=== PATIENT | female | born 1955 | race Caucasian/White ===

== ENCOUNTER 2017-03-18 21:51 | Emergency (ER) | payer BC, OTHER ==
[2017-03-19 00:32] VITALS: BP 140/70
[2017-03-19] MEDS ORDERED: Azithromycin TAB* 250 MG PO ONE (01:41)
--- NOTE | 2017-03-19 01:44 | ED ---
Riki Covarrubias Alok, scribed for Nakul Smith MD on 03/19/17 at 0043 . Respiratory - HPI Summary HPI Summary: 61F presents with a productive-cough with green sputum for the last 3-4 days. Pt also notes fatigue as well as a rash on the left ankle with erythema and purulent drainage. Pt has been using her inhaler and drinking fluids which have been improving her condition. PMHx includes asthma and DM. PCP Dr. Kenney. - History of Current Complaint Chief Complaint: EDUpperRespComplaint Stated Complaint: UPPER RESPIRATORY COMPLAINT/LEFT ANKLE INJURY Time Seen by Provider: 03/19/17 00:34 Hx Obtained From: Patient Onset/Duration: Lasting Days, Still Present Timing: Constant Initial Severity: Moderate Current Severity: Moderate Pain Intensity: 0 Character: Cough (Productive) Sputum Color: Green Aggravating Factor(s): Nothing - Allergy/Home Medications Allergies/Adverse Reactions: Allergies Allergy/AdvReac Type Severity Reaction Status Date / Time Prochlorperazine Allergy Anaphylatic Verified 05/19/14 00:31 [From Compazine] Shock PMH/Surg Hx/FS Hx/Imm Hx Endocrine/Hematology History: Reports: Hx Diabetes, Hx Thyroid Disease Denies: Hx Anticoagulant Therapy Cardiovascular History: Reports: Hx Hypertension Denies: Hx Congestive Heart Failure Respiratory History: Denies: Hx Asthma History: Denies: Hx Renal Disease - Surgical History Surgery Procedure, Year, and Place: THYROIDECTOMY/MOR/KNEE SURGERY /1 C- SECTION/ Infectious Disease History: Denies: Traveled Outside the [place] in Last 30 Days - Family History Known Family History: Positive: Cardiac Disease, Hypertension, Diabetes - Social History Occupation: Retired Lives: With Family Alcohol Use: None Hx Substance Use: No Substance Use Type: Reports: None Hx Tobacco Use: No Smoking Status (MU): Never Smoked Tobacco Review of Systems Negative: Fever Positive: Cough Positive: Rash All Other Systems Reviewed And Are Negative: Yes Physical Exam Triage Information Reviewed: Yes Vital Signs On Initial Exam: Initial Vitals Temp Pulse Resp BP Pulse Ox 99.0 F 75 18 138/75 95 03/18/17 22:05 03/18/17 22:05 03/18/17 22:05 03/18/17 22:05 03/18/17 22:05 Vital Signs Reviewed: Yes Appearance: Positive: Well-Appearing, No Pain Distress Skin: Positive: Warm Head/Face: Positive: Normal Head/Face Inspection Eyes: Positive: TYE ENT: Positive: Hearing grossly normal Neck: Positive: Supple Respiratory/Lung Sounds: Positive: Clear to Auscultation, Breath Sounds Present Cardiovascular: Positive: RRR Abdomen Description: Positive: Nontender, Soft Bowel Sounds: Positive: Present Musculoskeletal: Positive: Strength/ROM Intact - no lesions seen Neurological: Positive: Alert, Oriented to Person Place, Time Psychiatric: Positive: Normal Diagnostics - Vital Signs Vital Signs Temp Pulse Resp BP Pulse Ox 03/19/17 00:00 98.7 F 77 14 140/70 99 03/18/17 22:05 99.0 F 75 18 138/75 95 - Laboratory Lab Statement: Any lab studies that have been ordered have been reviewed, and results considered in the medical decision making process. - Radiology CXR Xray Interpretation: No Acute Changes Radiology Interpretation Completed By: ED Physician - Dr. Smith Re-Evaluation - Re-Evaluation First Eval Re-Evaluation Time: 01:44 Change: Improved Comment: Discussed pt XRAY and lab results. Disposition - Diagnoses Provider Diagnoses: Bronchitis Discharge - Discharge Plan Condition: Improved Disposition: HOME Prescriptions: RX: Azithromycin TAB* [Zithromax TAB (Z-YELENA) 250 mg #6 tabs] 250 mg PO DAILY #4 tab Patient Education Materials: Acute Bronchitis (ED) Referrals: Igor Kenney MD [Primary Care Provider] - The documentation as recorded by the Riki mueller Alok accurately reflects the service I personally performed and the decisions made by me, Nakul Smith MD.
--- NOTE | 2017-03-19 07:55 | RAD ---
Indication: Cough. 2 views of the chest including dual energy PA views demonstrate no mediastinal shift. Heart is of normal size and configuration. Lung paz appear clear. IMPRESSION: No active cardiopulmonary disease is noted.
== END 2017-03-19 01:52 | disposition home or self-care (01) ==
LOC: ED 21:51
DX: J40 Bronchitis, not specified as acute or chronic (principal); R05 Cough; R21 Rash and other nonspecific skin eruption
CPT/HCPCS: 71020; 99282; A9270-GY

== ENCOUNTER 2017-12-28 17:22 | Emergency (ER) | payer BC, OTHER ==
--- NOTE | 2017-12-28 18:44 | RAD ---
INDICATION: Left elbow pain after a fall the previous day COMPARISON: None. TECHNIQUE: 5 views left elbow. REPORT: There is a left elbow joint effusion with approximately 5 mm of elevation of the posterior fat pad. There is linear density along the medial aspect of the medial upper condyle possibly representing an avulsion fracture. There is a questionably a nondisplaced impacted fracture of the left radial head with a faintly visible horizontal line seen on the AP view of the elbow. IMPRESSION: 1. There is a posterior left elbow effusion and questionable nondisplaced fracture involving the left radial head. 2. Bony density immediately lateral and adjacent to the medial upper condyle is probably chronic in nature but could represent an avulsion injury if this correlates to the focality of the patient's pain.
--- NOTE | 2017-12-28 20:32 | ED ---
Ibrahima Covarrubias Natalie, scribed for Jan Arroyo MD on 12/28/17 at 2013 . Upper Extremity Pain - HPI Summary HPI Summary: The pt is a 62 y/o F presenting to the ED c/o pain in left elbow radiating to wrist and hand s/p falling on it yesterday. The pain is rated 5/10 in severity. She is currently being seen by Dr. Sinha for a possible rotator cuff injury, for which she has been prescribed Hydrocodone. She took Hydrocodone 3x since yesterday to treat the pain [employer] to little relief. The pain is aggravated by rotating her arm. The pain is alleviated by holding her arm to her chest. Pt additionally c/o small laceration to forehead. Pt denies LOC. - History of Current Complaint Chief Complaint: EDExtremityUpper Stated Complaint: FALL Time Seen by Provider: 12/28/17 19:53 Hx Obtained From: Patient Mechanism Of Injury: Fall From A Standing Position Onset/Duration: Started Hours Ago - yesterday, Traumatic Severity Initially: Moderate Severity Currently: Moderate Pain Location: Elbow Aggravating Factor(s): Twisting Alleviating Factor(s): Other - holding arm to chest Associated Signs & Symptoms: Positive: Other - small laceration to head, no LOC - Allergies/Home Medications Allergies/Adverse Reactions: Allergies Allergy/AdvReac Type Severity Reaction Status Date / Time prochlorperazine Allergy Anaphylatic Verified 12/28/17 17:44 [From Compazine] Shock PMH/Surg Hx/FS Hx/Imm Hx Endocrine/Hematology History: Reports: Hx Diabetes, Hx Thyroid Disease Denies: Hx Anticoagulant Therapy Cardiovascular History: Reports: Hx Hypertension Denies: Hx Congestive Heart Failure, Hx Pacemaker/ICD Respiratory History: Denies: Hx Asthma History: Reports: Hx Renal Disease - STAGE III Sensory History: Denies: Hx Hearing Aid Psychiatric History: Denies: Hx Panic Disorder - Surgical History Surgery Procedure, Year, and Place: THYROIDECTOMY. CHOLECYSTECTOMY. CARO KNEE SURGERY- REPAIR. . T & A. Lt BREAST - BIOPSY - BENIGN Infectious Disease History: No Infectious Disease History: Denies: Traveled Outside the [place] in Last 30 Days - Family History Known Family History: Positive: Cardiac Disease, Hypertension, Diabetes - Social History Alcohol Use: None Hx Substance Use: No Substance Use Type: Reports: None Hx Tobacco Use: No Smoking Status (MU): Never Smoked Tobacco Review of Systems Positive: Other - left elbow pain Positive: Other - small laceration to forehead Neurological: Negative - LOC All Other Systems Reviewed And Are Negative: Yes Physical Exam - Summary Physical Exam Summary: Appearance: The patient is well-nourished in no acute distress and in no acute pain. Skin: The skin is warm and dry and skin color reflects adequate perfusion. There is a 1.5 superficial lacteration on the front round of the patient's head. HEENT: The head is normocephalic and atraumatic. The pupils are equal and reactive. The conjunctivae are clear and without drainage. Nares are patent and without drainage. Mouth reveals moist mucous membranes and the throat is without erythema and exudate. The external ears are intact. The ear canals are patent and without drainage. The tympanic membranes are intact. Neck: the neck is supple with full range of motion and non-tender. There are no carotid bruits. There is no neck vein distension. Respiratory: Chest is non-tender. Lungs are clear to auscultation and breath sounds are symmetrical and equal. Cardiovascular: Heart is regular rate and rhythm. There is no murmur or rub auscultated. There is no peripheral edema and pulses are symmetrical and equal. Abdomen: The abdomen is soft and non-tender. There are normal bowel sounds heard in all four quadrants and there is no organomegaly palpated. Musculoskeletal: There is no back tenderness noted. Extremities are non-tender with full range of motion, except there is tenderness to range of motion in left elbow with distal neurovascular in tact. There is good capillary refill. There is no peripheral edema or calf tenderness elicited. Neurological: Patient is alert and oriented to person, place and time. The patient has symmetrical motor strength in all four extremities. Cranial nerves are grossly intact. Deep tendon reflexes are symmetrical and equal in all four extremities. Psychiatric: The patient has an appropriate affect and does not exhibit any anxiety or depression. Triage Information Reviewed: Yes Vital Signs On Initial Exam: Initial Vitals Temp Pulse Resp BP Pulse Ox 98.4 F 65 16 144/70 97 12/28/17 17:37 12/28/17 17:37 12/28/17 17:37 12/28/17 17:37 12/28/17 17:37 Vital Signs Reviewed: Yes Diagnostics - Vital Signs Vital Signs Temp Pulse Resp BP Pulse Ox 12/28/17 17:37 98.4 F 65 16 144/70 97 - Laboratory Lab Statement: Any lab studies that have been ordered have been reviewed, and results considered in the medical decision making process. - Radiology Elbow XR Xray Interpretation: Positive (See Comments) - 1. There is a posterior left elbow effusion and questionable nondisplaced fracture involving the left radial head. 2. Bony density immediately lateral and adjacent to the medial upper condyle is probably chronic in nature but could represent an avulsion injury if this correlates to the focality of the patient's pain. ED physician has reviewed this report. Radiology Interpretation Completed By: Radiologist Course/Dx - Course Course Of Treatment: Ms. Guallpa fell yesterday and hurt her left elbow. She has a probable rotator cuff on the left being W/U'd by Dr. Sinha and it was very hard to get up out of bed etc. She was found to have a radial head fracture with a joint effusion and placed in a sling to F/U first of the week with Dr. Sinha. - Diagnoses Provider Diagnoses: Radial head fracture Discharge - Sign-Out/Discharge Documenting (check all that apply): Discharge/Admit/Transfer - Discharge Plan Condition: Stable Disposition: HOME Prescriptions: oxyCODONE/Acetamin 5/325 MG* [Percocet 5/325 TAB*] 1 tab PO Q6H PRN #20 tab MDD 4 PRN Reason: Pain Patient Education Materials: Elbow Fracture (ED) Referrals: Igor Kenney MD [Primary Care Provider] - Etienne Sinha MD [Medical Doctor] - 3 Days Additional Instructions: Take Percocet as prescribed. Follow up with Dr. Sinha next week. Return to the emergency department for any new or worsening symptoms. - Billing Disposition and Condition Condition: STABLE Disposition: HOME The documentation as recorded by the Ibrahima mueller Natalie accurately reflects the service I personally performed and the decisions made by , Jan Arroyo MD.
[2017-12-28 20:53] VITALS: BP 144/78
== END 2017-12-28 20:40 | disposition home or self-care (01) ==
LOC: ED 17:22
DX: S52.122A Displaced fracture of head of left radius, initial encounter for closed fracture (principal); M25.522 Pain in left elbow; S01.81XA Laceration without foreign body of other part of head, initial encounter; W19.XXXA Unspecified fall, initial encounter; Y92.9 Unspecified place or not applicable
CPT/HCPCS: 99282

== ENCOUNTER 2018-02-04 18:14 | Emergency (ER) | payer BC, OTHER ==
[2018-02-04] MEDS ORDERED: Tetan/Diph/Pertus SYR(Tdap)* 0.5 ML SYR(BOOSTRIX) use SYR IM ONE (18:45)
--- NOTE | 2018-02-04 19:23 | RAD ---
INDICATION: LEFT elbow pain post fall. Ipsilateral elbow fracture one month ago. COMPARISON: January 17, 2018 TECHNIQUE: AP, lateral, and oblique views LEFT elbow. REPORT: Displaced anterior fat pad consistent with joint effusion similar to the prior exam. Mildly impacted fracture of the radial head involving approximate 30% of the articular surface demonstrates increased impaction compared with the prior exam suspicious for an acute component. Negative for additional fracture. Medial and lateral epicondyles bone spurs. Unremarkable soft tissue contours. IMPRESSION: Probable acute fracture at the site of previous radial head fracture as described.
--- OUTSIDE RECORDS SUMMARY | 2018-02-04 19:25 | XMS REPORT ---
:1955 External Reference #:[id number] [facility] [place] Address [address] [address] Phone [phone] Care Team Providers Name Role Phone Igor Kenney MD Primary Care Physician Unavailable Payers Type Date Identification Numbers Payment Provider Subscriber Commercial Effective: Policy Number: EVELYN Davin Guallpa 2014 [id number] PayID: [id number] [address] [address] BHAVIK Venegas [address] Commercial Policy Number: [id number] [facility] PayID: [id number] [address] [place] [address] Medigap Part B Expires: 2017 Policy Number: Paola Crete Nakul Guallpa [id number] [facility] PayID: [id number] [address] [place] [address] Medigap Part B Effective: 2010 Policy Number: EVELYN Leos ARAM Guallpa [id number] Expires: 2012 PayID: [id number] [address] [address] BHAVIK Venegas [address] Problems Date Description Provider Status Onset: 01/03/2018 Closed fracture of head of radius Alfonso Lopez MD Active Onset: 10/10/2017 Brachial neuritis Etienne Sinha M.D. Active Onset: 08/01/2017 Disorder of shoulder Etienne Sinha M.D. Active Onset: 06/20/2017 Sprain of shoulder and upper arm Etienne Sinha M.D. Active Onset: 06/20/2017 Localized, primary osteoarthritis Etienne Sinha M.D. Active Onset: 04/25/2017 Localized, secondary osteoarthritis Etienne Sinha M.D. Active Social History Type Date Description Comments Smoking Patient has never smoked Allergies, Adverse Reactions, Alerts Date Description Reaction Status Severity Comments 04/25/2017 Composine active Medications Medication Date Status Form Strength Qnty SIG Indications Ordering Provider Percocet 01/03 Active Tablets 5-325mg 30tab one S52.125A s tablet F every 4-6 Jessica, hours as MD needed for pain Voltaren 08/01 Active Gel 1% 500un Apply 3 M17.12 its Grams To Ernestine, Affected M.D. Area(S) Two To Three Times A Day as Needed [employer] 06/20 Active Tablets 5-325mg 45tab one tab s by mouth Ernestine, every 6 M.D. hours as needed pain Aspirin Adult Low 04/25 Active Tablets 81mg 90tab take one DR lagunas tablet by harley Sinha M.DDahiana daily. Farxiga Active Tablets 10mg 1 by Unknown /0000 mouth every day Fluoxetine HCL Active Capsules 20mg 1 by Unknown (PMDD) /0000 mouth every day Meloxicam Active Tablets 15mg 1 by Unknown /0000 mouth every day Lisinopril Active Tablets 20mg 1 by Unknown /0000 mouth every day Hydrochlorothiazide Active Tablets 25mg 1 by Unknown /0000 mouth every day Levothyroxine Sodium Active Tablets 175mcg 1 by Unknown /0000 mouth every day Trulicity Active Solution 1.5mg/0.5 [place], /0000 Pen-Injec ML neyda Costa MD Atorvastatin Calcium Active Tablets 40mg 1 tab by Avel /0000 mouth , Lexie, daily [employer]ORDIN[employer] Gabapentin Active Capsules 300mg 1 capsule Unknown /0000 by mouth twice daily Endocet 07/26 Hx Tablets 5-325mg 40tab 1 po q 4 s hr prWil Zaragoza M.D. 04/24 Tramadol HCL 06/28 Hx Tablets 50mg 60tab 1 po q 4 s hr prWil Zaragoza M.D. 04/24 [employer] 06/09 Hx Tablets 5-325mg 40tab 1-2 po s q4-6h prn Wil Sinha M.D. 04/24 Ultram 01/05 Hx Tablets 50mg 60tab 1-2 po s qid prWil ZaragozaDDahiana 04/24 Vicodin 12/01 Hx Tablets 5-500mg 45tab 1-2 tabs s by mouth Wil Sinha every 4 M.D. 04/24 hours needed Medications Administered in Office Medication Date Status Form Strength Qnty SIG Indications Ordering Provider Depomedrol Administered Injection Etienne 40MG 017 Mary Sinha Vital Signs Date Vital Result Comment 01/17/2018 Height 61 inches 5'1" Weight 195.00 lb Heart Rate 78 /min Respiratory Rate 17 /min Pain Level 5 BMI (Body Mass Index) 36.8 kg/m2 01/03/2018 Height 61 inches 5'1" Weight 190.00 lb Heart Rate 81 /min BP Systolic Sitting 145 mmHg BP Diastolic Sitting 78 mmHg Respiratory Rate 16 /min Body Temperature 98.3 F Pain Level 2 BMI (Body Mass Index) 35.9 kg/m2 10/10/2017 Height 61 inches 5'1" Weight 190.00 lb Heart Rate 80 /min BP Systolic Sitting 138 mmHg LA lg cuff BP Diastolic Sitting 78 mmHg LA lg cuff Pain Level 2 BMI (Body Mass Index) 35.9 kg/m2 08/29/2017 Height 61 inches 5'1" Weight 190.00 lb per pt Heart Rate 76 /min reg BP Systolic Sitting 130 mmHg Lue, lg cuff BP Diastolic Sitting 84 mmHg Lue, lg cuff Respiratory Rate 16 /min Pain Level 1 right shoulder BMI (Body Mass Index) 35.9 kg/m2 08/01/2017 Height 61 inches 5'1" Weight 190.00 lb BP Systolic 120 mmHg BP Diastolic 82 mmHg Respiratory Rate 20 /min Pain Level 8 BMI (Body Mass Index) 35.9 kg/m2 06/20/2017 Height 61 inches 5'1" Weight 190.00 lb Heart Rate 70 /min BP Systolic 122 mmHg BP Diastolic 65 mmHg Body Temperature 97.9 F Pain Level 3 BMI (Body Mass Index) 35.9 kg/m2 04/25/2017 Height 61 inches 5'1" Weight 194.00 lb Heart Rate 68 /min BP Systolic 134 mmHg BP Diastolic 82 mmHg Respiratory Rate 18 /min Body Temperature 99.0 F Pain Level 0 BMI (Body Mass Index) 36.7 kg/m2 Results Description No Information Procedures Date CPT Code Description Status 01/03/2018 13021 Closed Treatment Radial Head Or Neck FX W/O Completed Manipulation 08/01/201746505 Inject/Drain Joint/Bursa Major Completed 07/26/2011 18705 Xray Knee 3 Views Completed 07/26/2011 09638 Xray Knee 3 Views Completed 07/26/2011 75666 Rad Exam; Knee, Ap&L Completed 07/26/2011 79586 Rad Exam; Knee, Ap&L Completed 06/15/2011 71527 Rad Exam; Knee, Ap&L Completed 06/05/201112476 Removal Implant Deep Wire,Screw Nail, Or Plate Completed 06/05/201105670 Removal Implant Deep Wire,Screw Nail, Or Plate Completed 05/16/2011 10628 Rad Exam; Knee, Ap&L Completed 12/14/2010 17421 Rad Exam; Knee, Ap&L Completed 12/02/2010 41377 Open TX Of Patellar FX W/Internal Fixation And/Or Completed Partial Patelle 12/02/2010 19140 Open TX Of Patellar FX W/Internal Fixation And/Or Completed Partial Patelle 12/01/2010 55613 Rad Exam; Knee, Ap&L Completed 11/23/2010 40901 Rad Exam; Knee, Ap&L Completed 11/17/2010 23042 FX Patella Care Completed Encounters Type Date Location Provider CPT E/M Dx Office Visit 10/10/2017 [facility] Etienne Sinha 14954 S46.011D 2:30p Of Brant Hernandez M17.12 M54.12 R20.2 Office Visit 08/29/2017 1:00p [facility] Etienne Sinha 42410 S46.011D Of Brant Hernandez M17.12 Office Visit 08/01/2017 3:45p [facility] Etienne Sinha 86670 M75.41 Brant Hernandez M17.12 Office Visit 06/20/2017 4:00p [facility] Etienne Sinha 44282 M17.12 Brant Hernandez S46.011A Office Visit 04/25/2017 2:30p [facility] Etienne Sinha, 81673 M17.32 Brant Hernandez Office Visit 08/09/2011 1:15p [facility] Et[facility] Sinha, 43971 844.8 C.MKirsty Hernandez Office Visit 07/26/2011 2:45p [facility] Marge Riggins, 17586 844.9 C.Loli RPA-C 844.8 717.9 Office Visit 05/16/2011 4:45p [facility] Etienne Sinha, 12715 996.78 C.Loli Hernandez Office Visit 12/01/2010 4:00p [facility] Sinha, 61578 822.0 Brant Hernandez Plan of Care Future Appointment(s):02/18/2018 3:15 pm - Alfonso Lopez MD at [facility]02/06/2018 11:00 am - Etienne Sinha M.D. at [facility]01/17/2018 - Alfonso Lopez, MDS52.125A Nondisp fx of head of left radius, init for clos fxNew Therapy:Physical TherapyFollow up:Follow up: 1 month
--- NOTE | 2018-02-04 19:26 | ED ---
Upper Extremity Pain - HPI Summary HPI Summary: 62-year-old female presents with left elbow injury today. She states that she has a history of unbalance and that she tripped on something and landed on her left elbow. She also admits to back pain is in the same location as her previous back pain. She states that she might of pulled something when she fell. She denies any head injury or loss conscious. No other injury. Has full range of motion back and elbow. Had previous fracture to the left elbow month ago that is still heal. her tetanus is not up-to-date. There is no active bleeding. She is diabetic. - History of Current Complaint Chief Complaint: EDLacSutureRecheck Stated Complaint: LT ELBOW INJURY Time Seen by Provider: 02/04/18 18:22 - Allergies/Home Medications Allergies/Adverse Reactions: Allergies Allergy/AdvReac Type Severity Reaction Status Date / Time prochlorperazine Allergy Anaphylatic Verified 02/04/18 18:20 [From Compazine] Shock PMH/Surg Hx/FS Hx/Imm Hx Endocrine/Hematology History: Reports: Hx Diabetes, Hx Thyroid Disease Denies: Hx Anticoagulant Therapy Cardiovascular History: Reports: Hx Hypertension Denies: Hx Congestive Heart Failure, Hx Pacemaker/ICD Respiratory History: Denies: Hx Asthma History: Reports: Hx Renal Disease - STAGE III Sensory History: Denies: Hx Hearing Aid Psychiatric History: Denies: Hx Panic Disorder - Surgical History Surgery Procedure, Year, and Place: THYROIDECTOMY. CHOLECYSTECTOMY. CARO KNEE SURGERY- REPAIR. . T & A. Lt BREAST - BIOPSY - BENIGN Infectious Disease History: No Infectious Disease History: Denies: Traveled Outside the [place] in Last 30 Days - Family History Known Family History: Positive: Cardiac Disease, Hypertension, Diabetes - Social History Alcohol Use: None Hx Substance Use: No Substance Use Type: Reports: None Hx Tobacco Use: No Smoking Status (MU): Never Smoked Tobacco Review of Systems Negative: Fever Negative: Chest Pain Negative: Shortness Of Breath Positive: Myalgia - back pain, left elbow pain Positive: Other - left elbow lac All Other Systems Reviewed And Are Negative: Yes Physical Exam Triage Information Reviewed: Yes Vital Signs On Initial Exam: Initial Vitals Temp Pulse Resp BP Pulse Ox 98.1 F 74 16 130/75 97 02/04/18 18:17 02/04/18 18:17 02/04/18 18:17 02/04/18 18:17 02/04/18 18:17 Vital Signs Reviewed: Yes Appearance: Positive: Well-Appearing Skin: Positive: Warm, Dry, Other - 5cm superficial to 1/2cm wide at end of left elbow Head/Face: Positive: Normal Head/Face Inspection Eyes: Positive: Normal, Conjunctiva Clear Respiratory/Lung Sounds: Positive: Clear to Auscultation, Breath Sounds Present Cardiovascular: Positive: Normal, RRR Musculoskeletal: Positive: Strength/ROM Intact - left elbow, back, Other - tenderness left elbow, good pulse, sensation grossly intact Neurological: Positive: Normal Psychiatric: Positive: Normal Procedures - Laceration/Wound Repair 1 Location: Other - left elbow Description: Linear Anesthesia: Local, 1.0%, Epi Length, Depth and Shape: 5cm by 1/2cm Irrigated w/ Saline (ccs): 100 Closure: Skin Adhesive, Single Layer Suture Type: Prolene Number of Sutures: 3 Diagnostics - Vital Signs Vital Signs Temp Pulse Resp BP Pulse Ox 02/04/18 18:17 98.1 F 74 16 130/75 97 - Laboratory Lab Statement: Any lab studies that have been ordered have been reviewed, and results considered in the medical decision making process. - Radiology elbow Xray Interpretation: Positive (See Comments) - IMPRESSION: Probable acute fracture at the site of previous radial head fracture as described. Radiology Interpretation Completed By: Radiologist Course/Dx - Course Course Of Treatment: 62-year-old female presents with left elbow injury today. She states that she has a history of unbalance and that she tripped on something and landed on her left elbow. She also admits to back pain is in the same location as her previous back pain. She states that she might of pulled something when she fell. She denies any head injury or loss conscious. No other injury. Has full range of motion back and elbow. Had previous fracture to the left elbow month ago that is still heal. her tetanus is not up-to-date. There is no active bleeding. She is diabetic. On exam has laceration left elbow. neurovascular intact. Full range of motion left elbow. Tenderness lower back. Laceration gets wider as it goes down. Place glue one end and 3 stitches on the other. X-ray shows possible acute fx so will have follow up with ortho. has apt with tisha this week. Told to keep the area clean. Patient understands agrees with plan. - Diagnoses Differential Diagnosis/HQI/PQRI: Positive: Fracture (Closed), Strain, Sprain Provider Diagnoses: Laceration of left elbow, Left radial head fracture, Back pain Discharge - Sign-Out/Discharge Documenting (check all that apply): Discharge/Admit/Transfer - Discharge Plan Condition: Good Disposition: HOME Prescriptions: oxyCODONE/Acetamin 5/325 MG* [Percocet 5/325 TAB*] 1 tab PO Q6H PRN #16 tab MDD 4 PRN Reason: Pain Patient Education Materials: Care For Your Stitches (ED), Elbow Fracture (ED) Referrals: Igor Kenney MD [Primary Care Provider] - Bessie Akbar MD [Medical Doctor] - Additional Instructions: Take Tylenol or ibuprofen for pain, use narcotic for break through pain every 6 hours keep in sling ice Keep area clean and dry for 24 hours Return to ED or primary in 10-14 days to have sutures removed Return to ED if develop signs of infection such as fever, spreading redness, or pus - Billing Disposition and Condition Condition: GOOD Disposition: Home
[2018-02-04] MEDS ORDERED: Ketorolac INJ* 30 MG/ML 1 ML VIAL IM ONE (19:28)
[2018-02-04 19:52] VITALS: BP 146/82
== END 2018-02-04 19:52 | disposition home or self-care (01) ==
LOC: ED 18:14
DX: S51.012A Laceration without foreign body of left elbow, initial encounter (principal); W01.0XXA Fall on same level from slipping, tripping and stumbling without subsequent striking against object, initial encounter; Y93.9 Activity, unspecified; Y92.9 Unspecified place or not applicable; Z23 Encounter for immunization; M54.9 Dorsalgia, unspecified; E07.9 Disorder of thyroid, unspecified; E11.22 Type 2 diabetes mellitus with diabetic chronic kidney disease; I12.9 Hypertensive chronic kidney disease with stage 1 through stage 4 chronic kidney disease, or unspecified chronic kidney disease; N18.3 Chronic kidney disease, stage 3 (moderate); Z88.8 Allergy status to other drugs, medicaments and biological substances; Z82.49 Family history of ischemic heart disease and other diseases of the circulatory system; Z83.3 Family history of diabetes mellitus
CPT/HCPCS: 12002; 90471; 90715; 96372; 99283; J1885

== ENCOUNTER 2018-02-16 12:48 | Emergency (ER) | payer BC, OTHER ==
--- OUTSIDE RECORDS SUMMARY | 2018-02-16 12:53 | XMS REPORT ---
:1955 External Reference #:[id number] Author Organization [employer] Address [address] [place] [address] [place] [address] Phone [phone] Care Team Providers Name Role Phone Igor Kenney MD Primary Care Physician Unavailable Payers Type Date Identification Numbers Payment Provider Subscriber Commercial Effective: Policy Number: EVELYN Davin Guallpa 2014 [id number] PayID: [id number] [address] [address] BHAVIK Venegas [address] Commercial Policy Number: [id number] [facility] PayID: [id number] [address] [place] [address] Medigap Part B Expires: 2017 Policy Number: Paola [place] Nakul Guallpa [id number] [facility] PayID: [id number] [address] [place] [address] Medigap Part B Effective: 2010 Policy Number: BS [place] ARAM Guallpa [id number] Expires: 2012 PayID: [id number] [address] [address] BHAVIK Venegas [address] Problems Date Description Provider Status Onset: 01/03/2018 Closed fracture of head of radius Alfonso Lopez MD Active Onset: 10/10/2017 Brachial neuritis Etienne Sinha M.D. Active Onset: 08/01/2017 Disorder of shoulder Etienne Sniha M.D. Active Onset: 06/20/2017 Sprain of shoulder [...] Form Strength Qnty SIG Indications Ordering Provider Cyclobenzaprine HCL 02/06 Active Tablets 10mg 60tab take 1 S52.122D s tablet up Ernestine, to three M.D. times a day as needed Percocet 01/03 Active Tablets 5-325mg 30tab one S52.125A s tablet F every 4-6 Jessica, hours as MD needed for pain Voltaren 08/01 Active Gel 1% 500un Apply 3 M17.12 its Grams To Ernestine, Affected M.D. Area(S) Two To Three Times A Day as Needed Oakwood 06/20 Active Tablets 5-325mg 45tab one tab s by mouth Ernestine, every 6 M.D. hours as needed pain Aspirin Adult Low 04/25 Active Tablets 81mg 90tab take one s tablet by Ernestine, mouth M.D. daily. Farxiga Active Tablets 10mg 1 by [...] mouth every day Trulicity Active Solution 1.5mg/0.5 [place], /0000 Pen-Injec ML neyda Costa MD Atorvastatin Calcium Active Tablets 40mg 1 tab by Avel /0000 mouth , Lexie, daily [employer] Gabapentin Active Capsules 300mg 1 capsule Unknown /0000 by mouth twice daily Endocet 07/26 Hx Tablets 5-325mg 40tab 1 po q 4 s hr prn Wil Sinha M.D. 04/24 Tramadol HCL 06/28 Hx Tablets 50mg 60tab 1 po q 4 s hr prn Wil Sinha M.D. 04/24 Oakwood 06/09 Hx Tablets 5-325mg 40tab 1-2 po s q4-6h prn Wil Sinha M.D. 04/24 Ultram 01/05 Hx Tablets 50mg 60tab 1-2 po s qid prWil Zaragoza M.D. 04/24 Vicodin 12/01 Hx Tablets 5-500mg 45tab 1-2 tabs s by mouth Wil Sinha every 4 M.DDahiana 04/24 hours needed Medications Administered in Office Medication Date Status Form Strength Qnty SIG Indications Ordering Provider Depomedrol Administered Injection Etienne 40MG 017 Mary Sinha Vital Signs Date Vital Result Comment 02/06/2018 Height 61 inches 5'1" Weight 210.00 lb Heart Rate 76 /min BP Systolic 124 mmHg BP Diastolic 72 mmHg Respiratory Rate 14 /min Body Temperature 97.8 F Pain Level 7 BMI (Body Mass Index) 39.7 kg/m2 01/17/2018 Height 61 inches 5'1" Weight 195.00 [...] Information Procedures Date CPT Code Description Status 08/01/201731898 Inject/Drain Joint/Bursa Major W/O US Completed 07/26/2011 74641 Xray Knee 3 Views Completed 07/26/2011 47497 Xray Knee 3 Views Completed 07/26/2011 17440 Rad Exam; Knee, Ap&L Completed 07/26/2011 16188 Rad Exam; Knee, Ap&L Completed 06/15/2011 09081 Rad Exam; Knee, Ap&L Completed 06/05/201113323 Removal Implant Deep Wire,Screw Nail, Or Plate Completed 06/05/201188592 Removal Implant Deep Wire,Screw Nail, Or Plate Completed 05/16/2011 15432 Rad Exam; Knee, Ap&L Completed 12/14/2010 41362 Rad Exam; Knee, Ap&L Completed 12/02/2010 42166 Open TX Of Patellar FX W/Internal Fixation And/Or Completed Partial Patelle 12/02/2010 32154 Open TX Of Patellar FX W/Internal Fixation And/Or Completed Partial Patelle 12/01/2010 77750 Rad Exam; Knee, Ap&L Completed 11/23/2010 25216 Rad Exam; Knee, Ap&L Completed 11/17/2010 02312 FX Patella Care Completed Encounters Type Date Location Provider CPT E/M Dx Office Visit 01/17/2018 [facility] Alfonso Lopez 84180 S52.125A 11:15a Of Brant SERNA S52.122D Office Visit 01/03/2018 10:45a [facility] Alfonso Ellis 30676 S52.125A Of rBant Lopez MD S52.122A Office Visit 10/10/2017 2:30p [facility] Etienne Sinha 23283 S46.011D Of C.Loli Hernandez M17.12 M54.12 R20.2 Office Visit 08/29/2017 1:00p [facility] Mary Cesar S46.011D Of C.M.Pawan Hernandez M17.12 Office Visit 08/01/2017 3:45p [facility] Of Etienne Sinha 29179 M75.41 C.M.Pawan Hernandez M17.12 Office Visit 06/20/2017 4:00p [facility] Etienne Sinha 11730 M17.12 C.Loli Hernandez S46.011A Office Visit 04/25/2017 2:30p [facility] Etienne Sinha 06162 M17.32 C.M.Pawan MYamile Office Visit 08/09/2011 1:15p [facility] Of Etienne Sinha 87382 844.8 C.M.A. M.D. Office Visit 07/26/2011 2:45p [facility] Of Marge Riggins 44962 844.9 C.M.A. RPA-C 844.8 717.9 Office Visit 05/16/2011 4:45p [facility] Of Etienne Sinha 14269 996.78 C.M.A. MDahianaD. Office Visit 12/01/2010 4:00p [facility] Etienne Sinha 18517 822.0 C.M.A. M.D. Plan of Care 02/06/2018 - Etienne Sinha M.D.S52.122D Disp fx of head of left rad, subs for clos fx w ulisesn healNew Medication:Cyclobenzaprine HCL 10 mgFollow up:Call if PT needed for the back Call if shoulder re-eval needed
[2018-02-16 12:57] VITALS: BP 137/74
--- NOTE | 2018-02-16 13:20 | UC ---
Debbie Covarrubias Julia, scribed for Aakash [place] MD on 02/16/18 at 1312 . HPI Wound/Suture Re-check - HPI Summary HPI Summary: This patient is a 62 year old F presenting to [facility] for removal of stitches that were placed at [facility] 11 days ago after she tripped and lacerated her left upper arm on a tray. Patient states that three stitches were placed, however, she states that now only one is visible. Denies pain. Denies allergies. - History Of Current Complaint Chief Complaint: UCSkin Stated Complaint: SUTURE REMOVAL Hx Obtained From: Patient Onset/Duration: Lasting Days Severity: Mild Pain Intensity: 0 Pain Scale Used: 0-10 Numeric - Allergies/Home Medications Allergies/Adverse Reactions: Allergies Allergy/AdvReac Type Severity Reaction Status Date / Time prochlorperazine Allergy Anaphylatic Verified 02/16/18 12:57 [From Compazine] Shock Home Medications: Home Medications Dulaglutide [Trulicity] 0.75 mg SQ 02/16/18 [History] Insulin Glargine,Hum.rec.anlog [Lantus Solostar 5x3 ML PENS] 0 units SUBCUT DAILY 02/16/18 [History Confirmed 02/16/18] Insulin Lispro [Humalog Kwikpen] 100 unit SC 02/16/18 [History] PMH/Surg Hx/FS Hx/Imm Hx Endocrine History: Thyroid Disease Psychological History: Other Other Psychological History: negative Other History Of: Negative For: Anticoagulant Therapy - Surgical History Surgical History: Yes Surgery Procedure, Year, and Place: THYROIDECTOMY. CHOLECYSTECTOMY. CARO KNEE SURGERY- REPAIR. . T & A. Lt BREAST - BIOPSY - BENIGN - Family History Known Family History: Positive: Cardiac Disease, Hypertension, Diabetes - Social History Alcohol Use: Occasionally Substance Use Type: None Smoking Status (MU): Never Smoked Tobacco Review of Systems Constitutional: Negative Skin: Other - healed laceration to left upper arm, with stitches Eyes: Negative Respiratory: Negative Cardiovascular: Negative Gastrointestinal: Negative Genitourinary: Negative Motor: Other - foot drop Neurovascular: Negative Musculoskeletal: Negative Neurological: Other - balance difficulty Psychological: Negative Is Patient Immunocompromised?: No All Other Systems Reviewed And Are Negative: Yes Physical Exam - Summary Physical Exam Summary: Appearance: Well-Appearing, No Pain Distress, Well-Nourished Eyes: conjunctiva clear, no discharge ENT: Hearing grossly normal, no muffled/hoarse voice. Neck: Normal, Supple Respiratory/Lung Sounds: Lungs clear, Normal breath sounds, No respiratory distress, No accessory muscle use Cardiovascular: RRR, No murmur Abdomen: Nontender, Soft, no guarding, not distended Bowel Sounds: Present Musculoskeletal: Normal Neurological: Alert, muscle tone normal Psychiatric:Normal, age appropriate behavior Skin: Normal, Warm, Dry, Normal color, Laceration well healed on left arm with mild erythema at site of suture, no sign of infection, no drainage Triage Information Reviewed: Yes Vital Signs: Initial Vital Signs Temp 98.7 F 02/16/18 12:53 Pulse 92 02/16/18 12:53 Resp 18 02/16/18 12:53 BP 137/74 02/16/18 12:53 Pulse Ox 98 02/16/18 12:53 Vital Signs Reviewed: Yes Course/Dx - Course Course Of Treatment: During the visit today, I removed 1 suture from her left posterior arm , though she had 3 sutures put in 11 days ago. I can see th emarks of other sutures. She has mild erythema , so plan to monitor it and use topical antibiotic if needed. I will prescribe the medication to the pharmacy . Patient expressed understanding . - Differential Dx - Laceration/Wound Provider Diagnoses: Laceration. suture removal Discharge - Sign-Out/Discharge Documenting (check all that apply): Discharge/Admit/Transfer - Discharge Plan Condition: Stable Disposition: HOME Prescriptions: Mupirocin 2% CREAM* [Bactroban 2% CREAM*] 1 applic TOPICAL BID 5 Days #1 tube Patient Education Materials: Stitches Removal (ED) Referrals: Igor Kenney MD [Primary Care Provider] - 1 Week Additional Instructions: Start topical application of the antibiotic if redness in left arm increases. . It has been prescribed to the pharmacy . Follow up with your primary care doctor in 1 week . Return to Urgent care / ER if symptoms get worse. - Billing Disposition and Condition Condition: STABLE Disposition: Home The documentation as recorded by the Debbie mueller Julia accurately reflects the service I personally performed and the decisions made by me, Aakash [place] MD.
== END 2018-02-16 13:20 | disposition home or self-care (01) ==
LOC: UCEAST 12:48
DX: Z48.02 Encounter for removal of sutures (principal)

== ENCOUNTER 2019-04-26 21:14 | Emergency (ER) | payer BC, OTHER ==
[2019-04-26 21:22] VITALS: BP 177/55
--- NOTE | 2019-04-26 21:41 | ED ---
Upper Extremity Pain - HPI Summary HPI Summary: This patient is a 63 year old F presenting to [facility] accompanied by with a chief complaint of pain in right pinky finger since 04/23/19. She reports she slid out of bed, and used her hand to break the fall. On 04/23/19, the finger was not discolored, and on 04/25/19 it became colored. Per triage, the patient rates the pain 2/10 in severity. - History of Current Complaint Chief Complaint: EDExtremityUpper Stated Complaint: BROKEN RIGHT PINKY FINGER PER PT Time Seen by Provider: 04/26/19 21:36 Hx Obtained From: Patient Mechanism Of Injury: Fall From Height Of: Onset/Duration: Started Days Ago Timing: Constant Severity Initially: Mild Severity Currently: Mild Pain Location: Finger Aggravating Factor(s): Nothing Alleviating Factor(s): Nothing Associated Signs & Symptoms: Positive: Bruising - Allergies/Home Medications Allergies/Adverse Reactions: Allergies Allergy/AdvReac Type Severity Reaction Status Date / Time prochlorperazine Allergy Anaphylatic Verified 02/16/18 12:57 [From Compazine] Shock PMH/Surg Hx/FS Hx/Imm Hx Endocrine/Hematology History: Reports: Hx Diabetes - type 2, Hx Thyroid Disease Denies: Hx Anticoagulant Therapy Cardiovascular History: Reports: Hx Hypertension Denies: Hx Congestive Heart Failure, Hx Pacemaker/ICD Respiratory History: Denies: Hx Asthma History: Reports: Hx Renal Disease - STAGE III Sensory History: Denies: Hx Hearing Aid Psychiatric History: Denies: Hx Panic Disorder - Surgical History Surgery Procedure, Year, and Place: THYROIDECTOMY. CHOLECYSTECTOMY. CARO KNEE SURGERY- REPAIR. . T & A. Lt BREAST - BIOPSY - BENIGN Infectious Disease History: No Infectious Disease History: Denies: Traveled Outside the [place] in Last 30 Days - Family History Known Family History: Positive: Cardiac Disease, Hypertension, Diabetes - Social History Lives: With Family Alcohol Use: Occasionally Hx Substance Use: No Substance Use Type: Reports: None Hx Tobacco Use: No Smoking Status (MU): Never Smoked Tobacco Review of Systems Negative: Fever Positive: Other - pain in right pinky finger All Other Systems Reviewed And Are Negative: Yes Physical Exam - Summary Physical Exam Summary: Physical exam findings limited to right hand. Bruising of the distal phalanx, extension of ecchymosis in to proximal finger, no malat finger deformity, good ROM, no sign of tendon disruption. Triage Information Reviewed: Yes Vital Signs On Initial Exam: Initial Vitals Temp Pulse Resp BP Pulse Ox 98.2 F 83 16 177/55 98 04/26/19 21:15 04/26/19 21:15 04/26/19 21:15 04/26/19 21:15 04/26/19 21:15 Vital Signs Reviewed: Yes Diagnostics - Vital Signs Vital Signs Temp Pulse Resp BP Pulse Ox 04/26/19 21:15 98.2 F 83 16 177/55 98 - Laboratory Lab Statement: Any lab studies that have been ordered have been reviewed, and results considered in the medical decision making process. - Radiology Finger X-Ray Radiology Interpretation Completed By: ED Physician Summary of Radiographic Findings: Finger X-Ray reveals, per ED physician, negative for fracture. Pending official radiology report. Course/Dx - Course Course Of Treatment: This patient is a 63 year old F presenting to [facility] accompanied by with a chief complaint of pain in right pinky finger since 04/23/19. She reports she slid out of bed, and used her hand to break the fall. On 04/23/19, the finger was not discolored, and on 04/25/19 it became colored. Per triage, the patient rates the pain 2/10 in severity. Physical exam findings limited to right hand. Bruising of the distal phalanx, extension of ecchymosis in to proximal finger, no malat finger deformity, good ROM, no sign of tendon disruption. Finger X-Ray reveals, per ED physician, negative for fracture. Pending official radiology report. Patient will be discharged. The patient is agreeable with this plan. - Diagnoses Provider Diagnoses: Finger contusion Discharge ED - Sign-Out/Discharge Documenting (check all that apply): Patient Departure - Discharge Patient Received Moderate/Deep Sedation with Procedure: No - Discharge Plan Condition: Good Disposition: HOME Patient Education Materials: Contusion in Adults (ED) Referrals: Igor Kenney MD [Primary Care Provider] - If Needed - Billing Disposition and Condition Condition: GOOD Disposition: Home - Attestation Statements Document Initiated by Scribe: Yes Documenting Scribe: Reshma Burnham Provider For Whom Scribe is Documenting (Include Credential): Jan Chinchilla MD Scribe Attestation: I, Reshma Burnham, scribed for Jan Chinchilla MD on 04/27/19 at 0513. Scribe Documentation Reviewed: Yes Provider Attestation: The documentation as recorded by the yeisonibReshma reno accurately reflects the service I personally performed and the decisions made by me, Jan Chinchilla MD Status of Scribe Document: Viewed
== END 2019-04-26 21:46 | disposition home or self-care (01) ==
LOC: ED 21:14
DX: S60.051A Contusion of right little finger without damage to nail, initial encounter (principal); W06.XXXA Fall from bed, initial encounter; Y92.003 Bedroom of unspecified non-institutional (private) residence as the place of occurrence of the external cause; E11.9 Type 2 diabetes mellitus without complications; E07.9 Disorder of thyroid, unspecified; I10 Essential (primary) hypertension; Z79.4 Long term (current) use of insulin; Z79.899 Other long term (current) drug therapy; Z88.8 Allergy status to other drugs, medicaments and biological substances
CPT/HCPCS: 73140; 99282

== ENCOUNTER 2019-05-15 14:08 | Inpatient (IN) | payer BC, OTHER ==
[2019-05-15 15:11] LABS: ABS Eosinophils 0.1 10^3/ul (0-0.6); ABS Lymphocytes 0.6 10^3/ul (1.0-4.8); ABS Monocytes 0.9 10^3/ul (0-0.8); ABS Neutrophils 9.8 10^3/ul (1.5-7.7); Eosinophil % 0.5 %; Hematocrit 36 % (35-47); Hemoglobin 12.3 g/dL (12.0-16.0); Lymphocyte % 5.5 %; Mean Corpuscular HGB Conc 35 g/dL (31-36); Mean Corpuscular Hemoglobin 30 pg (27-31); Mean Corpuscular Volume 88 fL (80-97); Mean Platelet Volume 7.9 fL (7.4-10.4); Platelet Count 259 10^3/uL (150-450); Red Blood Count 4.04 10^6 /uL (3.70-4.87); Red Cell Distribution Width 14 % (10-15); White Blood Count 11.5 10^3/uL (3.5-10.8)
[2019-05-15 15:27] LABS: Albumin 4.2 g/dL (3.2-5.2); Albumin/Globulin Ratio 1.3 (1-3); BUN/Creatinine Ratio 22.5 (8-20); C Reactive Protein 219.91 mg/L (<8.01); Calcium 9.3 mg/dL (8.6-10.3); EGFR African American 46.9 (>60); EGFR Non-African American 38.7 (>60); Globulin 3.3 g/dL (2-4); Potassium 4.4 mmol/L (3.5-5.0); Total Bilirubin 1.2 mg/dL (0.2-1.0); Total Protein 7.5 g/dL (6.4-8.9)
[2019-05-15 16:27] LABS: Urine Appearance Turbid; Urine Bacteria 3+ (Absent); Urine Bilirubin Negative (Negative); Urine Blood 2+ (Negative); Urine Color Yellow; Urine Glucose 3+(>=500 mg/dL) (Negative); Urine Ketones Negative (Negative); Urine Nitrite Negative (Negative); Urine Protein 1+(30 mg/dL) (Negative); Urine Red Blood Cell 1+(3-5/hpf) (Absent); Urine Specific Gravity 1.018 (1.010-1.030); Urine Urobilinogen Negative (Negative); Urine White Blood Cell 3+(>20/hpf) (Absent)
[2019-05-15] MEDS ORDERED: cefTRIAXone(*) 1 GM in NS 0.9% 50 ML* 50 ML IVPB ONE (16:57)
[2019-05-15] MEDS ORDERED: NS 0.9% IV ONE (16:57)
[2019-05-15] MEDS ORDERED: NS 0.9% 50 ML* 50 ML ONE (17:23)
--- NOTE | 2019-05-15 17:42 | ED ---
Abdominal Pain/Female - HPI Summary HPI Summary: This patient is a 63 year old F presenting to [facility] accompanied by with a chief complaint of LLQ abdominal pain since 05/12/19. Patient states that she took her tempture and reports that it was 100.6 F. The patient rates the pain 0/ 10 in severity. Symptoms aggravated by nothing. Symptoms alleviated by nothing. Patient reports abdominal pain, back pain, dysuria, frequency. Allergies Allergy/AdvReac Type Severity Reaction Status Date / Time prochlorperazine Allergy Anaphylatic Verified 05/15/19 16:02 [From Compazine] Shock Home Medications Medication Instructions Recorded Confirmed Type Cyclobenzaprine TAB* [Flexeril 10 10 mg PO TID PRN 05/15/19 05/15/19 History MG TAB*] Dulaglutide (NF) [Trulicity (NF)] 1.5 mg SUBCUT WEEKLY 05/15/19 05/15/19 History Gabapentin CAP(*) [Neurontin 300 300 mg PO TID 05/15/19 05/15/19 History CAP(*)] Insulin Detemir (NF) [Levemir (NF)] 70 unit SUBCUT BID 05/15/19 05/15/19 History Insulin LISPRO* [HumaLOG*] 2 - 10 units SUBCUT TID WITH MEALS 05/15/19 05/15/19 History Levothyroxine TAB* [Synthroid TAB*] 175 mcg PO DAILY 05/15/19 05/15/19 History Lisinopril TAB* [Prinivil TAB*] 10 mg PO DAILY 05/15/19 05/15/19 History Lisinopril/HCTZ (NF) 1 tab PO DAILY 05/15/19 05/15/19 History [Zestoretic (NF)] Meloxicam(NF) [Mobic(NF)] 15 mg PO DAILY 05/15/19 05/15/19 History Oxybutynin TAB* [Ditropan TAB*] 2.5 mg PO TID 05/15/19 05/15/19 History metFORMIN* [Glucophage 500 MG TAB 500 mg PO DAILY 05/15/19 05/15/19 History *] - History of Current Complaint Chief Complaint: EDUrogenitalProblems Stated Complaint: FEVER/POSS UTI PER PT Time Seen by Provider: 05/15/19 16:55 Hx Obtained From: Patient ?: No Onset/Duration: Lasting Days - 05/12/19 Timing: Constant Severity Currently: None Pain Intensity: 0 Pain Scale Used: 0-10 Numeric Location: Discrete At: LLQ Radiates: Yes Radiates to: Back Character: Sharp Aggravating Factor(s): Nothing Alleviating Factor(s): Nothing Associated Signs and Symptoms: Positive: Fever - 100.6, Back Pain Allergies/Adverse Reactions: Allergies Allergy/AdvReac Type Severity Reaction Status Date / Time prochlorperazine Allergy Anaphylatic Verified 05/15/19 16:02 [From Compazine] Shock Home Medications: Home Medications Cyclobenzaprine TAB* [Flexeril 10 MG TAB*] 10 mg PO TID PRN 05/15/19 [History Confirmed 05/15/19] Dulaglutide (NF) [Trulicity (NF)] 1.5 mg SUBCUT WEEKLY 05/15/19 [History Confirmed 05/15/19] Gabapentin CAP(*) [Neurontin 300 CAP(*)] 300 mg PO TID 05/15/19 [History Confirmed 05/15/19] Insulin Detemir (NF) [Levemir (NF)] 70 unit SUBCUT BID 05/15/19 [History Confirmed 05/15/19] Insulin LISPRO* [HumaLOG*] 2 - 10 units SUBCUT TID WITH MEALS 05/15/19 [History Confirmed 05/15/19] Levothyroxine TAB* [Synthroid TAB*] 175 mcg PO DAILY 05/15/19 [History Confirmed 05/15/19] Lisinopril TAB* [Prinivil TAB*] 10 mg PO DAILY 05/15/19 [History Confirmed 05/15] Lisinopril/HCTZ 20/25(NF) [Zestoretic 20/25(NF)] 1 tab PO DAILY 05/15/19 [ History Confirmed 05/15/19] Meloxicam(NF) [Mobic(NF)] 15 mg PO DAILY 05/15/19 [History Confirmed 05/15/19] Oxybutynin TAB* [Ditropan TAB*] 2.5 mg PO TID 05/15/19 [History Confirmed ] metFORMIN* [Glucophage 500 MG TAB *] 500 mg PO DAILY 05/15/19 [History Confirmed 05/15/19] PMH/Surg Hx/FS Hx/Imm Hx Endocrine/Hematology History: Reports: Hx Diabetes - type 2, Hx Thyroid Disease Denies: Hx Anticoagulant Therapy Cardiovascular History: Reports: Hx Hypertension Denies: Hx Congestive Heart Failure, Hx Pacemaker/ICD Respiratory History: Denies: Hx Asthma History: Reports: Hx Renal Disease - STAGE III Sensory History: Denies: Hx Hearing Aid Psychiatric History: Denies: Hx Panic Disorder - Surgical History Surgical History: Yes Surgery Procedure, Year, and Place: THYROIDECTOMY. CHOLECYSTECTOMY. CARO KNEE SURGERY- REPAIR. . T & A. Lt BREAST - BIOPSY - BENIGN Infectious Disease History: No Infectious Disease History: Denies: Traveled Outside the [place] in Last 30 Days - Family History Known Family History: Positive: Cardiac Disease, Hypertension, Diabetes - Social History Alcohol Use: Occasionally Hx Substance Use: No Substance Use Type: Reports: None Hx Tobacco Use: No Smoking Status (MU): Never Smoked Tobacco Review of Systems Positive: Fever - 100.6 Positive: Abdominal Pain Positive: Other - back pain All Other Systems Reviewed And Are Negative: Yes Physical Exam - Summary Physical Exam Summary: Constitutional: Well-developed, Well-nourished, Alert. (-) Distressed Skin: Warm, Dry HENT: Normocephalic; Atraumatic Eyes: Conjunctiva normal Neck: Musculoskeletal ROM normal neck. (-) JVD, (-) Stridor, (-) Tracheal deviation Cardio: Rhythm regular, rate normal, Heart sounds normal; Intact distal pulses; The pedal pulses are 2+ and symmetric. Radial pulses are 2+ and symmetric. (-) Murmur Pulmonary/Chest wall: Effort normal. (-) Respiratory distress, (-) Wheezes, (-) Rales Abd: Soft, localized left sided tenderness, (-) Distension, (-) Guarding, (-) Rebound Musculoskeletal: (-) Edema Lymph: (-) Cervical adenopathy Neuro: Alert, Oriented x3 Psych: Mood and affect Normal Triage Information Reviewed: Yes Vital Signs On Initial Exam: Initial Vitals Temp Pulse Resp BP Pulse Ox 99.7 F 102 20 146/72 96 05/15/19 14:12 05/15/19 14:12 05/15/19 14:12 05/15/19 14:12 05/15/19 14:12 Vital Signs Reviewed: Yes Diagnostics - Vital Signs Vital Signs Temp Pulse Resp BP Pulse Ox 05/15/19 17:07 154/104 05/15/19 16:36 139/60 05/15/19 16:06 146/74 05/15/19 14:12 99.7 F 102 20 146/72 96 - Laboratory Lab Results: Lab Results 05/15/19 05/15/19 05/15/19 Range/Units 14:59 14:59 14:59 WBC 11.5 H (3.5-10.8) 10^3/uL RBC 4.04 (3.70-4.87) 10^6 /uL Hgb 12.3 (12.0-16.0) g/dL Hct 36 (35-47) % MCV 88 (80-97) fL MCH 30 (27-31) pg MCHC 35 (31-36) g/dL RDW 14 (10-15) % Plt Count 259 (150-450) 10^3/uL MPV 7.9 (7.4-10.4) fL Neut % (Auto) 85.6 % Lymph % (Auto) 5.5 % [place] % (Auto) 8.1 % Eos % (Auto) 0.5 % Baso % (Auto) 0.3 % Absolute Neuts (auto) 9.8 H (1.5-7.7) 10^3/ul Absolute Lymphs (auto) 0.6 L (1.0-4.8) 10^3/ul Absolute Monos (auto) 0.9 H (0-0.8) 10^3/ul Absolute Eos (auto) 0.1 (0-0.6) 10^3/ul Absolute Basos (auto) 0.0 (0-0.2) 10^3/ul Absolute Nucleated RBC 0.0 10^3/ul Nucleated RBC % 0.0 Sodium 129 L (135-145) mmol/L Potassium 4.4 (3.5-5.0) mmol/L Chloride 97 L (101-111) mmol/L Carbon Dioxide 24 (22-32) mmol/L Anion Gap 8 (2-11) mmol/L BUN 31 H (6-24) mg/dL Creatinine 1.38 H (0.51-0.95) mg/dL Est GFR ( Amer) 46.9 (>60) Est GFR (Non-Af Amer) 38.7 (>60) BUN/Creatinine Ratio 22.5 H (8-20) Glucose 496 H (70-100) mg/dL Lactic Acid 1.3 (0.5-2.0) mmol/L Calcium 9.3 (8.6-10.3) mg/dL Total Bilirubin 1.20 H (0.2-1.0) mg/dL AST 17 (13-39) U/L ALT 30 (7-52) U/L Alkaline Phosphatase 80 (34-104) U/L C-Reactive Protein 219.91 H (<8.01) mg/L Total Protein 7.5 (6.4-8.9) g/dL Albumin 4.2 (3.2-5.2) g/dL Globulin 3.3 (2-4) g/dL Albumin/Globulin Ratio 1.3 (1-3) Urine Color Urine Appearance Urine pH (5-9) Ur Specific [place] (1.010-1.030) Urine Protein (Negative) Urine Ketones (Negative) Urine Blood (Negative) Urine Nitrate (Negative) Urine Bilirubin (Negative) Urine Urobilinogen (Negative) Ur Leukocyte Esterase (Negative) Urine WBC (Auto) (Absent) Urine RBC (Auto) (Absent) Urine Bacteria (Absent) Urine Glucose (Negative) 05/15/19 Range/Units 16:02 WBC (3.5-10.8) 10^3/uL RBC (3.70-4.87) 10^6 /uL Hgb (12.0-16.0) g/dL Hct (35-47) % MCV (80-97) fL MCH (27-31) pg MCHC (31-36) g/dL RDW (10-15) % Plt Count (150-450) 10^3/uL MPV (7.4-10.4) fL Neut % (Auto) % Lymph % (Auto) % [place] % (Auto) % Eos % (Auto) % Baso % (Auto) % Absolute Neuts (auto) (1.5-7.7) 10^3/ul Absolute Lymphs (auto) (1.0-4.8) 10^3/ul Absolute Monos (auto) (0-0.8) 10^3/ul Absolute Eos (auto) (0-0.6) 10^3/ul Absolute Basos (auto) (0-0.2) 10^3/ul Absolute Nucleated RBC 10^3/ul Nucleated RBC % Sodium (135-145) mmol/L Potassium (3.5-5.0) mmol/L Chloride (101-111) mmol/L Carbon Dioxide (22-32) mmol/L Anion Gap (2-11) mmol/L BUN (6-24) mg/dL Creatinine (0.51-0.95) mg/dL Est GFR ( Amer) (>60) Est GFR (Non-Af Amer) (>60) BUN/Creatinine Ratio (8-20) Glucose (70-100) mg/dL Lactic Acid (0.5-2.0) mmol/L Calcium (8.6-10.3) mg/dL Total Bilirubin (0.2-1.0) mg/dL AST (13-39) U/L ALT (7-52) U/L Alkaline Phosphatase (34-104) U/L C-Reactive Protein (<8.01) mg/L Total Protein (6.4-8.9) g/dL Albumin (3.2-5.2) g/dL Globulin (2-4) g/dL Albumin/Globulin Ratio (1-3) Urine Color Yellow Urine Appearance Turbid Urine pH 5.0 (5-9) Ur Specific [place] 1.018 (1.010-1.030) Urine Protein 1+(30 mg/dl) A (Negative) Urine Ketones Negative (Negative) Urine Blood 2+ A (Negative) Urine Nitrate Negative (Negative) Urine Bilirubin Negative (Negative) Urine Urobilinogen Negative (Negative) Ur Leukocyte Esterase 3+ A (Negative) Urine WBC (Auto) 3+(>20/hpf) A (Absent) Urine RBC (Auto) 1+(3-5/hpf) A (Absent) Urine Bacteria 3+ A (Absent) Urine Glucose 3+(>=500 mg/dl) A (Negative) Result Diagrams: 05/15/19 14:59 05/15/19 14:59 Lab Statement: Any lab studies that have been ordered have been reviewed, and results considered in the medical decision making process. - CT Abdomen/Pelvis CT CT Interpretation Completed By: Radiologist Summary of CT Findings: Abdomen/Pelvis US reveals, per radiologist, IMPRESSION: 1. Stable colonic diverticulosis without evidence for acute diverticulitis. 2. There is moderate bilateral hydronephrosis and hydroureter but no visible obstructing calculus. ED Physician has reviewed this report. Abdominal Pain Fem Course/Dx - Course Course Of Treatment: This patient is a 63 year old F presenting to [facility] accompanied by with a chief complaint of LLQ abdominal pain since . Abdomen/Pelvis US reveals, per radiologist, IMPRESSION: 1. Stable colonic diverticulosis without evidence for acute diverticulitis. 2. There is moderate bilateral hydronephrosis and hydroureter but no visible obstructing calculus. ED Physician has reviewed this report. Test results with no significant abnormalities except for WBC 11.5, Absolute Neuts9.8, Absolute Lymphs 0.6, Absolute Monos 0.9, Soduim 129, Chloride 97, BUN 31, Creatinine 1.38, BUN/ Creatinine 22.5, Glucose 496, POC Glucose 1st 371 2nd 241, Total Bilirubin 1.20 , C-reactive Protein 219.91, Urine Protein 1+ (30 mg/dl) A, Urine Blood 2+ A, Ur Leukocyte Esterase 3+ A, Urine WBC 3+ (>20/hpf) A, Urine RBC 1+ (3-5/hpf) A, Urine Bacteria 3+ A, Urine Glucose 3+(>= mg/dl) A. In the ED course the patient was given Rocephin gm. Patient will be admitted to the hospital. The patient is agreeable with this plan. - Diagnoses Provider Diagnoses: UTI (urinary tract infection), Sepsis Is Visit Related: No - Provider Notifications Discussed Care Of Patient With: Rosario Crowley - Hospitalist Time Discussed With Above Provider: 17:30 Instructed by Provider To: Admit As Inpatient - Dr. Crowleyaccepts patient for admission. - Critical Care Time Critical Care Time: 30-74 min Discharge ED - Sign-Out/Discharge Documenting (check all that apply): Patient Departure - admit Patient Received Moderate/Deep Sedation with Procedure: No - Discharge Plan Condition: Stable Disposition: ADMITTED TO [facility] - Attestation Statements Document Initiated by Scribe: Yes Documenting Scribe: Marge Al Provider For Whom Scribe is Documenting (Include Credential): Dr. Jaquan Fitzgerald MD Scribe Attestation: I, Marge Al , scribed for Dr. Jaquan Fitzgerald MD on 05/15/19 at 2208. Status of Scribe Document: Ready
[2019-05-15] MEDS ORDERED: Ondansetron INJ* 2 MG/ML VIAL IV PRN (18:00)
[2019-05-15] MEDS ORDERED: Dextrose 50% VIAL 50 ml IV PUSH PRN (18:10)
--- NOTE | 2019-05-15 20:07 | HP ---
AMENDED REPORT NEEDS DESIGNATED COSIGNER ADMISSION HISTORY AND PHYSICAL: DATE OF ADMISSION: 05/15/19 PRIMARY CARE PHYSICIAN: Dr. Kenney. PROVIDER: Celso Aquino NP. ATTENDING PHYSICIAN: Dr. Crowley.* (DICTATED BY CELSO AQUINO NP) CHIEF COMPLAINT: Left lower back pain. HISTORY OF PRESENT ILLNESS: This is a 63-year-old female with a past medical history significant for diabetes, hypertension, and MS., presented to the emergency room today reporting lower back pain particularly on the left side, stated that in late February to early March, she received a cortisone shot in her back for lumbar stenosis and then 3 weeks later her back pain returned. Then starting 3 days ago, the patient felt increase in pain to the left flank with a hard time talking and breathing due to pain, difficulty walking, unable to go up and down stairs without assistance, and decreased appetite. Three days ago, temperature was 99.9. Last night, it increased to 102 degrees Fahrenheit. She stated she fell twice yesterday with no injury because she was weak and unable to hold her own weight, though denied any syncope or blacking out. Hospitalists were consulted to evaluate the patient for admission. In the ED, the patient received normal saline bolus and ceftriaxone. Awaiting CT scan results. PAST MEDICAL HISTORY: 1. Hypothyroid. 2. Hypertension. 3. Diabetes. 4. Vertigo. 5. MS. 6. Overactive bladder. 7. Lumbar stenosis. 8. Asthma. PAST SURGICAL HISTORY: Includes: 1. Tonsillectomy at age 6. 2. Cholecystectomy. 3. Thyroidectomy. 4. Left meniscus repair. 5. Left breast biopsy. HOME MEDICATIONS: 1. Cyclobenzaprine 10 mg p.o. t.i.d. p.r.n. 2. Meloxicam 15 mg p.o. daily. 3. Lisinopril/hydrochlorothiazide 20/25 mg 1 tablet p.o. daily. 4. Metformin 500 mg p.o. daily. 5. Lispro insulin 2 to 10 units subcu t.i.d. with meals. 6. Insulin detemir 70 units subcu b.i.d. 7. Dulaglutide or Trulicity 1.5 mg subcu weekly. 8. Levothyroxine 175 mcg p.o. daily. 9. Lisinopril 10 mg p.o. daily. 10. Gabapentin 300 mg p.o. t.i.d. 11. Oxybutynin 2.5 mg p.o. t.i.d. ALLERGIES: PROCHLORPERAZINE. FAMILY HISTORY: Significant for diabetes, heart disease, stroke, and breast cancer. SOCIAL HISTORY: Denies smoking. Drinks about 1 glass of alcohol a month. Denies any recreational drug or substance use. 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 Is . Has 1 child. REVIEW OF SYSTEMS: An 11-point review of systems was performed. Significant for trouble swallowing x1 month due to dry month. Left footdrop. Burning and voiding with urination. Incontinent when sitting up or standing, which is new within the past 3 days and has baseline numbness and tingling to bilateral hands. PHYSICAL EXAMINATION CONSTITUTIONAL: She is an alert, well-groomed, obese female, sitting up in bed , no acute distress noted. VITAL SIGNS: Blood pressure 146/72, heart rate 102, temp 99.7 Fahrenheit, resp 20, 96% oxygen on room air. HEENT: Eyes: Conjunctivae pink, moist. Pupils round, reactive. Extraocular muscles intact. ENT: Oropharynx clear. Mucous membranes moist. LYMPHATICS: No cervical lymphadenopathy noted. RESPIRATORY: Lung sounds clear throughout bilaterally on room air. No accessory muscle use noted. CARDIAC: S1, S2. Heart rate regular. No murmurs, gallops, or rubs appreciated. ABDOMEN: Soft. Tender diffusely throughout, but particularly to suprapubic area. Positive bowel sounds x4. Nondistended. MUSCULOSKELETAL: No clubbing or cyanosis. Left footdrop, wearing AFO brace. NEURO: Again, decreased sensation to bilateral hands. No focal deficits noted. PSYCHIATRIC: Alert and oriented x4. No anxiety or depression noted. SKIN: No rashes or open areas appreciated. DIAGNOSTIC STUDIES AND LAB DATA: Sodium 129, chloride 97, BUN 31, creatinine 1.38, BUN creatinine ratio 22.5, glucose 496. Lactic acid 1.3. Total bilirubin 1.2. C- reactive protein 219.91. White blood cell count 11.5, absolute neutrophils 9.8, absolute lymphocytes 0.6, absolute monocytes 0.9. Still awaiting CT scan results. ASSESSMENT AND PLAN: Again, my impression is that this is a 63-year-old female with past medical history significant for diabetes, hypertension, and multiple sclerosis, who presented to the ER today with left pyelonephritis with trying to rule out obstruction. 1. Left pyelonephritis. Continue normal saline at 100 mL an hour. Ceftriaxone. Consult Urology. Pending CT results. 2. Hypertension. Hold lisinopril and hydrochlorothiazide. 3. Hypothyroid. Continue levothyroxine. 4. Diabetes. Continue Levemir. Blood glucose monitoring a.c., h.s. with sliding scale lispro coverage. 5. Overactive bladder. Continue oxybutynin. 6. Multiple sclerosis. Continue gabapentin and p.r.n. Flexeril. Hold meloxicam. 7. Code status is full. 8. DVT prophylaxis: Lovenox and SCDs. 9. Disposition: Admit to [facility]. 10. Condition: Guarded. TIME SPENT: On the patient total about 50 minutes with 20 of it spent face-to- face. The case is reviewed by my attending and they agree with the plan of care. CELSO AQUINO, ARMIDA [id number]/CPS #: [id number] EZE
[2019-05-15] MEDS: oxyCODONE/Acetamin 5/325 MG* TAB PO PRN (20:36)
[2019-05-15] MEDS: Oxybutynin TAB* 5 MG PO SCH (20:37)
[2019-05-15] MEDS: Docusate CAP* 100 MG PO SCH (20:38)
[2019-05-15] MEDS: Gabapentin CAP(*) 300 MG PO SCH (20:38)
[2019-05-15] MEDS: Enoxaparin(*) 30 MG/0.3 ML SYR SUBCUT SCH (20:39)
[2019-05-15] MEDS: Acetaminophen TAB* 325 MG PO PRN (20:39)
[2019-05-15] MEDS: Cyclobenzaprine TAB* 10 MG PO PRN (20:40)
[2019-05-15] MEDS: NS 0.9% 1000 ML** 1,000 ML IV SCH (20:48)
[2019-05-15] MEDS: Insulin LISPRO* 1 UNITS UNIT SUBCUT SCH (21:56)
[2019-05-15] MEDS: Insulin GLARGINE(*) 1 UNITS UNIT SUBCUT SCH (21:57)
[2019-05-15] MEDS: Morphine INJ* 2 MG/ML 1 ML SYRINGE (TWO MG - NEW SYRINGE VERSION) IV PRN (22:18)
[2019-05-16] MEDS: Morphine INJ* 2 MG/ML 1 ML SYRINGE (TWO MG - NEW SYRINGE VERSION) IV PRN (05:39)
[2019-05-16] MEDS: Levothyroxine TAB* 175 MCG TAB PO SCH (05:39)
[2019-05-16] MEDS: Acetaminophen TAB* 325 MG PO PRN (05:39)
[2019-05-16 06:43] LABS: ABS Eosinophils 0.1 10^3/ul (0-0.6); ABS Lymphocytes 0.7 10^3/ul (1.0-4.8); ABS Monocytes 0.8 10^3/ul (0-0.8); ABS Neutrophils 6.7 10^3/ul (1.5-7.7); Hematocrit 33 % (35-47); Hemoglobin 11.2 g/dL (12.0-16.0); Lymphocyte % 8.3 %; Mean Corpuscular HGB Conc 34 g/dL (31-36); Mean Corpuscular Hemoglobin 31 pg (27-31); Mean Corpuscular Volume 91 fL (80-97); Mean Platelet Volume 7.8 fL (7.4-10.4); Nucleated Red Blood Cells % 0.1; Platelet Count 186 10^3/uL (150-450); Red Blood Count 3.68 10^6 /uL (3.70-4.87); Red Cell Distribution Width 14 % (10-15); White Blood Count 8.3 10^3/uL (3.5-10.8)
[2019-05-16 06:46] LABS: BUN/Creatinine Ratio 19.4 (8-20); Calcium 8.5 mg/dL (8.6-10.3); EGFR African American 48.5 (>60); EGFR Non-African American 40.1 (>60); Potassium 4.2 mmol/L (3.5-5.0)
[2019-05-16] MEDS ORDERED: Influenza VAC *QUAD* 2019-20* 0.5 ML SYRINGE IM ONE (09:00)
[2019-05-16] MEDS ORDERED: Pneumococcal *Vac Polyvalent 0.5 ML VIAL IM ONE (09:00)
[2019-05-16] MEDS: Insulin LISPRO* 1 UNITS UNIT SUBCUT SCH ×4 (09:22→21:01)
[2019-05-16] MEDS: Insulin GLARGINE(*) 1 UNITS UNIT SUBCUT SCH ×2 (09:22→21:02)
[2019-05-16] MEDS: Oxybutynin TAB* 5 MG PO SCH ×3 (09:25→21:38)
[2019-05-16] MEDS: Gabapentin CAP(*) 300 MG PO SCH ×3 (09:27→21:35)
[2019-05-16] MEDS: Docusate CAP* 100 MG PO SCH ×2 (09:28→21:35)
--- NOTE | 2019-05-16 11:11 | PN ---
Subjective Date of Service: 05/16/19 Interval History: Patient seen and examined at bedside. Reports feeling slightly better, still feels weak. Endorses urinary incontinence, usually takes oxybutynin, which is held due to acute UTI/pyelo. She would like to restart. Left flank and back pain still present, tolerating PO. Denies CP, SOB, n/v. Family History: Unchanged from Admission Social History: Unchanged from Admission Past Medical History: Unchanged from Admission Objective Active Medications: Acetaminophen (Tylenol Tab*) 650 mg PO Q4H PRN PRN Reason: PAIN - MILD Last Admin: 05/16/19 05:39 Dose: 650 mg Cyclobenzaprine HCl (Flexeril Tab*) 10 mg PO TID PRN PRN Reason: PAIN - MODERATE Last Admin: 05/15/19 20:40 Dose: 10 mg Dextrose (Dextrose 50% Vial 50 Ml*) 25 ml IV PUSH .FOR FS < 60 - SS PRN PRN Reason: FS < 60 Docusate Sodium (Colace Cap*) 100 mg PO BID [facility] Last Admin: 05/16/19 09:28 Dose: 100 mg Enoxaparin Sodium (Lovenox(*)) 30 mg SUBCUT Q24H [facility] Last Admin: 05/15/19 20:39 Dose: 30 mg Gabapentin (Neurontin Cap(*)) 300 mg PO TID [facility] Last Admin: 05/16/19 09:27 Dose: 300 mg Sodium Chloride (Ns 0.9% 1000 Ml) 1,000 mls @ 100 mls/hr IV PER RATE [facility] Last Admin: 05/15/19 20:48 Dose: 100 mls/hr Ceftriaxone Sodium 1 gm/ (Sodium Chloride) 50 mls @ 100 mls/hr IVPB Q24H [facility] Insulin Glargine (Lantus(*)) 56 units SUBCUT BID [facility] Last Admin: 05/16/19 09:22 Dose: 56 units Insulin Human Lispro (Humalog*) 0 units SUBCUT ACHS [facility]; Protocol Last Admin: 05/16/19 09:22 Dose: 6 units Levothyroxine Sodium (Synthroid Tab*) 175 mcg PO 0600 [facility] Last Admin: 05/16/19 05:39 Dose: 175 mcg Morphine Sulfate (Morphine Inj (Syringe))*) 2 mg IV Q4H PRN PRN Reason: PAIN - SEVERE Last Admin: 05/16/19 05:39 Dose: 2 mg Ondansetron HCl (Zofran Inj*) 4 mg IV Q4H PRN PRN Reason: NAUSEA/VOMITING Oxybutynin Chloride (Ditropan Tab*) 2.5 mg PO TID [facility] Last Admin: 05/16/19 09:25 Dose: 2.5 mg Oxycodone/Acetaminophen (Percocet 5/325 Tab*) 1 tab PO Q4H PRN PRN Reason: PAIN - MODERATE Last Admin: 05/15/19 20:36 Dose: 1 tab Vital Signs - 8 hr 05/16/19 05/16/19 05/16/19 05:39 08:00 08:36 Temperature 99.2 F Pulse Rate 97 Respiratory 16 16 16 Rate Blood Pressure 101/50 (mmHg) O2 Sat by Pulse 96 Oximetry 05/16/19 09:27 Temperature Pulse Rate Respiratory 16 Rate Blood Pressure (mmHg) O2 Sat by Pulse Oximetry Oxygen Devices in Use Now: None Appearance: Middle aged female, lying in bed, pleasant, interactive, NAD Eyes: No Scleral Icterus, PERRLA Ears/Nose/Mouth/Throat: Clear Oropharnyx, Mucous Membranes Moist Neck: NL Appearance and Movements; NL JVP, Trachea Midline Respiratory: Symmetrical Chest Expansion and Respiratory Effort, Clear to Auscultation Cardiovascular: NL Sounds; No Murmurs; No JVD, RRR Abdominal: - - BS +, +CVAT on left, +suprapubic tenderness Extremities: No Edema Skin: No Rash or Ulcers Neurological: Alert and Oriented x 3 Lines/Tubes/Other Access: Clean, Dry and Intact Peripheral IV Nutrition: Taking PO's Result Diagrams: 05/16/19 06:23 05/16/19 06:23 Additional Lab and Data: Lab Results 05/15/19 05/15/19 05/15/19 Range/Units 14:59 14:59 14:59 WBC 11.5 H (3.5-10.8) 10^3/uL RBC 4.04 (3.70-4.87) 10^6 /uL Hgb 12.3 (12.0-16.0) g/dL Hct 36 (35-47) % MCV 88 (80-97) fL MCH 30 (27-31) pg MCHC 35 (31-36) g/dL RDW 14 (10-15) % Plt Count 259 (150-450) 10^3/uL MPV 7.9 (7.4-10.4) fL Neut % (Auto) 85.6 % Lymph % (Auto) 5.5 % [place] % (Auto) 8.1 % Eos % (Auto) 0.5 % Baso % (Auto) 0.3 % Absolute Neuts (auto) 9.8 H (1.5-7.7) 10^3/ul Absolute Lymphs (auto) 0.6 L (1.0-4.8) 10^3/ul Absolute Monos (auto) 0.9 H (0-0.8) 10^3/ul Absolute Eos (auto) 0.1 (0-0.6) 10^3/ul Absolute Basos (auto) 0.0 (0-0.2) 10^3/ul Absolute Nucleated RBC 0.0 10^3/ul Nucleated RBC % 0.0 Sodium 129 L (135-145) mmol/L Potassium 4.4 (3.5-5.0) mmol/L Chloride 97 L (101-111) mmol/L Carbon Dioxide 24 (22-32) mmol/L Anion Gap 8 (2-11) mmol/L BUN 31 H (6-24) mg/dL Creatinine 1.38 H (0.51-0.95) mg/dL Est GFR ( Amer) 46.9 (>60) Est GFR (Non-Af Amer) 38.7 (>60) BUN/Creatinine Ratio 22.5 H (8-20) Glucose 496 H (70-100) mg/dL Lactic Acid 1.3 (0.5-2.0) mmol/L Calcium 9.3 (8.6-10.3) mg/dL Total Bilirubin 1.20 H (0.2-1.0) mg/dL AST 17 (13-39) U/L ALT 30 (7-52) U/L Alkaline Phosphatase 80 (34-104) U/L C-Reactive Protein 219.91 H (<8.01) mg/L Total Protein 7.5 (6.4-8.9) g/dL Albumin 4.2 (3.2-5.2) g/dL Globulin 3.3 (2-4) g/dL Albumin/Globulin Ratio 1.3 (1-3) Urine Color Urine Appearance Urine pH (5-9) Ur Specific [place] (1.010-1.030) Urine Protein (Negative) Urine Ketones (Negative) Urine Blood (Negative) Urine Nitrate (Negative) Urine Bilirubin (Negative) Urine Urobilinogen (Negative) Ur Leukocyte Esterase (Negative) Urine WBC (Auto) (Absent) Urine RBC (Auto) (Absent) Urine Bacteria (Absent) Urine Glucose (Negative) 05/15/19 Range/Units 16:02 WBC (3.5-10.8) 10^3/uL RBC (3.70-4.87) 10^6 /uL Hgb (12.0-16.0) g/dL Hct (35-47) % MCV (80-97) fL MCH (27-31) pg MCHC (31-36) g/dL RDW (10-15) % Plt Count (150-450) 10^3/uL MPV (7.4-10.4) fL Neut % (Auto) % Lymph % (Auto) % [place] % (Auto) % Eos % (Auto) % Baso % (Auto) % Absolute Neuts (auto) (1.5-7.7) 10^3/ul Absolute Lymphs (auto) (1.0-4.8) 10^3/ul Absolute Monos (auto) (0-0.8) 10^3/ul Absolute Eos (auto) (0-0.6) 10^3/ul Absolute Basos (auto) (0-0.2) 10^3/ul Absolute Nucleated RBC 10^3/ul Nucleated RBC % Sodium (135-145) mmol/L Potassium (3.5-5.0) mmol/L Chloride (101-111) mmol/L Carbon Dioxide (22-32) mmol/L Anion Gap (2-11) mmol/L BUN (6-24) mg/dL Creatinine (0.51-0.95) mg/dL Est GFR ( Amer) (>60) Est GFR (Non-Af Amer) (>60) BUN/Creatinine Ratio (8-20) Glucose (70-100) mg/dL Lactic Acid (0.5-2.0) mmol/L Calcium (8.6-10.3) mg/dL Total Bilirubin (0.2-1.0) mg/dL AST (13-39) U/L ALT (7-52) U/L Alkaline Phosphatase (34-104) U/L C-Reactive Protein (<8.01) mg/L Total Protein (6.4-8.9) g/dL Albumin (3.2-5.2) g/dL Globulin (2-4) g/dL Albumin/Globulin Ratio (1-3) Urine Color Yellow Urine Appearance Turbid Urine pH 5.0 (5-9) Ur Specific [place] 1.018 (1.010-1.030) Urine Protein 1+(30 mg/dl) A (Negative) Urine Ketones Negative (Negative) Urine Blood 2+ A (Negative) Urine Nitrate Negative (Negative) Urine Bilirubin Negative (Negative) Urine Urobilinogen Negative (Negative) Ur Leukocyte Esterase 3+ A (Negative) Urine WBC (Auto) 3+(>20/hpf) A (Absent) Urine RBC (Auto) 1+(3-5/hpf) A (Absent) Urine Bacteria 3+ A (Absent) Urine Glucose 3+(>=500 mg/dl) A (Negative) Assess/Plan/Problems-Billing Assessment: Ms. Guallpa is a 63 yo female with a PMH significant for multiple sclerosis, DM2 , HTN who presented to the ED on 05/15 with concern for left lower back pain, found to be 2/2 pyelonephritis. - Patient Problems (1) Pyelonephritis Code(s): N12 - TUBULO-INTERSTITIAL NEPHRITIS, NOT SPCF ACUTE OR CHRONIC Comment: - Preliminary urine culture growing Klebsiella - Continue ceftriaxone - Reports improved pain in suprapubic and left flank regions, 100.5 temp last evening - Continue IVF, abx - Note moderate hydronephrosis and hydroureter on CT scan; pt clinically improving and follows with urology as outpatient. Suspect urinary retention in the presence of UTI and MS. Should continue outpatient urology follow up. (2) Hypertension Code(s): I10 - ESSENTIAL (PRIMARY) HYPERTENSION Comment: Normotensive Home lisinopril and HCTZ held; resume when medically appropriate. (3) Hypothyroidism Code(s): E03.9 - HYPOTHYROIDISM, UNSPECIFIED Comment: - Continue levothyroxine (4) Type 2 diabetes mellitus Comment: - Elevated FSBG but control improving - Continue Lantus and Lispro SSI - Hold home metformin and Trulicity; resume upon discharge (5) Overactive bladder Code(s): N32.81 - OVERACTIVE BLADDER Comment: - Continue oxybutynin - Check PVR to monitor for significant retention (6) Multiple sclerosis Code(s): G35 - MULTIPLE SCLEROSIS Comment: - Continue pain management modalities (gabapentin, cyclobenzaprine) - Outpatient follow up (7) DVT prophylaxis Code(s): Z29.9 - ENCOUNTER FOR PROPHYLACTIC MEASURES, UNSPECIFIED Comment: - SQ Lovenox (8) Full code status Code(s): Z78.9 - OTHER SPECIFIED HEALTH STATUS Status and Disposition: OBV admit. Attending: Kendrick Morrison
[2019-05-16] MEDS: NS 0.9% 1000 ML** 1,000 ML IV SCH (11:18)
[2019-05-16] MEDS: Cyclobenzaprine TAB* 10 MG PO PRN (13:56)
[2019-05-16] MEDS: oxyCODONE/Acetamin 5/325 MG* TAB PO PRN (13:56)
[2019-05-16] MEDS: Enoxaparin(*) 30 MG/0.3 ML SYR SUBCUT SCH (18:11)
[2019-05-16] MEDS: cefTRIAXone(*) 1 GM in NS 0.9% 50 ML* 50 ML IVPB SCH (18:53)
[2019-05-16] MEDS: Senna TAB 8.6 mg* TAB PO SCH (21:33)
[2019-05-17] MEDS: NS 0.9% 1000 ML** 1,000 ML IV SCH (03:09)
[2019-05-17] MEDS: Cyclobenzaprine TAB* 10 MG PO PRN ×3 (03:13→21:22)
[2019-05-17] MEDS: Levothyroxine TAB* 175 MCG TAB PO SCH (05:00)
[2019-05-17] MEDS: Morphine INJ* 2 MG/ML 1 ML SYRINGE (TWO MG - NEW SYRINGE VERSION) IV PRN (05:00)
[2019-05-17 06:33] LABS: BUN/Creatinine Ratio 21.1 (8-20); C Reactive Protein 167.41 mg/L (<8.01); Calcium 8.3 mg/dL (8.6-10.3); EGFR African American 58.4 (>60); EGFR Non-African American 48.3 (>60); Potassium 3.9 mmol/L (3.5-5.0)
[2019-05-17] MEDS: Insulin LISPRO* 1 UNITS UNIT SUBCUT SCH ×4 (08:21→21:26)
[2019-05-17] MEDS: Docusate CAP* 100 MG PO SCH ×2 (09:03→21:22)
[2019-05-17] MEDS: Oxybutynin TAB* 5 MG PO SCH ×3 (09:03→21:22)
[2019-05-17] MEDS: Gabapentin CAP(*) 300 MG PO SCH ×3 (09:03→21:21)
[2019-05-17] MEDS: Insulin GLARGINE(*) 1 UNITS UNIT SUBCUT SCH ×2 (09:17→21:25)
[2019-05-17] MEDS: oxyCODONE/Acetamin 5/325 MG* TAB PO PRN (09:36)
[2019-05-17] MEDS ORDERED: Bisacodyl SUPP* 10 MG SUPP PR ONE (11:48)
[2019-05-17] MEDS: Magnesium Hydroxide LIQ* 30 ML UDC PO PRN (12:24)
[2019-05-17] MEDS: Polyethylene Glycol 3350* 17 GM PACKET PO PRN (12:30)
[2019-05-17] MEDS: cefTRIAXone(*) 1 GM in NS 0.9% 50 ML* 50 ML IVPB SCH (17:14)
--- NOTE | 2019-05-17 17:23 | PN ---
Subjective Date of Service: 05/17/19 Interval History: Patient tells me her urine is cloudy, denies hematuria. Denies fever/chills, flank pain, abd pain, chest pain, difficulty breathing. Tells me she lives on the 3rd floor of an apartment without an elevator. In light of poor performance with physical therapy, is agreeable to [facility]. Family History: Unchanged from Admission Social History: Unchanged from Admission Past Medical History: Unchanged from Admission Objective Active Medications: Acetaminophen (Tylenol Tab*) 650 mg PO Q4H PRN PRN Reason: PAIN - MILD Last Admin: 05/16/19 05:39 Dose: 650 mg Cyclobenzaprine HCl (Flexeril Tab*) 10 mg PO TID PRN PRN Reason: PAIN - MODERATE Last Admin: 05/17/19 09:36 Dose: 10 mg Dextrose (Dextrose 50% Vial 50 Ml*) 25 ml IV PUSH .FOR FS < 60 - SS PRN PRN Reason: FS < 60 Docusate Sodium (Colace Cap*) 100 mg PO BID [facility] Last Admin: 05/17/19 09:03 Dose: 100 mg Enoxaparin Sodium (Lovenox(*)) 30 mg SUBCUT Q24H [facility] Last Admin: 05/16/19 18:11 Dose: 30 mg Gabapentin (Neurontin Cap(*)) 300 mg PO TID [facility] Last Admin: 05/17/19 13:47 Dose: 300 mg Ceftriaxone Sodium 1 gm/ (Sodium Chloride) 50 mls @ 100 mls/hr IVPB Q24H [facility] Last Admin: 05/17/19 17:14 Dose: 100 mls/hr Insulin Glargine (Lantus(*)) 56 units SUBCUT BID [facility] Last Admin: 05/17/19 09:17 Dose: 56 units Insulin Human Lispro (Humalog*) 0 units SUBCUT ACHS [facility]; Protocol Last Admin: 05/17/19 17:17 Dose: Not Given Levothyroxine Sodium (Synthroid Tab*) 175 mcg PO 0600 [facility] Last Admin: 05/17/19 05:00 Dose: 175 mcg Magnesium Hydroxide (Milk Of Magnesia Liq*) 30 ml PO Q4H PRN PRN Reason: CONSTIPATION Last Admin: 05/17/19 12:24 Dose: 30 ml Morphine Sulfate (Morphine Inj (Syringe))*) 2 mg IV Q4H PRN PRN Reason: PAIN - SEVERE Last Admin: 05/17/19 05:00 Dose: 2 mg Ondansetron HCl (Zofran Inj*) 4 mg IV Q4H PRN PRN Reason: NAUSEA/VOMITING Oxybutynin Chloride (Ditropan Tab*) 2.5 mg PO TID [facility] Last Admin: 05/17/19 13:47 Dose: 2.5 mg Oxycodone/Acetaminophen (Percocet 5/325 Tab*) 1 tab PO Q4H PRN PRN Reason: PAIN - MODERATE Last Admin: 05/17/19 09:36 Dose: 1 tab Polyethylene Glycol/Electrolytes (Miralax*) 17 gm PO DAILY PRN PRN Reason: CONSTIPATION Last Admin: 05/17/19 12:30 Dose: 17 gm Senna (Senokot 8.6 Mg Tab*) 2 tab PO BEDTIME [facility] Last Admin: 05/16/19 21:33 Dose: 2 tab Vital Signs - 8 hr 05/17/19 05/17/19 05/17/19 09:36 11:00 11:30 Temperature Pulse Rate Respiratory 16 16 16 Rate Blood Pressure (mmHg) O2 Sat by Pulse Oximetry 05/17/19 05/17/19 05/17/19 11:55 12:12 13:47 Temperature 98.1 F Pulse Rate 82 Respiratory 16 16 16 Rate Blood Pressure 106/55 (mmHg) O2 Sat by Pulse 98 Oximetry Oxygen Devices in Use Now: None Appearance: Obese, white female, sitting in chair, appearing in NAD Eyes: No Scleral Icterus, PERRLA Ears/Nose/Mouth/Throat: Mucous Membranes Moist Neck: - - neck supple Respiratory: Symmetrical Chest Expansion and Respiratory Effort, Clear to Auscultation Cardiovascular: NL Sounds; No Murmurs; No JVD, RRR Abdominal: - - abd soft, nontender, nondistended; no suprapubic tenderness; neg CVA tenderness Extremities: No Edema, No Clubbing, Cyanosis Skin: No Rash or Ulcers Neurological: Alert and Oriented x 3, - - no focal deficits Result Diagrams: 05/16/19 06:23 05/17/19 05:54 Additional Lab and Data: Lab Results 05/15/19 05/15/19 05/15/19 Range/Units 14:59 14:59 14:59 WBC 11.5 H (3.5-10.8) 10^3/uL RBC 4.04 (3.70-4.87) 10^6 /uL Hgb 12.3 (12.0-16.0) g/dL Hct 36 (35-47) % MCV 88 (80-97) fL MCH 30 (27-31) pg MCHC 35 (31-36) g/dL RDW 14 (10-15) % Plt Count 259 (150-450) 10^3/uL MPV 7.9 (7.4-10.4) fL Neut % (Auto) 85.6 % Lymph % (Auto) 5.5 % [place] % (Auto) 8.1 % Eos % (Auto) 0.5 % Baso % (Auto) 0.3 % Absolute Neuts (auto) 9.8 H (1.5-7.7) 10^3/ul Absolute Lymphs (auto) 0.6 L (1.0-4.8) 10^3/ul Absolute Monos (auto) 0.9 H (0-0.8) 10^3/ul Absolute Eos (auto) 0.1 (0-0.6) 10^3/ul Absolute Basos (auto) 0.0 (0-0.2) 10^3/ul Absolute Nucleated RBC 0.0 10^3/ul Nucleated RBC % 0.0 Sodium 129 L (135-145) mmol/L Potassium 4.4 (3.5-5.0) mmol/L Chloride 97 L (101-111) mmol/L Carbon Dioxide 24 (22-32) mmol/L Anion Gap 8 (2-11) mmol/L BUN 31 H (6-24) mg/dL Creatinine 1.38 H (0.51-0.95) mg/dL Est GFR ( Amer) 46.9 (>60) Est GFR (Non-Af Amer) 38.7 (>60) BUN/Creatinine Ratio 22.5 H (8-20) Glucose 496 H (70-100) mg/dL Lactic Acid 1.3 (0.5-2.0) mmol/L Calcium 9.3 (8.6-10.3) mg/dL Total Bilirubin 1.20 H (0.2-1.0) mg/dL AST 17 (13-39) U/L ALT 30 (7-52) U/L Alkaline Phosphatase 80 (34-104) U/L C-Reactive Protein 219.91 H (<8.01) mg/L Total Protein 7.5 (6.4-8.9) g/dL Albumin 4.2 (3.2-5.2) g/dL Globulin 3.3 (2-4) g/dL Albumin/Globulin Ratio 1.3 (1-3) Urine Color Urine Appearance Urine pH (5-9) Ur Specific [place] (1.010-1.030) Urine Protein (Negative) Urine Ketones (Negative) Urine Blood (Negative) Urine Nitrate (Negative) Urine Bilirubin (Negative) Urine Urobilinogen (Negative) Ur Leukocyte Esterase (Negative) Urine WBC (Auto) (Absent) Urine RBC (Auto) (Absent) Urine Bacteria (Absent) Urine Glucose (Negative) 05/15/19 Range/Units 16:02 WBC (3.5-10.8) 10^3/uL RBC (3.70-4.87) 10^6 /uL Hgb (12.0-16.0) g/dL Hct (35-47) % MCV (80-97) fL MCH (27-31) pg MCHC (31-36) g/dL RDW (10-15) % Plt Count (150-450) 10^3/uL MPV (7.4-10.4) fL Neut % (Auto) % Lymph % (Auto) % [place] % (Auto) % Eos % (Auto) % Baso % (Auto) % Absolute Neuts (auto) (1.5-7.7) 10^3/ul Absolute Lymphs (auto) (1.0-4.8) 10^3/ul Absolute Monos (auto) (0-0.8) 10^3/ul Absolute Eos (auto) (0-0.6) 10^3/ul Absolute Basos (auto) (0-0.2) 10^3/ul Absolute Nucleated RBC 10^3/ul Nucleated RBC % Sodium (135-145) mmol/L Potassium (3.5-5.0) mmol/L Chloride (101-111) mmol/L Carbon Dioxide (22-32) mmol/L Anion Gap (2-11) mmol/L BUN (6-24) mg/dL Creatinine (0.51-0.95) mg/dL Est GFR ( Amer) (>60) Est GFR (Non-Af Amer) (>60) BUN/Creatinine Ratio (8-20) Glucose (70-100) mg/dL Lactic Acid (0.5-2.0) mmol/L Calcium (8.6-10.3) mg/dL Total Bilirubin (0.2-1.0) mg/dL AST (13-39) U/L ALT (7-52) U/L Alkaline Phosphatase (34-104) U/L C-Reactive Protein (<8.01) mg/L Total Protein (6.4-8.9) g/dL Albumin (3.2-5.2) g/dL Globulin (2-4) g/dL Albumin/Globulin Ratio (1-3) Urine Color Yellow Urine Appearance Turbid Urine pH 5.0 (5-9) Ur Specific [place] 1.018 (1.010-1.030) Urine Protein 1+(30 mg/dl) A (Negative) Urine Ketones Negative (Negative) Urine Blood 2+ A (Negative) Urine Nitrate Negative (Negative) Urine Bilirubin Negative (Negative) Urine Urobilinogen Negative (Negative) Ur Leukocyte Esterase 3+ A (Negative) Urine WBC (Auto) 3+(>20/hpf) A (Absent) Urine RBC (Auto) 1+(3-5/hpf) A (Absent) Urine Bacteria 3+ A (Absent) Urine Glucose 3+(>=500 mg/dl) A (Negative) Microbiology and Other Data: Microbiology 05/15/19 14:59 Aerobic Blood Culture - Preliminary Blood Venous No Growth Day 2 Anaerobic Blood Culture - Preliminary No Growth Day 2 05/15/19 14:59 Aerobic Blood Culture - Preliminary Blood Venous No Growth Day 2 Anaerobic Blood Culture - Preliminary No Growth Day 2 05/15/19 16:02 Urine Culture - Final Urine Klebsiella Pneumoniae Assess/Plan/Problems-Billing Assessment: Ms. Guallpa is a 63 yo female with a PMH significant for multiple sclerosis, DM2 , HTN who presented to the ED on 05/15 with concern for left lower back pain, found to be 2/2 pyelonephritis. - Patient Problems (1) Pyelonephritis Current Visit: Yes Status: Acute Code(s): N12 - TUBULO-INTERSTITIAL NEPHRITIS, NOT SPCF ACUTE OR CHRONIC SNOMED Code(s): 32757191 Comment: - Urine culture positive for Klebsiella - Continue ceftriaxone - Patient has been afebrile >24 hours and without leukocytosis - Flank pain resolved (2) Hydronephrosis Current Visit: Yes Status: Acute Code(s): N13.30 - UNSPECIFIED HYDRONEPHROSIS SNOMED Code(s): 83595065 Comment: - Moderate bilateral hydronephrosis and hydroureter on CT scan - Pt clinically improving and follows with urology as outpatient. Suspect urinary retention in the presence of UTI and MS. Should continue outpatient urology follow up (3) CHARLES (acute kidney injury) Current Visit: Yes Status: Acute Code(s): N17.9 - ACUTE KIDNEY FAILURE, UNSPECIFIED SNOMED Code(s): 74608627 Comment: - Possibly a mixture of prerenal in setting of UTI as well as obstructive given chronic retention - Improved with IVF, now discontinuing fluids - Continuing to hold home HCTZ and lisinopril (4) Type 2 diabetes mellitus Current Visit: Yes Status: Acute Comment: - Elevated FSBG but control improving - Continue Lantus and Lispro SSI - Hold home metformin and Trulicity; resume upon discharge (5) Hypertension Current Visit: Yes Status: Chronic Code(s): I10 - ESSENTIAL (PRIMARY) HYPERTENSION SNOMED Code(s): 15014134 Comment: -Normotensive -Home lisinopril and HCTZ held in setting of CHARLES; resume when medically appropriate. (6) Multiple sclerosis Current Visit: Yes Status: Chronic Code(s): G35 - MULTIPLE SCLEROSIS SNOMED Code(s): 87324991 Comment: - Continue pain management modalities (gabapentin, cyclobenzaprine) - Outpatient follow up (7) DVT prophylaxis Current Visit: Yes Status: Acute Code(s): Z29.9 - ENCOUNTER FOR PROPHYLACTIC MEASURES, UNSPECIFIED SNOMED Code(s): 223854315 Comment: - SQ Lovenox (8) Full code status Current Visit: Yes Status: Acute Code(s): Z78.9 - OTHER SPECIFIED HEALTH STATUS SNOMED Code(s): 436628120 Status and Disposition: Pending MIKE placement
[2019-05-17] MEDS: Enoxaparin(*) 30 MG/0.3 ML SYR SUBCUT SCH (19:13)
[2019-05-17] MEDS: Acetaminophen TAB* 325 MG PO PRN (19:13)
[2019-05-17] MEDS: Senna TAB 8.6 mg* TAB PO SCH (21:22)
--- NOTE | 2019-05-17 22:40 | PN ---
Progress Note - Progress Note Date of Service: 05/17/19 Note: Pt's bladder scan revealed over 900 ml in bladder. Espinoza ordered
[2019-05-18 01:06] LABS: Urine Appearance Turbid; Urine Bacteria 1+ (Absent); Urine Bilirubin Negative (Negative); Urine Blood 1+ (Negative); Urine Color Yellow; Urine Glucose Negative (Negative); Urine Ketones Negative (Negative); Urine Nitrite Negative (Negative); Urine Protein Negative (Negative); Urine Red Blood Cell 3+(>10/hpf) (Absent); Urine Specific Gravity 1.002 (1.010-1.030); Urine Squamous Epithelial Cell Present (Absent); Urine Urobilinogen Negative (Negative); Urine White Blood Cell 3+(>20/hpf) (Absent)
[2019-05-18] MEDS: Levothyroxine TAB* 175 MCG TAB PO SCH (05:32)
[2019-05-18] MEDS: Gabapentin CAP(*) 300 MG PO SCH ×3 (07:57→21:04)
[2019-05-18] MEDS: Acetaminophen TAB* 325 MG PO PRN ×3 (07:57→21:45)
[2019-05-18] MEDS: Docusate CAP* 100 MG PO SCH ×2 (07:57→21:04)
[2019-05-18] MEDS: Oxybutynin TAB* 5 MG PO SCH ×3 (07:58→21:06)
[2019-05-18] MEDS: Magnesium Hydroxide LIQ* 30 ML UDC PO PRN (07:59)
[2019-05-18] MEDS: Insulin LISPRO* 1 UNITS UNIT SUBCUT SCH ×4 (07:59→21:45)
[2019-05-18] MEDS: Insulin GLARGINE(*) 1 UNITS UNIT SUBCUT SCH ×2 (07:59→21:05)
[2019-05-18] MEDS: Polyethylene Glycol 3350* 17 GM PACKET PO PRN (08:01)
[2019-05-18 09:55] LABS: BUN/Creatinine Ratio 20.2 (8-20); Calcium 9.3 mg/dL (8.6-10.3); EGFR Non-African American 53.7 (>60); Potassium 4.3 mmol/L (3.5-5.0)
--- NOTE | 2019-05-18 11:44 | PN ---
Subjective Date of Service: 05/18/19 Interval History: Patient is feeling better today. The pain in her back is subsiding. Patient still feels very weak. Patient is constipated, but is worried about over- treatment of her constipation. 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 Patient denies F/C, N/V, abdominal pain, diarrhea, CP, SOB, or other pain. Family History: Unchanged from Admission Social History: Unchanged from Admission Past Medical History: Unchanged from Admission Objective Active Medications: Acetaminophen (Tylenol Tab*) 650 mg PO Q4H PRN PRN Reason: PAIN - MILD Last Admin: 05/18/19 07:57 Dose: 650 mg Cyclobenzaprine HCl (Flexeril Tab*) 10 mg PO TID PRN PRN Reason: PAIN - MODERATE Last Admin: 05/17/19 21:22 Dose: 10 mg Dextrose (Dextrose 50% Vial 50 Ml*) 25 ml IV PUSH .FOR FS < 60 - SS PRN PRN Reason: FS < 60 Docusate Sodium (Colace Cap*) 100 mg PO BID [facility] Last Admin: 05/18/19 07:57 Dose: 100 mg Enoxaparin Sodium (Lovenox(*)) 30 mg SUBCUT Q24H [facility] Last Admin: 05/17/19 19:13 Dose: 30 mg Gabapentin (Neurontin Cap(*)) 300 mg PO TID [facility] Last Admin: 05/18/19 07:57 Dose: 300 mg Ceftriaxone Sodium 1 gm/ (Sodium Chloride) 50 mls @ 100 mls/hr IVPB Q24H [facility] Last Admin: 05/17/19 17:14 Dose: 100 mls/hr Insulin Glargine (Lantus(*)) 56 units SUBCUT BID [facility] Last Admin: 05/18/19 07:59 Dose: 56 units Insulin Human Lispro (Humalog*) 0 units SUBCUT ACHS [facility]; Protocol Last Admin: 05/18/19 07:59 Dose: 3 units Levothyroxine Sodium (Synthroid Tab*) 175 mcg PO 0600 [facility] Last Admin: 05/18/19 05:32 Dose: 175 mcg Magnesium Hydroxide (Milk Of Magnesia Liq*) 30 ml PO Q4H PRN PRN Reason: CONSTIPATION Last Admin: 05/18/19 07:59 Dose: 30 ml Morphine Sulfate (Morphine Inj (Syringe))*) 2 mg IV Q4H PRN PRN Reason: PAIN - SEVERE Last Admin: 05/17/19 05:00 Dose: 2 mg Ondansetron HCl (Zofran Inj*) 4 mg IV Q4H PRN PRN Reason: NAUSEA/VOMITING Oxybutynin Chloride (Ditropan Tab*) 2.5 mg PO TID [facility] Last Admin: 05/18/19 07:58 Dose: 2.5 mg Oxycodone/Acetaminophen (Percocet 5/325 Tab*) 1 tab PO Q4H PRN PRN Reason: PAIN - MODERATE Last Admin: 05/17/19 09:36 Dose: 1 tab Polyethylene Glycol/Electrolytes (Miralax*) 17 gm PO DAILY PRN PRN Reason: CONSTIPATION Last Admin: 05/18/19 08:01 Dose: 17 gm Senna (Senokot 8.6 Mg Tab*) 2 tab PO BEDTIME [facility] Last Admin: 05/17/19 21:22 Dose: 2 tab Vital Signs - 8 hr 05/18/19 05/18/19 05/18/19 07:57 08:00 08:15 Temperature 97.3 F Pulse Rate 70 Respiratory 18 16 16 Rate Blood Pressure 135/59 (mmHg) O2 Sat by Pulse 100 Oximetry Oxygen Devices in Use Now: None Appearance: Patient is a 63yo female who appears stated age and is sitting in the bed in [facility]. Eyes: No Scleral Icterus, PERRLA Ears/Nose/Mouth/Throat: NL Teeth, Lips, Gums, Clear Oropharnyx, Mucous Membranes Moist Neck: NL Appearance and Movements; NL JVP, Trachea Midline Respiratory: Symmetrical Chest Expansion and Respiratory Effort, Clear to Auscultation Cardiovascular: NL Sounds; No Murmurs; No JVD, RRR, No Edema Abdominal: NL Sounds; No Tenderness; No Distention, No Hepatosplenomegaly Lymphatic: No Cervical Adenopathy Extremities: No Edema, No Clubbing, Cyanosis Skin: No Rash or Ulcers, No Nodules or Sclerosis Neurological: Alert and Oriented x 3, - - CN II-XII intact. Result Diagrams: 05/16/19 06:23 05/18/19 09:30 Additional Lab and Data: Lab Results 05/15/19 05/15/19 05/15/19 Range/Units 14:59 14:59 14:59 WBC 11.5 H (3.5-10.8) 10^3/uL RBC 4.04 (3.70-4.87) 10^6 /uL Hgb 12.3 (12.0-16.0) g/dL Hct 36 (35-47) % MCV 88 (80-97) fL MCH 30 (27-31) pg MCHC 35 (31-36) g/dL RDW 14 (10-15) % Plt Count 259 (150-450) 10^3/uL MPV 7.9 (7.4-10.4) fL Neut % (Auto) 85.6 % Lymph % (Auto) 5.5 % [place] % (Auto) 8.1 % Eos % (Auto) 0.5 % Baso % (Auto) 0.3 % Absolute Neuts (auto) 9.8 H (1.5-7.7) 10^3/ul Absolute Lymphs (auto) 0.6 L (1.0-4.8) 10^3/ul Absolute Monos (auto) 0.9 H (0-0.8) 10^3/ul Absolute Eos (auto) 0.1 (0-0.6) 10^3/ul Absolute Basos (auto) 0.0 (0-0.2) 10^3/ul Absolute Nucleated RBC 0.0 10^3/ul Nucleated RBC % 0.0 Sodium 129 L (135-145) mmol/L Potassium 4.4 (3.5-5.0) mmol/L Chloride 97 L (101-111) mmol/L Carbon Dioxide 24 (22-32) mmol/L Anion Gap 8 (2-11) mmol/L BUN 31 H (6-24) mg/dL Creatinine 1.38 H (0.51-0.95) mg/dL Est GFR ( Amer) 46.9 (>60) Est GFR (Non-Af Amer) 38.7 (>60) BUN/Creatinine Ratio 22.5 H (8-20) Glucose 496 H (70-100) mg/dL Lactic Acid 1.3 (0.5-2.0) mmol/L Calcium 9.3 (8.6-10.3) mg/dL Total Bilirubin 1.20 H (0.2-1.0) mg/dL AST 17 (13-39) U/L ALT 30 (7-52) U/L Alkaline Phosphatase 80 (34-104) U/L C-Reactive Protein 219.91 H (<8.01) mg/L Total Protein 7.5 (6.4-8.9) g/dL Albumin 4.2 (3.2-5.2) g/dL Globulin 3.3 (2-4) g/dL Albumin/Globulin Ratio 1.3 (1-3) Urine Color Urine Appearance Urine pH (5-9) Ur Specific [place] (1.010-1.030) Urine Protein (Negative) Urine Ketones (Negative) Urine Blood (Negative) Urine Nitrate (Negative) Urine Bilirubin (Negative) Urine Urobilinogen (Negative) Ur Leukocyte Esterase (Negative) Urine WBC (Auto) (Absent) Urine RBC (Auto) (Absent) Urine Bacteria (Absent) Urine Glucose (Negative) 05/15/19 Range/Units 16:02 WBC (3.5-10.8) 10^3/uL RBC (3.70-4.87) 10^6 /uL Hgb (12.0-16.0) g/dL Hct (35-47) % MCV (80-97) fL MCH (27-31) pg MCHC (31-36) g/dL RDW (10-15) % Plt Count (150-450) 10^3/uL MPV (7.4-10.4) fL Neut % (Auto) % Lymph % (Auto) % [place] % (Auto) % Eos % (Auto) % Baso % (Auto) % Absolute Neuts (auto) (1.5-7.7) 10^3/ul Absolute Lymphs (auto) (1.0-4.8) 10^3/ul Absolute Monos (auto) (0-0.8) 10^3/ul Absolute Eos (auto) (0-0.6) 10^3/ul Absolute Basos (auto) (0-0.2) 10^3/ul Absolute Nucleated RBC 10^3/ul Nucleated RBC % Sodium (135-145) mmol/L Potassium (3.5-5.0) mmol/L Chloride (101-111) mmol/L Carbon Dioxide (22-32) mmol/L Anion Gap (2-11) mmol/L BUN (6-24) mg/dL Creatinine (0.51-0.95) mg/dL Est GFR ( Amer) (>60) Est GFR (Non-Af Amer) (>60) BUN/Creatinine Ratio (8-20) Glucose (70-100) mg/dL Lactic Acid (0.5-2.0) mmol/L Calcium (8.6-10.3) mg/dL Total Bilirubin (0.2-1.0) mg/dL AST (13-39) U/L ALT (7-52) U/L Alkaline Phosphatase (34-104) U/L C-Reactive Protein (<8.01) mg/L Total Protein (6.4-8.9) g/dL Albumin (3.2-5.2) g/dL Globulin (2-4) g/dL Albumin/Globulin Ratio (1-3) Urine Color Yellow Urine Appearance Turbid Urine pH 5.0 (5-9) Ur Specific [place] 1.018 (1.010-1.030) Urine Protein 1+(30 mg/dl) A (Negative) Urine Ketones Negative (Negative) Urine Blood 2+ A (Negative) Urine Nitrate Negative (Negative) Urine Bilirubin Negative (Negative) Urine Urobilinogen Negative (Negative) Ur Leukocyte Esterase 3+ A (Negative) Urine WBC (Auto) 3+(>20/hpf) A (Absent) Urine RBC (Auto) 1+(3-5/hpf) A (Absent) Urine Bacteria 3+ A (Absent) Urine Glucose 3+(>=500 mg/dl) A (Negative) Microbiology and Other Data: Microbiology 05/15/19 14:59 Aerobic Blood Culture - Preliminary Blood Venous No Growth Day 2 Anaerobic Blood Culture - Preliminary No Growth Day 2 05/15/19 14:59 Aerobic Blood Culture - Preliminary Blood Venous No Growth Day 2 Anaerobic Blood Culture - Preliminary No Growth Day 2 05/15/19 16:02 Urine Culture - Final Urine Klebsiella Pneumoniae Assess/Plan/Problems-Billing Assessment: Ms. Guallpa is a 63 yo female with a PMH significant for multiple sclerosis, DM2 , HTN who presented to the ED on 05/15 with concern for left lower back pain, found to be 2/2 pyelonephritis. - Patient Problems (1) Pyelonephritis Current Visit: Yes Status: Acute Code(s): N12 - TUBULO-INTERSTITIAL NEPHRITIS, NOT SPCF ACUTE OR CHRONIC SNOMED Code(s): 52870954 Comment: - Urine culture positive for Klebsiella - Continue ceftriaxone - Patient has been afebrile >24 hours and without leukocytosis - Flank pain resolved (2) CHARLES (acute kidney injury) Current Visit: Yes Status: Acute Code(s): N17.9 - ACUTE KIDNEY FAILURE, UNSPECIFIED SNOMED Code(s): 94848129 Comment: - Possibly a mixture of prerenal in setting of UTI as well as obstructive given chronic retention - Improved with IVF - Continuing to hold home HCTZ and lisinopril until BP necessitates it. (3) Overactive bladder Current Visit: Yes Status: Chronic Code(s): N32.81 - OVERACTIVE BLADDER SNOMED Code(s): 776839261 Comment: - Continue oxybutynin - Borrero for acute urinary retention of over 1L - Leave borrero to allow bladder to decompress, follow up outpatient urologist to find balance between incontinence and retention - Patient does not feel that she has the hand dexterity for self- catheterization. (4) Constipation Current Visit: Yes Status: Acute Code(s): K59.00 - CONSTIPATION, UNSPECIFIED SNOMED Code(s): 96817498 Comment: - Chronic problem, continue stool softeners, laxative and fiber - Small BM yesterday, still symptomatic. (5) Hydronephrosis Current Visit: Yes Status: Acute Code(s): N13.30 - UNSPECIFIED HYDRONEPHROSIS SNOMED Code(s): 89095902 Comment: - Moderate bilateral hydronephrosis and hydroureter on CT scan - Pt clinically improving and follows with urology as outpatient. Suspect urinary retention in the presence of UTI and MS. Should continue outpatient urology follow up (6) Type 2 diabetes mellitus Current Visit: Yes Status: Acute Comment: - Elevated FSBG but control improving - Continue Lantus and Lispro SSI - Hold home metformin and Trulicity; resume upon discharge (7) Hypertension Current Visit: Yes Status: Chronic Code(s): I10 - ESSENTIAL (PRIMARY) HYPERTENSION SNOMED Code(s): 54618325 Comment: -Normotensive -Home lisinopril and HCTZ held in setting of CHARLES; resume when medically appropriate. (8) Hypothyroidism Current Visit: Yes Status: Chronic Code(s): E03.9 - HYPOTHYROIDISM, UNSPECIFIED SNOMED Code(s): 90885274 Comment: - Continue levothyroxine (9) Multiple sclerosis Current Visit: Yes Status: Chronic Code(s): G35 - MULTIPLE SCLEROSIS SNOMED Code(s): 63934213 Comment: - Continue pain management modalities (gabapentin, cyclobenzaprine) - Outpatient follow up - Weakness likely due to infection and not MS flare. (10) DVT prophylaxis Current Visit: Yes Status: Acute Code(s): Z29.9 - ENCOUNTER FOR PROPHYLACTIC MEASURES, UNSPECIFIED SNOMED Code(s): 621152674 Comment: - SQ Lovenox (11) Full code status Current Visit: Yes Status: Acute Code(s): Z78.9 - OTHER SPECIFIED HEALTH STATUS SNOMED Code(s): 848717417 Status and Disposition: Inpatient, Pending MIKE placement
[2019-05-18] MEDS: Enoxaparin(*) 30 MG/0.3 ML SYR SUBCUT SCH (18:01)
[2019-05-18] MEDS: cefTRIAXone(*) 1 GM in NS 0.9% 50 ML* 50 ML IVPB SCH (18:01)
[2019-05-18] MEDS: Cyclobenzaprine TAB* 10 MG PO PRN (21:05)
[2019-05-18] MEDS: Senna TAB 8.6 mg* TAB PO SCH (21:06)
[2019-05-19 05:52] LABS: Hematocrit 31 % (35-47); Hemoglobin 10.7 g/dL (12.0-16.0); Mean Corpuscular HGB Conc 35 g/dL (31-36); Mean Corpuscular Hemoglobin 31 pg (27-31); Mean Corpuscular Volume 87 fL (80-97); Mean Platelet Volume 7.2 fL (7.4-10.4); Platelet Count 280 10^3/uL (150-450); Red Blood Count 3.51 10^6 /uL (3.70-4.87); Red Cell Distribution Width 13 % (10-15); White Blood Count 6.3 10^3/uL (3.5-10.8)
[2019-05-19 06:08] LABS: Blood Urea Nitrogen 21 mg/dL (6-24); CO2 Carbon Dioxide 24 mmol/L (22-32); Calcium 9.3 mg/dL (8.6-10.3); Chloride 105 mmol/L (101-111); EGFR African American 64.3 (>60); EGFR Non-African American 53.1 (>60); Glucose 156 mg/dL (70-100); Magnesium 1.5 mg/dL (1.9-2.7); Sodium 137 mmol/L (135-145)
[2019-05-19] MEDS: Levothyroxine TAB* 175 MCG TAB PO SCH (06:21)
[2019-05-19 06:36] LABS: Anion Gap 8 mmol/L (2-11)
[2019-05-19] MEDS ORDERED: Magnesium Sulfate IV* 3 GM in NS 0.9% 100 ML* 100 ML IVPB ONE (07:02)
[2019-05-19] MEDS: Insulin LISPRO* 1 UNITS UNIT SUBCUT SCH ×4 (07:57→22:53)
[2019-05-19 08:11] LABS: ABS Eosinophils 0.3 10^3/ul (0-0.6); ABS Monocytes 0.5 10^3/ul (0-0.8); ABS Neutrophils 4.5 10^3/ul (1.5-7.7); Eosinophil % 5.4 %; Lymphocyte % 15.2 %
[2019-05-19] MEDS: Polyethylene Glycol 3350* 17 GM PACKET PO PRN (08:58)
[2019-05-19] MEDS: Magnesium Hydroxide LIQ* 30 ML UDC PO PRN (08:58)
[2019-05-19] MEDS: Gabapentin CAP(*) 300 MG PO SCH ×3 (08:59→22:37)
[2019-05-19] MEDS: Oxybutynin TAB* 5 MG PO SCH ×3 (08:59→22:37)
[2019-05-19] MEDS: Docusate CAP* 100 MG PO SCH ×2 (08:59→22:36)
[2019-05-19] MEDS: Insulin GLARGINE(*) 1 UNITS UNIT SUBCUT SCH ×2 (09:01→23:07)
--- NOTE | 2019-05-19 14:38 | PN ---
Subjective Date of Service: 05/19/19 Interval History: Patient is feeling better today, but still feels significantly weak. Patient denies CP, SOB, F/C, N/V, abdominal pain, flank pain, dizziness, or other pain. Family History: Unchanged from Admission Social History: Unchanged from Admission Past Medical History: Unchanged from Admission Objective Active Medications: Acetaminophen (Tylenol Tab*) 650 mg PO Q4H PRN PRN Reason: PAIN - MILD Last Admin: 05/18/19 21:45 Dose: 650 mg Cyclobenzaprine HCl (Flexeril Tab*) 10 mg PO TID PRN PRN Reason: PAIN - MODERATE Last Admin: 05/18/19 21:05 Dose: 10 mg Dextrose (Dextrose 50% Vial 50 Ml*) 25 ml IV PUSH .FOR FS < 60 - SS PRN PRN Reason: FS < 60 Docusate Sodium (Colace Cap*) 100 mg PO BID [facility] Last Admin: 05/19/19 08:59 Dose: 100 mg Enoxaparin Sodium (Lovenox(*)) 30 mg SUBCUT Q24H [facility] Last Admin: 05/18/19 18:01 Dose: 30 mg Gabapentin (Neurontin Cap(*)) 300 mg PO TID [facility] Last Admin: 05/19/19 13:08 Dose: 300 mg Ceftriaxone Sodium 1 gm/ (Sodium Chloride) 50 mls @ 100 mls/hr IVPB Q24H [facility] Last Admin: 05/18/19 18:01 Dose: 100 mls/hr Insulin Glargine (Lantus(*)) 56 units SUBCUT BID [facility] Last Admin: 05/19/19 09:01 Dose: 56 units Insulin Human Lispro (Humalog*) 0 units SUBCUT ACHS [facility]; Protocol Last Admin: 05/19/19 13:08 Dose: 3 units Levothyroxine Sodium (Synthroid Tab*) 175 mcg PO 0600 [facility] Last Admin: 05/19/19 06:21 Dose: 175 mcg Magnesium Hydroxide (Milk Of Magnesia Liq*) 30 ml PO Q4H PRN PRN Reason: CONSTIPATION Last Admin: 05/19/19 08:58 Dose: 30 ml Morphine Sulfate (Morphine Inj (Syringe))*) 2 mg IV Q4H PRN PRN Reason: PAIN - SEVERE Last Admin: 05/17/19 05:00 Dose: 2 mg Ondansetron HCl (Zofran Inj*) 4 mg IV Q4H PRN PRN Reason: NAUSEA/VOMITING Oxybutynin Chloride (Ditropan Tab*) 2.5 mg PO TID [facility] Last Admin: 05/19/19 13:07 Dose: 2.5 mg Oxycodone/Acetaminophen (Percocet 5/325 Tab*) 1 tab PO Q4H PRN PRN Reason: PAIN - MODERATE Last Admin: 05/17/19 09:36 Dose: 1 tab Polyethylene Glycol/Electrolytes (Miralax*) 17 gm PO DAILY PRN PRN Reason: CONSTIPATION Last Admin: 05/19/19 08:58 Dose: 17 gm Senna (Senokot 8.6 Mg Tab*) 2 tab PO BEDTIME [facility] Last Admin: 05/18/19 21:06 Dose: 2 tab Vital Signs - 8 hr 05/19/19 05/19/19 05/19/19 07:45 08:59 09:00 Temperature 97.4 F Pulse Rate 68 Respiratory 17 16 18 Rate Blood Pressure 140/65 (mmHg) O2 Sat by Pulse 99 Oximetry 05/19/19 05/19/19 05/19/19 11:10 11:27 13:08 Temperature 97.1 F Pulse Rate 86 Respiratory 19 16 16 Rate Blood Pressure 150/93 (mmHg) O2 Sat by Pulse 100 Oximetry Oxygen Devices in Use Now: None Appearance: Patient is a 63yo female who appears stated age and is sitting in the bed in [facility]. Eyes: No Scleral Icterus, PERRLA Ears/Nose/Mouth/Throat: NL Teeth, Lips, Gums, Clear Oropharnyx, Mucous Membranes Moist Neck: NL Appearance and Movements; NL JVP, Trachea Midline Respiratory: Symmetrical Chest Expansion and Respiratory Effort, Clear to Auscultation Cardiovascular: NL Sounds; No Murmurs; No JVD, RRR, No Edema Abdominal: NL Sounds; No Tenderness; No Distention, No Hepatosplenomegaly Lymphatic: No Cervical Adenopathy Extremities: No Edema, No Clubbing, Cyanosis Skin: No Rash or Ulcers, No Nodules or Sclerosis Neurological: Alert and Oriented x 3, - - CN II-XII intact. Result Diagrams: 05/19/19 05:41 05/19/19 10:24 Additional Lab and Data: Lab Results 05/15/19 05/15/19 05/15/19 Range/Units 14:59 14:59 14:59 WBC 11.5 H (3.5-10.8) 10^3/uL RBC 4.04 (3.70-4.87) 10^6 /uL Hgb 12.3 (12.0-16.0) g/dL Hct 36 (35-47) % MCV 88 (80-97) fL MCH 30 (27-31) pg MCHC 35 (31-36) g/dL RDW 14 (10-15) % Plt Count 259 (150-450) 10^3/uL MPV 7.9 (7.4-10.4) fL Neut % (Auto) 85.6 % Lymph % (Auto) 5.5 % [place] % (Auto) 8.1 % Eos % (Auto) 0.5 % Baso % (Auto) 0.3 % Absolute Neuts (auto) 9.8 H (1.5-7.7) 10^3/ul Absolute Lymphs (auto) 0.6 L (1.0-4.8) 10^3/ul Absolute Monos (auto) 0.9 H (0-0.8) 10^3/ul Absolute Eos (auto) 0.1 (0-0.6) 10^3/ul Absolute Basos (auto) 0.0 (0-0.2) 10^3/ul Absolute Nucleated RBC 0.0 10^3/ul Nucleated RBC % 0.0 Sodium 129 L (135-145) mmol/L Potassium 4.4 (3.5-5.0) mmol/L Chloride 97 L (101-111) mmol/L Carbon Dioxide 24 (22-32) mmol/L Anion Gap 8 (2-11) mmol/L BUN 31 H (6-24) mg/dL Creatinine 1.38 H (0.51-0.95) mg/dL Est GFR ( Amer) 46.9 (>60) Est GFR (Non-Af Amer) 38.7 (>60) BUN/Creatinine Ratio 22.5 H (8-20) Glucose 496 H (70-100) mg/dL Lactic Acid 1.3 (0.5-2.0) mmol/L Calcium 9.3 (8.6-10.3) mg/dL Total Bilirubin 1.20 H (0.2-1.0) mg/dL AST 17 (13-39) U/L ALT 30 (7-52) U/L Alkaline Phosphatase 80 (34-104) U/L C-Reactive Protein 219.91 H (<8.01) mg/L Total Protein 7.5 (6.4-8.9) g/dL Albumin 4.2 (3.2-5.2) g/dL Globulin 3.3 (2-4) g/dL Albumin/Globulin Ratio 1.3 (1-3) Urine Color Urine Appearance Urine pH (5-9) Ur Specific [place] (1.010-1.030) Urine Protein (Negative) Urine Ketones (Negative) Urine Blood (Negative) Urine Nitrate (Negative) Urine Bilirubin (Negative) Urine Urobilinogen (Negative) Ur Leukocyte Esterase (Negative) Urine WBC (Auto) (Absent) Urine RBC (Auto) (Absent) Urine Bacteria (Absent) Urine Glucose (Negative) 05/15/19 Range/Units 16:02 WBC (3.5-10.8) 10^3/uL RBC (3.70-4.87) 10^6 /uL Hgb (12.0-16.0) g/dL Hct (35-47) % MCV (80-97) fL MCH (27-31) pg MCHC (31-36) g/dL RDW (10-15) % Plt Count (150-450) 10^3/uL MPV (7.4-10.4) fL Neut % (Auto) % Lymph % (Auto) % [place] % (Auto) % Eos % (Auto) % Baso % (Auto) % Absolute Neuts (auto) (1.5-7.7) 10^3/ul Absolute Lymphs (auto) (1.0-4.8) 10^3/ul Absolute Monos (auto) (0-0.8) 10^3/ul Absolute Eos (auto) (0-0.6) 10^3/ul Absolute Basos (auto) (0-0.2) 10^3/ul Absolute Nucleated RBC 10^3/ul Nucleated RBC % Sodium (135-145) mmol/L Potassium (3.5-5.0) mmol/L Chloride (101-111) mmol/L Carbon Dioxide (22-32) mmol/L Anion Gap (2-11) mmol/L BUN (6-24) mg/dL Creatinine (0.51-0.95) mg/dL Est GFR ( Amer) (>60) Est GFR (Non-Af Amer) (>60) BUN/Creatinine Ratio (8-20) Glucose (70-100) mg/dL Lactic Acid (0.5-2.0) mmol/L Calcium (8.6-10.3) mg/dL Total Bilirubin (0.2-1.0) mg/dL AST (13-39) U/L ALT (7-52) U/L Alkaline Phosphatase (34-104) U/L C-Reactive Protein (<8.01) mg/L Total Protein (6.4-8.9) g/dL Albumin (3.2-5.2) g/dL Globulin (2-4) g/dL Albumin/Globulin Ratio (1-3) Urine Color Yellow Urine Appearance Turbid Urine pH 5.0 (5-9) Ur Specific [place] 1.018 (1.010-1.030) Urine Protein 1+(30 mg/dl) A (Negative) Urine Ketones Negative (Negative) Urine Blood 2+ A (Negative) Urine Nitrate Negative (Negative) Urine Bilirubin Negative (Negative) Urine Urobilinogen Negative (Negative) Ur Leukocyte Esterase 3+ A (Negative) Urine WBC (Auto) 3+(>20/hpf) A (Absent) Urine RBC (Auto) 1+(3-5/hpf) A (Absent) Urine Bacteria 3+ A (Absent) Urine Glucose 3+(>=500 mg/dl) A (Negative) Microbiology and Other Data: Microbiology 05/15/19 14:59 Aerobic Blood Culture - Preliminary Blood Venous No Growth Day 2 Anaerobic Blood Culture - Preliminary No Growth Day 2 05/15/19 14:59 Aerobic Blood Culture - Preliminary Blood Venous No Growth Day 2 Anaerobic Blood Culture - Preliminary No Growth Day 2 05/15/19 16:02 Urine Culture - Final Urine Klebsiella Pneumoniae Assess/Plan/Problems-Billing Assessment: Ms. Guallpa is a 63 yo female with a PMH significant for multiple sclerosis, DM2 , HTN who presented to the ED on 05/15 with concern for left lower back pain, found to be 2/2 pyelonephritis. - Patient Problems (1) Pyelonephritis Current Visit: Yes Status: Acute Code(s): N12 - TUBULO-INTERSTITIAL NEPHRITIS, NOT SPCF ACUTE OR CHRONIC SNOMED Code(s): 21297757 Comment: - Urine culture positive for Klebsiella - Continue ceftriaxone - Patient has been afebrile >24 hours and without leukocytosis - Flank pain resolved - BC NTD (2) CHARLES (acute kidney injury) Current Visit: Yes Status: Acute Code(s): N17.9 - ACUTE KIDNEY FAILURE, UNSPECIFIED SNOMED Code(s): 78748820 Comment: - Possibly a mixture of prerenal in setting of UTI as well as obstructive given chronic retention - Improved with IVF - Resume Lisinopril today due to HTN (3) Overactive bladder Current Visit: Yes Status: Chronic Code(s): N32.81 - OVERACTIVE BLADDER SNOMED Code(s): 450896262 Comment: - Continue oxybutynin - Borrero for acute urinary retention of over 1L - Leave borrero to allow bladder to decompress, follow up outpatient urologist to find balance between incontinence and retention - Patient does not feel that she has the hand dexterity for self- catheterization. (4) Constipation Current Visit: Yes Status: Acute Code(s): K59.00 - CONSTIPATION, UNSPECIFIED SNOMED Code(s): 09811030 Comment: - Chronic problem, continue stool softeners, laxative and fiber - Small BM, still symptomatic. (5) Hydronephrosis Current Visit: Yes Status: Acute Code(s): N13.30 - UNSPECIFIED HYDRONEPHROSIS SNOMED Code(s): 94732022 Comment: - Moderate bilateral hydronephrosis and hydroureter on CT scan - Pt clinically improving and follows with urology as outpatient. Suspect urinary retention in the presence of UTI and MS. Should continue outpatient urology follow up (6) Type 2 diabetes mellitus Current Visit: Yes Status: Acute Comment: - Elevated FSBG but control improving - Continue Lantus and Lispro SSI - Hold home metformin and Trulicity; resume upon discharge (7) Hypertension Current Visit: Yes Status: Chronic Code(s): I10 - ESSENTIAL (PRIMARY) HYPERTENSION SNOMED Code(s): 80701138 Comment: - Normotensive - Resume Home lisinopril - Continue to Hold HCTZ (8) Hypothyroidism Current Visit: Yes Status: Chronic Code(s): E03.9 - HYPOTHYROIDISM, UNSPECIFIED SNOMED Code(s): 32947184 Comment: - Continue levothyroxine (9) Multiple sclerosis Current Visit: Yes Status: Chronic Code(s): G35 - MULTIPLE SCLEROSIS SNOMED Code(s): 55117253 Comment: - Continue pain management modalities (gabapentin, cyclobenzaprine) - Outpatient follow up - Weakness likely due to infection and not MS flare. (10) DVT prophylaxis Current Visit: Yes Status: Acute Code(s): Z29.9 - ENCOUNTER FOR PROPHYLACTIC MEASURES, UNSPECIFIED SNOMED Code(s): 813200969 Comment: - SQ Lovenox (11) Full code status Current Visit: Yes Status: Acute Code(s): Z78.9 - OTHER SPECIFIED HEALTH STATUS SNOMED Code(s): 390528703 Status and Disposition: Inpatient, Pending MIKE placement, hopeful D/C tomorrow.
[2019-05-19] MEDS ORDERED: Enoxaparin(*) 40 MG/0.4 ML SYR SUBCUT SCH ×2 (14:53→18:00)
[2019-05-19] MEDS ORDERED: Sodium Phosphate ADULT ENEMA* 118 ml bottle PR ONE (16:12)
[2019-05-19] MEDS ORDERED: Bisacodyl SUPP* 10 MG SUPP PR PRN (16:59)
[2019-05-19] MEDS: cefTRIAXone(*) 1 GM in NS 0.9% 50 ML* 50 ML IVPB SCH (17:35)
[2019-05-19] MEDS: Acetaminophen TAB* 325 MG PO PRN (17:35)
[2019-05-19] MEDS: Senna TAB 8.6 mg* TAB PO SCH (22:36)
--- NOTE | 2019-05-19 22:54 | DS ---
CC: Dr. Igor Kenney * DISCHARGE SUMMARY: DATE OF ADMISSION: 05/15/19 DATE OF ANTICIPATED DISCHARGE: 05/19/19 PRIMARY CARE PROVIDER: Dr. Igor Kenney. MY ATTENDING WHILE IN THE HOSPITAL: Dr. Reshma Carreon.* (DICTATED BY SARTHAK SANDOVAL) PRIMARY DISCHARGE DIAGNOSES: 1. Left-sided pyelonephritis, improved. 2. Multiple sclerosis. 3. Recrudescence of neurologic deficits after urinary tract infection. SECONDARY DISCHARGE DIAGNOSES: 1. Hypertension. 2. Diabetes mellitus, type 2. 3. Overactive bladder. 4. Hypothyroidism. STUDIES DONE WHILE IN THE HOSPITAL: Abdomen and pelvis CT from 05/15/19 read as stable chronic diverticulosis without evidence of acute diverticulitis and some moderate bilateral hydronephrosis and hydroureter, but no visible obstructing calculus. Bladder is unremarkable and visualized, the amount in the bladder is not estimated. MEDICATIONS: 1. Metformin 500 mg p.o. daily. 2. Insulin lispro 2 to 10 units sliding scale subcutaneous t.i.d. with meals. 3. Insulin detemir 70 units p.o. b.i.d. 4. Trulicity 1.5 mg p.o. weekly. 5. Synthroid 175 mcg p.o. daily. 6. Lisinopril 10 mg p.o. daily. 7. Gabapentin 300 mg p.o. t.i.d. 8. Oxybutynin 2.5 mg p.o. t.i.d. 9. Mobic 15 mg p.o. daily. 10. Zestoretic 25 mg 1 tablet p.o. daily. 11. Cyclobenzaprine 10 mg p.o. t.i.d. as needed. 12. Tylenol 650 mg p.o. q.4 hours as needed. 13. Dulcolax suppository 10 mg p.r. at bedtime as needed. 14. Cefuroxime 500 mg p.o. b.i.d. 15. Docusate 100 mg p.o. b.i.d. 16. MiraLAX 17 g p.o. daily. New medications at discharge: 1. Tylenol. 2. Dulcolax. 3. Ceftin. 4. Docusate. 5. MiraLAX. Medications discontinued at discharge: None. HOSPITAL COURSE: This is a brief summary of the patient's presentation. For more details, please see the history and physical from Marii Elena NP, on . In brief, the patient is a 63-year-old female with past medical history significant for the above, who presented to the emergency department after 3 days of worsening left flank pain, pleuritic in nature, and weakness and difficulty walking as well as decreased appetite. The patient had high fevers and began to fall frequently. The patient in the emergency department was found to have urine, 3+ leukocyte esterase, 2+ bacteria. The patient was admitted to the hospital and started on ceftriaxone. The patient improved throughout the hospitalization. The patient was continued on oxybutynin initially due to severe issues with severe urinary incontinence that was only helped by oxybutynin, but that she has had known elevated postvoid residuals through her urologist who she had been having trouble seeing recently and had not any recent medication changes. The patient on 05/17/19 was found to be retaining over what may have been 1300 mL in her bladder and a Espinoza catheter was inserted. The patient continued improving. The patient did feel her strength got better throughout her hospitalization with treatment; however, she continued to be decompensated given that she has to get up 2 flights of stairs to get into her house. The patient was found to have rehab needs by Physical Therapy and elected to go to subacute rehab, which one is pending at this time. The patient is stable and amenable for discharge on 05/19/19 and aware of her subacute rehab need. DISCHARGE PLAN BY PROBLEM: 1. Left-sided pyelonephritis, improved. The patient will be continued on antibiotics for additional 10 days for a total of 14 days. The patient was found to be retaining urine. This is likely a combination of her MS, her oxybutynin, and her urinary tract infection. The patient has requested to change her urologist's care and she will follow up with a local urologist if available within 2 weeks to have the ongoing need for her Espinoza to be evaluated. The patient should likely be discharged with the Espinoza given her bladder which was markedly distended and time to decompress. The patient will be continued on oxybutynin to avoid bladder spasms. This is very likely should be discontinued if a voiding trail is attempted. Additional medication management for the patient's retention and incontinence per outpatient urologist. 2. Acute kidney injury. The patient's creatinine has returned to her baseline. Her acute kidney injury is likely a combination of her obstruction and dehydration related to weakness and urinary tract infection. Resume the patient's lisinopril and hydrochlorothiazide. 3. MS. The patient is not on any disease-modifying medications at this time. The patient should follow up with her outpatient neurologist given the relapsing - remitting nature of the patient's disease. The patient would possibly benefit from treatment at this time though she is scheduled to start Copaxone; however, any immunosuppression at this time would likely not be recommended given her frequent urinary tract infections. 4. Diabetes mellitus, type 2. Continue the patient's long-acting and short- acting insulin as well as her GLP-1 inhibitor and her metformin. 5. Weakness. The patient's weakness is not likely representing new MS lesions. This is likely a recrudescence of her previous neurological deficits related to her urinary tract infection. PT/OT and subacute rehab to optimize her for returning to home. DISPOSITION: Subacute rehab. CONDITION: Stable. TIME SPENT: Approximately 60 minutes was spent on the discharge of this patient , 30 of which was spent [id number] with the patient obtaining history and physical and discussing treatment plan. SARTHAK SANDOVAL [id number]/[id number] #: [id number] MTDD
[2019-05-20] MEDS: Levothyroxine TAB* 175 MCG TAB PO SCH (06:37)
[2019-05-20 06:47] LABS: Hematocrit 32 % (35-47); Hemoglobin 11.4 g/dL (12.0-16.0); Mean Corpuscular HGB Conc 36 g/dL (31-36); Mean Corpuscular Hemoglobin 31 pg (27-31); Mean Corpuscular Volume 87 fL (80-97); Mean Platelet Volume 7.2 fL (7.4-10.4); Platelet Count 320 10^3/uL (150-450); Red Blood Count 3.67 10^6 /uL (3.70-4.87); Red Cell Distribution Width 13 % (10-15); White Blood Count 7.7 10^3/uL (3.5-10.8)
[2019-05-20 06:58] LABS: Calcium 9.4 mg/dL (8.6-10.3); EGFR Non-African American 56.2 (>60); Magnesium 1.9 mg/dL (1.9-2.7); Potassium 4.1 mmol/L (3.5-5.0)
[2019-05-20 07:30] LABS: ABS Basophils 0.1 10^3/ul (0-0.2); ABS Eosinophils 0.5 10^3/ul (0-0.6); ABS Lymphocytes 1.3 10^3/ul (1.0-4.8); ABS Monocytes 0.5 10^3/ul (0-0.8); ABS Neutrophils 5.3 10^3/ul (1.5-7.7); Lymphocyte % 17.4 %; Nucleated Red Blood Cells % 0.1
[2019-05-20] MEDS: Insulin LISPRO* 1 UNITS UNIT SUBCUT SCH ×2 (07:52→11:59)
[2019-05-20] MEDS: Gabapentin CAP(*) 300 MG PO SCH (08:09)
[2019-05-20] MEDS: Polyethylene Glycol 3350* 17 GM PACKET PO PRN (08:09)
[2019-05-20] MEDS: Magnesium Hydroxide LIQ* 30 ML UDC PO PRN (08:09)
[2019-05-20] MEDS: Oxybutynin TAB* 5 MG PO SCH (08:09)
[2019-05-20] MEDS: Docusate CAP* 100 MG PO SCH (08:09)
[2019-05-20] MEDS: Insulin GLARGINE(*) 1 UNITS UNIT SUBCUT SCH (10:57)
[2019-05-20 11:37] VITALS: BP 126/53
[2019-05-20] MEDS: Acetaminophen TAB* 325 MG PO PRN (11:59)
[2019-05-20] MEDS ORDERED: Insulin GLARGINE(*) 1 UNITS UNIT SUBCUT SCH (12:00)
--- NOTE | 2019-05-21 01:56 | DS ---
CC: Igor Kenney MD * DISCHARGE SUMMARY: ADDENDUM: DATE OF ADMISSION: 05/15/19 UPDATED DATE OF DISCHARGE: 05/20/19 PRIMARY CARE PHYSICIAN: Igor Kenney MD MEDICATIONS: Updated discharge medication list: 1. Insulin detemir 45 units twice a day. 2. Insulin lispro dosed by sliding scale. 3. Metformin 500 mg daily. 4. Cefuroxime 500 mg twice a day for 10 more days. 5. Dulaglutide 1.5 mg subcutaneous weekly. 6. Gabapentin 300 mg 3 times a day. 7. Cyclobenzaprine 10 mg 3 times a day. 8. Levothyroxine 175 mcg daily. 9. Lisinopril/hydrochlorothiazide 20/25 one tablet daily. 10. Oxybutynin 2.5 mg 3 times a day. 11. Polyethylene glycol 17 g as needed for constipation. 12. Meloxicam 15 mg daily as needed for pain. 13. Bisacodyl suppository 10 mg LA as needed daily. [id number]/[facility] #: [id number] MTDD
== END 2019-05-20 12:08 | DRG 463 ==
LOC: ED 14:08 → MED 18:00 → OBSVTOIN 05-16 11:00
PROVIDERS: ADMIT Internal Medicine; ATTEND Internal Medicine
DX: N10 Acute pyelonephritis (principal); N13.4 Hydroureter; B96.1 Klebsiella pneumoniae [K. pneumoniae] as the cause of diseases classified elsewhere; N17.9 Acute kidney failure, unspecified; G35 Multiple sclerosis; N13.30 Unspecified hydronephrosis; I10 Essential (primary) hypertension; E66.9 Obesity, unspecified; E03.9 Hypothyroidism, unspecified; E11.9 Type 2 diabetes mellitus without complications; J45.909 Unspecified asthma, uncomplicated; N32.81 Overactive bladder; K57.90 Diverticulosis of intestine, part unspecified, without perforation or abscess without bleeding; M48.061 Spinal stenosis, lumbar region without neurogenic claudication; Z79.84 Long term (current) use of oral hypoglycemic drugs; Z79.4 Long term (current) use of insulin; Z79.51 Long term (current) use of inhaled steroids; Z79.899 Other long term (current) drug therapy; Z88.8 Allergy status to other drugs, medicaments and biological substances; Z83.3 Family history of diabetes mellitus; Z82.49 Family history of ischemic heart disease and other diseases of the circulatory system; Z82.3 Family history of stroke; Z80.3 Family history of malignant neoplasm of breast; Z68.38 Body mass index [BMI] 38.0-38.9, adult; K59.09 Other constipation
CPT/HCPCS: 36415; 74176; 80048; 80053; 81003; 81015; 83605; 83735; 85025; 86140; 87040; 87077; 87086; 87186; 90686; 90732; 96365; 96372; 99284; A9270-GY; G0378; G8978-GP-CK; G8979-GP-CI; J0696; J1650; J2270; J3475

== ENCOUNTER 2019-05-20 10:44 | Inpatient (IN) | payer BC, OTHER ==
[2019-05-20] MEDS ORDERED: Magnesium Hydroxide LIQ* 30 ML UDC PO PRN (13:47)
[2019-05-20] MEDS ORDERED: Senna TAB 8.6 mg* TAB PO PRN (13:47)
[2019-05-20] MEDS ORDERED: Oxybutynin TAB* 5 MG PO ONE (14:11)
[2019-05-20] MEDS: Insulin LISPRO* 1 UNITS UNIT SUBCUT SCH ×2 (16:53→21:53)
[2019-05-20] MEDS: Enoxaparin(*) 40 MG/0.4 ML SYR SUBCUT SCH (18:52)
[2019-05-20] MEDS: Docusate CAP* 100 MG PO SCH (21:04)
[2019-05-20] MEDS: Gabapentin CAP(*) 300 MG PO SCH (21:04)
[2019-05-20] MEDS: Acetaminophen TAB* 325 MG PO PRN (21:05)
[2019-05-20] MEDS: Oxybutynin TAB* 5 MG PO SCH (21:06)
[2019-05-20] MEDS: Insulin GLARGINE(*) 1 UNITS UNIT SUBCUT SCH (21:52)
[2019-05-20] MEDS: Cyclobenzaprine TAB* 10 MG PO PRN (21:53)
--- NOTE | 2019-05-20 22:43 | HP ---
ADMISSION HISTORY AND PHYSICAL: DATE OF ADMISSION: 05/20/19 REASON FOR ADMISSION: Multiple sclerosis exacerbation. HISTORY OF PRESENT ILLNESS: Melina Guallpa is a 63-year-old female. She has a medical history significant for multiple sclerosis. She has a drop foot on her left leg. She sees a neurologist in [place], Dr. Dang. She said she has been trying to get on Copaxone, but there are some things she needs to do which have not been done yet in order to do that. She has a history of difficulty emptying her bladder as well as a result of the MS in addition to the left leg foot drop. She has had difficulty with low back pain, particularly on the left side. She said she had a back injection done over the summer when the back pain began, but then somewhere around the 05/11/19, she had a sharp increase in the back pain particularly on the left side. She was having a hard time breathing because of the pain. She had a temperature of 102 degrees Fahrenheit and came to the ER on 05/15/19. She had labs done in the ER. She had an elevated white blood cell count and an elevated C-reactive protein. The patient was felt to have pyelonephritis. She was started on ceftriaxone and given normal saline. She was given ceftriaxone and was found to have moderate hydronephrosis on CAT scan. It was felt that she had chronic urinary retention and a catheter was put in. She did have a bladder scan of 900 cc prior to the catheter going in. The patient after being treated with IV antibiotics, the pain in her back seemed to be subsiding. At the time of admission, she was noted to have a creatinine of 1.38. Her hydrochlorothiazide and lisinopril were held. The patient felt significantly weak from her illness. She was felt to have physical therapy and occupational therapy needs. It was felt that she might have had an exacerbation of her multiple sclerosis , although she did not have a new MRI. She will continue on cefuroxime for a total of 10 days. The patient was felt to have physical therapy and occupational therapy needs. As mentioned, she is now being admitted for inpatient rehab so that she might return to independent living. PAST MEDICAL HISTORY: Significant for the aforementioned multiple sclerosis. The patient said she has had symptoms of MS for many years, although only was recently diagnosed definitively. As mentioned, she sees Dr. Dang in [place]. She has a history of diabetes, hypertension, back pain. CURRENT MEDICATIONS: Include: 1. Flexeril. 2. Lovenox. 3. Gabapentin. 4. Lantus. 5. Insulin. 6. Synthroid. 7. Ditropan. 8. Percocet. ALLERGIES: The patient is allergic to PROCHLORPERAZINE. SOCIAL HISTORY: She is a nonsmoker, nondrinker. She lives with her in an apartment. It is a third alex apartment with no elevator. They hope to move after her retires. Her works full-time. REVIEW OF SYSTEMS: The patient reports no current shortness of breath or chest pain. PHYSICAL EXAMINATION VITAL SIGNS: The patient's temperature is 98.0, blood pressure is 148/76, pulse 73, respirations 22. HEENT: Her extraocular movements are intact. Tongue is midline. NECK: Supple. LUNGS: Sound clear to auscultation bilaterally. HEART: Heart sounds are regular, S1 and S2 are audible. ABDOMEN: Soft and nontender. EXTREMITIES: She has increased tone in both lower extremities. Slight edema in both lower extremities. Peripheral pulses are intact. NEUROLOGIC: She might have had decreased sensation in her feet bilaterally. Muscle strength: In her left lower extremity, she had very limited dorsiflexion or plantar flexion. Quadriceps was about 3/5. Right lower extremity was at least 4/5 in quadriceps and dorsiflexion and plantar flexion. FUNCTIONAL EXAM: She transfers with moderate amount of assistance. ASSESSMENT: 1. Multiple sclerosis. 2. Left footdrop. 3. Recent pyelonephritis. PLAN: Our plan is to integrate her into a comprehensive and therapeutic rehab program. We will have the following goals: 1. Physical Therapy will work with the patient. They are going to work on functional transfer training, ambulation training with a walker. 2. Occupational Therapy will see the patient, work on her activities of daily living including toileting and toilet transfers. 3. Lovenox for DVT prophylaxis. 4. For her diabetes, we are going to continue the Lantus. We will do sliding scale insulin. We are going to hold her metformin for now. 5. For the urinary tract infection, we are going to continue cefuroxime 500 mg twice a day. 6. Continue Synthroid for hypothyroidism. 7. We are going to continue the indwelling Espinoza for now. We may try teaching her to self-catheterize. 8. Flexeril for spasm. 9. Jingle Writer will be closely involved to make sure that any services and equipment that the patient requires are in place to prior to discharge. 10. Family training as appropriate. 11. Home with appropriate services. ESTIMATED LENGTH OF STAY: 10 days. [id number]/CPS #: [id number] EZE
[2019-05-21 04:37] LABS: Hematocrit 31 % (35-47); Hemoglobin 10.7 g/dL (12.0-16.0); Mean Corpuscular HGB Conc 35 g/dL (31-36); Mean Corpuscular Hemoglobin 30 pg (27-31); Mean Corpuscular Volume 88 fL (80-97); Mean Platelet Volume 6.9 fL (7.4-10.4); Platelet Count 358 10^3/uL (150-450); Red Blood Count 3.56 10^6 /uL (3.70-4.87); Red Cell Distribution Width 13 % (10-15); White Blood Count 9.7 10^3/uL (3.5-10.8)
[2019-05-21 04:58] LABS: ABS Basophils 0.1 10^3/ul (0-0.2); ABS Eosinophils 0.7 10^3/ul (0-0.6); ABS Lymphocytes 1.7 10^3/ul (1.0-4.8); ABS Monocytes 0.6 10^3/ul (0-0.8); ABS Neutrophils 6.7 10^3/ul (1.5-7.7); ABS Nucleated RBC 0.1 10^3/ul; Eosinophil % 6.8 %; Lymphocyte % 17.4 %; Nucleated Red Blood Cells % 0.6
[2019-05-21 05:12] LABS: Albumin 3.5 g/dL (3.2-5.2); Albumin/Globulin Ratio 1.3 (1-3); BUN/Creatinine Ratio 22.4 (8-20); EGFR African American 69.6 (>60); EGFR Non-African American 57.5 (>60); Globulin 2.8 g/dL (2-4); Potassium 4.1 mmol/L (3.5-5.0); Total Bilirubin 0.3 mg/dL (0.2-1.0); Total Protein 6.3 g/dL (6.4-8.9)
[2019-05-21] MEDS: Levothyroxine TAB* 175 MCG TAB PO SCH (06:02)
[2019-05-21] MEDS: Docusate CAP* 100 MG PO SCH ×2 (08:37→21:36)
[2019-05-21] MEDS: Gabapentin CAP(*) 300 MG PO SCH ×3 (08:38→21:35)
[2019-05-21] MEDS: Oxybutynin TAB* 5 MG PO SCH ×3 (08:39→21:36)
[2019-05-21] MEDS: Polyethylene Glycol 3350* 17 GM PACKET PO SCH (08:40)
[2019-05-21] MEDS: Acetaminophen TAB* 325 MG PO PRN ×2 (08:40→21:35)
[2019-05-21] MEDS ORDERED: Insulin GLARGINE(*) 1 UNITS UNIT SUBCUT ONE (09:56)
[2019-05-21] MEDS: Insulin LISPRO* 1 UNITS UNIT SUBCUT SCH ×4 (11:36→21:29)
[2019-05-21] MEDS: Insulin GLARGINE(*) 1 UNITS UNIT SUBCUT SCH ×2 (11:43→21:30)
[2019-05-21] MEDS: Enoxaparin(*) 40 MG/0.4 ML SYR SUBCUT SCH (17:13)
--- NOTE | 2019-05-21 20:24 | PN ---
Progress Note Date of Service: 05/21/19 Note: DEVIN FELIPE was visited. Therapy notes read and reviewed. Her BS was a little low this am and I cut back her Lantus. Otherwise she is doing ok, got up with therapy. Current Medications: Active Medications Generic Name Dose Route Start Last Admin Trade Name Freq PRN Reason Stop Dose Admin Acetaminophen 650 mg 05/20/19 13:47 05/21/19 08:40 Tylenol Tab* PO 650 mg Q6H PRN Administration MILD PAIN or TEMP > 100.4 Cefuroxime Axetil 500 mg 05/21/19 09:00 05/21/19 08:37 Ceftin Tab(*) PO 500 mg BID JANNIE Administration Cyclobenzaprine HCl 10 mg 05/20/19 20:51 05/20/19 21:53 Flexeril Tab* PO 10 mg TID PRN Administration SPASMS Docusate Sodium 100 mg 05/20/19 21:00 05/21/19 08:37 Colace Cap* PO 100 mg BID JANNIE Administration Enoxaparin Sodium 40 mg 05/20/19 18:00 05/21/19 17:13 Lovenox(*) SUBCUT 40 mg Q24H JANNIE Administration Gabapentin 300 mg 05/20/19 21:00 05/21/19 14:23 Neurontin Cap(*) PO 300 mg TID JANNIE Administration Insulin Glargine 35 units 05/21/19 21:00 Lantus(*) SUBCUT Q12H JANNIE Insulin Human Lispro 0 units 05/20/19 16:30 05/21/19 17:09 Humalog* SUBCUT 3 units ACHS JANNIE Administration Protocol Levothyroxine Sodium 175 mcg 05/21/19 06:00 05/21/19 06:02 Synthroid Tab* PO 175 mcg 0600 JANNIE Administration Magnesium Hydroxide 30 ml 05/20/19 13:47 05/20/19 17:37 Milk Of Magnesia Liq* PO 30 ml Q6H PRN Administration CONSTIPATION Oxybutynin Chloride 2.5 mg 05/20/19 21:00 05/21/19 14:23 Ditropan Tab* PO 2.5 mg TID JANNIE Administration Oxycodone/Acetaminophen 1 tab 05/20/19 14:14 Percocet 5/325 Tab* PO Q4H PRN PAIN - SEVERE Polyethylene Glycol/Electrolytes 17 gm 05/21/19 09:00 05/21/19 08:40 Miralax* PO 17 gm DAILY JANNIE Administration Senna 2 tab 05/20/19 13:47 Senokot 8.6 Mg Tab* PO BEDTIME PRN CONSTIPATION Vital Signs: Vital Signs Temp Pulse Resp BP Pulse Ox 98.2 F 77 20 145/63 100 05/21/19 18:01 05/21/19 18:01 05/21/19 18:53 05/21/19 18:01 05/21/19 18:53 Lab Results: Laboratory Results - last 24 hr 05/20/19 05/20/19 05/21/19 16:48 21:03 04:18 WBC 9.7 RBC 3.56 L Hgb 10.7 L Hct 31 L MCV 88 MCH 30 MCHC 35 RDW 13 Plt Count 358 MPV 6.9 L Neut % (Auto) 68.5 Lymph % (Auto) 17.4 [place] % (Auto) 6.4 Eos % (Auto) 6.8 Baso % (Auto) 0.9 Absolute Neuts (auto) 6.7 Absolute Lymphs (auto) 1.7 Absolute Monos (auto) 0.6 Absolute Eos (auto) 0.7 H Absolute Basos (auto) 0.1 Absolute Nucleated RBC 0.1 Nucleated RBC % 0.6 Sodium Potassium Chloride Carbon Dioxide Anion Gap BUN Creatinine Est GFR ( Amer) Est GFR (Non-Af Amer) BUN/Creatinine Ratio Glucose POC Glucose (mg/dL) 73 149 H Calcium Total Bilirubin AST ALT Alkaline Phosphatase Total Protein Albumin Globulin Albumin/Globulin Ratio 05/21/19 05/21/19 05/21/19 04:18 08:10 12:01 WBC RBC Hgb Hct MCV MCH MCHC RDW Plt Count MPV Neut % (Auto) Lymph % (Auto) [place] % (Auto) Eos % (Auto) Baso % (Auto) Absolute Neuts (auto) Absolute Lymphs (auto) Absolute Monos (auto) Absolute Eos (auto) Absolute Basos (auto) Absolute Nucleated RBC Nucleated RBC % Sodium 138 Potassium 4.1 Chloride 104 Carbon Dioxide 28 Anion Gap 6 BUN 22 Creatinine 0.98 H Est GFR ( Amer) 69.6 Est GFR (Non-Af Amer) 57.5 BUN/Creatinine Ratio 22.4 H Glucose 65 L POC Glucose (mg/dL) 62 L 129 H Calcium 9.0 Total Bilirubin 0.30 AST 37 ALT 46 Alkaline Phosphatase 102 Total Protein 6.3 L Albumin 3.5 Globulin 2.8 Albumin/Globulin Ratio 1.3 05/21/19 16:42 WBC RBC Hgb Hct MCV MCH MCHC RDW Plt Count MPV Neut % (Auto) Lymph % (Auto) [place] % (Auto) Eos % (Auto) Baso % (Auto) Absolute Neuts (auto) Absolute Lymphs (auto) Absolute Monos (auto) Absolute Eos (auto) Absolute Basos (auto) Absolute Nucleated RBC Nucleated RBC % Sodium Potassium Chloride Carbon Dioxide Anion Gap BUN Creatinine Est GFR ( Amer) Est GFR (Non-Af Amer) BUN/Creatinine Ratio Glucose POC Glucose (mg/dL) 154 H Calcium Total Bilirubin AST ALT Alkaline Phosphatase Total Protein Albumin Globulin Albumin/Globulin Ratio Exam: GENERAL: No distress LUNGS: Clear HEART: Reg rhythm ABDOMEN: Soft, +BS EXTREMITIES: Decreased tone left ankle NEUROLOGIC: A&O. Lower extremities: right 2/5, proximal, 4/5 distal, left hip flx 2/5, quads 4/5, left DF 1/5, PF 2/5 Assessment/Plan: 1. Multiple Sclerosis: PT/OT. Her doctor is trying to start her on Copaxone 2. Pyelonephritis: Ceftin 500 BID, day 2 3. DM: Lantus/SSI. Lantus cut back 4. Hypothyroidism: Synthroid 5. DVT Prophylaxis: Lovenox 6. Advance Directives: Full code 7. ARF: Cr down to 0.98. May resume Glucophage 05/21/19 20:23 05/21/19 20:26
[2019-05-21] MEDS: Cyclobenzaprine TAB* 10 MG PO PRN (21:34)
[2019-05-22] MEDS: Acetaminophen TAB* 325 MG PO PRN (06:34)
[2019-05-22] MEDS: Levothyroxine TAB* 175 MCG TAB PO SCH (06:35)
[2019-05-22] MEDS: Insulin LISPRO* 1 UNITS UNIT SUBCUT SCH ×4 (08:29→20:12)
[2019-05-22] MEDS: Gabapentin CAP(*) 300 MG PO SCH ×3 (10:20→20:11)
[2019-05-22] MEDS: Docusate CAP* 100 MG PO SCH ×2 (10:20→20:10)
[2019-05-22] MEDS: Polyethylene Glycol 3350* 17 GM PACKET PO SCH (10:20)
[2019-05-22] MEDS: Oxybutynin TAB* 5 MG PO SCH ×3 (10:21→20:11)
[2019-05-22] MEDS: Insulin GLARGINE(*) 1 UNITS UNIT SUBCUT SCH ×2 (10:21→20:13)
[2019-05-22] MEDS ORDERED: Sodium Phosphate ADULT ENEMA* 118 ml bottle PR PRN (10:41)
--- NOTE | 2019-05-22 16:51 | PN ---
Progress Note Date of Service: 05/22/19 Note: DEVIN FELIPE was visited. Therapy notes read and reviewed. Observed her ambulating. She did better than expected with walking today. Has foot drop and some difficulty with catheter bag. Current Medications: Active Medications Generic Name Dose Route Start Last Admin Trade Name Freq PRN Reason Stop Dose Admin Acetaminophen 650 mg 05/20/19 13:47 05/22/19 06:34 Tylenol Tab* PO 650 mg Q6H PRN Administration MILD PAIN or TEMP > 100.4 Cefuroxime Axetil 500 mg 05/21/19 09:00 05/22/19 10:25 Ceftin Tab(*) PO 500 mg BID JANNIE Administration Cyclobenzaprine HCl 10 mg 05/20/19 20:51 05/21/19 21:34 Flexeril Tab* PO 10 mg TID PRN Administration SPASMS Docusate Sodium 100 mg 05/20/19 21:00 05/22/19 10:20 Colace Cap* PO 100 mg BID JANNIE Administration Enoxaparin Sodium 40 mg 05/20/19 18:00 05/21/19 17:13 Lovenox(*) SUBCUT 40 mg Q24H JANNIE Administration Gabapentin 300 mg 05/20/19 21:00 05/22/19 13:58 Neurontin Cap(*) PO 300 mg TID JANNIE Administration Insulin Glargine 35 units 05/21/19 21:00 05/22/19 10:21 Lantus(*) SUBCUT 35 units Q12H JANNIE Administration Insulin Human Lispro 0 units 05/20/19 16:30 05/22/19 11:36 Humalog* SUBCUT Not Given ACHS [facility] Protocol Levothyroxine Sodium 175 mcg 05/21/19 06:00 05/22/19 06:35 Synthroid Tab* PO 175 mcg 0600 JANNIE Administration Magnesium Hydroxide 30 ml 05/20/19 13:47 05/20/19 17:37 Milk Of Magnesia Liq* PO 30 ml Q6H PRN Administration CONSTIPATION Oxybutynin Chloride 2.5 mg 05/20/19 21:00 05/22/19 13:59 Ditropan Tab* PO 2.5 mg TID JANNIE Administration Oxycodone/Acetaminophen 1 tab 05/20/19 14:14 Percocet 5/325 Tab* PO Q4H PRN PAIN - SEVERE Polyethylene Glycol/Electrolytes 17 gm 05/21/19 09:00 05/22/19 10:20 Miralax* PO 17 gm DAILY JANNIE Administration Senna 2 tab 05/20/19 13:47 Senokot 8.6 Mg Tab* PO BEDTIME PRN CONSTIPATION Sodium Biphosphate/Sodium Phosphate 1 bottle 05/22/19 10:41 05/22/19 10:47 Fleet Enema* AR 1 bottle DAILY PRN Administration CONSTIPATION Vital Signs: Vital Signs Temp Pulse Resp BP Pulse Ox 98.7 F 84 18 134/65 100 05/22/19 16:12 05/22/19 16:12 05/22/19 16:12 05/22/19 16:12 05/22/19 16:12 Lab Results: Laboratory Results - last 24 hr 05/21/19 05/21/19 05/22/19 16:42 20:26 06:57 POC Glucose (mg/dL) 154 H 251 H 108 H 05/22/19 11:29 POC Glucose (mg/dL) 127 H Exam: GENERAL: No distress LUNGS: Clear HEART: Reg rhythm ABDOMEN: Soft, +BS EXTREMITIES: Decreased tone left ankle NEUROLOGIC: A&O. Lower extremities: right 3/5, proximal, 4/5 distal, left hip flx 3/5, quads 4/5, left DF 1/5, PF 2/5 Assessment/Plan: 1. Multiple Sclerosis: PT/OT. Her doctor is trying to start her on Copaxone 2. Pyelonephritis: Ceftin 500 BID, day 310 3. DM: Lantus/SSI. Lantus cut back 4. Hypothyroidism: Synthroid 5. DVT Prophylaxis: Lovenox 6. Advance Directives: Full code 7. ARF: Cr down to 0.98. May resume Glucophage 05/22/19 16:51
[2019-05-22] MEDS: Enoxaparin(*) 40 MG/0.4 ML SYR SUBCUT SCH (17:24)
[2019-05-23] MEDS: Levothyroxine TAB* 175 MCG TAB PO SCH (05:18)
[2019-05-23] MEDS: Insulin LISPRO* 1 UNITS UNIT SUBCUT SCH ×4 (08:39→21:03)
[2019-05-23] MEDS: Oxybutynin TAB* 5 MG PO SCH ×3 (10:51→21:01)
[2019-05-23] MEDS: Gabapentin CAP(*) 300 MG PO SCH ×3 (10:51→21:02)
[2019-05-23] MEDS: Docusate CAP* 100 MG PO SCH ×2 (10:53→21:00)
[2019-05-23] MEDS: metFORMIN* 500 MG TAB PO SCH (10:53)
[2019-05-23] MEDS: Polyethylene Glycol 3350* 17 GM PACKET PO SCH (10:53)
[2019-05-23] MEDS: Acetaminophen TAB* 325 MG PO PRN ×2 (10:53→21:08)
[2019-05-23] MEDS: Insulin GLARGINE(*) 1 UNITS UNIT SUBCUT SCH ×2 (10:56→21:04)
--- NOTE | 2019-05-23 12:54 | PMRUTEAM ---
PMRU: Team Meeting Current Status: Physical Therapy: Current Status Current Rolling Status Supervision/Touching Current Supine <-> Sit Status Partial/Moderate Current Sit <-> Stand Status Supervision/Touching Current Bed <-> Chair Status Supervision/Touching Transfer/Bed Mobility Rolling Walker Recommended Devices Current Picking Up Object Partial/Moderate Status Current Car Transfer Status Not attempted due to Current Ambulation Assistance Supervision/Touching Status Ambulation Assistive Device Rolling Walker Ambulation Conditions Two or More Turns Current Ambulation Distance 150' Current Stair Climbing Status Supervision/Touching Stair Climbing Assistive Left Railing,Right Railing Devices Number of Stairs Climbed 5 Current Curb Assistance Status Not attempted Curb Assistive Devices Rolling Walker Objective Comments step-to pattern ascend/descending stairs with close supervision, no loss of balance when descending stairs today. Occupational Therapy: Current Status Current Upper Body Dressing Partial/Moderate Status Current Lower Body Dressing Substantial/Maximal Status Current Footwear Status Partial/Moderate Current Bathing Status Partial/Moderate Current Grooming Status Setup or Clean-up Assist Current Toileting Status Partial/Moderate Current Toilet Transfer Status Partial/Moderate Current Eating Status Independent Nursing: Current Status Skin Deviations [none] Other Skin Deviation Description [ - none] Rec Therapy: Current Status Summary of Assessment and Pt. was open to conversation and very talkative Clinical Impression throughout. Pt. identified with numerous interests and active involvement in them prior to admission. Pt. was interested in continued leisure visits and pet therapy while on the unit. Treatment Goals Pt. will engage in leisure activities while on the unit. Treatment Plan Provide recreation therapy services and encourage involvement. Goals: Physical Therapy: Goals Goals to Be Accomplished in ( 7-10 Days) Goal: Rolling Assistance Independent Goal Supine <-> Sit Status Independent Goal Sit <-> Stand Status Independent Goal Bed <-> Chair Status Independent Transfer/Bed Mobility Rolling Walker Recommended Devices Goal: Picking Up Object Independent Goal: Car Transfer Status Setup or Clean-up Assist Goal: Ambulation Assistance Independent Ambulation Assistive Devices Rolling Walker Ambulation Distance (ft) 150 Goal: Stairs Assistance Supervision/Touching Stairs Recommended Devices Two Rails Number of Stairs 5 Goal: Curb Assistance Supervision/Touching Goal: Home Exercise Program Independent Assistance Occupational Therapy: Goals Goals to be Completed in (Days 7-10 days ) Goal Upper Body Dressing Independent Routine Goal Lower Body Dressing Independent Routine Lower Body Dressing Assistive bisque grader, sock aid, dressing stick, LH shoe horn Devices Goal Footwear Status Setup or Clean-up Assist Goal Bathing Routine (OT) Independent Bathing Assistive Devices shower chair, LH sponge, GB Goal Grooming Routine Independent Goal Toilet Hygiene and Independent Clothing Management Routine Goal Toilet Transfer Routine Independent Goal Functional Transfers for Independent ADL Goal Feeding Routine Independent Goal Light Housekeeping Tasks Independent Care Plan: Care Plan ADL's - Improve/Maintain Start: 05/21/19 12:34 Freq: DAILY@0700,1900 Status: Active Target: 05/22/19 Protocol: Activity Type Activity Date Activity User E-Sign Co-Sign Detail Recorded Client Recorded Date Recorded By Document 05/21/19 12:34 [id number] 05/21/19 12:34 [id number] 05/21/19 12:34 PMRU Outcome: ADL's/ADL Transfers Orders/Interventions Occupational Therapy Evaluation & Treatment Device Yes Address Deficits Secondary To: medically complex, [place] Patient to receive OT 5x/wk for 60-120 Therex min/day UE/LE ADL's with Assist Yes: Js ADL Transfers with Assist Yes: independnet Toileting: Transfers,Clothing Management Yes: ,Hygeine w/Assist independent Light Kitchen/Laundry w/Assist Yes Other Outcome/Goals Pt tolerates therapy well this date. Will attempt to use AE later this date and next date for LB dressing. Progression Toward Outcome/Goals Progressing DVT Prophylaxis- Improve/Maintain Start: 05/20/19 17:52 Freq: DAILY@07,1900 Status: Complete Target: 05/26/19 Protocol: Activity Type Activity Date Activity User E-Sign Co-Sign Detail Recorded Client Recorded Date Recorded By Document 05/22/19 02:51 [id number] 05/22/19 02:53 [id number] 05/22/19 02:51 PMRU Outcome: DVT Prophylaxis Current DVT Outcome/Goals Remains Free of DVT Complies with DVT Prophylaxis /Treatment Demonstrates Knowledge of DVT Prevention/ Treatment TEDS Stockings on Every AM, Off at HS Progression Toward Outcome/Goals Progressing Discharge Planning - Improve/Maintain Start: 05/20/19 17:52 Freq: DAILY@0700,1900 Status: Active Target: 05/30/19 Protocol: Activity Type Activity Date Activity User E-Sign Co-Sign Detail Recorded Client Recorded Date Recorded By Document 05/23/19 11:31 [id number] 05/23/19 11:34 [id number] 05/23/19 11:31 PMRU Outcome: Discharge Planning Update Patient Family No Current Discharge Planning Outcome/Goals Demonstrates Understanding of Discharge Plan Homecare Referral - See Comment Progression Toward Outcome/Goals Progressing Education-Improve/Maintain Start: 05/20/19 17:52 Freq: DAILY@0700,1900 Status: Active Target: 05/30/19 Protocol: Activity Type Activity Date Activity User E-Sign Co-Sign Detail Recorded Client Recorded Date Recorded By Document 05/23/19 11:31 [id number] 05/23/19 11:34 [id number] 05/23/19 11:31 PMRU Outcome: Education Current Education Outcome/Goals Demonstrate/ Verbalize Understanding of Written Discharge Instructions Demonstrates Skills Encourage Questions Progression Toward Outcome/Goals Progressing /GI-Improve/Maintain Start: 05/20/19 17:52 Freq: DAILY@0700,1900 Status: Active Target: 05/30/19 Protocol: Activity Type Activity Date Activity User E-Sign Co-Sign Detail Recorded Client Recorded Date Recorded By Document 05/23/19 11:31 [id number] 05/23/19 11:34 [id number] 05/23/19 11:31 PMRU Outcome: Genitourinary/ Gastrointestinal Current Gastrointestinal Outcome/Goals Maintain/ Achieve Bowel Regularity in Accordance with Pt's Baseline Remain Free of Emesis Prevent Constipation Bowel Regularity at Home Laxatives as Ordered Progression Toward Outcome/Goals Progressing Current Genitourinary Outcome/Goals Maintain/ Achieve Adequate Urinary Output Remain Free of Hospital- Acquired UTI Progression Toward Outcome/Goals Goals Adjusted Outcome/Goals Met Comment borrero in place Medication Administration Start: 05/20/19 17:52 Freq: DAILY@0700,1900 Status: Active Target: 05/30/19 Protocol: Activity Type Activity Date Activity User E-Sign Co-Sign Detail Recorded Client Recorded Date Recorded By Document 05/23/19 11:31 [id number] 05/23/19 11:34 [id number] 05/23/19 11:31 PMRU Outcome: Medication Administration Assess Patient Knowledge/Teach Med No Education for all Meds Current Appliance Technician Outcome/Goals Patient Independent with Medication Administration at Home Progression Towards Outcome/Goals Progressing Is Patient Going Home on Lovenox? No Metabolic Status- Improve/Maintain Start: 05/20/19 17:52 Freq: DAILY@699,1899 Status: Active Target: 05/30/19 Protocol: Activity Type Activity Date Activity User E-Sign Co-Sign Detail Recorded Client Recorded Date Recorded By Document 05/23/19 11:31 [id number] 05/23/19 11:34 [id number] 05/23/19 11:31 PMRU Outcome: Metabolic Status Have Fingersticks Been Ordered Yes Fingerstick Order Frequency AC & HS Current Metabolic Status Outcome/Goals Maintain/ Improve Metabolic Status Demonstrate Knowledge of Prevention/ Treatment of Metabolic Imbalances Progression Toward Outcome/Goals Progressing Mobility- Improve/Maintain Start: 05/20/19 16:38 Freq: DAILY@ Status: Active Target: 05/28/19 Protocol: Activity Type Activity Date Activity User E-Sign Co-Sign Detail Recorded Client Recorded Date Recorded By Document 05/20/19 16:38 [id number] 05/20/19 16:39 [id number] 05/20/19 16:38 PMRU Outcome: Mobility Activity OOB with Assistance Yes WBAT Yes Device Yes Assistance Yes Patient to be seen 5x/wk for 60-120 min/ Therex day for: Mobility Training Gait Training Balance Current Mobility Outcome/Goals Improve Mobility Status Progression Toward Outcome/Goals Goal Initiation Bed Mobility Yes: I Transfers Yes: I with RW Gait x ft Yes: 150 I with RW Up/Down Stairs Yes: 12 with 1 rail, supervision With [facility] Yes: I Neurological- Improve/Maintain Start: 05/20/19 17:52 Freq: DAILY@ Status: Active Target: 05/30/19 Protocol: Activity Type Activity Date Activity User E-Sign Co-Sign Detail Recorded Client Recorded Date Recorded By Document 05/23/19 11:31 [id number] 05/23/19 11:34 [id number] 05/23/19 11:31 PMRU Outcome: Neurological Weakness/Aphasia Weakness Current Neurological Outcome/Goals Maintain/ Achieve Baseline Neurological Status Prevent Avoidable Neurological Decline Progression Toward Outcome/Goals Progressing Pain/Comfort- Improve/Maintain Start: 05/20/19 17:52 Freq: DAILY@ Status: Active Target: 05/30/19 Protocol: Activity Type Activity Date Activity User E-Sign Co-Sign Detail Recorded Client Recorded Date Recorded By Document 05/23/19 11:31 [id number] [email or web address] 05/23/19 11:34 [id number] 05/23/19 11:31 PMRU Outcome: Pain/Comfort Current Pain/Comfort Outcome/Goals Demonstrates Knowledge and Use of Available Comfort Measures Achieves Acceptable Comfort/Pain Level as Determined by Patient/Condit Maintain Comfort Level Allowing Patient to Fully Participate in Rehab Progression Toward Outcome/Goals Progressing Rec Therapy- Improve/Maintain Start: 05/20/19 16:46 Freq: DAILY@0700,1900 Status: Active Target: 05/27/19 Protocol: Activity Type Activity Date Activity User E-Sign Co-Sign Detail Recorded Client Recorded Date Recorded By Document 05/21/19 16:26 [id number] 05/21/19 16:27 [id number] 05/21/19 16:26 PMRU Outcome: Recreation Therapy Current Rec Ther Outcome/Goals Complete Rec Therapy Assessment Meet with Patient Regularly for Support Encourage Leisure Involvement Progression Toward Outcome/Goals Progressing Lack of Progression Comment pt. has been social and interactive during leisure visits, has leisure material in her room and is interested in continued RT services. Outcome/Goals Met Complete Rec Therapy Assessment Safety- Improve/Maintain Start: 05/20/19 12:43 Freq: DAILY@0700,1900 Status: Active Target: 05/30/19 Protocol: Activity Type Activity Date Activity User E-Sign Co-Sign Detail Recorded Client Recorded Date Recorded By Document 05/23/19 11:31 [id number] 05/23/19 11:34 [id number] 05/23/19 11:31 PMRU Outcome: Safety Current Safety Outcome/Goals Remain Free of Injury or Harm Cooperates with Safety Measures for Least Restrictive Environment Prevent Falls/ Injury Progression Toward Outcome/Goals Progressing - Interdisciplinary Staff Present Commodity Loan Clerk/Social Work Staff Present: Kenisha Montenegro EMAIL OPERATIONS MANAGER Nursing Staff Present: Wendi Odell Rn OT Staff Present: Antonietta Artis PT Staff Present: Porsche Malone Medicine Note: Length of Stay: 6 days Anticipated Discharge Destination: Home Tentative Discharge Date: 05/29/19 Discharged to: home
[2019-05-23] MEDS: Enoxaparin(*) 40 MG/0.4 ML SYR SUBCUT SCH (17:27)
--- NOTE | 2019-05-23 19:51 | PN ---
Progress Note Date of Service: 05/23/19 Note: DEVIN FELIPE was visited. Therapy notes read and reviewed. She was discussed in interdisciplinary plan of care rounds. She is doing fairly well and moving better. Still needs to work on stairs. Current Medications: Active Medications Generic Name Dose Route Start Last Admin Trade Name Freq PRN Reason Stop Dose Admin Acetaminophen 650 mg 05/20/19 13:47 05/23/19 10:53 Tylenol Tab* PO 650 mg Q6H PRN Administration MILD PAIN or TEMP > 100.4 Cefuroxime Axetil 500 mg 05/21/19 09:00 05/23/19 10:51 Ceftin Tab(*) PO 500 mg BID JANNIE Administration Cyclobenzaprine HCl 10 mg 05/20/19 20:51 05/21/19 21:34 Flexeril Tab* PO 10 mg TID PRN Administration SPASMS Docusate Sodium 100 mg 05/20/19 21:00 05/23/19 10:53 Colace Cap* PO 100 mg BID JANNIE Administration Enoxaparin Sodium 40 mg 05/20/19 18:00 05/23/19 17:27 Lovenox(*) SUBCUT 40 mg Q24H JANNIE Administration Gabapentin 300 mg 05/20/19 21:00 05/23/19 13:54 Neurontin Cap(*) PO 300 mg TID JANNIE Administration Insulin Glargine 35 units 05/21/19 21:00 05/23/19 10:56 Lantus(*) SUBCUT 35 units Q12H JANNIE Administration Insulin Human Lispro 0 units 05/20/19 16:30 05/23/19 17:29 Humalog* SUBCUT 3 units ACHS JANNIE Administration Protocol Levothyroxine Sodium 175 mcg 05/21/19 06:00 05/23/19 05:18 Synthroid Tab* PO 175 mcg 0600 JANNIE Administration Magnesium Hydroxide 30 ml 05/20/19 13:47 05/20/19 17:37 Milk Of Magnesia Liq* PO 30 ml Q6H PRN Administration CONSTIPATION Metformin HCl 500 mg 05/23/19 09:00 05/23/19 10:53 Glucophage* PO 500 mg DAILY JANNIE Administration Oxybutynin Chloride 2.5 mg 05/20/19 21:00 05/23/19 13:54 Ditropan Tab* PO 2.5 mg TID JANNIE Administration Oxycodone/Acetaminophen 1 tab 05/20/19 14:14 Percocet 5/325 Tab* PO Q4H PRN PAIN - SEVERE Polyethylene Glycol/Electrolytes 17 gm 05/21/19 09:00 05/23/19 10:53 Miralax* PO 17 gm DAILY JANNIE Administration Senna 2 tab 05/20/19 13:47 Senokot 8.6 Mg Tab* PO BEDTIME PRN CONSTIPATION Sodium Biphosphate/Sodium Phosphate 1 bottle 05/22/19 10:41 05/22/19 10:47 Fleet Enema* [place] 1 bottle DAILY PRN Administration CONSTIPATION Vital Signs: Vital Signs Temp Pulse Resp BP Pulse Ox 97.4 F 78 16 125/63 99 05/23/19 15:45 05/23/19 15:45 05/23/19 15:54 05/23/19 15:45 05/23/19 15:45 Exam: GENERAL: No distress LUNGS: Clear HEART: Reg rhythm ABDOMEN: Soft, +BS EXTREMITIES: Decreased tone left ankle NEUROLOGIC: A&O. Lower extremities: right 3/5, proximal, 4/5 distal, left hip flx 3/5, quads 4/5, left DF 1/5, PF 2/5 Assessment/Plan: 1. Multiple Sclerosis: PT/OT. Her doctor is trying to start her on Copaxone 2. Pyelonephritis: Ceftin 500 BID, day 11/27 3. DM: Lantus/SSI. Lantus cut back 4. Hypothyroidism: Synthroid 5. DVT Prophylaxis: Lovenox 6. Advance Directives: Full code 7. ARF: Cr down to 0.98. Resumed Glucophage 05/23/19 19:51
[2019-05-23] MEDS: Cyclobenzaprine TAB* 10 MG PO PRN (21:08)
[2019-05-24] MEDS: Levothyroxine TAB* 175 MCG TAB PO SCH (05:39)
[2019-05-24] MEDS: Acetaminophen TAB* 325 MG PO PRN ×2 (05:40→12:23)
[2019-05-24] MEDS: Cyclobenzaprine TAB* 10 MG PO PRN (05:40)
[2019-05-24] MEDS: Insulin LISPRO* 1 UNITS UNIT SUBCUT SCH ×4 (08:15→21:53)
[2019-05-24] MEDS: Docusate CAP* 100 MG PO SCH ×2 (08:25→21:42)
[2019-05-24] MEDS: Polyethylene Glycol 3350* 17 GM PACKET PO SCH (08:25)
[2019-05-24] MEDS: metFORMIN* 500 MG TAB PO SCH (08:25)
[2019-05-24] MEDS: Gabapentin CAP(*) 300 MG PO SCH ×3 (08:26→21:40)
[2019-05-24] MEDS: Oxybutynin TAB* 5 MG PO SCH ×3 (08:26→21:43)
[2019-05-24] MEDS: Insulin GLARGINE(*) 1 UNITS UNIT SUBCUT SCH ×2 (09:12→21:52)
--- NOTE | 2019-05-24 10:21 | PN ---
Progress Note Date of Service: 05/24/19 Note: DEVIN FELIPE was visited. Therapy notes read and reviewed. She feels her left hip is weak, doing bed exercises. Otherwise ok Current Medications: Active Medications Generic Name Dose Route Start Last Admin Trade Name Freq PRN Reason Stop Dose Admin Acetaminophen 650 mg 05/20/19 13:47 05/24/19 05:40 Tylenol Tab* PO 650 mg Q6H PRN Administration MILD PAIN or TEMP > 100.4 Cefuroxime Axetil 500 mg 05/21/19 09:00 05/24/19 08:25 Ceftin Tab(*) PO 500 mg BID JANNIE Administration Cyclobenzaprine HCl 10 mg 05/20/19 20:51 05/24/19 05:40 Flexeril Tab* PO 10 mg TID PRN Administration SPASMS Docusate Sodium 100 mg 05/20/19 21:00 05/24/19 08:25 Colace Cap* PO 100 mg BID JANNIE Administration Enoxaparin Sodium 40 mg 05/20/19 18:00 05/23/19 17:27 Lovenox(*) SUBCUT 40 mg Q24H JANNIE Administration Gabapentin 300 mg 05/20/19 21:00 05/24/19 08:26 Neurontin Cap(*) PO 300 mg TID JANNIE Administration Insulin Glargine 35 units 05/21/19 21:00 05/24/19 09:12 Lantus(*) SUBCUT 35 units Q12H JANNIE Administration Insulin Human Lispro 0 units 05/20/19 16:30 05/24/19 08:15 Humalog* SUBCUT Not Given ACHS [facility] Protocol Levothyroxine Sodium 175 mcg 05/21/19 06:00 05/24/19 05:39 Synthroid Tab* PO 175 mcg 0600 JANNIE Administration Magnesium Hydroxide 30 ml 05/20/19 13:47 05/20/19 17:37 Milk Of Magnesia Liq* PO 30 ml Q6H PRN Administration CONSTIPATION Metformin HCl 500 mg 05/23/19 09:00 05/24/19 08:25 Glucophage* PO 500 mg DAILY JANNIE Administration Oxybutynin Chloride 2.5 mg 05/20/19 21:00 05/24/19 08:26 Ditropan Tab* PO 2.5 mg TID JANNIE Administration Oxycodone/Acetaminophen 1 tab 05/20/19 14:14 Percocet 5/325 Tab* PO Q4H PRN PAIN - SEVERE Polyethylene Glycol/Electrolytes 17 gm 05/21/19 09:00 05/24/19 08:25 Miralax* PO 17 gm DAILY JANNIE Administration Senna 2 tab 05/20/19 13:47 Senokot 8.6 Mg Tab* PO BEDTIME PRN CONSTIPATION Sodium Biphosphate/Sodium Phosphate 1 bottle 05/22/19 10:41 05/22/19 10:47 Fleet Enema* [place] 1 bottle DAILY PRN Administration CONSTIPATION Vital Signs: Vital Signs Temp Pulse Resp BP Pulse Ox 97.6 F 63 16 126/62 96 05/24/19 05:29 05/24/19 05:29 05/24/19 08:26 05/24/19 05:29 05/24/19 05:29 Lab Results: Laboratory Results - last 24 hr 05/23/19 05/23/19 05/23/19 08:06 12:14 17:11 POC Glucose (mg/dL) 72 152 H 173 H 05/23/19 20:17 POC Glucose (mg/dL) 301 H Exam: GENERAL: No distress LUNGS: Clear HEART: Reg rhythm ABDOMEN: Soft, +BS EXTREMITIES: Decreased tone left ankle NEUROLOGIC: A&O. Lower extremities: right 3/5, proximal, 4/5 distal, left hip flx 3/5, quads 4/5, left DF 1/5, PF 2/5 : Borrero Assessment/Plan: 1. Multiple Sclerosis: PT/OT. Her doctor is trying to start her on Copaxone 2. Pyelonephritis: Ceftin 500 BID, day 12/27 3. DM: Lantus/SSI. Lantus cut back 4. Hypothyroidism: Synthroid 5. DVT Prophylaxis: Lovenox 6. Advance Directives: Full code 7. ARF: Cr down to 0.98. Resumed Glucophage 8. Neurogenic Bladder: Borrero. Will d/c borrero Sunday and try ICP 05/24/19 10:21 05/24/19 10:21
[2019-05-24] MEDS: Enoxaparin(*) 40 MG/0.4 ML SYR SUBCUT SCH (17:46)
[2019-05-25] MEDS: Acetaminophen TAB* 325 MG PO PRN ×3 (05:15→20:34)
[2019-05-25] MEDS: Cyclobenzaprine TAB* 10 MG PO PRN ×2 (05:15→20:34)
[2019-05-25] MEDS: Levothyroxine TAB* 175 MCG TAB PO SCH (05:16)
[2019-05-25] MEDS: Insulin LISPRO* 1 UNITS UNIT SUBCUT SCH ×4 (08:16→20:28)
[2019-05-25] MEDS: Gabapentin CAP(*) 300 MG PO SCH ×3 (08:26→20:27)
[2019-05-25] MEDS: Docusate CAP* 100 MG PO SCH ×2 (08:26→20:26)
[2019-05-25] MEDS: Insulin GLARGINE(*) 1 UNITS UNIT SUBCUT SCH ×2 (08:28→20:28)
[2019-05-25] MEDS: metFORMIN* 500 MG TAB PO SCH (08:28)
[2019-05-25] MEDS: Polyethylene Glycol 3350* 17 GM PACKET PO SCH (08:29)
[2019-05-25] MEDS: Oxybutynin TAB* 5 MG PO SCH ×3 (08:29→20:29)
--- NOTE | 2019-05-25 13:09 | PN ---
Progress Note Date of Service: 05/25/19 Note: DEVIN FELIPE was visited. Nursing notes read and reviewed. She is doing well otherwise. Will remove borrero in am and teach her to self catheterize Current Medications: Active Medications Generic Name Dose Route Start Last Admin Trade Name Freq PRN Reason Stop Dose Admin Acetaminophen 650 mg 05/20/19 13:47 05/25/19 12:46 Tylenol Tab* PO 650 mg Q6H PRN Administration MILD PAIN or TEMP > 100.4 Cefuroxime Axetil 500 mg 05/21/19 09:00 05/25/19 08:26 Ceftin Tab(*) PO 500 mg BID JANNIE Administration Cyclobenzaprine HCl 10 mg 05/20/19 20:51 05/25/19 05:15 Flexeril Tab* PO 10 mg TID PRN Administration SPASMS Docusate Sodium 100 mg 05/20/19 21:00 05/25/19 08:26 Colace Cap* PO 100 mg BID JANNIE Administration Enoxaparin Sodium 40 mg 05/20/19 18:00 05/24/19 17:46 Lovenox(*) SUBCUT 40 mg Q24H JANNIE Administration Gabapentin 300 mg 05/20/19 21:00 05/25/19 08:26 Neurontin Cap(*) PO 300 mg TID JANNIE Administration Insulin Glargine 35 units 05/21/19 21:00 05/25/19 08:28 Lantus(*) SUBCUT 35 units Q12H JANNIE Administration Insulin Human Lispro 0 units 05/20/19 16:30 05/25/19 12:41 Humalog* SUBCUT 3 units ACHS JANNIE Administration Protocol Levothyroxine Sodium 175 mcg 05/21/19 06:00 05/25/19 05:16 Synthroid Tab* PO 175 mcg 0600 JANNIE Administration Magnesium Hydroxide 30 ml 05/20/19 13:47 05/20/19 17:37 Milk Of Magnesia Liq* PO 30 ml Q6H PRN Administration CONSTIPATION Metformin HCl 500 mg 05/23/19 09:00 05/25/19 08:28 Glucophage* PO 500 mg DAILY JANNIE Administration Oxybutynin Chloride 2.5 mg 05/20/19 21:00 05/25/19 08:29 Ditropan Tab* PO 2.5 mg TID JANNIE Administration Oxycodone/Acetaminophen 1 tab 05/20/19 14:14 Percocet 5/325 Tab* PO Q4H PRN PAIN - SEVERE Polyethylene Glycol/Electrolytes 17 gm 05/21/19 09:00 05/25/19 08:29 Miralax* PO 17 gm DAILY JANNIE Administration Senna 2 tab 05/20/19 13:47 Senokot 8.6 Mg Tab* PO BEDTIME PRN CONSTIPATION Sodium Biphosphate/Sodium Phosphate 1 bottle 05/22/19 10:41 05/22/19 10:47 Fleet Enema* [place] 1 bottle DAILY PRN Administration CONSTIPATION Vital Signs: Vital Signs Temp Pulse Resp BP Pulse Ox 97.8 F 66 12 129/61 97 05/25/19 05:04 05/25/19 05:04 05/25/19 12:40 05/25/19 05:04 05/25/19 08:00 Lab Results: Laboratory Results - last 24 hr 05/24/19 05/24/19 05/24/19 07:49 12:05 17:06 POC Glucose (mg/dL) 94 175 H 150 H 05/24/19 20:42 POC Glucose (mg/dL) 168 H Exam: GENERAL: No distress LUNGS: Clear HEART: Reg rhythm ABDOMEN: Soft, +BS EXTREMITIES: Decreased tone left ankle NEUROLOGIC: A&O. Lower extremities: right 3/5, proximal, 4/5 distal, left hip flx 3/5, quads 4/5, left DF 1/5, PF 2/5 : Borrero Assessment/Plan: 1. Multiple Sclerosis: PT/OT. Her doctor is trying to start her on Copaxone 2. Pyelonephritis: Ceftin 500 BID, day 01/27 3. DM: Lantus/SSI. Lantus cut back 4. Hypothyroidism: Synthroid 5. DVT Prophylaxis: Lovenox 6. Advance Directives: Full code 7. ARF: Cr down to 0.98. Resumed Glucophage 8. Neurogenic Bladder: Borrero. Will d/c borrero Sunday and try ICP 05/25/19 13:09
[2019-05-25] MEDS: Enoxaparin(*) 40 MG/0.4 ML SYR SUBCUT SCH (16:58)
[2019-05-26] MEDS: Acetaminophen TAB* 325 MG PO PRN ×3 (05:24→21:10)
[2019-05-26] MEDS: Cyclobenzaprine TAB* 10 MG PO PRN ×2 (05:24→21:08)
[2019-05-26] MEDS: Levothyroxine TAB* 175 MCG TAB PO SCH (05:29)
[2019-05-26] MEDS: oxyCODONE/Acetamin 5/325 MG* TAB PO PRN (08:08)
[2019-05-26] MEDS: metFORMIN* 500 MG TAB PO SCH (08:08)
[2019-05-26] MEDS: Oxybutynin TAB* 5 MG PO SCH ×3 (08:08→21:09)
[2019-05-26] MEDS: Gabapentin CAP(*) 300 MG PO SCH ×3 (08:08→21:10)
[2019-05-26] MEDS: Docusate CAP* 100 MG PO SCH ×2 (08:08→21:10)
[2019-05-26] MEDS: Polyethylene Glycol 3350* 17 GM PACKET PO SCH (08:09)
[2019-05-26] MEDS: Insulin GLARGINE(*) 1 UNITS UNIT SUBCUT SCH ×2 (10:18→21:11)
[2019-05-26] MEDS: Insulin LISPRO* 1 UNITS UNIT SUBCUT SCH ×4 (10:22→21:11)
--- NOTE | 2019-05-26 16:06 | PN ---
Progress Note Date of Service: 05/26/19 Note: DEVIN FELIPE was visited. Therapy notes read and reviewed. Her borrero is out. She had a large PVR and was straight cathed earlier for 500 ml. Current Medications: Active Medications Generic Name Dose Route Start Last Admin Trade Name Freq PRN Reason Stop Dose Admin Acetaminophen 650 mg 05/20/19 13:47 05/26/19 15:33 Tylenol Tab* PO 650 mg Q6H PRN Administration MILD PAIN or TEMP > 100.4 Cefuroxime Axetil 500 mg 05/21/19 09:00 05/26/19 10:19 Ceftin Tab(*) PO 500 mg BID JANNIE Administration Cyclobenzaprine HCl 10 mg 05/20/19 20:51 05/26/19 05:24 Flexeril Tab* PO 10 mg TID PRN Administration SPASMS Docusate Sodium 100 mg 05/20/19 21:00 05/26/19 08:08 Colace Cap* PO 100 mg BID JANNIE Administration Enoxaparin Sodium 40 mg 05/20/19 18:00 05/25/19 16:58 Lovenox(*) SUBCUT 40 mg Q24H JANNIE Administration Gabapentin 300 mg 05/20/19 21:00 05/26/19 15:29 Neurontin Cap(*) PO 300 mg TID JANNIE Administration Insulin Glargine 35 units 05/21/19 21:00 05/26/19 10:18 Lantus(*) SUBCUT 35 units Q12H JANNIE Administration Insulin Human Lispro 0 units 05/20/19 16:30 05/26/19 12:23 Humalog* SUBCUT 2 units ACHS JANNIE Administration Protocol Levothyroxine Sodium 175 mcg 05/21/19 06:00 05/26/19 05:29 Synthroid Tab* PO 175 mcg 0600 JANNIE Administration Magnesium Hydroxide 30 ml 05/20/19 13:47 05/20/19 17:37 Milk Of Magnesia Liq* PO 30 ml Q6H PRN Administration CONSTIPATION Metformin HCl 500 mg 05/23/19 09:00 05/26/19 08:08 Glucophage* PO 500 mg DAILY JANNIE Administration Oxybutynin Chloride 2.5 mg 05/20/19 21:00 05/26/19 15:29 Ditropan Tab* PO 2.5 mg TID JANNIE Administration Oxycodone/Acetaminophen 1 tab 05/20/19 14:14 05/26/19 08:08 Percocet 5/325 Tab* PO 1 tab Q4H PRN Administration PAIN - SEVERE Polyethylene Glycol/Electrolytes 17 gm 05/21/19 09:00 05/26/19 08:09 Miralax* PO 17 gm DAILY JANNIE Administration Senna 2 tab 05/20/19 13:47 Senokot 8.6 Mg Tab* PO BEDTIME PRN CONSTIPATION Sodium Biphosphate/Sodium Phosphate 1 bottle 05/22/19 10:41 05/22/19 10:47 Fleet Enema* [place] 1 bottle DAILY PRN Administration CONSTIPATION Vital Signs: Vital Signs Temp Pulse Resp BP Pulse Ox 97.4 F 62 14 138/66 99 05/26/19 05:24 05/26/19 05:24 05/26/19 15:31 05/26/19 05:24 05/26/19 05:24 Exam: GENERAL: No distress LUNGS: Clear HEART: Reg rhythm ABDOMEN: Soft, +BS EXTREMITIES: Decreased tone left ankle NEUROLOGIC: A&O. Lower extremities: right 3/5, proximal, 4/5 distal, left hip flx 3/5, quads 4/5, left DF 1/5, PF 2/5 Assessment/Plan: 1. Multiple Sclerosis: PT/OT. Her doctor is trying to start her on Copaxone 2. Pyelonephritis: Ceftin 500 BID, day 02/26 3. DM: Lantus/SSI. Lantus cut back 4. Hypothyroidism: Synthroid 5. DVT Prophylaxis: Lovenox 6. Advance Directives: Full code 7. ARF: Cr down to 0.98. Resumed Glucophage 8. Neurogenic Bladder: Borrero out and doing ICP 05/26/19 16:06 05/26/19 16:07
[2019-05-26] MEDS: Enoxaparin(*) 40 MG/0.4 ML SYR SUBCUT SCH (17:28)
[2019-05-27] MEDS: oxyCODONE/Acetamin 5/325 MG* TAB PO PRN (00:02)
[2019-05-27] MEDS: Levothyroxine TAB* 175 MCG TAB PO SCH (05:22)
[2019-05-27] MEDS: Insulin LISPRO* 1 UNITS UNIT SUBCUT SCH ×4 (07:52→20:52)
[2019-05-27] MEDS: Acetaminophen TAB* 325 MG PO PRN ×3 (09:17→23:34)
[2019-05-27] MEDS: Gabapentin CAP(*) 300 MG PO SCH ×3 (09:21→20:24)
[2019-05-27] MEDS: Docusate CAP* 100 MG PO SCH ×2 (09:21→20:24)
[2019-05-27] MEDS: metFORMIN* 500 MG TAB PO SCH (09:22)
[2019-05-27] MEDS: Polyethylene Glycol 3350* 17 GM PACKET PO SCH (09:23)
[2019-05-27] MEDS: Oxybutynin TAB* 5 MG PO SCH ×3 (09:23→20:24)
[2019-05-27] MEDS: Insulin GLARGINE(*) 1 UNITS UNIT SUBCUT SCH ×2 (09:44→20:51)
--- NOTE | 2019-05-27 12:48 | PMRUTEAM ---
PMRU: Team Meeting Current Status: Physical Therapy: Current Status Current Rolling Status Supervision/Touching Current Supine <-> Sit Status Supervision/Touching Current Sit <-> Stand Status Supervision/Touching Current Bed <-> Chair Status Supervision/Touching Transfer/Bed Mobility Rolling Walker Recommended Devices Current Picking Up Object Partial/Moderate Status Current Car Transfer Status Not attempted due to Current Ambulation Assistance Supervision/Touching Status Ambulation Assistive Device Rolling Walker Ambulation Conditions Two or More Turns Current Ambulation Distance 150 Manual Wheelchair Control/ Bilateral LE's Technique Current Wheelchair Propulsion Setup or Clean-up Assist Ability Status Wheelchair Distance (ft) 75 Current Stair Climbing Status Partial/Moderate Stair Climbing Assistive Straight Cane,Left Railing Devices Number of Stairs Climbed flight Current Curb Assistance Status Not attempted Curb Assistive Devices Rolling Walker Objective Comments step-to pattern ascend/descening flight of stairs with min A with gait belt, pt using 1 rail and cane in other hand. Pt requiring standing rest breaks during stair negotiation due to LE fatigue. Occupational Therapy: Current Status Current Upper Body Dressing Partial/Moderate Status Current Lower Body Dressing Substantial/Maximal Status Current Footwear Status Partial/Moderate Current Bathing Status Partial/Moderate Current Grooming Status Partial/Moderate Current Toileting Status Partial/Moderate Current Toilet Transfer Status Supervision/Touching Current Eating Status Independent Nursing: Current Status Skin Deviations [none] Other Skin Deviation Description [ none none] Rec Therapy: Current Status Summary of Assessment and Recreation Therapy Assessment completed and pt. is Clinical Impression aware of services. Pt. has been very social and interactive during leisure visits. Pt. has been engaged in leisure while in her room and with her visitors. Pt. has also been active pet therapy. Treatment Goals Pt. will engage in leisure activities while on the unit. Treatment Plan Provide recreation therapy services and encourage involvement. Nutrition: Current Status Monitoring Pt w/good appetite and intake adequate/meeting needs. Hx DM. No new ed needs. Has had some issue with hypoglycemia this admission which she relates to working harder due to PT. HS snacks initiated, and pt eats additional daytime snack after PT when needed, and this has resolved. Last BM 05/25; with restricted mobility due to MS and opiates, at risk for constipation. Goals: Physical Therapy: Goals Goals to Be Accomplished in ( 7-10 Days) Goal: Rolling Assistance Independent Goal Supine <-> Sit Status Independent Goal Sit <-> Stand Status Independent Goal Bed <-> Chair Status Independent Transfer/Bed Mobility Rolling Walker Recommended Devices Goal: Picking Up Object Independent Goal: Car Transfer Status Setup or Clean-up Assist Goal: Ambulation Assistance Independent Ambulation Assistive Devices Rolling Walker Ambulation Distance (ft) 150 Wheelchair Distance (ft) 75 Goal: Stairs Assistance Supervision/Touching Stairs Recommended Devices Straight Cane,One Rail Number of Stairs flight Goal: Curb Assistance Supervision/Touching Goal: Home Exercise Program Independent Assistance Occupational Therapy: Goals Goals to be Completed in (Days 7-10 days ) Goal Upper Body Dressing Independent Routine Goal Lower Body Dressing Independent Routine Lower Body Dressing Assistive retail cashier, sock aid, dressing stick, LH shoe horn Devices Goal Footwear Status Setup or Clean-up Assist Goal Bathing Routine (OT) Independent Bathing Assistive Devices shower chair, LH sponge, GB Goal Grooming Routine Independent Goal Toilet Hygiene and Independent Clothing Management Routine Goal Toilet Transfer Routine Independent Goal Functional Transfers for Independent ADL Goal Feeding Routine Independent Goal Light Housekeeping Tasks Independent Nutrition: Goals Intervention Goals 1. Achieves/maintains regular bowel pattern w/o constipation or diarrhea. 2. Maintains adequate glycemic control per inpatient parameters w/o hypoglycemia. 3. Adequate oral intake to support maintenance of lean body mass w/o contributing to undesirable weight gain. Care Plan: Care Plan ADL's - Improve/Maintain Start: 05/21/19 12:34 Freq: DAILY@0700,1900 Status: Active Target: 05/22/19 Protocol: Activity Type Activity Date Activity User E-Sign Co-Sign Detail Recorded Client Recorded Date Recorded By Document 05/26/19 15:40 [id number] 05/26/19 15:40 [id number] 05/26/19 15:40 PMRU Outcome: ADL's/ADL Transfers Orders/Interventions Occupational Therapy Evaluation & Treatment Device Yes Address Deficits Secondary To: medically complex, MS Patient to receive OT 5x/wk for 60-120 Therex min/day UE/LE ADL's with Assist Yes: Js ADL Transfers with Assist Yes: independnet Toileting: Transfers,Clothing Management Yes: ,Hygeine w/Assist independent Light Kitchen/Laundry w/Assist Yes Other Outcome/Goals Pt participated well in treatment session, tolerated UE therex with 2# dumbells without complaints, no LOB in standing , education provided on when to take seated rest breaks during standing tasks. Progression Toward Outcome/Goals Progressing DVT Prophylaxis- Improve/Maintain Start: 05/20/19 17:52 Freq: DAILY@0700,1900 Status: Complete Target: 05/26/19 Protocol: Activity Type Activity Date Activity User E-Sign Co-Sign Detail Recorded Client Recorded Date Recorded By Document 05/22/19 02:51 [id number] 05/22/19 02:53 [id number] 05/22/19 02:51 PMRU Outcome: DVT Prophylaxis Current DVT Outcome/Goals Remains Free of DVT Complies with DVT Prophylaxis /Treatment Demonstrates Knowledge of DVT Prevention/ Treatment TEDS Stockings on Every AM, Off at HS Progression Toward Outcome/Goals Progressing Discharge Planning - Improve/Maintain Start: 05/20/19 17:52 Freq: [id number] Status: Active Target: 05/30/19 Protocol: Activity Type Activity Date Activity User E-Sign Co-Sign Detail Recorded Client Recorded Date Recorded By Document 05/27/19 07:00 [id number] 05/27/19 07:55 [id number] 05/27/19 07:00 PMRU Outcome: Discharge Planning Update Patient Family No Current Discharge Planning Outcome/Goals Demonstrates Understanding of Discharge Plan Homecare Referral - See Comment Progression Toward Outcome/Goals Progressing Education-Improve/Maintain Start: 05/20/19 17:52 Freq: DAILY@[id number] Status: Active Target: 05/30/19 Protocol: Activity Type Activity Date Activity User E-Sign Co-Sign Detail Recorded Client Recorded Date Recorded By Document 05/27/19 07:00 [id number] 05/27/19 07:55 [id number] 05/27/19 07:00 PMRU Outcome: Education Current Education Outcome/Goals Demonstrate/ Verbalize Understanding of Written Discharge Instructions Demonstrates Skills Encourage Questions Progression Toward Outcome/Goals Progressing /GI-Improve/Maintain Start: 05/20/19 17:52 Freq: DAILY@[id number] Status: Active Target: 05/30/19 Protocol: Activity Type Activity Date Activity User E-Sign Co-Sign Detail Recorded Client Recorded Date Recorded By Document 05/27/19 07:00 [id number] 05/27/19 07:55 [id number] 05/27/19 07:00 PMRU Outcome: Genitourinary/ Gastrointestinal Current Gastrointestinal Outcome/Goals Maintain/ Achieve Bowel Regularity in Accordance with Pt's Baseline Remain Free of Emesis Prevent Constipation Bowel Regularity at Home Laxatives as Ordered Progression Toward Outcome/Goals Progressing Current Genitourinary Outcome/Goals Maintain/ Achieve Adequate Urinary Output Remain Free of Hospital- Acquired UTI Progression Toward Outcome/Goals Progressing Medication Administration Start: 05/20/19 17:52 Freq: DAILY@[id number] Status: Active Target: 05/30/19 Protocol: Activity Type Activity Date Activity User E-Sign Co-Sign Detail Recorded Client Recorded Date Recorded By Document 05/27/19 07:00 [id number] 05/27/19 07:55 [id number] 05/27/19 07:00 PMRU Outcome: Medication Administration Assess Patient Knowledge/Teach Med No Education for all Meds Current Watch Train Assembler Outcome/Goals Patient Independent with Medication Administration at Home Demonstrates Understanding Progression Towards Outcome/Goals Progressing Is Patient Going Home on Lovenox? No Metabolic Status- Improve/Maintain Start: 05/20/19 17:52 Freq: DAILY@[id number] Status: Active Target: 05/30/19 Protocol: Activity Type Activity Date Activity User E-Sign Co-Sign Detail Recorded Client Recorded Date Recorded By Document 05/27/19 07:00 [id number] [email or web address] 05/27/19 07:55 [id number] 05/27/19 07:00 PMRU Outcome: Metabolic Status Have Fingersticks Been Ordered Yes Fingerstick Order Frequency AC & HS Current Metabolic Status Outcome/Goals Maintain/ Improve Metabolic Status Demonstrate Knowledge of Prevention/ Treatment of Metabolic Imbalances Progression Toward Outcome/Goals Progressing Mobility- Improve/Maintain Start: 05/20/19 16:38 Freq: DAILY@[id number] Status: Active Target: 05/28/19 Protocol: Activity Type Activity Date Activity User E-Sign Co-Sign Detail Recorded Client Recorded Date Recorded By Document 05/26/19 16:15 [id number] 05/26/19 16:15 [id number] 05/26/19 16:15 PMRU Outcome: Mobility Activity OOB with Assistance Yes WBAT Yes Device Yes Assistance Yes Patient to be seen 5x/wk for 60-120 min/ Therex day for: Mobility Training Gait Training Balance Current Mobility Outcome/Goals Improve Mobility Status Progression Toward Outcome/Goals Progressing Outcome/Goals Met Improve Mobility Status Free from Complications of Immobility Bed Mobility Yes: I Transfers Yes: I with RW Gait x ft Yes: 150 I with RW Up/Down Stairs Yes: 12 with 1 rail, supervision With HEP Yes: I Neurological- Improve/Maintain Start: 05/20/19 17:52 Freq: DAILY@[id number] Status: Active Target: 05/30/19 Protocol: Activity Type Activity Date Activity User E-Sign Co-Sign Detail Recorded Client Recorded Date Recorded By Document 05/27/19 07:00 [id number] 05/27/19 07:55 [id number] 05/27/19 07:00 PMRU Outcome: Neurological Weakness/Aphasia Weakness Current Neurological Outcome/Goals Maintain/ Achieve Baseline Neurological Status Prevent Avoidable Neurological Decline Progression Toward Outcome/Goals Progressing Pain/Comfort- Improve/Maintain Start: 05/20/19 17:52 Freq: DAILY@[id number] Status: Active Target: 05/30/19 Protocol: Activity Type Activity Date Activity User E-Sign Co-Sign Detail Recorded Client Recorded Date Recorded By Document 05/27/19 07:00 [id number] 05/27/19 07:55 [id number] 05/27/19 07:00 PMRU Outcome: Pain/Comfort Current Pain/Comfort Outcome/Goals Demonstrates Knowledge and Use of Available Comfort Measures Achieves Acceptable Comfort/Pain Level as Determined by Patient/Condit Maintain Comfort Level Allowing Patient to Fully Participate in Rehab Progression Toward Outcome/Goals Progressing Outcome/Goals Met Comment pain medication given Rec Therapy- Improve/Maintain Start: 05/20/19 16:46 Freq: DAILY@699,[id number] Status: Active Target: 05/29/19 Protocol: Activity Type Activity Date Activity User E-Sign Co-Sign Detail Recorded Client Recorded Date Recorded By Document 05/21/19 16:26 [id number] 05/21/19 16:27 [id number] 05/21/19 16:26 PMRU Outcome: Recreation Therapy Current Rec Ther Outcome/Goals Complete Rec Therapy Assessment Meet with Patient Regularly for Support Encourage Leisure Involvement Progression Toward Outcome/Goals Progressing Lack of Progression Comment pt. has been social and interactive during leisure visits, has leisure material in her room and is interested in continued RT services. Outcome/Goals Met Complete Rec Therapy Assessment Safety- Improve/Maintain Start: 05/20/19 12:43 Freq: DAILY@0700,1900 Status: Active Target: 05/30/19 Protocol: Activity Type Activity Date Activity User E-Sign Co-Sign Detail Recorded Client Recorded Date Recorded By Document 05/27/19 07:00 [id number] 05/27/19 07:55 [id number] 05/27/19 07:00 PMRU Outcome: Safety Current Safety Outcome/Goals Remain Free of Injury or Harm Cooperates with Safety Measures for Least Restrictive Environment Prevent Falls/ Injury Progression Toward Outcome/Goals Progressing Outcome/Goals Met Comment BA armed - Interdisciplinary Staff Present Java Manager/Social Work Staff Present: Kenisha Montenegro LMSW Nursing Staff Present: Shobha Salas OT Staff Present: Antonietta Artis PT Staff Present: Porsche Malone Rec Therapy Staff Present: Ivon Wilcox Medicine Note: Length of Stay: 2 days Anticipated Discharge Destination: Tentative Discharge Date: 05/29/19 Discharged to: Home
[2019-05-27] MEDS: Enoxaparin(*) 40 MG/0.4 ML SYR SUBCUT SCH (17:27)
--- NOTE | 2019-05-27 18:15 | PN ---
Progress Note Date of Service: 05/27/19 Note: DEVIN FELIPE was visited. Therapy notes read and reviewed. She was discussed in interdisciplinary team rounds. Having a hard time with straight caths. Current Medications: Active Medications Generic Name Dose Route Start Last Admin Trade Name Freq PRN Reason Stop Dose Admin Acetaminophen 650 mg 05/20/19 13:47 05/27/19 16:35 Tylenol Tab* PO 650 mg Q6H PRN Administration MILD PAIN or TEMP > 100.4 Cefuroxime Axetil 500 mg 05/21/19 09:00 05/27/19 09:20 Ceftin Tab(*) PO 500 mg BID JANNIE Administration Cyclobenzaprine HCl 10 mg 05/20/19 20:51 05/26/19 21:08 Flexeril Tab* PO 10 mg TID PRN Administration SPASMS Docusate Sodium 100 mg 05/20/19 21:00 05/27/19 09:21 Colace Cap* PO 100 mg BID JANNIE Administration Enoxaparin Sodium 40 mg 05/20/19 18:00 05/27/19 17:27 Lovenox(*) SUBCUT 40 mg Q24H JANNIE Administration Gabapentin 300 mg 05/20/19 21:00 05/27/19 15:02 Neurontin Cap(*) PO 300 mg TID JANNIE Administration Insulin Glargine 30 units 05/27/19 21:00 Lantus(*) SUBCUT Q12H JANNIE Insulin Human Lispro 0 units 05/20/19 16:30 05/27/19 17:27 Humalog* SUBCUT 6 units ACHS JANNIE Administration Protocol Levothyroxine Sodium 175 mcg 05/21/19 06:00 05/27/19 05:22 Synthroid Tab* PO 175 mcg 0600 JANNIE Administration Magnesium Hydroxide 30 ml 05/20/19 13:47 05/20/19 17:37 Milk Of Magnesia Liq* PO 30 ml Q6H PRN Administration CONSTIPATION Metformin HCl 500 mg 05/23/19 09:00 05/27/19 09:22 Glucophage* PO 500 mg DAILY JANNIE Administration Oxybutynin Chloride 2.5 mg 05/20/19 21:00 05/27/19 15:06 Ditropan Tab* PO 2.5 mg TID JANNIE Administration Oxycodone/Acetaminophen 1 tab 05/20/19 14:14 05/27/19 00:02 Percocet 5/325 Tab* PO 1 tab Q4H PRN Administration PAIN - SEVERE Polyethylene Glycol/Electrolytes 17 gm 05/21/19 09:00 05/27/19 09:23 Miralax* PO 17 gm DAILY JANNIE Administration Senna 2 tab 05/20/19 13:47 Senokot 8.6 Mg Tab* PO BEDTIME PRN CONSTIPATION Sodium Biphosphate/Sodium Phosphate 1 bottle 05/22/19 10:41 05/22/19 10:47 Fleet Enema* [place] 1 bottle DAILY PRN Administration CONSTIPATION Vital Signs: Vital Signs Temp Pulse Resp BP Pulse Ox 98.2 F 93 20 143/70 97 05/27/19 17:00 05/27/19 17:00 05/27/19 17:00 05/27/19 17:00 05/27/19 17:00 Lab Results: Laboratory Results - last 24 hr 05/25/19 05/25/19 05/25/19 07:59 11:36 16:28 POC Glucose (mg/dL) 118 H 165 H 179 H 05/25/19 05/26/19 05/26/19 20:17 07:17 12:14 POC Glucose (mg/dL) 262 H 94 138 H 05/26/19 05/26/19 05/27/19 16:54 20:18 07:38 POC Glucose (mg/dL) 252 H 224 H 67 L 05/27/19 05/27/19 05/27/19 10:56 12:11 16:37 POC Glucose (mg/dL) 54 L 101 H 234 H Exam: GENERAL: No distress LUNGS: Clear HEART: Reg rhythm ABDOMEN: Soft, +BS EXTREMITIES: Decreased tone left ankle NEUROLOGIC: A&O. Lower extremities: right 3/5, proximal, 4/5 distal, left hip flx 3/5, quads 4/5, left DF 1/5, PF 2/5 Assessment/Plan: 1. Multiple Sclerosis: PT/OT. Her doctor is trying to start her on Copaxone 2. Pyelonephritis: Ceftin 500 BID, day 02/26 3. DM: Lantus/SSI. Lantus cut back again 4. Hypothyroidism: Synthroid 5. DVT Prophylaxis: Lovenox 6. Advance Directives: Full code 7. ARF: Cr down to 0.98. Resumed Glucophage 8. Neurogenic Bladder: Espinoza out and doing ICP. Self caths are difficult 05/27/19 18:16
[2019-05-28] MEDS: Acetaminophen TAB* 325 MG PO PRN ×3 (05:17→22:37)
[2019-05-28] MEDS: Levothyroxine TAB* 175 MCG TAB PO SCH (05:35)
[2019-05-28 05:57] LABS: Hematocrit 30 % (35-47); Hemoglobin 10.6 g/dL (12.0-16.0); Mean Corpuscular HGB Conc 35 g/dL (31-36); Mean Corpuscular Hemoglobin 31 pg (27-31); Mean Corpuscular Volume 88 fL (80-97); Mean Platelet Volume 6.9 fL (7.4-10.4); Platelet Count 322 10^3/uL (150-450); Red Blood Count 3.46 10^6 /uL (3.70-4.87); Red Cell Distribution Width 14 % (10-15); White Blood Count 6.3 10^3/uL (3.5-10.8)
[2019-05-28 06:13] LABS: Albumin 3.7 g/dL (3.2-5.2); Albumin/Globulin Ratio 1.4 (1-3); BUN/Creatinine Ratio 23.7 (8-20); EGFR African American 70.4 (>60); EGFR Non-African American 58.2 (>60); Globulin 2.6 g/dL (2-4); Potassium 4.4 mmol/L (3.5-5.0); Total Bilirubin 0.3 mg/dL (0.2-1.0); Total Protein 6.3 g/dL (6.4-8.9)
[2019-05-28 06:20] LABS: ABS Basophils 0.1 10^3/ul (0-0.2); ABS Eosinophils 0.4 10^3/ul (0-0.6); ABS Lymphocytes 1.4 10^3/ul (1.0-4.8); ABS Monocytes 0.5 10^3/ul (0-0.8); Eosinophil % 6.4 %; Lymphocyte % 21.3 %; Nucleated Red Blood Cells % 0.1
[2019-05-28] MEDS: Polyethylene Glycol 3350* 17 GM PACKET PO SCH (08:38)
[2019-05-28] MEDS: Oxybutynin TAB* 5 MG PO SCH ×3 (08:39→21:08)
[2019-05-28] MEDS: Insulin LISPRO* 1 UNITS UNIT SUBCUT SCH ×4 (08:40→21:10)
[2019-05-28] MEDS: metFORMIN* 500 MG TAB PO SCH (08:40)
[2019-05-28] MEDS: Docusate CAP* 100 MG PO SCH ×2 (08:40→21:08)
[2019-05-28] MEDS: Insulin GLARGINE(*) 1 UNITS UNIT SUBCUT SCH ×2 (08:41→21:10)
[2019-05-28] MEDS: Gabapentin CAP(*) 300 MG PO SCH ×3 (08:43→21:08)
--- NOTE | 2019-05-28 17:40 | PN ---
Progress Note Date of Service: 05/28/19 Note: DEVIN FELIPE was visited. Therapy notes read and reviewed. For probable discharge in am. She seems to be doing ok but hasn't mastered self catheterization Current Medications: Active Medications Generic Name Dose Route Start Last Admin Trade Name Freq PRN Reason Stop Dose Admin Acetaminophen 650 mg 05/20/19 13:47 05/28/19 12:46 Tylenol Tab* PO 650 mg Q6H PRN Administration MILD PAIN or TEMP > 100.4 Cefuroxime Axetil 500 mg 05/21/19 09:00 05/28/19 08:42 Ceftin Tab(*) PO 500 mg BID JANNIE Administration Cyclobenzaprine HCl 10 mg 05/20/19 20:51 05/26/19 21:08 Flexeril Tab* PO 10 mg TID PRN Administration SPASMS Docusate Sodium 100 mg 05/20/19 21:00 05/28/19 08:40 Colace Cap* PO 100 mg BID JANNIE Administration Enoxaparin Sodium 40 mg 05/20/19 18:00 05/27/19 17:27 Lovenox(*) SUBCUT 40 mg Q24H JANNIE Administration Gabapentin 300 mg 05/20/19 21:00 05/28/19 15:48 Neurontin Cap(*) PO 300 mg TID JANNIE Administration Insulin Glargine 30 units 05/27/19 21:00 05/28/19 08:41 Lantus(*) SUBCUT 30 units Q12H JANNIE Administration Insulin Human Lispro 0 units 05/20/19 16:30 05/28/19 17:01 Humalog* SUBCUT 3 units ACHS JANNIE Administration Protocol Levothyroxine Sodium 175 mcg 05/21/19 06:00 05/28/19 05:35 Synthroid Tab* PO 175 mcg 0600 JANNIE Administration Magnesium Hydroxide 30 ml 05/20/19 13:47 05/20/19 17:37 Milk Of Magnesia Liq* PO 30 ml Q6H PRN Administration CONSTIPATION Metformin HCl 500 mg 05/23/19 09:00 05/28/19 08:40 Glucophage* PO 500 mg DAILY JANNIE Administration Oxybutynin Chloride 2.5 mg 05/20/19 21:00 05/28/19 15:48 Ditropan Tab* PO 2.5 mg TID JANNIE Administration Oxycodone/Acetaminophen 1 tab 05/20/19 14:14 05/27/19 00:02 Percocet 5/325 Tab* PO 1 tab Q4H PRN Administration PAIN - SEVERE Polyethylene Glycol/Electrolytes 17 gm 05/21/19 09:00 05/28/19 08:38 Miralax* PO 17 gm DAILY JANNIE Administration Senna 2 tab 05/20/19 13:47 Senokot 8.6 Mg Tab* PO BEDTIME PRN CONSTIPATION Sodium Biphosphate/Sodium Phosphate 1 bottle 05/22/19 10:41 05/22/19 10:47 Fleet Enema* [place] 1 bottle DAILY PRN Administration CONSTIPATION Vital Signs: Vital Signs Temp Pulse Resp BP Pulse Ox 98.0 F 81 20 130/91 100 05/28/19 16:16 05/28/19 16:16 05/28/19 16:16 05/28/19 16:16 05/28/19 16:16 Lab Results: Laboratory Results - last 24 hr 05/27/19 05/28/19 05/28/19 20:27 05:39 05:45 WBC 6.3 RBC 3.46 L Hgb 10.6 L Hct 30 L MCV 88 MCH 31 MCHC 35 RDW 14 Plt Count 322 MPV 6.9 L Neut % (Auto) 63.5 Lymph % (Auto) 21.3 [place] % (Auto) 7.5 Eos % (Auto) 6.4 Baso % (Auto) 1.3 Absolute Neuts (auto) 4.0 Absolute Lymphs (auto) 1.4 Absolute Monos (auto) 0.5 Absolute Eos (auto) 0.4 Absolute Basos (auto) 0.1 Absolute Nucleated RBC 0.0 Immature Gran % 1.0 Neutrophils % 61.0 Lymphocytes % 23.0 Monocytes % 8.0 Eosinophils % 6.0 Basophils % 1.0 Metamyelocytes % 1.0 Nucleated RBC % 0.1 Normal RBC Morphology Normal Sodium 134 L Potassium 4.4 Chloride 104 Carbon Dioxide 24 Anion Gap 6 BUN 23 Creatinine 0.97 H Est GFR ( Amer) 70.4 Est GFR (Non-Af Amer) 58.2 BUN/Creatinine Ratio 23.7 H Glucose 181 H POC Glucose (mg/dL) 331 H Calcium 9.0 Total Bilirubin 0.30 AST 15 ALT 26 Alkaline Phosphatase 79 Total Protein 6.3 L Albumin 3.7 Globulin 2.6 Albumin/Globulin Ratio 1.4 05/28/19 11:51 WBC RBC Hgb Hct MCV MCH MCHC RDW Plt Count MPV Neut % (Auto) Lymph % (Auto) [place] % (Auto) Eos % (Auto) Baso % (Auto) Absolute Neuts (auto) Absolute Lymphs (auto) Absolute Monos (auto) Absolute Eos (auto) Absolute Basos (auto) Absolute Nucleated RBC Immature Gran % Neutrophils % Lymphocytes % Monocytes % Eosinophils % Basophils % Metamyelocytes % Nucleated RBC % Normal RBC Morphology Sodium Potassium Chloride Carbon Dioxide Anion Gap BUN Creatinine Est GFR ( Amer) Est GFR (Non-Af Amer) BUN/Creatinine Ratio Glucose POC Glucose (mg/dL) 167 H Calcium Total Bilirubin AST ALT Alkaline Phosphatase Total Protein Albumin Globulin Albumin/Globulin Ratio Exam: GENERAL: No distress LUNGS: Clear HEART: Reg rhythm ABDOMEN: Soft, +BS EXTREMITIES: Decreased tone left ankle NEUROLOGIC: A&O. Lower extremities: right 3/5, proximal, 4/5 distal, left hip flx 3/5, quads 4/5, left DF 1/5, PF 2/5 Assessment/Plan: 1. Multiple Sclerosis: PT/OT. Her doctor is trying to start her on Copaxone 2. Pyelonephritis: Ceftin 500 BID, day 8 3. DM: Lantus/SSI/Glucophage. Lantus cut back again 4. Hypothyroidism: Synthroid 5. DVT Prophylaxis: Lovenox 6. Advance Directives: Full code 7. ARF: Cr down to 0.98. Resumed Glucophage 8. Neurogenic Bladder: Espinoza out and doing ICP. Self caths are difficult 05/28/19 17:41
[2019-05-28] MEDS: Enoxaparin(*) 40 MG/0.4 ML SYR SUBCUT SCH (17:58)
[2019-05-28] MEDS: Cyclobenzaprine TAB* 10 MG PO PRN (22:37)
[2019-05-29] MEDS: Levothyroxine TAB* 175 MCG TAB PO SCH (04:24)
[2019-05-29] MEDS: Acetaminophen TAB* 325 MG PO PRN ×2 (04:24→11:12)
[2019-05-29 05:06] VITALS: BP 120/56
[2019-05-29] MEDS: Polyethylene Glycol 3350* 17 GM PACKET PO SCH (08:20)
[2019-05-29] MEDS: Oxybutynin TAB* 5 MG PO SCH ×2 (08:20→12:24)
[2019-05-29] MEDS: Docusate CAP* 100 MG PO SCH (08:22)
[2019-05-29] MEDS: metFORMIN* 500 MG TAB PO SCH (08:22)
[2019-05-29] MEDS: Gabapentin CAP(*) 300 MG PO SCH ×2 (08:23→12:26)
[2019-05-29] MEDS: Insulin GLARGINE(*) 1 UNITS UNIT SUBCUT SCH (08:32)
[2019-05-29] MEDS: Insulin LISPRO* 1 UNITS UNIT SUBCUT SCH ×2 (08:33→12:25)
--- NOTE | 2019-05-30 02:03 | DS ---
CC: Dr. Igor Kenney, at [facility] * DISCHARGE SUMMARY: DATE OF ADMISSION: 05/20/19 DATE OF DISCHARGE: 05/29/19 DISCHARGE DIAGNOSES: 1. Multiple sclerosis. 2. Pyelonephritis. 3. Neurogenic bladder. 4. Left leg footdrop secondary to multiple sclerosis. 5. Diabetes mellitus. 6. Hypertension. HISTORY OF PRESENT ILLNESS AND HOSPITAL COURSE: For complete history of the events leading up to her rehab stay, please see the history and physical dictated by me on 05/20/19. While on the rehab unit, the patient continued oral antibiotics to complete her course for treatment for pyelonephritis. She was on Ceftin 500 mg twice a day. The patient's regular insulin was not available in the hospital and she was converted to Lantus; however, her Lantus dose had to be cut back as her infection was treated and she became more mobile. The patient's bladder was managed initially with Espinoza catheter. However, the Espinoza catheter was removed and attempts were made to teach the patient's straight catheterization. She was unable to master straight catheterization and the patient was discharged home again with Espinoza. The patient did have evidence of hydronephrosis on her CAT scan and it was recommended that her bladder stay decompressed. The patient otherwise was fairly stable from a medical point of view. Her creatinine came down from 1.38 at the time of her acute admission down to 0.97 at the time of discharge. This allowed us to restart her Glucophage. The patient otherwise was medically stable. She was seen by Physical Therapy and Occupational Therapy and made good gains with both disciplines. With physical therapy at the time of admission, the patient required max assist for transfers from sit to stand. She was able to ambulate with a rolling walker and moderate amount of assistance about 75 feet. She was not able to do stairs. With occupational therapy at the time of admission, the patient required max assist for lower body dressing, setup for upper body dressing, mod assist for toileting, and mod assist for toilet transfers. At the time of discharge, she was independent in transfers, ambulating 150 feet independently. She required min assist for going up and down the stairs. She was independent with upper body dressing, min assist for lower body dressing, toileting with independent, and toilet transfers were independent. The patient and her spouse were taught how to empty a Espinoza catheter prior to discharge. DISPOSITION: Home. CONDITION AT DISCHARGE: Stable. FOLLOWUP: The patient is going to see her urologist on the day of discharge, Dr. Nuñez, at [facility]. She will also follow up with her primary care doctor, Dr. Russ Kenney. DISCHARGE DIET: Consisting carbohydrate. DISCHARGE MEDICATIONS: 1. Ceftin 500 mg twice daily for 3 doses. 2. Gabapentin 300 mg orally 3 times a day. 3. Synthroid 175 mcg daily. 4. Metformin 500 mg daily. 5. Ditropan 2.5 mg orally 3 times a day. 6. Percocet 5/325 one tablet every 4 hours as needed. 7. Trulicity 1.5 mg subcutaneously weekly. 8. Detemir insulin 45 units subcutaneously twice daily. TIME SPENT: Time for this discharge was approximately 50 minutes, greater than half of that was spent with the patient and her explaining post- rehabilitation medications, therapies, and services. SERVICES AFTER DISCHARGE: Through the visiting nurse service, she will have home nursing and home health aide. [id number]/[facility] #: [id number]
== END 2019-05-29 14:30 | disposition home health service (06) | DRG 43 ==
LOC: PMRU 12:17
PROVIDERS: ADMIT Physical Medicine & Rehabilitation; ATTEND Physical Medicine & Rehabilitation
PROC: F07Z5ZZ Bed Mobility Treatment (ICD-10-PCS; principal; 2019-05-20)
PROC: F07Z9ZZ Gait Training/Functional Ambulation Treatment (ICD-10-PCS; 2019-05-20)
PROC: F07Z8ZZ Transfer Training Treatment (ICD-10-PCS; 2019-05-20)
PROC: F07Z4ZZ Wheelchair Mobility Treatment (ICD-10-PCS; 2019-05-20)
PROC: F08Z0ZZ Bathing/Showering Techniques Treatment (ICD-10-PCS; 2019-05-20)
PROC: F08Z1ZZ Dressing Techniques Treatment (ICD-10-PCS; 2019-05-20)
PROC: F08Z3ZZ Feeding/Eating Treatment (ICD-10-PCS; 2019-05-20)
PROC: F08Z4ZZ Home Management Treatment (ICD-10-PCS; 2019-05-20)
DX: G35 Multiple sclerosis (principal); N12 Tubulo-interstitial nephritis, not specified as acute or chronic; N17.9 Acute kidney failure, unspecified; N13.30 Unspecified hydronephrosis; N31.9 Neuromuscular dysfunction of bladder, unspecified; M21.372 Foot drop, left foot; E11.9 Type 2 diabetes mellitus without complications; I10 Essential (primary) hypertension; E03.9 Hypothyroidism, unspecified; R33.8 Other retention of urine; M54.5 Low back pain; Z79.4 Long term (current) use of insulin; Z79.899 Other long term (current) drug therapy; Z91.09 Other allergy status, other than to drugs and biological substances
CPT/HCPCS: 36415; 80053; 85025; A9270-GY; J1650

== ENCOUNTER 2019-06-17 18:24 | Observation (INO) | payer BC, OTHER ==
--- OUTSIDE RECORDS SUMMARY | 2019-06-17 18:42 | XMS REPORT | Summary of Care ---
:1955 Author Organization [facility] Address [address] [address] Care Team Providers Name Role Phone Igor Kenney Primary Care Provider Reason for Visit Reason Comments Urinary Incontinence f/u pt has a cath Encounter Details Date Type Department Care Team Description 05/29/2019 Office Visit [facility] Joaquin, Neurogenic bladder [address] [facility] MD Papito (Primary Dx) [place] [address] [address] [phone] [place] [address] [phone] Allergies Active Allergy Reactions Severity Noted Date Comments Compazine Swelling 08/07/2007 documented as of this encounter (statuses as of 05/30/2019) Medications Medication Sig Dispensed Refills Start End Date Status Date Aspirin (SB LOW Take by mouth. 0 Active DOSE ASA EC) 81 MG Oral Tab EC fluticasone-salmete Take 1 INHL by 1 Inhaler 3 Active rol diskus (ADVAIR inhalation TWICE 4 DISKUS) 100-50 DAILY. MCG/DOSE Inhalation AEROSOL POWDER, BREATH ACTIVATEDIndication s: Asthma flare Blood Glucose 1 Each by Does not 200 Strip 5 Active Monitoring Suppl apply route FOUR 4 (BLOOD GLUCOSE TEST TIMES DAILY. STRIPS Freestyle Lite STRP)Indications: 250.00 Insulin Diabetes (HCC) Dependent Uses 4 times daily Desloratadine 5 MG Take 1 Tab by 90 Tab 3 Active Oral Tab mouth DAILY. 6 fluticasone Mobile 2 Sprays in 16 g 5 Active (FLONASE) 50 nose DAILY. 6 MCG/ACT Nasal SuspensionIndicatio ns: Seasonal allergic rhinitis, unspecified allergic rhinitis trigger Insulin Pen Needle 1 Each by Does not 100 Each 5 Active (PEN NEEDLES 3/16") apply route 7 31G X 5 MM Does not DIRECTED. apply Misc Lancets Does not 1 Each by Does not 200 Each 5 Active apply Misc apply route FOUR 7 TIMES DAILY. Freestyle Lite 250.00 Insulin Dependent uses 4 times daily ondansetron (ZOFRAN Take 1 Tab by 30 Tab 1 Active ODT) 4 MG Oral mouth EVERY FOUR 7 TABLET HOURS NEEDED DISPERSIBLEIndicati (Nausea). ons: Type 2 diabetes mellitus without complication (HCC) albuterol HFA Take 2 Puffs by 1 Inhaler 3 Active (VENTOLIN) 108 (90 inhalation EVERY 7 Base) MCG/ACT FOUR HOURS Inhalation Aero NEEDED (wheezing). SolnIndications: Type 2 diabetes mellitus without complication (HCC) Diclofenac Sodium [address] 1 g onto 100 g 0 Active % Transdermal skin THREE TIMES 7 GelIndications: DAILY NEEDED Facial contusion, (pain). initial encounter, Hematoma of right thigh, initial encounter meloxicam 15 MG TAKE ONE TABLET BY 90 Tab 5 Active Oral Tab MOUTH EVERY DAY 7 LISINOPRIL-HCTZ TAKE ONE TABLET BY 90 Tab 3 Active 20-25 MG Oral Tab MOUTH EVERY DAY 7 atorvastatin Take 1 Tab by 90 Tab 3 Active (LIPITOR) 40 MG mouth DAILY. 8 Oral Tab hydrOXYzine HCL Take 1 Tab by 60 Tab 0 Active (ATARAX) 10 MG Oral mouth THREE TIMES 8 Tab DAILY NEEDED for Itching or anxiety. Insulin Pen Needle 1 Each by Does not 200 Each 11 Active 32G X 4 MM Does not apply route FOUR 8 apply Misc TIMES DAILY. Glucose Blood In 1 Strip by In 150 Strip 5 Active Vitro Strip Vitro route FOUR 8 TIMES DAILY. levothyroxine TAKE ONE TABLET BY 90 Tab 3 Active (SYNTHROID) 175 MCG MOUTH DAILY BEFORE 8 Oral BREAKFAST TabIndications: Type 2 diabetes mellitus without complication, with long-term current use of insulin (HCC) cyclobenzaprine TAKE ONE TABLET BY 30 Tab 5 Active (FLEXERIL) 10 MG MOUTH AT BEDTIME 8 Oral Tab metFORMIN TAKE ONE TABLET BY 90 Tab 1 Active (GLUCOPHAGE XR) 500 MOUTH EVERY DAY 8 MG Oral TABLET SR 24 HRIndications: Type 2 diabetes mellitus without complication, with long-term current use of insulin ([facility]) Insulin Lispro Inject 15 Units 15 mL 3 Active (HUMALOG KWIKPEN) beneath the skin 8 100 UNIT/ML THREE TIMES DAILY Subcutaneous WITH MEALS. Solution Pen-injector meclizine Take 1 Tab by 90 Tab 5 Active (ANTIVERT) 25 MG mouth THREE TIMES 8 Oral DAILY NEEDED TabIndications: for Benign paroxysmal dizziness/vertigo. positional vertigo, unspecified laterality HUMALOG KWIKPEN 100 INJECT 2-10 UNITS 15 mL 3 Active UNIT/ML SUBCUTANEOUSLY 3 9 Subcutaneous TIMES DAILY Solution Pen-injector TRULICITY 1.5 INJECT 0.5 ML 3 mL 5 Active MG/0.5ML SUBCUTANEOUSLY 9 Subcutaneous ONCE WEEKLY Solution Pen-injectorIndicat ions: Controlled type 2 diabetes mellitus without complication, without long-term current use of insulin ([facility]) Insulin Detemir INJECT 80 UNITS 15 mL 0 Active (LEVEMIR FLEXTOUCH) SUBCUTANEOUSLY 9 100 UNIT/ML TWICE DAILY Subcutaneous Solution Pen-injectorIndicat ions: Uncontrolled type 2 diabetes mellitus with insulin therapy ([facility]), Controlled type 2 diabetes mellitus without complication, without long-term current use of insulin ([facility]) Insulin Detemir Inject 80 Units 60 mL 5 Active (LEVEMIR FLEXTOUCH) beneath the skin 9 100 UNIT/ML TWICE DAILY. Subcutaneous Solution Pen-injectorIndicat ions: Uncontrolled type 2 diabetes mellitus with insulin therapy ([facility]), Controlled type 2 diabetes mellitus without complication, without long-term current use of insulin ([facility]) oxybutynin TAKE 1/2 TABLET BY 90 Tab 3 Active (DITROPAN) 5 MG MOUTH THREE TIMES 9 Oral Tab A DAY gabapentin TAKE ONE CAPSULE 90 Cap 3 Active (NEURONTIN) 300 MG BY MOUTH THREE 9 Oral Cap TIMES A DAY ciprofloxacin Take 1 Tab by 1 Tab 0 05/29/20 Discontinued (CIPRO) 500 MG Oral mouth DIRECTED. 9 19 Tab documented as of this encounter (statuses as of 05/30/2019) Active Problems Problem Noted Date Uncontrolled type 2 diabetes mellitus with insulin therapy 09/24/2018 Multiple sclerosis 07/31/2018 Overview: Neurologist Dr Dang Mixed stress and urge urinary incontinence 07/31/2018 Radicular low back pain 02/28/2018 Neuropathic pain 12/20/2017 Recurrent falls 07/06/2017 Essential hypertension 05/22/2017 BMI 38.0-38.9,adult 11/28/2011 Type 2 diabetes mellitus without complication 06/10/2007 Other specified hypothyroidism 06/10/2007 Mixed hyperlipidemia 06/10/2007 Unspecified asthma(493.90) 06/10/2007 Dysthymic disorder 06/10/2007 Osteoarthrosis, unspecified whether generalized or localized, unspecified site documented as of this encounter (statuses as of 05/30/2019) Resolved Problems Problem Noted Date Resolved Date Dysesthesia 05/01/2011 06/26/2012 Patellar fracture 12/19/2010 07/31/2018 Overview: S/p surgery [facility] 11/2010 Unspecified essential hypertension 06/10/2007 05/22/2017 documented as of this encounter (statuses as of 05/30/2019) Immunizations Name Administration Dates Next Due DTAP Vaccine 05/01/2012 Influenza (IM) Preservative Free 07/31/2018, 05/20/2017, 05/24/2016, 07/07/2015, 06/06/2013, 05/16/2012 Influenza (IM) W/Pres 06/03/2014 Influenza Vaccine Whole 05/23/2007, 08/09/2006 PNEUMOCOCCAL POLYSACCHARIDE VACCINE 05/23/2007 documented as of this encounter Social History Tobacco Use Types Packs/Day Years Used Date Never Smoker Smokeless Tobacco: Never Used Alcohol Use Drinks/Week oz/Week Comments No 0 Standard drinks or equivalent 0.0 Sex Assigned at Date Recorded Not on file Job Start Date Occupation Industry Not on file Not on file Not on file Travel History Travel Start Travel End No recent travel history available. documented as of this encounter Last Filed Vital Signs Not on filedocumented in this encounter Progress Notes Papito Nuñez MD - 05/29/2019 3:30 PM EDT PATIENT: Melina Guallpa : 1955 DATE OF SERVICE: 05/29/2019 REFERRING PRACTITIONER: Curt PRIMARY CARE PROVIDER: Igor Kenney CHIEF COMPLAINT: Chief Complaint Patient presents with Urinary Incontinence f/u pt has a cath Subjective HISTORY OF PRESENT ILLNESS: Melina Guallpa is a 63-y.o. female who presents for followup History of Multiple sclerosis and OAB Has Multiple sclerosis diagnosed over 15 years ago Normal flexible cystoscopy Sep 2018 Commenced on Ditropan 2.5 mg TID at last visit - it is helping her bladder symptoms, but more recently not emptying bladder Was doing CISC BID but not enough and Was admitted at [facility] and had a Espinoza inserted. She was suggested to do CISC QID US RETROPERITONEAL COMPLETE Date of service: 09/24/2018 Sonographic appearance of kidneys within normal limits. Urinary bladder with considerable postvoid residual volume of 198 cc. Current Outpatient Medications Medication Sig albuterol HFA (VENTOLIN) 108 (90 Base) MCG/ACT Inhalation Aero Soln Take 2 Puffs by inhalation EVERY FOUR HOURS NEEDED (wheezing). Aspirin (SB LOW DOSE ASA EC) 81 MG Oral Tab EC Take by mouth. atorvastatin (LIPITOR) 40 MG Oral Tab Take 1 Tab by mouth DAILY. Blood Glucose Monitoring Suppl (BLOOD GLUCOSE TEST STRIPS STRP) 1 Each by Does not apply route FOUR TIMES DAILY. Freestyle Lite 250.00 Insulin Dependent Uses 4 times daily cyclobenzaprine (FLEXERIL) 10 MG Oral Tab TAKE ONE TABLET BY MOUTH AT BEDTIME Desloratadine 5 MG Oral Tab Take 1 Tab by mouth DAILY. Diclofenac Sodium 1 % Transdermal Gel Place 1 g onto skin THREE TIMES DAILY NEEDED (pain). fluticasone (FLONASE) 50 MCG/ACT Nasal Suspension Mobile 2 Sprays in nose DAILY. fluticasone-salmeterol diskus (ADVAIR DISKUS) 100-50 MCG/DOSE Inhalation AEROSOL POWDER, BREATH ACTIVATED Take 1 INHL by inhalation TWICE DAILY. gabapentin (NEURONTIN) 300 MG Oral Cap TAKE ONE CAPSULE BY MOUTH THREE TIMES A DAY Glucose Blood In Vitro Strip 1 Strip by In Vitro route FOUR TIMES DAILY. HUMALOG KWIKPEN 100 UNIT/ML Subcutaneous Solution Pen-injector INJECT 2- 10 UNITS SUBCUTANEOUSLY 3 TIMES DAILY hydrOXYzine HCL (ATARAX) 10 MG Oral Tab Take 1 Tab by mouth THREE TIMES DAILY NEEDED for Itching or anxiety. Insulin Detemir (LEVEMIR FLEXTOUCH) 100 UNIT/ML Subcutaneous Solution Pen -injector INJECT 80 UNITS SUBCUTANEOUSLY TWICE DAILY Insulin Detemir (LEVEMIR FLEXTOUCH) 100 UNIT/ML Subcutaneous Solution Pen -injector Inject 80 Units beneath the skin TWICE DAILY. Insulin Lispro (HUMALOG KWIKPEN) 100 UNIT/ML Subcutaneous Solution Pen- injector Inject 15 Units beneath the skin THREE TIMES DAILY WITH MEALS. Insulin Pen Needle (PEN NEEDLES 3/16") 31G X 5 MM Does not apply Misc 1 Each by Does not apply route DIRECTED. Insulin Pen Needle 32G X 4 MM Does not apply Misc 1 Each by Does not apply route FOUR TIMES DAILY. Lancets Does not apply Misc 1 Each by Does not apply route FOUR TIMES DAILY. Freestyle Lite 250.00 Insulin Dependent uses 4 times daily levothyroxine (SYNTHROID) 175 MCG Oral Tab TAKE ONE TABLET BY MOUTH DAILY BEFORE BREAKFAST LISINOPRIL-HCTZ 20-25 MG Oral Tab TAKE ONE TABLET BY MOUTH EVERY DAY meclizine (ANTIVERT) 25 MG Oral Tab Take 1 Tab by mouth THREE TIMES DAILY NEEDED for dizziness/vertigo. meloxicam 15 MG Oral Tab TAKE ONE TABLET BY MOUTH EVERY DAY metFORMIN (GLUCOPHAGE XR) 500 MG Oral TABLET SR 24 HR TAKE ONE TABLET BY MOUTH EVERY DAY ondansetron (ZOFRAN ODT) 4 MG Oral TABLET DISPERSIBLE Take 1 Tab by mouth EVERY FOUR HOURS NEEDED (Nausea). oxybutynin (DITROPAN) 5 MG Oral Tab TAKE 1/2 TABLET BY MOUTH THREE TIMES A DAY TRULICITY 1.5 MG/0.5ML Subcutaneous Solution Pen-injector INJECT 0.5 ML SUBCUTANEOUSLY ONCE WEEKLY No current facility-administered medications for this visit. Allergies Allergen Reactions Compazine Swelling REVIEW OF SYSTEMS: All remaining review of systems was negative except for as noted in the history of present illness/subjective. Objective PHYSICAL EXAMINATION: VITALS: There were no vitals taken for this visit. There is no height or weight on file to calculate BMI. GENERAL: healthy, well nourished, in no distress. LUNGS: good air entry bilaterally, no crackles or wheezes. HEART: regular rhythm, no murmurs, no gallops, no rubs. ABDOMEN: no palpable masses, organomegaly or hernias, no peritoneal, flank or bladder tenderness. GENITOURINARY: Espinoza drains clear urine. LABORATORY DATA: Urine today in the office is na DIAGNOSTIC DATA: Diagnostic tests reviewed today: labs Plan IMPRESSION/PLAN: CISC four times a day and also as needed Flexible cystoscpy + USS annually Author: Papito Nuñez MD 05/29/2019 15:56 documented in this encounter Plan of Treatment Date Type Specialty Care Team Description 06/03/2019 Office Visit Internal Medicine Igor Kenney MD [address] [place] [address] 10/27/2019 Ancillary Procedure Radiology 10/27/2019 Ancillary Procedure Radiology 01/28/2020 Office Visit Urology Papito Nuñez MD [address] [place] [address] Health Maintenance Due Date Last Done Comments Diabetic Eye Exam 1955 ZOSTER IMMUNIZATION SERIES 2006 (1 of 2) PAP SMEAR 11/04/2013 11/04/2010, 09/19/2007 DEPRESSION SCREENING 07/06/2018 07/06/2017 FOOT EXAM 03/14/2019 03/14/2018, 03/14/2018, 03/14/2018, Additional history exists HEMOGLOBIN A1C 04/10/2019 01/08/2019, 07/31/2018, 12/20/2017, Additional history exists INFLUENZA VACCINE (#1) 2019 07/31/2018, 05/20/2017, 05/24/2016, Additional history exists MAMMOGRAM (SCREENING) 10/22/2019 10/21/2018, 10/08/2017, 09/13/2017, Additional history exists LIPID DISORDER SCREENING 01/09/2020 01/08/2019, 07/31/2018, 08/21/2017, Additional history exists COLONOSCOPY SCREENING 10/11/2021 10/11/2016 PNEUMOCOCCAL 0-64 YRS Completed 05/23/2007 HPV IMMUNIZATION SERIES Aged Out No longer eligible based on patient's age to complete this topic MENINGOCOCCAL VACCINE IMM Aged Out No longer eligible based on patient's age to complete this topic documented as of this encounter Goals Goal Patient Goal Associated Recent Patient-Stated? Author Type Problems Progress Blood Pressure Blood Pressure 151/82 No Anne Marie, < 140/90 (02/05/2019 Igor Dean, 2:04 PM EDT) Note: This is an individualized treatment (blood pressure) goal for Melina Guallpa : Displayed above (on the left) is your goal for blood pressure control. Your most recent blood pressure is also shown above, on the right. You should try to achieve blood pressures that are lower than your goal listed above (on the left). Depression screen (PHQ-9) total score < 5 Depression Igor Colon MD Note: This is an individualized treatment (depression) goal for Melina Guallpa: Displayed above is your goal for a depression screening (PHQ-9) score that would indicate good control of your depression. Glycohemoglobin A1c < 7.0 Diabetes 7.0 (01/08/2019 4:29 PM Igor Colon, EDT) Note: This is an individualized treatment (diabetes control, HgbA1C) goal for Melina Guallpa: Displayed above is your progress towards your HgbA1C goal. Your goal is shown above (on the left); your most recent HgbA1C is shown on the right. Note that lower numbers are better. Weight loss vs. 18 mo Lifestyle 11 (02/05/2019 2:04 PM Igor Colon MD max (lbs) >= 10 EDT) Note: This is an individualized lifestyle goal for Melina Guallpa: Your body mass index (BMI) is more than 30. You should lose weight. A reasonable starting goal is to lose 10 pounds. Displayed above is how many pounds you have lost thus far towards your 10 pound weight loss goal. Keep a regular sleep schedule Lifestyle Igor Colon MD Note: This is an individualized lifestyle goal for Melina Guallpa: Please maintain a regular sleep schedule. This may help with some symptoms of depression. Keep immunizations current Lifestyle Igor Colon MD Note: This is an individualized lifestyle goal for Melina Guallpa: Please be sure to keep up-to-date on recommended immunizations. For example, this would include a yearly influenza vaccine. Immunization status can be seen by looking at the Health Maintenance sections of your [facility], Plan of Care, and any After Visit Summaries. Take all prescribed medications as Self-management Igor Colon MD directed Note: This is an individualized self-management goal for Melina Guallpa: Please take all prescribed medications as directed. 1. Do not skip doses. If you cannot afford your medications, talk with your doctor. 2. Use a pill reminder system such as a pill box if needed. Your pharmacist can help you with this. 3. Contact your Pharmacy 5 days before your medication runs out. If you cannot take your medications for any reasons, talk with your doctor. 4. Please bring all of your medication bottles and inhalers (or a list of all your medications/inhalers) with you to every visit. Potential barriers to meeting all of your care plan goals will continue to be addressed on an ongoing basis. documented as of this encounter Results Not on filedocumented in this encounter Visit Diagnoses Diagnosis Neurogenic bladder - Primary Neurogenic bladder, NOS documented in this encounter Insurance Payer Benefit Plan / Subscriber ID Effective Dates Phone Address Type Group [employer]BS EX[employer] xxxxxxxxxxxx Effective for all [employer] dates STANDARD xxxxxxxxx Effective for all dates Guarantor Name Account Type Relation to Date of Phone Billing Address Patient Melina Guallpa Personal/Famil 1955 [address] ([address] [place], [place] ([place]) [id number] documented as of this encounter
--- OUTSIDE RECORDS SUMMARY | 2019-06-17 18:42 | XMS REPORT | Continuity of Care Document ---
:1955 External Reference #:[id number] Author Name Bessie Akbar M.D. (transmitted by agent of provider Krista Lubin) Address [address] [facility] [place] [address] Care Team Providers Name Role Phone Igor Kenney MD - Internal Care Team Information Emt B Medicine Problems Active Problems Provider Date Closed fracture of head of radius Alfonso Lopez MD Onset: 01/03/2018 Brachial neuritis Etienne Sinha M.D. Onset: 10/10/2017 Disorder of shoulder Etienne Sinha M.D. Onset: 08/01/2017 Sprain of shoulder and upper arm Etienne Sinha M.D. Onset: 06/20/2017 Localized, primary osteoarthritis Etienne Sinha M.D. Onset: 06/20/2017 Localized, secondary osteoarthritis Etienne Sinha M.D. Onset: 04/25/2017 Social History Type Date Description Comments Sex Unknown Tobacco Use Start: Unknown Patient has never smoked Smoking Status Reviewed: 06/13/19 Patient has never smoked Allergies, Adverse Reactions, Alerts Active Allergies Reaction Severity Comments Date Beny 04/25/2017 Medications Active Medications SIG Qnty Indications Ordering Date Provider Cyclobenzaprine HCL Take One 60tabs S52.122D Etienne 02/06/2018 10mg Tablets Tablet By Mary Sinha Mouth Up To Three Times A Day as Needed Percocet one tablet 30tabs S52.125A Alfonso Ellis 01/03/2018 5-325mg Tablets every 4-6 MD Jessica hours as needed for pain Voltaren Apply 3 Grams 500units M17.12 Etienne 08/01/2017 1% Gel To Affected Ernestine, M.D. Area(S) Two To Three Times A Day as Needed [place] one tab by 45tabs Etienne 06/20/2017 5-325mg Tablets mouth every 6 Mary Sinha hours as needed pain Aspirin Adult Low Strength take one 90tabs Etienne 04/25/2017 81mg tablet by Mary Sinha Tablets DR mouth daily. Farxiga 1 by mouth Unknown 10mg Tablets every day Fluoxetine HCL (PMDD) 1 by mouth Unknown 20mg every day Capsules Meloxicam 1 by mouth Unknown 15mg Tablets every day Lisinopril 1 by mouth Unknown 20mg Tablets every day Hydrochlorothiazide 1 by mouth Unknown 25mg Tablets every day Levothyroxine Sodium 1 by mouth Unknown 175mcg every day Tablets Trulicity [place], 1.5mg/0.5ML Solution MD Igor Pen-Inject Atorvastatin Calcium 1 tab by mouth Avel, 40mg Tablets daily ARMIDA Owen Gabapentin 1 capsule by Unknown 300mg Capsules mouth twice daily Hydroxyzine HCL [place], 10mg Tablets MD Igor Meclizine HCL Avel, 25mg Tablets ARMIDA Owen Medications Administered in Office Medication SIG Qnty Indications Ordering Provider Date Depomedrol 40MG Etienne Sinha M.D. 08/01/2017 Injection Immunizations Description No Information Available Vital Signs Date Vital Result Comment 06/13/2019 3:32pm Height 61 inches 5'1" Weight 215.00 lb Heart Rate 84 /min BP Systolic 110 mmHg BP Diastolic 78 mmHg Body Temperature 97.2 F BMI (Body Mass Index) 40.6 kg/m2 03/27/2018 2:01pm Height 61 inches 5'1" Weight 210.00 lb Heart Rate 76 /min BP Systolic Sitting 120 mmHg BP Diastolic Sitting 84 mmHg Respiratory Rate 16 /min Pain Level 1 BMI (Body Mass Index) 39.7 kg/m2 Results Description No Information Available Procedures Description No Information Available Medical Devices Description No Information Available Encounters Type Date Location Provider Dx Diagnosis Office Visit 05/19/2019 [facility] Stefano Muir, N12 Tubulo- interstiti 11:01a [facility] [place] nephritis, not spcf as acute or chronic N17.9 Acute kidney failure, unspecified N32.81 Overactive bladder K59.00 Constipation, unspecified N13.30 Unspecified hydronephrosis E11.9 Type 2 diabetes mellitus without complications I10 Essential (primary) hypertension E03.9 Hypothyroidism, unspecified G35 Multiple sclerosis Office Visit 05/18/2019 [facility] Stefano N12 Tubulo-interstitial 11:00a Assoc,roma Muir PA nephritis, not spcf as Hospitalists acute or chronic N17.9 Acute kidney failure, unspecified N32.81 Overactive bladder K59.00 Constipation, unspecified N13.30 Unspecified hydronephrosis E11.9 Type 2 diabetes mellitus without complications I10 Essential (primary) hypertension E03.9 Hypothyroidism, unspecified G35 Multiple sclerosis Office Visit 05/17/2019 [facility] Shannan N12 Tubulo-interstitial 11:00a Assoc,roma Marshall PA-C nephritis, not spcf as Hospitalists acute or chronic N13.30 Unspecified hydronephrosis N17.9 Acute kidney failure, unspecified E11.9 Type 2 diabetes mellitus without complications I10 Essential (primary) hypertension G35 Multiple sclerosis Office 05/16/2019 [facility] Keena N12 Tubulo-interstitial Visit 11:00a Assocroma, ARMIDA nephritis, not spcf as Hospitalists acute or chronic I10 Essential (primary) hypertension E03.9 Hypothyroidism, unspecified E11.9 Type 2 diabetes mellitus without complications N32.81 Overactive bladder G35 Multiple sclerosis Office 05/15/2019 [facility] Marii N12 Tubulo-interstitial Visit 10:59a Assoc,roma Cesar NP nephritis, not spcf as Hospitalists acute or chronic I10 Essential (primary) hypertension E03.9 Hypothyroidism, unspecified E11.9 Type 2 diabetes mellitus without complications N32.81 Overactive bladder G35 Multiple sclerosis Assessments Date Code Description Provider 06/13/2019 M25.562 Pain in left knee Bessie Akbar M.D. 06/13/2019 M25.462 Effusion, left knee Bessie Akbar M.D. 06/13/2019 M17.12 Unilateral primary osteoarthritis, left knee Bessie Akbar M.D. 05/19/2019 N12 Tubulo-interstitial nephritis, not specified Stefano Muir PA as acute or chronic 05/19/2019 N17.9 Acute kidney failure, unspecified Stefano Muir, PA 05/19/2019 N32.81 Overactive bladder Stefano Muir, PA 05/19/2019 K59.00 Constipation, unspecified Stefano Wangber, PA 05/19/2019 N13.30 Unspecified hydronephrosis Stefano Muir, PA 05/19/2019 E11.9 Type 2 diabetes mellitus without Stefano Muir, PA complications 05/19/2019 I10 Essential (primary) hypertension Stefano Muir, PA 05/19/2019 E03.9 Hypothyroidism, unspecified Stefano Isadora, PA 05/19/2019 G35 Multiple sclerosis Stefano Muir, PA 05/18/2019 N12 Tubulo-interstitial nephritis, not specified Stefano Muir PA as acute or chronic 05/18/2019 N17.9 Acute kidney failure, unspecified Stefano Muir, PA 05/18/2019 N32.81 Overactive bladder Stefano Muir, PA 05/18/2019 K59.00 Constipation, unspecified Stefano Muir, PA 05/18/2019 N13.30 Unspecified hydronephrosis Stefano Muir, PA 05/18/2019 E11.9 Type 2 diabetes mellitus without Stefano Muir, PA complications 05/18/2019 I10 Essential (primary) hypertension Stefano Muir, PA 05/18/2019 E03.9 Hypothyroidism, unspecified Stefano Muir, PA 05/18/2019 G35 Multiple sclerosis Stefano Muir, PA 05/17/2019 N12 Tubulo-interstitial nephritis, not specified Shannan Marshall PA-C as acute or chronic 05/17/2019 N13.30 Unspecified hydronephrosis SARTHAK Pina-C 05/17/2019 N17.9 Acute kidney failure, unspecified SARTHAK Pina-C 05/17/2019 E11.9 Type 2 diabetes mellitus without Shannanlydia Marshall PA-C complications 05/17/2019 I10 Essential (primary) hypertension SARTHAK Pina-C 05/17/2019 G35 Multiple sclerosis SARTHAK Pina-C 05/16/2019 N12 Tubulo-interstitial nephritis, not specified Keena Touchton , HOUSING CASE MANAGER as acute or chronic 05/16/2019 I10 Essential (primary) hypertension Keena Maynorlemuel, HOUSING CASE MANAGER 05/16/2019 E03.9 Hypothyroidism, unspecified Keena Maynorlemuel, HOUSING CASE MANAGER 05/16/2019 E11.9 Type 2 diabetes mellitus without Keena Maynorlemuel, HOUSING CASE MANAGER complications 05/16/2019 N32.81 Overactive bladder Keenaalejandro Mcguirelemuel, HOUSING CASE MANAGER 05/16/2019 G35 Multiple sclerosis Keenaalejandro Mcguirelemuel, HOUSING CASE MANAGER 05/15/2019 N12 Tubulo-interstitial nephritis, not specified Marii Cesar NP as acute or chronic 05/15/2019 I10 Essential (primary) hypertension Marii Cesar, ARMIDA 05/15/2019 E03.9 Hypothyroidism, unspecified Marii Cesar, ARMIDA 05/15/2019 E11.9 Type 2 diabetes mellitus without Marii Cesar NP complications 05/15/2019 N32.81 Overactive bladder Marii Cesar, ARMIDA 05/15/2019 G35 Multiple sclerosis Marii Cesar NP Plan of Treatment 06/13/2019 - Bessie Akbar M.D.M25.562 Pain in left kneeFollow up:Follow up: 7 -10 days before vynrllkJ75.462 Effusion, left kneeM17.12 Unilateral primary osteoarthritis, left knee Functional Status Description No Information Available Mental Status Description No Information Available Referrals Description No Information Available
[2019-06-17 20:09] LABS: Hematocrit 34 % (35-47); Hemoglobin 11.9 g/dL (12.0-16.0); Mean Corpuscular HGB Conc 35 g/dL (31-36); Mean Corpuscular Hemoglobin 30 pg (27-31); Mean Corpuscular Volume 87 fL (80-97); Mean Platelet Volume 7.1 fL (7.4-10.4); Platelet Count 334 10^3/uL (150-450); Red Blood Count 3.93 10^6 /uL (3.70-4.87); Red Cell Distribution Width 14 % (10-15)
--- NOTE | 2019-06-17 20:11 | ED ---
GI/ HPI - HPI Summary HPI Summary: Pt is a 64 y/o F w hx MS, recent admission for pyelonephritis, ?neurogenic bladder, presenting to the ED with a chief complaint of issues. Pt states she feels as though something is coming out of her area, but she isnt sure if its her vagina or urethra. She notes she recently had a kidney infection where she had a borrero placed, and she also notes that she had an episode of diarrhea after taking stool softeners. After this episode she noticed dark brown discharge/urine coming from her area. She saw her HOOP RIVETING MACHINE OPERATOR HELPER today who could not get a clean UA so she recommended coming here to replace her borrero and to get a clean UA. She also reports back pain and malodorous urine in the borrero. She denies fever. - History of Current Complaint Chief Complaint: EDUrogenitalProblems Time Seen by Provider: 06/17/19 19:33 Stated Complaint: CATHATER ISSUES PER PT Hx Obtained From: Patient Onset/Duration: Started Days Ago, Still Present Timing: Constant, Lasting Days Severity: Mild Current Severity: None Pain Intensity: 0 Location of Pain: None Associated Signs and Symptoms: Positive: Back Pain, Diarrhea, UTI Symptoms Aggravating Factor(s): Nothing Alleviating Factor(s): Nothing - Additional Pertinent History Primary Care Physician: [id number] - Allergy/Home Medications Allergies/Adverse Reactions: Allergies Allergy/AdvReac Type Severity Reaction Status Date / Time prochlorperazine Allergy Anaphylatic Verified 05/15/19 16:02 [From Compazine] Shock PMH/Surg Hx/FS Hx/Imm Hx Previously Healthy: Yes Endocrine/Hematology History: Reports: Hx Diabetes, Hx Thyroid Disease - thyroidectomy Denies: Hx Anticoagulant Therapy, Other Endocrine/Hematological Disorders Cardiovascular History: Reports: Hx Hypertension Denies: Hx Congestive Heart Failure, Hx Pacemaker/ICD Respiratory History: Reports: Hx Asthma - allergy related Denies: Other Respiratory Problems/Disorders GI History: Reports: Hx Gall Bladder Disease - cholecystectomy History: Reports: Hx Kidney Infection - 05/15/19 [facility], Hx Renal Disease - STAGE III Musculoskeletal History: Reports: Other Musculoskeletal History - L spine stenosis Sensory History: Reports: Hx Contacts or Glasses - reading, Hx Hearing Problem - mild Denies: Hx Deafness, Hx Hearing Aid, Other Sensory Impairments Opthamlomology History: Reports: Hx Contacts or Glasses - reading Denies: Other Sensory Impairments Neurological History: Reports: Other Neuro Impairments/Disorders - Multiple Sclerosis Psychiatric History: Reports: Hx Anxiety, Hx Depression, Hx Community Mental Health Tx Denies: Hx Attention Deficit Hyperactivity Disorder, Hx Eating Disorder, Hx Panic Disorder, Hx Post Traumatic Stress Disorder, Hx Inpatient Treatment, Hx Schizophrenia, Hx Bipolar Disorder, Hx of Violent Episodes Against Others, Hx Substance Abuse, Other Psychiatric Issues/Disorders - Cancer History Cancer Type, Location and Year: 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 CHOLECYSTECTOMY. CARO KNEE SURGERY- REPAIR. . T & A. Lt BREAST - BIOPSY - BENIGN Infectious Disease History: No Infectious Disease History: Denies: Traveled Outside the [place] in Last 30 Days - Family History Known Family History: Positive: Cardiac Disease, Hypertension, Diabetes - Social History Alcohol Use: Occasionally Hx Substance Use: No Substance Use Type: Reports: None Hx Tobacco Use: No Smoking Status (MU): Never Smoked Tobacco Review of Systems Positive: Diarrhea Positive: other - discharge/malodorous urine All Other Systems Reviewed And Are Negative: Yes Physical Exam - Summary Physical Exam Summary: Constitutional: Well-developed, Well-nourished, Alert. (-) Distressed Skin: Warm, Dry HENT: Normocephalic; Atraumatic Eyes: Conjunctiva normal Neck: Musculoskeletal ROM normal neck. (-) JVD, (-) Stridor, (-) Nuchal rigidity Cardio: Rhythm regular, rate normal, Heart sounds normal; Intact distal pulses; Radial pulses are 2+ and symmetric. (-) Murmur Pulmonary/Chest wall: Effort normal. (-) Respiratory distress, (-) Wheezes, (-) Rales Abd: Soft, (-) tenderness, (-) Distension, (-) Guarding, (-) Rebound Musculoskeletal: (-) Edema, + bilateral flank pain Lymph: (-) Cervical adenopathy Neuro: Alert, Oriented x3 Psych: Mood and affect Normal : Irritation of vaginal introitus. Borrero with yellow urine. Triage Information Reviewed: Yes Vital Signs On Initial Exam: Initial Vitals Temp Pulse Resp BP Pulse Ox 96.1 F 81 18 136/77 97 06/17/19 18:30 06/17/19 18:30 06/17/19 18:30 06/17/19 18:30 06/17/19 18:30 Vital Signs Reviewed: Yes Procedures - Sedation Patient Received Moderate/Deep Sedation with Procedure: No Diagnostics - Vital Signs Vital Signs Temp Pulse Resp BP Pulse Ox 06/17/19 18:30 96.1 F 81 18 136/77 97 - Laboratory Result Diagrams: 06/17/19 20:04 06/17/19 20:04 Lab Statement: Any lab studies that have been ordered have been reviewed, and results considered in the medical decision making process. Re-Evaluation - Re-Evaluation First Eval Re-Evaluation Time: 21:20 Comment: UA with 3+ LE. Given hx borrero, MS, will admit for IV abx. Given ceftriaxone GIGU Course/Dx - Course Course Of Treatment: 64-year-old female with history of MS, neurogenic bladder, chronic Borrero, recent pyelonephritis who presents with malodorous discharge as well as flank pain. Physical exam w bilateral flank pain, irritation of the vaginal introitus, clear urine in the Borrero. Fluids replaced, UA sent we'll hold off on antibiotics until UA back. - Diagnoses Provider Diagnoses: Complicated UTI (urinary tract infection) Discharge ED - Sign-Out/Discharge Documenting (check all that apply): Patient Departure - Discharge Plan Condition: Stable Disposition: ADMITTED TO [facility] Referrals: Igor Kenney MD [Primary Care Provider] - - Billing Disposition and Condition Condition: STABLE Disposition: Admitted to [facility] - Attestation Statements Document Initiated by Darrel: Yes Documenting Scribe: Trisha Cuellar Provider For Whom Darrel is Documenting (Include Credential): Phyllis Kendall MD. Scribe Attestation: Trisha Covarrubias, scribed for Phyllis Kendall MD. on 06/17/19 at 2133. Scribe Documentation Reviewed: Yes Provider Attestation: The documentation as recorded by the yeisonibTrisha reno accurately reflects the service I personally performed and the decisions made by me, Phyllis Kendall MD. Status of Scribe Document: Viewed Consult Consult: 2125 - I spoke with Dr. Duncan who accepts pt for admission.
[2019-06-17 20:25] LABS: Albumin 4.2 g/dL (3.2-5.2); Albumin/Globulin Ratio 1.4 (1-3); BUN/Creatinine Ratio 27.2 (8-20); Calcium 9.5 mg/dL (8.6-10.3); EGFR African American 52.4 (>60); EGFR Non-African American 43.3 (>60); Potassium 4.4 mmol/L (3.5-5.0); Total Bilirubin 0.6 mg/dL (0.2-1.0); Total Protein 7.2 g/dL (6.4-8.9)
[2019-06-17 20:35] LABS: ABS Basophils 0.1 10^3/ul (0-0.2); ABS Eosinophils 0.4 10^3/ul (0-0.6); ABS Lymphocytes 1.1 10^3/ul (1.0-4.8); ABS Monocytes 0.4 10^3/ul (0-0.8); ABS Neutrophils 4.1 10^3/ul (1.5-7.7); Lymphocyte % 18.4 %
[2019-06-17 21:20] LABS: Urine Appearance Clear; Urine Bacteria Absent (Absent); Urine Bilirubin Negative (Negative); Urine Blood 2+ (Negative); Urine Color Yellow; Urine Glucose Negative (Negative); Urine Ketones Negative (Negative); Urine Nitrite Negative (Negative); Urine Protein Negative (Negative); Urine Red Blood Cell 2+(6-10/hpf) (Absent); Urine Specific Gravity 1.012 (1.010-1.030); Urine Squamous Epithelial Cell Present (Absent); Urine Urobilinogen Negative (Negative); Urine White Blood Cell 3+(>20/hpf) (Absent)
[2019-06-17] MEDS ORDERED: cefTRIAXone(*) 1 GM in NS 0.9% 50 ML* 50 ML IVPB ONE (21:23)
[2019-06-17] MEDS ORDERED: Acetaminophen TAB* 325 MG PO ONE (22:09)
[2019-06-17] MEDS ORDERED: cefTRIAXone(*) 1 GM ADVAN/BAG ONE (22:24)
[2019-06-17] MEDS ORDERED: oxyCODONE/Acetamin 5/325 MG* TAB PO PRN (22:33)
[2019-06-17] MEDS ORDERED: Bisacodyl SUPP* 10 MG SUPP PR PRN (22:33)
[2019-06-17] MEDS ORDERED: Polyethylene Glycol 3350* 17 GM PACKET PO PRN (22:33)
[2019-06-17] MEDS ORDERED: Acetaminophen TAB* 325 MG PO PRN (22:33)
[2019-06-17] MEDS ORDERED: Cyclobenzaprine TAB* 10 MG PO PRN (22:33)
[2019-06-17] MEDS ORDERED: Dextrose 50% VIAL 50 ml IV PUSH PRN (22:34)
[2019-06-17] MEDS ORDERED: Glycerin ADULT SUPP PR PRN (22:47)
[2019-06-17] MEDS ORDERED: Glycerin ADULT SUPP PR ONE (22:47)
[2019-06-18] MEDS: NS 0.9% 1000 ML** 1,000 ML IV SCH ×2 (00:19→11:11)
--- NOTE | 2019-06-18 00:33 | HP ---
CC: Dr. Igor Kenney * ADMISSION HISTORY AND PHYSICAL: DATE OF ADMISSION: 06/17/19 PRIMARY CARE PHYSICIAN: Igor Kenney MD CHIEF COMPLAINT: Bilateral flank pain. HISTORY OF PRESENT ILLNESS: This is a 64-year-old female with past medical history of diabetes, hypertension, multiple sclerosis with neurogenic bladder, previously noted to have urinary retention and UTI, on 05/15/19 was admitted for pyelonephritis, and at which point, she was noted to have some hydronephrosis. She was discharged to a rehab, and from there, she was discharged home 3 weeks ago. She has had a Espinoza since then and has home PT and visiting nurse services. For the last few days, the patient has been noticing increasing amount of discharge around her area. She was not sure if it was vagina or urethra. She was seen by her nurse practitioner, who stated that she probably has another episode of UTI and needs Espinoza change and fresh clean- catch urine to rule out any other acute UTI. The patient otherwise offers no symptoms of fever. She does have abdominal pain, which she says is chronic due to her constipation and she takes multiple stool softeners and she has had a loose bowel movement after having multiple stool softeners, but again feels a little constipated. The patient otherwise offers no chest pain, no shortness of breath, and no fever as mentioned. No chills. No sweating. At baseline, she does ambulate with a walker and has severe pain due to her MS and muscle spasms from MS. PAST MEDICAL HISTORY: As mentioned, hypertension; diabetes; hypothyroidism; vertigo; MS; overactive bladder and neurogenic bladder with recent retention requiring a chronic Espinoza 3 weeks ago, due to change next week, but it was changed today in the ER; history of lumbar stenosis; and asthma. PAST SURGICAL HISTORY: Includes tonsillectomy at age 6, cholecystectomy, thyroidectomy, left meniscus repair, left breast biopsy. HOME MEDICATIONS: The patient is currently on: 1. Tylenol 650 mg p.o. q.4 hours p.r.n. 2. Lispro 2 to 10 units subcutaneous t.i.d. with meals. 3. Levemir 45 units subcutaneous b.i.d. 4. Neurontin 300 mg p.o. t.i.d. 5. Trulicity 1.5 mg subcutaneous weekly. 6. Colace 100 mg p.o. b.i.d. 7. Flexeril 10 mg p.o. t.i.d. p.r.n. 8. Bisacodyl 10 mg per rectum at bedtime p.r.n. 9. Metformin 500 mg oral daily. 10. MiraLAX 17 g packet p.o. daily p.r.n. 11. Oxybutynin 2.5 mg p.o. t.i.d. 12. Meloxicam 15 mg p.o. daily p.r.n. 13. Lisinopril/hydrochlorothiazide 20/25 mg 1 tablet p.o. daily. 14. Synthroid 175 mcg oral daily. 15. Percocet 5/325 mg 1 tablet p.o. q.4 hours p.r.n. pain. ALLERGIES: The patient is allergic to COMPAZINE which causes anaphylactic shock. FAMILY HISTORY: Significant for diabetes, heart disease, stroke, and breast cancer. SOCIAL HISTORY: Denies any smoking. She does drink lot of glasses of alcohol in a month and denies any other recreational substance abuse. 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 She is , has 1 child. She is otherwise full code and her , Nakul Guallpa, is her healthcare proxy, who states that it is better to reach him on his cellphone [phone] rather than the home phone [phone]. REVIEW OF SYSTEMS: A 14-point review of systems did not reveal any new information other than the ones in the HPI. PHYSICAL EXAMINATION GENERAL: In general, the patient does not appear to be in any acute respiratory distress. MENTAL STATUS: Awake, alert, and oriented to time, place, and person. VITAL SIGNS: Temperature 96.1, heart rate 81, respiration rate 18, saturating 97% on room air, BP was 136/77. HEAD AND NECK: Atraumatic, normocephalic. Bilateral pupils are reactive. Oral mucosa is moist. Neck is supple. No jugular venous distention. LUNGS: Clear to auscultation bilaterally. No wheezing, rhonchi, or rales. HEART: S1, S2. Regular rate and rhythm. ABDOMEN: Obese, soft with diffuse tenderness. There was noted to be bilateral flank tenderness. EXTREMITIES: No cyanosis, clubbing, or edema. DIAGNOSTIC STUDIES/LAB DATA: CBC was showing normal white count. Hemoglobin and hematocrit stable. Platelet count was stable. Comprehensive metabolic panel shows sodium of 128 which is lower than her baseline of 135 to 138, creatinine elevated at 1.25 compared to her baseline about 20 days ago of 0.97, random glucose was noted to be 170. Urinalysis was showing leuk esterase positivity, negative for nitrite, and then multiple squamous cells and hyaline cast were also present. IMPRESSION: This is a 64-year-old female with hypertension, hypothyroidism, diabetes, multiple sclerosis with urinary retention, on chronic Espinoza, here due to urinary tract infection, likely pyelonephritis, noted to have acute kidney injury, hyponatremia. ASSESSMENT AND PLAN: 1. Urinary tract infection, questionable pyelonephritis. We will start the patient on ceftriaxone which should cover the previously growing Klebsiella pneumoniae from her urine from 05/15/19 and follow up urine culture and titrate antibiotics accordingly. 2. Acute kidney injury, likely secondary to dehydration from her urinary traction infection. For now, we will start the patient on IV hydration. 3. Hyponatremia, again secondary to urinary tract infection, questionable decreased p.o. intake. 4. Abdominal pain, likely secondary to constipation. We will start the patient on her p.r.n. MiraLAX and we will also add glycerine suppository p.r.n. 5. History of diabetes. We will restart her home dose of Lantus and insulin sliding scale and fingersticks a.c. and h.s. 6. History of hypertension. We will restart home medications with holding parameters. 7. History of hypothyroidism. Restart Synthroid. 8. History of multiple sclerosis with chronic muscle spasm. Restart home pain medications including muscle relaxants, Flexeril and Percocet. 9. DVT prophylaxis with sequential compression device. 10. Code status is full code with her being healthcare proxy. [id number]/[facility] #: [id number] EZE
[2019-06-18 05:09] LABS: Hematocrit 31 % (35-47); Hemoglobin 10.7 g/dL (12.0-16.0); Mean Corpuscular HGB Conc 35 g/dL (31-36); Mean Corpuscular Hemoglobin 30 pg (27-31); Mean Corpuscular Volume 86 fL (80-97); Mean Platelet Volume 7.1 fL (7.4-10.4); Platelet Count 301 10^3/uL (150-450); Red Blood Count 3.55 10^6 /uL (3.70-4.87); Red Cell Distribution Width 14 % (10-15); White Blood Count 6.1 10^3/uL (3.5-10.8)
[2019-06-18 05:31] LABS: BUN/Creatinine Ratio 25.8 (8-20); Calcium 8.8 mg/dL (8.6-10.3); EGFR African American 54.9 (>60); EGFR Non-African American 45.4 (>60); Potassium 4.2 mmol/L (3.5-5.0)
[2019-06-18] MEDS ORDERED: Levothyroxine TAB* 175 MCG TAB PO SCH (06:00)
[2019-06-18 06:23] LABS: ABS Basophils 0.1 10^3/ul (0-0.2); ABS Eosinophils 0.5 10^3/ul (0-0.6); ABS Lymphocytes 1.8 10^3/ul (1.0-4.8); ABS Monocytes 0.6 10^3/ul (0-0.8); ABS Neutrophils 3.2 10^3/ul (1.5-7.7); Eosinophil % 7.4 %; Lymphocyte % 29.5 %
[2019-06-18] MEDS ORDERED: Hydrochlorothiazide TAB* 25 MG PO SCH (09:00)
[2019-06-18] MEDS ORDERED: Lisinopril TAB* 10 MG PO SCH (09:00)
[2019-06-18] MEDS ORDERED: Docusate CAP* 100 MG PO SCH (09:00)
[2019-06-18] MEDS ORDERED: Lisinopril/HCTZ 20/25(NF) TAB PO SCH (09:00)
[2019-06-18] MEDS ORDERED: Insulin GLARGINE(*) 1 UNITS UNIT SUBCUT SCH (09:00)
[2019-06-18] MEDS: Oxybutynin TAB* 5 MG PO SCH ×2 (09:54→15:00)
[2019-06-18] MEDS: Gabapentin CAP(*) 300 MG PO SCH ×2 (09:55→14:59)
[2019-06-18] MEDS: Insulin LISPRO* 1 UNITS UNIT SUBCUT SCH ×3 (11:14→17:47)
[2019-06-18] MEDS ORDERED: Nystatin CREAM* 15 GM TUBE TOPICAL SCH (11:30)
[2019-06-18 13:08] LABS: TSH (Thyroid Stimulating Horm) 0.03 mcIU/mL (0.34-5.60)
--- NOTE | 2019-06-18 16:41 | PN ---
Hospitalist Progress Note Date of Service: 06/18/19 s: Pt stated she felt that she was having another UTI. She had a episode of pyelonephritis 3 weeks ago at [facility] and was then sent to rehab [place] [facility] [place]. She has been on a borrero catheter since admission. Pt admits to hx of incontinence, neurogenic bladder, DM type II and MS; which she believes are all contributing to her urinary incontinence. She states she was started on oxybutynin with only minor relief. She denies any fever/chills, diaphoresis, CVA tenderness or dysuria. Pt admits to some brownish discharge of unknown etiology. Pt is concerned of possible yeast infection. Pt admits to being a fall risk and is dependent on a walker at all times. Pt states her DM type II is well controlled with daily BG reading from 60-150. Pt states she plans to follow up c/ her PCP, urologist, and neurologist after she is discharged. Pt states HTN is well controlled c/ current medications. O: Acetaminophen (Tylenol Tab*) 650 mg PO Q4H PRN PRN Reason: PAIN - MILD Bisacodyl (Dulcolax Supp*) [address] BEDTIME PRN PRN Reason: CONSTIPATION Cyclobenzaprine HCl (Flexeril Tab*) 10 mg PO TID PRN PRN Reason: PAIN - MODERATE Last Admin: 06/18/19 00:36 Dose: 10 mg Dextrose (Dextrose 50% Vial 50 Ml*) 25 ml IV PUSH .FOR FS < 60 - SS PRN PRN Reason: FS < 60 Docusate Sodium (Colace Cap*) 100 mg PO BID [facility] Last Admin: 06/18/19 09:53 Dose: 100 mg Gabapentin (Neurontin Cap(*)) 300 mg PO TID [facility] Last Admin: 06/18/19 14:59 Dose: 300 mg Glycerin (Glycerin Adult Supp*) [address] DAILY PRN PRN Reason: CONSTIPATION Hydrochlorothiazide (Hydrodiuril Tab*) 25 mg PO DAILY [facility] Last Admin: 06/18/19 11:14 Dose: Not Given Sodium Chloride (Ns 0.9% 1000 Ml) 1,000 mls @ 100 mls/hr IV PER RATE [facility] Last Admin: 06/18/19 11:11 Dose: 100 mls/hr Ceftriaxone Sodium 1 gm/ (Sodium Chloride) 50 mls @ 100 mls/hr IVPB Q24H [facility] Insulin Glargine (Lantus(*)) 36 units SUBCUT BID [facility] Last Admin: 06/18/19 09:52 Dose: 36 units Insulin Human Lispro (Humalog*) 0 units SUBCUT ACHS [facility]; Protocol Last Admin: 06/18/19 13:06 Dose: Not Given Levothyroxine Sodium (Synthroid Tab*) 175 mcg PO 0600 [facility] Last Admin: 06/18/19 05:51 Dose: 175 mcg Lisinopril (Prinivil Tab*) 20 mg PO DAILY [facility] Last Admin: 06/18/19 11:14 Dose: Not Given Nystatin (Nystatin Cream*) 1 applic TOPICAL BID [facility] Last Admin: 06/18/19 15:03 Dose: 1 applic Oxybutynin Chloride (Ditropan Tab*) 2.5 mg PO TID [facility] Last Admin: 06/18/19 15:00 Dose: 2.5 mg Oxycodone/Acetaminophen (Percocet 5/325 Tab*) 1 tab PO Q4H PRN PRN Reason: PAIN - SEVERE Polyethylene Glycol/Electrolytes (Miralax*) 17 gm PO DAILY PRN PRN Reason: CONSTIPATION Temp Pulse Resp BP Pulse Ox 98 F 79 18 132/64 98 06/18/19 15:15 06/18/19 15:15 06/18/19 15:15 06/18/19 15:15 06/18/19 15:15 General: Pleasant, obese women who looks her stated age in NAD. HEENT: mucous membranes dry. Conjunctival palor. No lymphadenopathy. No thyroid present. Cardio: RRR. No MRG. Pulmonary: Clear to auscultation in all lung paz. Abd: Soft,NT/ND. No rebound or guarding. Large scar on RUQ from previous cholecystectomy. Bladder ND. Pelvic: Was present during catheter change by nurses. Minor erythema present on labia majora. No signs of discharge. Extremities: +babinski on R. Pt stated this is normal for her. Intake & Output 06/18/19 06/18/19 06/18/19 06:59 14:59 22:59 Intake Total 773 360 Output Total 600 1500 Balance 173 -1140 Weight 95.164 kg Abnormal Lab Results 06/17/19 06/17/19 06/17/19 20:04 20:04 21:00 WBC 6.0 RBC 3.93 Hgb 11.9 L Hct 34 L MCV 87 MCH 30 MCHC 35 RDW 14 Plt Count 334 MPV 7.1 L Neut % (Auto) 67.4 Lymph % (Auto) 18.4 Meigs % (Auto) 6.9 Eos % (Auto) 6.0 Baso % (Auto) 1.3 Absolute Neuts (auto) 4.1 Absolute Lymphs (auto) 1.1 Absolute Monos (auto) 0.4 Absolute Eos (auto) 0.4 Absolute Basos (auto) 0.1 Absolute Nucleated RBC 0.0 Immature Gran % Neutrophils % Band Neutrophils % Lymphocytes % Monocytes % Eosinophils % Basophils % Metamyelocytes % Nucleated RBC % 0.0 Normal RBC Morphology Sodium 128 L Potassium 4.4 Chloride 95 L Carbon Dioxide 25 Anion Gap 8 BUN 34 H Creatinine 1.25 H Est GFR ( Amer) 52.4 Est GFR (Non-Af Amer) 43.3 BUN/Creatinine Ratio 27.2 H Glucose 170 H POC Glucose (mg/dL) Calcium 9.5 Total Bilirubin 0.60 AST 16 ALT 18 Alkaline Phosphatase 81 Total Protein 7.2 Albumin 4.2 Globulin 3.0 Albumin/Globulin Ratio 1.4 TSH Urine Color Yellow Urine Appearance Clear Urine pH 5.0 Ur Specific Eagle 1.012 Urine Protein Negative Urine Ketones Negative Urine Blood 2+ A Urine Nitrate Negative Urine Bilirubin Negative Urine Urobilinogen Negative Ur Leukocyte Esterase 2+ A Urine WBC (Auto) 3+(>20/hpf) A Urine RBC (Auto) 2+(6-10/hpf) A Ur Squamous Epith Cells Present A Urine Bacteria Absent Hyaline Casts Present A Urine Glucose Negative 06/18/19 06/18/19 06/18/19 00:26 04:49 04:49 WBC 6.1 RBC 3.55 L Hgb 10.7 L Hct 31 L MCV 86 MCH 30 MCHC 35 RDW 14 Plt Count 301 MPV 7.1 L Neut % (Auto) 51.9 Lymph % (Auto) 29.5 Meigs % (Auto) 10.0 Eos % (Auto) 7.4 Baso % (Auto) 1.2 Absolute Neuts (auto) 3.2 Absolute Lymphs (auto) 1.8 Absolute Monos (auto) 0.6 Absolute Eos (auto) 0.5 Absolute Basos (auto) 0.1 Absolute Nucleated RBC 0.0 Immature Gran % 3.0 Neutrophils % 57.0 Band Neutrophils % 1.0 Lymphocytes % 27.0 Monocytes % 7.0 Eosinophils % 5.0 Basophils % 1.0 Metamyelocytes % 2.0 Nucleated RBC % 0.0 Normal RBC Morphology Normal Sodium 129 L Potassium 4.2 Chloride 98 L Carbon Dioxide 24 Anion Gap 7 BUN 31 H Creatinine 1.20 H Est GFR ( Amer) 54.9 Est GFR (Non-Af Amer) 45.4 BUN/Creatinine Ratio 25.8 H Glucose 148 H POC Glucose (mg/dL) 122 H Calcium 8.8 Total Bilirubin AST ALT Alkaline Phosphatase Total Protein Albumin Globulin Albumin/Globulin Ratio TSH 0.03 L Urine Color Urine Appearance Urine pH Ur Specific Eagle Urine Protein Urine Ketones Urine Blood Urine Nitrate Urine Bilirubin Urine Urobilinogen Ur Leukocyte Esterase Urine WBC (Auto) Urine RBC (Auto) Ur Squamous Epith Cells Urine Bacteria Hyaline Casts Urine Glucose 06/18/19 06/18/19 07:16 12:29 WBC RBC Hgb Hct MCV MCH MCHC RDW Plt Count MPV Neut % (Auto) Lymph % (Auto) Meigs % (Auto) Eos % (Auto) Baso % (Auto) Absolute Neuts (auto) Absolute Lymphs (auto) Absolute Monos (auto) Absolute Eos (auto) Absolute Basos (auto) Absolute Nucleated RBC Immature Gran % Neutrophils % Band Neutrophils % Lymphocytes % Monocytes % Eosinophils % Basophils % Metamyelocytes % Nucleated RBC % Normal RBC Morphology Sodium Potassium Chloride Carbon Dioxide Anion Gap BUN Creatinine Est GFR ( Amer) Est GFR (Non-Af Amer) BUN/Creatinine Ratio Glucose POC Glucose (mg/dL) 112 H 118 H Calcium Total Bilirubin AST ALT Alkaline Phosphatase Total Protein Albumin Globulin Albumin/Globulin Ratio TSH Urine Color Urine Appearance Urine pH Ur Specific Eagle Urine Protein Urine Ketones Urine Blood Urine Nitrate Urine Bilirubin Urine Urobilinogen Ur Leukocyte Esterase Urine WBC (Auto) Urine RBC (Auto) Ur Squamous Epith Cells Urine Bacteria Hyaline Casts Urine Glucose Assesment: 64 F c/ Hx of MS, pyelonephritis c/ hydronephrosis, DM type II, HTN, and neurogenic bladder presented c/ possible UTI c/s signs of fever/chills, leukocytosis or dysuria. Pyelonephritis unlikely due to negative CT scan. Plan: #UTI -discharge on oral abx; Augmentin 500mg 6 days duration -follow up c/ PCP to monitor Cr level #Hyponatremia -pt is asx, f/u c/ PCP -possibly due to HCTZ -possibly due to hypovolemic hyponatremia 2/2 dehydration -unlikely hypertonic hyponatremia 2/2 hyperglycemia
[2019-06-18] MEDS ORDERED: cefTRIAXone(*) 1 GM in NS 0.9% 50 ML* 50 ML IVPB SCH (18:00)
--- NOTE | 2019-06-18 20:04 | DS ---
Resident Discharge Summary Discharge Summary: Date of Admission: 06/17/19 Date of Discharge: 06/18/2019 Admitting MD: Nicanor Duncan MD Attending MD: Rosanne Lynch DO Primary Care Physician: Igor Kenney MD Discharge Medications Medication Instructions Recorded Confirmed Type Cyclobenzaprine TAB* [Flexeril 10 10 mg PO TID PRN 05/15/19 06/17/19 History MG TAB*] Dulaglutide (NF) [Trulicity (NF)] 1.5 mg SUBCUT WEEKLY 05/15/19 06/17/19 History Insulin LISPRO* [HumaLOG*] 2 - 10 units SUBCUT TID WITH MEALS 05/15/19 06/17/19 History Levothyroxine TAB* [Synthroid TAB*] 175 mcg PO DAILY 05/15/19 06/17/19 History Lisinopril/HCTZ (NF) 1 tab PO DAILY 05/15/19 06/17/19 History [Zestoretic (NF)] Oxybutynin TAB* [Ditropan TAB*] 2.5 mg PO TID 05/15/19 06/17/19 History Acetaminophen TAB* [Tylenol TAB*] 650 mg PO Q4H PRN tab 05/19/19 06/17/19 Rx Bisacodyl SUPP* [Dulcolax Supp*] 10 mg LA BEDTIME PRN supp 05/19/19 06/17/19 Rx Polyethylene Glycol 3350* 17 gm PO DAILY PRN #0 packet 05/19/19 06/17/19 Rx [Miralax*] Insulin Detemir (NF) [Levemir (NF)] 45 unit SUBCUT BID #0 05/20/19 06/17/19 Rx Meloxicam(NF) [Mobic(NF)] 15 mg PO DAILY PRN #0 05/20/19 06/17/19 Rx Docusate CAP* [Colace Cap*] 100 mg PO BID cap 05/28/19 06/17/19 Rx Gabapentin CAP(*) [Neurontin 300 300 mg PO TID cap 05/28/19 06/17/19 Rx CAP(*)] metFORMIN* [Glucophage 500 MG TAB 500 mg PO DAILY tab 05/28/19 06/17/19 Rx *] oxyCODONE/Acetamin 5/325 MG* 1 tab PO Q4H PRN #10 tab MDD 2 05/28/19 06/17/19 Rx [Percocet 5/325 TAB*] Amoxicillin/Clavulanate TAB* 500 mg PO BID 6 Days tab 06/18/19 Rx [Augmentin TAB 500 mg*] Nystatin CREAM* [Nystatin Cream*] 1 applic TOPICAL DAILY #1 tube 06/18/19 Rx Medication Change this admission include: Add Augmentin 500mg oral bid for 6 days to treat UTI Add nystatin cream for interigo Disposition: Home Condition: Stable Primary Diagnosis: 1. Urine tracr infection 2. Acute kidney injury 3. Hyponatremia Secondary Diagnosis: 1. Hypertension 2. Diabetes 3. Hypothyroidism 4. Vertigo 5. Multiple Sclerosis 6. Neurogenic Bladder 7. Lumbar stenosis 8. Asthma Diagnostic Imaging: CT abdomen/pelvis 06/18/2019: no hydronephrosis or nephrolithiasis, no perinephric inflammtory changes. Pertinent Laboratory Results: Urinalysis: urine blood 2+, WBC 3+, urine leukocyte esterase 2+. Urine culture: still pending on discharge CBC: WBC 6.1, Hb 10.7, Plt 301. BMP: Na 129, K 4.2, bicarb 24, creatnine 1.20 TSH: pending on discharge Hospital Course: Melina Guallpa is a 64 years old female with Diabetes, hypertension, multiple sclerosis, recently admitted for urinary retention requiring Espinoza catheter intermediate placement. She was discharged to rehab, from there, she was discharged home 3 weeks ago. She has been taken care of her Espinoza Catheter with the help of her and also visiting nurse service. She came to hospital as she noticed increasing amount of discharge around area, she was seen by her nurse practitioner who advised her to come to hospital for Espinoza change. She had no fever, chills, sweating otherwise. She had Espinoza catheter change in ED, urinalysis showed pyuria with urine WBC 3+, urine blood 2+, leukocyte esterase 2+. She was started on IV ceftriaxone. She kept afebrile and denied urinary symptoms, her white blood count is in the normal range. CTAP was done in view of previous pyelonephritis which didn't reveal any kidney infection or nephrolithiasis. She received 2 day of IV ceftriaxone inpatient and will complete 5 days of oral Augmentin outpatient to complete 7 days of treatment. Other medical problems during her admission include a mild hyponatremia at 129 and mild creatinine elevation from 0.97 to 1.20 which may due to dehydration. TSH was ordered as part of hyponatremia workup considering her history of hypothyroidism. Results are pending on the day of discharge. On the day of discharge, she is comfortable, no complains of dysuria, fever, chills, 10 point physical examination is all negative other than bilateral inguinal intertrigo. Educated on care of Espinoza catheter including aseptic technique during connection. Follow Up Instructions: Instructed patient on follow up plans, - She will follow up with her primary care Dr. Igor Kenney within 1 week to follow up post discharge. - She will also follow up with Dr. Nuñez her urologist for Espinoza catheter. Of note, her urine cs came back positive with Enterobacter Cloacae complex and Enterobacter Gergoviae after discharge, which only partially sensitive to Augmentin but sensitive to Bactrim and Cipro. We called patient back and sent bactrim 6 days to her pharmacy on 06/19/2019. Also her TSH came back after her discharge, TSH 0.03 (low), free T4 1.72 (high), total T3 91, this needs to be followed up with her primary care and get dose adjustment during next appointment. In case of an emergency or after clinic hours, please go to your nearest Emergency Department. You may also call the [facility] wired music operator at .
[2019-06-19 08:10] VITALS: BP 134/61
[2019-06-19 15:02] LABS: Free T4 1.72 ng/dL (0.61-1.12)
--- NOTE | 2019-06-19 21:52 | DS ---
DISCHARGE SUMMARY: ADDENDUM: DATE OF ADMISSION: 06/17/19 DATE OF DISCHARGE: 06/18/19 Ms. Guallpa's urine culture returned today, the day after her discharge and showed Enterobacter cloacae and Enterobacter gergoviae. The former is resistant to Augmentin which we discharged her on, so I called Melina and asked her to discontinue the Augmentin and start Bactrim instead. I have called [facility] and discontinued the Augmentin and ordered Bactrim instead. She expresses good understanding and appreciation of my phone call. [id number]/[facility] #: [id number]
== END 2019-06-18 20:15 | disposition home or self-care (01) ==
LOC: ED 18:24 → MED 22:29 → INTOOBSV 22:29
PROVIDERS: ADMIT Internal Medicine; ATTEND Internal Medicine
DX: N39.0 Urinary tract infection, site not specified (principal); B96.89 Other specified bacterial agents as the cause of diseases classified elsewhere; Z16.39 Resistance to other specified antimicrobial drug; N17.9 Acute kidney failure, unspecified; E87.1 Hypo-osmolality and hyponatremia; I10 Essential (primary) hypertension; E11.9 Type 2 diabetes mellitus without complications; E03.9 Hypothyroidism, unspecified; G35 Multiple sclerosis; N31.9 Neuromuscular dysfunction of bladder, unspecified; J45.909 Unspecified asthma, uncomplicated; M48.061 Spinal stenosis, lumbar region without neurogenic claudication; R42 Dizziness and giddiness; Z79.899 Other long term (current) drug therapy; Z79.4 Long term (current) use of insulin; Z88.8 Allergy status to other drugs, medicaments and biological substances
CPT/HCPCS: 36415; 74176; 80048; 80053; 81003; 81015; 84439; 84443; 84479; 85025; 87077; 87086; 87186; 96365; 96366; 99284; A9270-GY; G0378; J0696

== ENCOUNTER 2019-06-26 16:25 | Emergency (ER) | payer BC, OTHER ==
--- OUTSIDE RECORDS SUMMARY | 2019-06-26 16:31 | XMS REPORT | Summary of Care ---
:1955 Author Organization [facility] Address [address] [address] Care Team Providers Name Role Phone Igor Kenney Primary Care Provider Reason for Visit Reason Comments Check Up pt presents in office for vaginal discharge as well as rubbing and irritation from cath. Pt was admitted [place] [facility] [place] ago for possible sepsis and kidney infection Encounter Details Date Type Department Care Team Description 06/17/2019 Office Visit [facility] Harriet Daly, At risk for infection Practice BREAKFAST MANAGER associated with [facility] [address] catheter (Primary Dx) [place] [address] [place] [address] [phone] Allergies Active Allergy Reactions Severity Noted Date Comments Compazine Swelling 08/07/2007 documented as of this encounter (statuses as of 06/20/2019) Medications Medication Sig Dispensed Refills Start Date End Date Status Aspirin (SB LOW DOSE Take by mouth. 0 Active ASA EC) 81 MG Oral Tab EC fluticasone-salmetero Take 1 INHL by 1 Inhaler 3 10/10/2013 Active l diskus (ADVAIR inhalation TWICE DISKUS) 100-50 DAILY. MCG/DOSE Inhalation AEROSOL POWDER, BREATH ACTIVATEDIndications: Asthma flare Blood Glucose 1 Each by Does not 200 Strip 5 06/03/2014 Active Monitoring Suppl apply route FOUR (BLOOD GLUCOSE TEST TIMES DAILY. STRIPS Freestyle Lite STRP)Indications: 250.00 Insulin Diabetes (HCC) Dependent Uses 4 times daily Desloratadine 5 MG Take 1 Tab by mouth 90 Tab 3 08/25/2015 Active Oral Tab DAILY. fluticasone (FLONASE) Acworth 2 Sprays in 16 g 5 07/18/2016 Active 50 MCG/ACT Nasal nose DAILY. SuspensionIndications : Seasonal allergic rhinitis, unspecified allergic rhinitis trigger Insulin Pen Needle 1 Each by Does not 100 Each 5 10/16/2016 Active (PEN NEEDLES 3/16") apply route 31G X 5 MM Does not DIRECTED. apply Misc Lancets Does not 1 Each by Does not 200 Each 5 10/16/2016 Active apply Misc apply route FOUR TIMES DAILY. Freestyle Lite 250.00 Insulin Dependent uses 4 times daily ondansetron (ZOFRAN Take 1 Tab by mouth 30 Tab 1 03/02/2017 Active ODT) 4 MG Oral TABLET EVERY FOUR HOURS DISPERSIBLEIndication NEEDED (Nausea). s: Type 2 diabetes mellitus without complication (HCC) albuterol HFA Take 2 Puffs by 1 Inhaler 3 03/02/2017 Active (VENTOLIN) 108 (90 inhalation EVERY Base) MCG/ACT FOUR HOURS Inhalation Aero NEEDED (wheezing). SolnIndications: Type 2 diabetes mellitus without complication (HCC) Diclofenac Sodium 1 % Place 1 g onto skin 100 g 0 06/13/2017 Active Transdermal THREE TIMES DAILY GelIndications: NEEDED (pain). Facial contusion, initial encounter, Hematoma of right thigh, initial encounter atorvastatin Take 1 Tab by mouth 90 Tab 3 08/21/2017 Active (LIPITOR) 40 MG Oral DAILY. Tab hydrOXYzine HCL Take 1 Tab by mouth 60 Tab 0 12/20/2017 Active (ATARAX) 10 MG Oral THREE TIMES DAILY Tab NEEDED for Itching or anxiety. Insulin Pen Needle 1 Each by Does not 200 Each 11 12/20/2017 Active 32G X 4 MM Does not apply route FOUR apply Misc TIMES DAILY. Glucose Blood In 1 Strip by In Vitro 150 Strip 5 03/25/2018 Active Vitro Strip route FOUR TIMES DAILY. levothyroxine TAKE ONE TABLET BY 90 Tab 3 06/18/2018 Active (SYNTHROID) 175 MCG MOUTH DAILY BEFORE Oral TabIndications: BREAKFAST Type 2 diabetes mellitus without complication, with long-term current use of insulin (HCC) cyclobenzaprine TAKE ONE TABLET BY 30 Tab 5 07/24/2018 Active (FLEXERIL) 10 MG Oral MOUTH AT BEDTIME Tab metFORMIN (GLUCOPHAGE TAKE ONE TABLET BY 90 Tab 1 07/31/2018 Active XR) 500 MG Oral MOUTH EVERY DAY TABLET SR 24 HRIndications: Type 2 diabetes mellitus without complication, with long-term current use of insulin ([facility]) Insulin Lispro Inject 15 Units 15 mL 3 07/31/2018 Active (HUMALOG KWIKPEN) 100 beneath the skin UNIT/ML Subcutaneous THREE TIMES DAILY Solution Pen-injector WITH MEALS. meclizine (ANTIVERT) Take 1 Tab by mouth 90 Tab 5 07/31/2018 Active 25 MG Oral THREE TIMES DAILY TabIndications: NEEDED for Benign paroxysmal dizziness/vertigo. positional vertigo, unspecified laterality TRULICITY 1.5 INJECT 0.5 ML 3 mL 5 10/23/2018 Active MG/0.5ML Subcutaneous SUBCUTANEOUSLY ONCE Solution WEEKLY Pen-injectorIndicatio ns: Controlled type 2 diabetes mellitus without complication, without long-term current use of insulin ([facility]) Insulin Detemir INJECT 80 UNITS 15 mL 0 01/07/2019 Active (LEVEMIR FLEXTOUCH) SUBCUTANEOUSLY TWICE 100 UNIT/ML DAILY Subcutaneous Solution Pen-injectorIndicatio ns: Uncontrolled type 2 diabetes mellitus with insulin therapy ([facility]), Controlled type 2 diabetes mellitus without complication, without long-term current use of insulin ([facility]) Insulin Detemir Inject 80 Units 60 mL 5 01/08/2019 Active (LEVEMIR FLEXTOUCH) beneath the skin 100 UNIT/ML TWICE DAILY. Subcutaneous Solution Pen-injectorIndicatio ns: Uncontrolled type 2 diabetes mellitus with insulin therapy ([facility]), Controlled type 2 diabetes mellitus without complication, without long-term current use of insulin ([facility]) oxybutynin (DITROPAN) TAKE 1/2 TABLET BY 90 Tab 3 04/22/2019 Active 5 MG Oral Tab MOUTH THREE TIMES A DAY gabapentin TAKE ONE CAPSULE BY 90 Cap 3 04/22/2019 Active (NEURONTIN) 300 MG MOUTH THREE TIMES A Oral Cap DAY LISINOPRIL-HCTZ 20-25 TAKE ONE TABLET BY 90 Tab 3 06/02/2019 Active MG Oral Tab MOUTH EVERY DAY meloxicam (MOBIC) 15 TAKE ONE TABLET BY 90 Tab 5 06/04/2019 Active MG Oral Tab MOUTH EVERY DAY HUMALOG KWIKPEN 100 INJECT 2-10 UNITS 15 mL 3 06/05/2019 Active UNIT/ML Subcutaneous UNDER THE SKIN 3 Solution Pen-injector TIMES A DAY MAXIMUM DAILY DOSE = 30 UNITS documented as of this encounter (statuses as of 06/20/2019) Active Problems Problem Noted Date Uncontrolled type [...] as of this encounter (statuses as of 06/20/2019) Resolved Problems Problem Noted Date Resolved Date Dysesthesia 05/01/2011 06/26/2012 Patellar fracture 12/19/2010 07/31/2018 Overview: S/p surgery [facility] 11/2010 Unspecified essential hypertension 06/10/2007 05/22/2017 documented as of this encounter (statuses as of 06/20/2019) Immunizations Name Administration Dates Next Due DTAP [...] of this encounter Last Filed Vital Signs Vital Sign Reading Time Taken Comments Blood Pressure 122/68 06/17/2019 4:45 PM EDT Pulse 85 06/17/2019 4:45 PM EDT Temperature 37.2 06/17/2019 5:10 PM EDT C (98.9 F) Respiratory Rate - - Oxygen Saturation 98% 06/17/2019 4:45 PM EDT Inhaled Oxygen Concentration - - Weight 95.3 kg (210 lb) 06/17/2019 4:45 PM EDT Height 154.9 cm (5' 1") 06/17/2019 4:45 PM EDT Body Mass Index 39.68 06/17/2019 4:45 PM EDT documented in this encounter Patient Instructions Patient InstructionsHarriet Daly NP - 06/17/2019 4:20 PM EDTGo To ER. documented in this encounter Progress Notes Peggy Mondragon MD - 06/17/2019 4:20 PM EDTNote reviewed and agree with plan arriet Daly NP - 06/17/2019 4:20 PM EDT PATIENT: Melina Guallpa : 1955 DATE OF SERVICE: 06/17/2019 CHIEF COMPLAINT: Chief Complaint Patient presents with Check Up pt presents in office for vaginal discharge as well as rubbing and irritation from cath. Pt was admitted to [facility] [place] ago for possible sepsis and kidney infection Subjective HISTORY OF PRESENT ILLNESS: Melina Guallpa is a 64-y.o. female. HPI Patient was admitted to the hospital 05/13 for kidney infection, 4 days of IV antibiotics. Catheter placed during the hospitalization. 4-5 months ago she saw dr. lucero and was started on oxybutinin, was told maybe would need to straight cath herself d/t her MS, but a few appointments were canceled, and she went several monthswithout cathing and was still retaining urine. 3 weeks ago after being discharged from the hospital she had an episode of bowel incontinence with diarrhea. Just one episode, currently having formed stools. No fevers or abdominal. Lower back pain which has been about 3 days. She feels something leaking, unsure if coming from around the catheter or if it's vaginal. Back pain is similar to the pain she had before going to the hospital. She called before getting hospitalized to ask for an appointment for possible urine infection but was told no appointments for one week and then was admitted to the hospital. Past Medical History: Diagnosis Date Dysthymic disorder 06/10/2007 History of breast surgery left benign biopsy at least 10-20 yrs ago Incoordination Loss of sensation Osteoarthrosis, unspecified whether generalized or localized, unspecified site 06/10/2007 Other and unspecified hyperlipidemia 06/10/2007 Other postprocedural status(V45.89) benign lt breast biopsy Postmenopausal , first 32 Type II or unspecified type diabetes mellitus without mention of complication, not stated as uncontrolled 06/10/2007 Unspecified asthma(493.90) 06/10/2007 Unspecified essential hypertension 06/10/2007 Unspecified hypothyroidism 06/10/2007 Family History Problem Relation Age of Onset Breast Cancer Paternal Aunt Current Outpatient Medications Medication Sig albuterol HFA [...] (pain). fluticasone (FLONASE) 50 MCG/ACT Nasal Suspension Acworth 2 Sprays in nose DAILY. fluticasone-salmeterol diskus (ADVAIR DISKUS) 100-50 MCG/DOSE Inhalation AEROSOL POWDER, BREATH ACTIVATED Take 1 INHL by inhalation TWICE DAILY. gabapentin (NEURONTIN) 300 MG Oral Cap TAKE ONE CAPSULE BY MOUTH THREE TIMES A DAY Glucose Blood In Vitro Strip 1 Strip by In Vitro route FOUR TIMES DAILY. HUMALOG KWIKPEN 100 UNIT/ML Subcutaneous Solution Pen-injector INJECT 2- 10 UNITS UNDER THE SKIN 3 TIMES A DAY MAXIMUM DAILY DOSE = 30 UNITS hydrOXYzine HCL (ATARAX) 10 MG Oral Tab [...] THREE TIMES DAILY NEEDED for dizziness/vertigo. meloxicam (MOBIC) 15 MG Oral Tab TAKE ONE TABLET [...] this visit. Allergies Allergen Reactions Compazine Swelling Social History Socioeconomic History Marital status: Spouse name: Not on file Number of children: Not on file Years of education: Not on file Highest education level: Not on file Occupational History Not on file Social Needs Financial resource strain: Not on file Food insecurity: Worry: Not on file Inability: Not on file Transportation needs: Medical: Not on file Non-medical: Not on file Tobacco Use Smoking status: Never Smoker Smokeless tobacco: Never Used Substance and Sexual Activity Alcohol use: No Alcohol/week: 0.0 standard drinks Drug use: Yes Types: Prescription Sexual activity: Never Lifestyle Physical activity: Days per week: Not on file Minutes per session: Not on file Stress: Not on file Relationships Social connections: Talks on phone: Not on file Gets together: Not on file Attends methodist service: Not on file Active member of club or organization: Not on file Attends meetings of clubs or organizations: Not on file Relationship status: Not on file Intimate partner violence: Fear of current or ex partner: Not on file Emotionally abused: Not on file Physically abused: Not on file Forced sexual activity: Not on file Other Topics Concern Back Care Not Asked Bike Helmet Not Asked Blood Transfusions Not Asked Caffeine Concern No Exercise No Comment: no walk or exercise in cold weather. Hobby Hazards Not Asked International Travel Not Asked Service Not Asked Occupational Exposure Not Asked Seat Belt Not Asked Self-Exams Not Asked Sleep Concern Not Asked Special Diet Yes Comment: low carbohydrate Stress Concern Not Asked Weight Concern Not Asked Social History Narrative Lives in [facility] 2 teenage boys Retired retired Over the last 2 weeks, have you been feeling down, depressed, anxious, or hopeless?: 0 Over the past 2 weeks, have you felt little interest or pleasure in doing things ?: 0 REVIEW OF SYSTEMS: Review of Systems Constitutional: Positive for malaise/fatigue (x3 days). Negative for chills and fever. Respiratory: Negative for cough and shortness of breath. Cardiovascular: Negative for chest pain and palpitations. Gastrointestinal: Positive for constipation (last BM 2 days ago). Negative for abdominal pain, diarrhea, nausea and vomiting. Genitourinary: Negative for hematuria. Urine in bag not cloudy Objective PHYSICAL EXAM: VITALS: BP 122/68 (BP Location: Right arm, Patient Position: Sitting) | Pulse 85 | Temp 98.9 F (37.2 C) | Ht 5' 1" (1.549 m) | Wt 210 lb (95.3 kg) | SpO2 98% | BMI 39.68 kg/m Body mass index is 39.68 kg/m. Physical Exam Vitals signs and nursing note reviewed. Constitutional: Appearance: Normal appearance. She is not ill-appearing. Cardiovascular: Rate and Rhythm: Normal rate and regular rhythm. Heart sounds: Normal heart sounds. No murmur. No friction rub. No gallop. Pulmonary: Effort: Pulmonary effort is normal. No respiratory distress. Breath sounds: Normal breath sounds. Abdominal: General: Abdomen is protuberant. Bowel sounds are normal. Palpations: Abdomen is soft. There is no hepatomegaly or splenomegaly. Tenderness: There is no tenderness. There is no right CVA tenderness or left CVA tenderness. Genitourinary: Exam position: Supine. Comments: Indwelling catheter present - 16fr, 10ml balloon. Redness bilat labia. Odor and yellow discharge present around catheter and labia. Urine dark, cloudy Neurological: Mental Status: She is alert. Results for orders placed or performed in visit on 06/17/19 URINE DIP MANUAL (AMB POCT) Result Value Ref Range URINE GLUCOSE (POCT) Negative Negative mg/dl URINE BILIRUBIN (POCT) Negative Negative Urine Ketones (POCT) Negative Negative URINE SPECIFIC GRAVITY (POCT) 1.010 1.005 - 1.030 URINE BLOOD (POCT) Small (A) Negative URINE PH (POCT) 7.0 5.0 - 8.0 URINE PROTEIN (POCT) 100 (A) Negative mg/dl URINE UROBILINOGEN (POCT) 1.0 0.2 - 1.0 mg/dl URINE NITRITES (POCT) Negative Negative URINE LEUKOCYTES (POCT) Large (A) Negative Cells/uL ASSESSMENT / IMPRESSION: ICD-9-CM ICD-10-CM 1. At risk for infection associated with [facility] catheter V15.89 Z91.89 URINE DIP MANUAL (AMB POCT) Plan 1. At risk for infection associated with [facility] catheter Urine dip from catheter hub with large blood and +3 leukocytes. Unable to perform catheter change here to get clean sample. Sent to [facility] for further eval. Report called to nurse Corbin. - URINE DIP MANUAL (AMB POCT) Author: Harriet Daly NP 06/17/2019 18:55 documented in this encounter Plan of Treatment Date Type Specialty Care Team Description 06/20/2019 Office Visit Internal Medicine Igor Kenney MD [address] [place] [address] [phone] 07/25/2019 Office Visit Internal Medicine Igor Kenney MD [address] [place] [address] [phone] 10/27/2019 Ancillary Procedure Radiology 10/27/2019 Ancillary Procedure Radiology 01/28/2020 Office Visit Urology Papito Lucero MD [address] [place] [address] [phone] Health Maintenance Due Date Last Done Comments Diabetic Eye Exam 1955 ZOSTER IMMUNIZATION SERIES 2006 (1 of 2) PAP SMEAR 11/04/2013 11/04/2010, 09/19/2007 FOOT EXAM 03/14/2019 03/14/2018, 03/14/2018, 03/14/2018, Additional history exists HEMOGLOBIN A1C 04/10/2019 01/08/2019, 07/31/2018, 12/20/2017, Additional history exists INFLUENZA VACCINE (#1) 2019 07/31/2018, 05/20/2017, 05/24/2016, Additional history exists MAMMOGRAM (SCREENING) 10/22/2019 10/21/2018, 10/08/2017, 09/13/2017, Additional history exists LIPID DISORDER SCREENING 01/09/2020 01/08/2019, 07/31/2018, 08/21/2017, Additional history exists DEPRESSION SCREENING 06/17/2020 06/17/2019 COLONOSCOPY SCREENING 10/11/2021 10/11/2016 PNEUMOCOCCAL 0-64 YRS Completed 05/23/2007 HPV IMMUNIZATION SERIES Aged Out No longer eligible based on patient's age to complete this topic MENINGOCOCCAL VACCINE IMM Aged Out No longer eligible based on patient's age to complete this topic documented as of this encounter Goals Goal Patient Goal Associated Recent Patient-Stated? Author Type Problems Progress Blood Pressure Blood Pressure 122/68 No Anne Marie, < 140/90 (06/17/2019 Igor Dean, 4:45 PM EDT) Note: This is an individualized treatment (blood pressure) goal for Melina Alesha Ramu : Displayed above (on the left) is [...] better. Weight loss vs. 18 mo Lifestyle 1 (06/17/2019 4:45 PM Igor Colon MD max (lbs) >= [...] This is an individualized lifestyle goal for Melian Guallpa: Please maintain a regular sleep schedule. [...] ongoing basis. documented as of this encounter Procedures Procedure Name Priority Date/Time Associated Diagnosis Comments URINE DIP MANUAL Routine 06/17/2019 5:30 PM At risk for Results for this (AMB POCT) EDT infection associated procedure are in with [facility] catheter the results section. documented in this encounter Results URINE DIP MANUAL (AMB POCT) (06/17/2019 5:30 PM EDT) URINE GLUCOSE (POCT) Negative Negative mg/dl [facility] POCT URINE BILIRUBIN Negative Negative [facility] (POCT) POCT Urine Ketones (POCT) Negative Negative [facility] POCT URINE SPECIFIC 1.010 1.005 - 1.030 [facility] GRAVITY (POCT) POCT URINE BLOOD (POCT) Small (A) Negative [facility] POCT URINE PH (POCT) 7.0 5.0 - 8.0 [facility] POCT URINE PROTEIN (POCT) 100 (A) Negative mg/dl [facility] POCT URINE UROBILINOGEN 1.0 0.2 - 1.0 mg/dl [facility] (POCT) POCT URINE NITRITES (POCT) Negative Negative [facility] POCT URINE LEUKOCYTES Large (A) Negative Cells/uL [facility] (POCT) POCT Specimen Urine - Urine specimen (specimen) Performing Organization Address City/State/Zipcode Phone Number [facility] [address] [place] [address] documented in this encounter Visit Diagnoses Diagnosis At risk for infection associated with Esp[facility] catheter - Primary documented in this encounter Insurance Payer Benefit Plan / Subscriber ID Effective Dates Phone Address Type Group [employer] xxxxxxxxxxxx Effective for all [employer] dates STANDARD xxxxxxxxx Effective for all dates Guarantor Name Account Type Relation to Date of Phone Billing Address Patient Melina Guallpa Personal/Famil 1955 [address] [place], [place] ([place]) [id number] documented as of this encounter
--- OUTSIDE RECORDS SUMMARY | 2019-06-26 16:31 | XMS REPORT | Summary of Care ---
:1955 Author Organization [facility] Address [address] [facility] [place] [address] Care Team Providers Name Role Phone Igor Kenney Primary Care Provider Reason for Visit Reason Comments Transitional Care Management 05/29/19 for PRMU and 06/18/19 for uti, pt states she is feeling weak and tired. Encounter Details Date Type Department Care Team Description 06/20/2019 Office Visit [place] [facility] Igor Kenney, Multiple sclerosis (HCC) (Primary Dx); Medicine Neurogenic bladder; [address] [facility] History of acute pyelonephritis; [place] [address] [place] [address] Left foot drop; [phone] Uncontrolled type 2 diabetes mellitus with insulin therapy ([facility]); Essential hypertension; Type 2 diabetes mellitus without complication ([facility]); Allergic rhinitis due to other allergic trigger, unspecified seasonality; Acute kidney injury ([facility]) Allergies Active Allergy Reactions Severity Noted Date Comments Compazine Swelling 08/07/2007 documented as of this encounter (statuses as of 06/20/2019) Medications Medication Sig Dispensed Refills Start End Status Date Date Aspirin (SB LOW Take by mouth. 0 Active DOSE ASA EC) 81 MG Oral Tab EC Blood Glucose 1 Each by Does not 200 Strip 5 06/03/20 Active Monitoring Suppl apply route FOUR 14 (BLOOD GLUCOSE TEST TIMES DAILY. STRIPS Freestyle Lite STRP)Indications: 250.00 Insulin Diabetes (HCC) Dependent Uses 4 times daily Desloratadine 5 MG Take 1 Tab by 90 Tab 3 08/25/19 Active Oral Tab mouth DAILY. 16 Insulin Pen Needle 1 Each by Does not 100 Each 5 10/16/19 Active (PEN NEEDLES 3/16") apply route 17 31G X 5 MM Does not DIRECTED. apply Misc Lancets Does not 1 Each by Does not 200 Each 5 10/16/19 Active apply Misc apply route FOUR 17 TIMES DAILY. Freestyle Lite 250.00 Insulin Dependent uses 4 times daily Diclofenac Sodium [address] 1 g onto 100 g 0 06/13/20 Active % Transdermal skin THREE TIMES 17 GelIndications: DAILY NEEDED Facial contusion, (pain). initial encounter, Hematoma of right thigh, initial encounter atorvastatin Take 1 Tab by 90 Tab 3 08/21/19 Active (LIPITOR) 40 MG mouth DAILY. 18 Oral Tab Insulin Pen Needle 1 Each by Does not 200 Each 11 12/21/19 Active 32G X 4 MM Does not apply route FOUR 18 apply Misc TIMES DAILY. Glucose Blood In 1 Strip by In 150 Strip 5 03/25/20 Active Vitro Strip Vitro route FOUR 18 TIMES DAILY. levothyroxine TAKE ONE TABLET BY 90 Tab 3 06/18/20 Active (SYNTHROID) 175 MCG MOUTH DAILY BEFORE 18 Oral BREAKFAST TabIndications: Type 2 diabetes mellitus without complication, with long-term current use of insulin ([facility]) cyclobenzaprine TAKE ONE TABLET BY 30 Tab 5 07/24/20 Active (FLEXERIL) 10 MG MOUTH AT BEDTIME 18 Oral Tab meclizine Take 1 Tab by 90 Tab 5 07/31/20 Active (ANTIVERT) 25 MG mouth THREE TIMES 18 Oral DAILY NEEDED TabIndications: for Benign paroxysmal dizziness/vertigo. positional vertigo, unspecified laterality TRULICITY 1.5 INJECT 0.5 ML 3 mL 5 10/24/19 Active MG/0.5ML SUBCUTANEOUSLY 19 Subcutaneous ONCE WEEKLY Solution Pen-injectorIndicat ions: Controlled type 2 diabetes mellitus without complication, without long-term current use of insulin ([facility]) Insulin Detemir INJECT 80 UNITS 15 mL 0 01/08/20 Active (LEVEMIR FLEXTOUCH) SUBCUTANEOUSLY 19 100 UNIT/ML TWICE DAILY Subcutaneous Solution Pen-injectorIndicat ions: Uncontrolled type 2 diabetes mellitus with insulin therapy ([facility]), Controlled type 2 diabetes mellitus without complication, without long-term current use of insulin ([facility]) oxybutynin TAKE 1/2 TABLET BY 90 Tab 3 04/22/20 Active (DITROPAN) 5 MG MOUTH THREE TIMES 19 Oral Tab A DAY gabapentin TAKE ONE CAPSULE 90 Cap 3 04/22/20 Active (NEURONTIN) 300 MG BY MOUTH THREE 19 Oral Cap TIMES A DAY albuterol HFA Take 2 Puffs by 1 Inhaler 3 06/20/20 Active (VENTOLIN) 108 (90 inhalation EVERY 19 Base) MCG/ACT FOUR HOURS Inhalation Aero NEEDED (wheezing). SolnIndications: Type 2 diabetes mellitus without complication (HCC) fluticasone Hollis 2 Sprays in 16 g 5 06/20/20 Active (FLONASE) 50 nose DAILY. 19 MCG/ACT Nasal SuspensionIndicatio ns: Allergic rhinitis due to other allergic trigger, unspecified seasonality Insulin Lispro, 1 Inject 13-16 Units 15 mL 3 06/20/20 Active Unit Dial, (HUMALOG beneath the skin 19 KWIKPEN) 100 THREE TIMES DAILY UNIT/ML BEFORE MEALS. Subcutaneous Solution Pen-injector fluticasone-salmete Take 1 INHL by 1 Inhaler 3 10/10/19 Discontinued rol diskus (ADVAIR inhalation TWICE 14 019 (Provider DISKUS) 100-50 DAILY. Discontinued) MCG/DOSE Inhalation AEROSOL POWDER, BREATH ACTIVATEDIndication s: Asthma flare fluticasone Hollis 2 Sprays in 16 g 5 07/18/20 Discontinued (FLONASE) 50 nose DAILY. 16 019 (Provider MCG/ACT Nasal Discontinued) SuspensionIndicatio ns: Seasonal allergic rhinitis, unspecified allergic rhinitis trigger ondansetron (ZOFRAN Take 1 Tab by 30 Tab 1 03/02/20 Discontinued ODT) 4 MG Oral mouth EVERY FOUR 17 019 (Provider TABLET HOURS NEEDED Discontinued) DISPERSIBLEIndicati (Nausea). ons: Type 2 diabetes mellitus without complication (HCC) albuterol HFA Take 2 Puffs by 1 Inhaler 3 03/02/20 Discontinued (VENTOLIN) 108 (90 inhalation EVERY 17 019 (Reorder) Base) MCG/ACT FOUR HOURS Inhalation Aero NEEDED (wheezing). SolnIndications: Type 2 diabetes mellitus without complication (HCC) hydrOXYzine HCL Take 1 Tab by 60 Tab 0 12/21/19 Discontinued (ATARAX) 10 MG Oral mouth THREE TIMES 18 019 (Provider Tab DAILY NEEDED Discontinued) for Itching or anxiety. metFORMIN TAKE ONE TABLET BY 90 Tab 1 07/31/20 Discontinued (GLUCOPHAGE XR) 500 MOUTH EVERY DAY 18 019 (Provider MG Oral TABLET SR Discontinued) 24 HRIndications: Type 2 diabetes mellitus without complication, with long-term current use of insulin ([facility]) Insulin Lispro Inject 15 Units 15 mL 3 07/31/20 Discontinued (HUMALOG KWIKPEN) beneath the skin 18 019 (Provider 100 UNIT/ML THREE TIMES DAILY Discontinued) Subcutaneous WITH MEALS. Solution Pen-injector Insulin Detemir Inject 80 Units 60 mL 5 01/09/20 Discontinued (LEVEMIR FLEXTOUCH) beneath the skin 19 019 (Duplicate 100 UNIT/ML TWICE DAILY. Order) Subcutaneous Solution Pen-injectorIndicat ions: Uncontrolled type 2 diabetes mellitus with insulin therapy ([facility]), Controlled type 2 diabetes mellitus without complication, without long-term current use of insulin ([facility]) LISINOPRIL-HCTZ TAKE ONE TABLET BY 90 Tab 3 06/02/20 Discontinued 20-25 MG Oral Tab MOUTH EVERY DAY 19 019 (Provider Discontinued) meloxicam (MOBIC) TAKE ONE TABLET BY 90 Tab 5 06/04/20 Discontinued 15 MG Oral Tab MOUTH EVERY DAY 19 019 (Provider Discontinued) HUMALOG KWIKPEN 100 INJECT 2-10 UNITS 15 mL 3 06/05/20 Discontinued UNIT/ML UNDER THE SKIN 3 19 019 (Dose Subcutaneous TIMES A DAY Adjustment) Solution MAXIMUM DAILY DOSE Pen-injector = 30 UNITS amoxicillin-clavula TWICE DAILY 0 04/30/20 Discontinued alex acid 16 019 (Provider (AUGMENTIN) 500-125 Discontinued) MG Oral Tab documented as of this encounter (statuses as of 06/20/2019) Active Problems Problem Noted Date Left foot drop 06/20/2019 Neurogenic bladder 06/20/2019 Uncontrolled type 2 diabetes mellitus with insulin therapy 09/24/2018 Multiple sclerosis 07/31/2018 Overview: Neurologist Dr Dang Radicular low back pain 02/28/2018 Neuropathic pain 12/20/2017 Recurrent falls 07/06/2017 Essential hypertension 05/22/2017 BMI 38.0-38.9,adult 11/28/2011 Type 2 diabetes mellitus without complication 06/10/2007 Other specified hypothyroidism 06/10/2007 Mixed hyperlipidemia 06/10/2007 Mild persistent asthma without complication 06/10/2007 Primary osteoarthritis of both knees 06/10/2007 documented as of this encounter (statuses as of 06/20/2019) Resolved Problems Problem Noted Date Resolved Date Mixed stress and urge urinary incontinence 07/31/2018 06/20/2019 Dysesthesia 05/01/2011 06/26/2012 Patellar fracture 12/19/2010 07/31/2018 Overview: S/p surgery [facility] 11/2010 Dysthymic disorder 06/10/2007 06/20/2019 Unspecified essential hypertension 06/10/2007 05/22/2017 documented as [...] Sign Reading Time Taken Comments Blood Pressure 130/78 06/20/2019 5:39 PM EDT Pulse 91 06/20/2019 5:39 PM EDT Temperature - - Respiratory Rate - - Oxygen Saturation 98% 06/20/2019 5:39 PM EDT Inhaled Oxygen Concentration - - Weight 95.3 kg (210 lb) 06/20/2019 5:39 PM EDT Height 154.9 cm (5' 1") 06/20/2019 5:39 PM EDT Body Mass Index 39.68 06/20/2019 5:39 PM EDT documented in this encounter Patient Instructions Patient InstructionsIgor Kenney MD - 06/20/2019 5:20 PM EDTStop meloxicam Stop metformin Stop lisinopril Diabetes mellitus and kidney blood test 1-2 weeks Please check your blood pressure at home, mall, pharmacy, or grocery store three times per week. Write these numbers down and bring them into your next doctor visit. The goal blood pressure for you is less than : 140/90 We will get you in with Dr Reilly urology documented in this encounter Progress Notes Igor Kenney MD - 06/20/2019 5:20 PM EDT TCM Statement. Review of the hospitalization: I am seeing for transition of care following hospitalization. The date of discharge was: 06/18/19 The discharge diagnosis was multiple sclerosis neurogenic bladder and pyelonephritis. CHARLES and hyponatremia She had a previous admission for the same and this was followed by [facility] PMRU stay Her urine culture grew enterobacter so her antibiotic regimen was changed from augmentin to bactrim ds and she is on day#2 of this she denies fevers or low back pain No new genito-urinary symptoms she has chronic indwelling borrero catheter She had slight rise in creatinine in hospital discharge creatinine was 1.2 and hospital MD advisedshe stop lisinopril metformin and meloxicam for now I agree with this she does not check her own blood pressure at home Her finger stick is reviewed and it runs 110-140 pre and post meal on basal insulin and premeal humalog she denies hypoglycemia Patient Active Problem List Diagnosis Type 2 diabetes mellitus without complication (HCC) Other specified hypothyroidism Mixed hyperlipidemia Mild persistent asthma without complication Primary osteoarthritis of both knees BMI 38.0-38.9,adult Essential hypertension Recurrent falls Neuropathic pain Radicular low back pain Multiple sclerosis (HCC) Uncontrolled type 2 diabetes mellitus with insulin therapy (HCC) Left foot drop Neurogenic bladder Outpatient Medications Marked as Taking for the 06/20/19 encounter (Office Visit ) with Igor Kenney MD Medication Sig Dispense Refill albuterol HFA (VENTOLIN) 108 (90 Base) MCG/ACT Inhalation Aero Soln Take 2 Puffs by inhalation EVERY FOUR HOURS NEEDED (wheezing). 1 Inhaler 3 Aspirin (SB LOW DOSE ASA EC) 81 MG Oral Tab EC Take by mouth. atorvastatin (LIPITOR) 40 MG Oral Tab Take 1 Tab by mouth DAILY. 90 Tab 3 Blood Glucose Monitoring Suppl (BLOOD GLUCOSE TEST STRIPS STRP) 1 Each by Does not apply route FOUR TIMES DAILY. Freestyle Lite 250.00 Insulin Dependent Uses 4 times daily 200 Strip 5 cyclobenzaprine (FLEXERIL) 10 MG Oral Tab TAKE ONE TABLET BY MOUTH AT BEDTIME 30 Tab 5 Desloratadine 5 MG Oral Tab Take 1 Tab by mouth DAILY. 90 Tab 3 Diclofenac Sodium 1 % Transdermal Gel Place 1 g onto skin THREE TIMES DAILY NEEDED (pain).100 g 0 fluticasone (FLONASE) 50 MCG/ACT Nasal Suspension Hollis 2 Sprays in nose DAILY. 16 g 5 gabapentin (NEURONTIN) 300 MG Oral Cap TAKE ONE CAPSULE BY MOUTH THREE TIMES A DAY 90 Cap 3 Glucose Blood In Vitro Strip 1 Strip by In Vitro route FOUR TIMES DAILY. 150 Strip 5 Insulin Detemir (LEVEMIR FLEXTOUCH) 100 UNIT/ML Subcutaneous Solution Pen -injector INJECT 80 UNITS SUBCUTANEOUSLY TWICE DAILY 15 mL 0 Insulin Lispro, 1 Unit Dial, (HUMALOG KWIKPEN) 100 UNIT/ML Subcutaneous Solution Pen-injectorInject 13-16 Units beneath the skin THREE TIMES DAILY BEFORE MEALS. 15 mL 3 Insulin Pen Needle (PEN NEEDLES 3/16") 31G X 5 MM Does not apply Misc 1 Each by Does not apply route DIRECTED. 100 Each 5 Insulin Pen Needle 32G X 4 MM Does not apply Misc 1 Each by Does not apply route FOUR TIMES DAILY. 200 Each 11 Lancets Does not apply Misc 1 Each by Does not apply route FOUR TIMES DAILY. Freestyle Lite 250.00 Insulin Dependent uses 4 times daily 200 Each 5 levothyroxine (SYNTHROID) 175 MCG Oral Tab TAKE ONE TABLET BY MOUTH DAILY BEFORE BREAKFAST 90Tab 3 meclizine (ANTIVERT) 25 MG Oral Tab Take 1 Tab by mouth THREE TIMES DAILY NEEDED for dizziness/vertigo. 90 Tab 5 oxybutynin (DITROPAN) 5 MG Oral Tab TAKE 1/2 TABLET BY MOUTH THREE TIMES A DAY 90 Tab 3 TRULICITY 1.5 MG/0.5ML Subcutaneous Solution Pen-injector INJECT 0.5 ML SUBCUTANEOUSLY ONCE WEEKLY 3 mL 5 ROS per s knee pain planned total knee replacement in 2019 Dr Akbar No gastro-intestinal cardiovascular or pulmonary symptoms Exam BP 130/78 (BP Location: Right arm, Patient Position: Sitting) Pulse 91 Ht 5' 1 " (1.549 m) Wt 210 lb (95.3 kg) SpO2 98% BMI 39.68 kg/m2 There is trace bilateral ankle edema with no tenderness to palpation, erythema, or heat to the touch. Left foot diabetic exam: Visual exam. Foot appears normal without wounds or signs of infection: yes Sensory exam. Patient can feel the monofilament on the foot: yes Pulse exam. A pulse is palpable at either the foot or ankle: yes Right foot diabetic exam: Visual exam. Foot appears normal without wounds or signs of infection: yes Sensory exam. Patient can feel the monofilament on the foot: yes Pulse exam. A pulse is palpable at either the foot or ankle: yes ICD-9-CM ICD-10-CM 1. Multiple sclerosis (HCC) supportive care at home 340 G35 2. Neurogenic bladder follow up urology continue borrero for now 596.54 N31.9 3. History of acute pyelonephritis finish bactrim oral antibiotic V13.02 Z87.440 4. Left foot drop 736.79 M21.372 5. Uncontrolled type 2 diabetes mellitus with insulin therapy ([facility]) continue humalog and basal insulin stop metformin due to CHARLES and check finger stick twice daily Check creatinine and hemoglobin A1C next week 250.02 E11.65 COMPREHENSIVE METABOLIC PANEL V58.67 Z79.4 GLYCOHEMOGLOBIN A1C LIPID PROFILE 6. Essential hypertension stay off lils for now and monitor 401.9 I10 8. Allergic rhinitis due to other allergic trigger, unspecified seasonality 477.8 J30.89 fluticasone(FLONASE) 50 MCG/ACT Nasal Suspension 9. Acute kidney injury (HCC) 584.9 N17.9 I reviewed the discharge summary, discharge instructions, and pertinent additional documentation obtained during hospitalization. I reconciled the medications. I also reviewed the Transition of Care documentation done by staff. The tests that were not available at the time of discharge were reviewed. Additional tests which are not yet available include: none Coordination of care. - Additional testing related to hospitilization was requested today: yes See orders. Blood work and urology follow up I confirmed the patient's understanding of the diagnosis and plan of care. Specific education that was provided today: Patient Instructions Stop meloxicam Stop metformin Stop lisinopril Diabetes mellitus and kidney blood test 1-2 weeks Please check your blood pressure at home, mall, pharmacy, or grocery store three times per week. Write these numbers down and bring them into your next doctor visit. The goal blood pressure for you is less than : 140/90 We will get you in with Dr Reilly urologerika The current and discharge medications were reconciled by me, today The source document was hospital discharge summary documented in this encounter Plan of Treatment Date Type Specialty Care Team Description 07/25/2019 Office Visit Internal Medicine Igor Kenney MD [address] [place] [address] 10/27/2019 Ancillary Procedure Radiology 10/27/2019 Ancillary Procedure Radiology 01/28/2020 Office Visit Urology Papito Nuñez MD [address] [place] [address] Name Type Priority Associated Diagnoses Order Schedule COMPREHENSIVE METABOLIC Lab Routine Uncontrolled type 2 10 Occurrences PANEL diabetes mellitus with starting 06/20/2019 insulin therapy (HCC) until 06/20/2020 GLYCOHEMOGLOBIN A1C Lab Routine Uncontrolled type 2 10 Occurrences diabetes mellitus with starting 06/20/2019 insulin therapy (HCC) until 06/20/2020 LIPID PROFILE Lab Routine Uncontrolled type 2 10 Occurrences diabetes mellitus with starting 06/20/2019 insulin therapy (HCC) until 06/20/2020 Health Maintenance Due Date Last Done Comments Diabetic Eye Exam 1955 ZOSTER IMMUNIZATION SERIES 2006 (1 of 2) PAP SMEAR 11/04/2013 11/04/2010, 09/19/2007 URINE MICROALBUMIN 08/21/2018 08/21/2017, 08/25/2015, 09/19/2007 FOOT EXAM 03/14/2019 03/14/2018, 03/14/2018, 03/14/2018, [...] Type Problems Progress Blood Pressure Blood Pressure 130/78 Tali Kenney, < 140/90 (06/20/2019 Igor Dean, 5:39 PM EDT) Note: This is an individualized [...] Weight loss vs. 18 mo Lifestyle 1 (06/20/2019 5:39 PM Igor Colon MD max (lbs) >= [...] filedocumented in this encounter Visit Diagnoses Diagnosis Multiple sclerosis (HCC) - Primary Multiple sclerosis Neurogenic bladder Neurogenic bladder, NOS History of acute pyelonephritis Personal history of urinary (tract) infection Left foot drop Other acquired deformity of ankle and foot Uncontrolled type 2 diabetes mellitus with insulin therapy (HCC) Type II or unspecified type diabetes mellitus without mention of complication, uncontrolled Essential hypertension Unspecified essential hypertension Type 2 diabetes mellitus without complication (HCC) Allergic rhinitis due to other allergic trigger, unspecified seasonality Acute kidney injury (HCC) Acute kidney failure, unspecified documented in this encounter Insurance Payer Benefit Plan / Subscriber ID Effective Dates Phone Address Type Group [employer] xxxxxxxxxxxx Effective for all [employer] dates STANDARD xxxxxxxxx Effective for all dates Guarantor Name Account Type Relation to Date of Phone Billing Address Patient Melina Guallpa Personal/Famil 1955 [address] ([address]) [address] [place], [place] ([place]) [id number] documented as of this encounter
--- NOTE | 2019-06-26 16:41 | UC ---
Complaint Female HPI - HPI Summary HPI Summary: 64 yo woman with multiple sclerosis, recent admission for treatment of urinary tract infection. Culture positive for Enterobacter cloacae and Enterobacter gergoviae, and treatment with bactrim began a week ago, completed yestgerday. . Hx of renal insufficiency. Presents today because the catheter is not draining well, and she has leakage around the catheter, but not in keeping with her fluid intake. Has low abdominal pressure. Blood pressure is low, but lisinopril was recently stopped due to renal insifficiency and low blood pressure. - History Of Current Complaint Stated Complaint: CATHETER PROBLEMS Time Seen by Provider: 06/26/19 16:39 Hx Obtained From: Patient ?: No Onset/Duration: Gradual Onset, Lasting Hours - since this morning. Timing: Constant Severity Initially: Mild Severity Currently: Moderate Character: Dull, Cramping Aggravating Factor(s): Movement - causes leakage around catheter. Associated Signs And Symptoms: Positive: Back Pain - Risk Factors Ectopic Risk Factor: Negative Ovarian Torsion Risk Factor: Negative - Allergies/Home Medications Allergies/Adverse Reactions: Allergies Allergy/AdvReac Type Severity Reaction Status Date / Time prochlorperazine Allergy Anaphylatic Verified 06/26/19 16:55 [From Compazine] Shock PMH/Surg Hx/FS Hx/Imm Hx Endocrine History: Diabetes Neurological History: Other - multiple sclerosis Other History Of: Negative For: Anticoagulant Therapy - Surgical History Surgical History: Yes Surgery Procedure, Year, and Place: THYROIDECTOMY. CHOLECYSTECTOMY. CARO KNEE SURGERY- REPAIR. . T & A. Lt BREAST - BIOPSY - BENIGN - Family History Known Family History: Positive: Cardiac Disease, Hypertension, Diabetes - Social History Occupation: Disabled Lives: With Family Alcohol Use: Occasionally Substance Use Type: None Smoking Status (MU): Never Smoked Tobacco - Immunization History Most Recent Influenza Vaccination: 05/16/19 Most Recent Pneumonia Vaccination: 05/16/19 Review of Systems All Other Systems Reviewed And Are Negative: Yes Constitutional: Positive: Fever - mild elevation noted today., Fatigue - chronic , Other - Has not taken blood sugars today; yesterday's readings were in range, with morning reading of 92. She cannot recall other most recent readings. Eyes: Positive: Negative ENT: Positive: Negative Respiratory: Negative: Shortness Of Breath, Cough Genitourinary: Positive: Other - decreeased urine output via catheter, with hx of neurogenic bladder. Motor: Positive: Negative Neurovascular: Positive: Negative Musculoskeletal: Positive: Arthralgia - left knee osteoarthritis and lumbar stenosis. Neurological: Positive: Weakness, Numbness Psychological: Positive: Negative Is Patient Immunocompromised?: No Physical Exam Triage Information Reviewed: Yes Appearance: Ill-Appearing - looks chronically unwell, Pain Distress - with movement only., Obese Respiratory: Positive: Lungs clear, Normal breath sounds Cardiovascular: Positive: RRR, No Murmur Abdomen Description: Positive: Soft, Other: - Dull to percussion suprapubic area midway to the umbilicus; abdominal obesity limits ability to palpate the bladder. CRISTY Mclean changed the catheter, which showed marked sediment and blockage of the catheter. Complaint Female Dx - Course Course Of Treatment: Urine catheter changed, and given appearnace of urine will start bactrim pending culture. Discussed need for urology involvement and referral given to Dr. Cox at their request. Monitor for signs of progressive infection. - Differential Dx/Diagnosis Differential Diagnosis/HQI/PQRI: Urinary Tract Infection, Other - neurogenic bladder. Provider Diagnosis: Urinary obstruction, Neurogenic bladder Discharge ED - Sign-Out/Discharge Documenting (check all that apply): Patient Departure All imaging exams completed and their final reports reviewed: No Studies - Discharge Plan Condition: Stable Disposition: HOME Prescriptions: Sulfamethox/Trimethoprim DS* [Bactrim DS 800/160 TAB*] 1 tab PO BID #14 tab Patient Education Materials: Espinoza Catheter Placement and Care (ED), Urinary Tract Infection in Older Adults (ED) Referrals: Igor Kenney MD [Primary Care Provider] - Jh Cox MD [Medical Doctor] - Additional Instructions: Please resume bactrim to treat likely persistent urinary tract infection. Urine culture has been sent. If you develop fever, chills or have symtoms suggestive of infection, please go directly to the emergency room. Please arrange a follow up urology visit for advice regarding management of your uriinary problems. - Billing Disposition and Condition Condition: STABLE Disposition: Home
[2019-06-26 16:55] VITALS: BP 92/58
[2019-06-26] MEDS ORDERED: Sulfamethox/Trimethoprim DS 800/160* TAB PO ONE (18:02)
== END 2019-06-26 18:26 | disposition home or self-care (01) ==
LOC: UCEAST 16:25
DX: N13.9 Obstructive and reflux uropathy, unspecified (principal); N31.9 Neuromuscular dysfunction of bladder, unspecified; E11.9 Type 2 diabetes mellitus without complications; R50.9 Fever, unspecified; R53.83 Other fatigue; M25.50 Pain in unspecified joint; Z88.8 Allergy status to other drugs, medicaments and biological substances
CPT/HCPCS: 87086; 99212; A9270-GY; G0463

== ENCOUNTER 2019-06-30 18:22 | Emergency (ER) | payer BC, OTHER ==
[2019-06-30 20:59] LABS: Urine Appearance Turbid; Urine Bilirubin Negative (Negative); Urine Blood Negative (Negative); Urine Color Yellow; Urine Glucose Negative (Negative); Urine Ketones Negative (Negative); Urine Nitrite Negative (Negative); Urine Protein Negative (Negative); Urine Specific Gravity 1.019 (1.010-1.030); Urine Urobilinogen Negative (Negative)
--- NOTE | 2019-06-30 22:27 | ED ---
GI/ HPI - HPI Summary HPI Summary: Patient is a 64 y/o F presenting to the ED for a urogenital complaint. Patient is present with her . Patient was previously seen at [facility] 4 days ago for a plugged borrero catheter and was unable to have the catheter irrigated at that time. Patient has had difficulty with the catheter since its placement and reports that she believes her bladder is plugged because not much urine has been excreted. Patient previously saw chunks in her urine. Patient denies fever, myalgia, or headache. Patient has an appointment with Dr. Cox in the next few days. - History of Current Complaint Chief Complaint: EDUrogenitalProblems Time Seen by Provider: 06/30/19 22:10 Stated Complaint: CATHERDER PROBLEM PER PT Hx Obtained From: Patient Hx Last Menstrual Period: post Onset/Duration: Atraumatic, Still Present Timing: Constant Severity: Moderate Current Severity: Moderate Pain Intensity: 4 Location of Pain: Diffuse Associated Signs and Symptoms: Negative: Fever Aggravating Factor(s): Nothing Alleviating Factor(s): Nothing - Additional Pertinent History Primary Care Physician: [id number] - Allergy/Home Medications Allergies/Adverse Reactions: Allergies Allergy/AdvReac Type Severity Reaction Status Date / Time prochlorperazine Allergy Anaphylatic Verified 06/30/19 18:30 [From Compazine] Shock PMH/Surg Hx/FS Hx/Imm Hx Previously Healthy: Yes Endocrine/Hematology History: Reports: Hx Diabetes, Hx Thyroid Disease - thyroidectomy Denies: Hx Anticoagulant Therapy, Other Endocrine/Hematological Disorders Cardiovascular History: Reports: Hx Hypertension Denies: Hx Congestive Heart Failure, Hx Pacemaker/ICD Respiratory History: Reports: Hx Asthma - allergy related Denies: Other Respiratory Problems/Disorders GI History: Reports: Hx Gall Bladder Disease - cholecystectomy History: Reports: Hx Kidney Infection - 05/15/19 [facility], Hx Renal Disease - STAGE III Musculoskeletal History: Reports: Other Musculoskeletal History - L spine stenosis Sensory History: Reports: Hx Contacts or Glasses - reading glasses, Hx Hearing Problem - mild Denies: Hx Legally Blind, Hx Deafness, Hx Hearing Aid, Other Sensory Impairments Opthamlomology History: Reports: Hx Contacts or Glasses - reading glasses Denies: Hx Legally Blind, Other Sensory Impairments EENT History: Denies: Hx Deafness Neurological History: Reports: Other Neuro Impairments/Disorders - Multiple Sclerosis Psychiatric History: Reports: Hx Anxiety, Hx Depression, Hx Community Mental Health Tx Denies: Hx Attention Deficit Hyperactivity Disorder, Hx Eating Disorder, Hx Panic Disorder, Hx Post Traumatic Stress Disorder, Hx Inpatient Treatment, Hx Schizophrenia, Hx Bipolar Disorder, Hx of Violent Episodes Against Others, Hx Substance Abuse, Other Psychiatric Issues/Disorders - Cancer History Cancer Type, Location and Year: 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 CHOLECYSTECTOMY. CARO KNEE SURGERY- REPAIR. . T & A. Lt BREAST - BIOPSY - BENIGN Infectious Disease History: No Infectious Disease History: Denies: Traveled Outside the [place] in Last 30 Days - Family History Known Family History: Positive: Cardiac Disease, Hypertension, Diabetes - Social History Occupation: Retired Lives: With Family Alcohol Use: Occasionally Hx Substance Use: No Substance Use Type: Reports: None Hx Tobacco Use: No Smoking Status (MU): Never Smoked Tobacco Review of Systems Negative: Fever Positive: other - Positive borrero catheter; "chunks" in urine Negative: Myalgia Negative: Headache All Other Systems Reviewed And Are Negative: Yes Physical Exam - Summary Physical Exam Summary: Appearance: Well-appearing, Well-nourished, lying in bed comfortably. Elderly obese woman in no acute distress Skin: Warm, dry, no obvious rash Eyes: sclera anicteric, no conjunctival pallor ENT: mucous membranes moist, pharynx appears normal Neck: Supple, nontender Respiratory: Clear to auscultation, no signs of respiratory distress Cardiovascular: Normal S1, S2. No murmurs. Normal distal pulses in tibial and radial bilaterally. Abdomen: Soft, nontender, normal active bowel sounds present Musculoskeletal: Normal, Strength/ROM Intact Neurological: A&Ox3, awake and alert, mentation is normal, speech is fluent and appropriate Psychiatric: affect is normal, does not appear anxious or depressed Triage Information Reviewed: Yes Vital Signs On Initial Exam: Initial Vitals Temp Pulse Resp BP Pulse Ox 99.2 F 89 16 135/78 98 06/30/19 18:28 06/30/19 18:28 06/30/19 18:28 06/30/19 18:28 06/30/19 18:28 Vital Signs Reviewed: Yes Procedures - Sedation Patient Received Moderate/Deep Sedation with Procedure: No Diagnostics - Vital Signs Vital Signs Temp Pulse Resp BP Pulse Ox 06/30/19 20:40 98.4 F 93 18 133/77 98 06/30/19 18:28 99.2 F 89 16 135/78 98 - Laboratory Lab Results: Lab Results 06/30/19 Range/Units 20:50 Urine Color Yellow Urine Appearance Turbid Urine pH 5.0 (5-9) Ur Specific [place] 1.019 (1.010-1.030) Urine Protein Negative (Negative) Urine Ketones Negative (Negative) Urine Blood Negative (Negative) Urine Nitrate Negative (Negative) Urine Bilirubin Negative (Negative) Urine Urobilinogen Negative (Negative) Ur Leukocyte Esterase Negative (Negative) Urine Glucose Negative (Negative) Lab Statement: Any lab studies that have been ordered have been reviewed, and results considered in the medical decision making process. GIGU Course/Dx - Course Course Of Treatment: Patient is a 64 y/o F presenting to the ED for a urogenital complaint. Patient is present with her . Patient was previously seen at [facility] 4 days ago for a plugged borrero catheter and was unable to have the catheter irrigated at that time. Patient has had difficulty with the catheter since its placement and reports that she believes her bladder is plugged because not much urine has been excreted. Patient previously saw chunks in her urine. Patient denies fever, myalgia, or headache. Patient has an appointment with Dr. Cox in the next few days. On exam, elderly obese woman in no acute distress. Patient will be discharged with a diagnosis of neurogenic bladder and urinary retention. Follow up with PCP in 2 days. - Diagnoses Provider Diagnoses: Neurogenic bladder, Urinary retention, Borrero catheter problem Discharge ED - Sign-Out/Discharge Documenting (check all that apply): Patient Departure - Discharge - Discharge Plan Condition: Improved Disposition: HOME Patient Education Materials: Borrero Catheter Placement and Care (ED), Chronic Urinary Retention in Women (ED) Referrals: Igor Kenney MD [Primary Care Provider] - As Soon As Possible - Billing Disposition and Condition Condition: IMPROVED Disposition: Home - Attestation Statements Document Initiated by Scribe: Yes Documenting Scribe: Liss Branham Provider For Whom Scribe is Documenting (Include Credential): Jan Chinchilla MD Scribe Attestation: Liss Covarrubias, scribed for Jan Chinchilla MD on 07/03/19 at 1940. Scribe Documentation Reviewed: Yes Provider Attestation: The documentation as recorded by the scribe, Liss Branham accurately reflects the service I personally performed and the decisions made by me, Jan Chinchilla MD Status of Scribe Document: Viewed
[2019-07-01 00:25] VITALS: BP 119/74
== END 2019-07-01 00:24 | disposition home or self-care (01) ==
LOC: ED 18:22
DX: N31.9 Neuromuscular dysfunction of bladder, unspecified (principal); R33.9 Retention of urine, unspecified; T83.9XXA Unspecified complication of genitourinary prosthetic device, implant and graft, initial encounter; I10 Essential (primary) hypertension; Z88.8 Allergy status to other drugs, medicaments and biological substances
CPT/HCPCS: 51702; 81003; 99282

== ENCOUNTER 2019-07-03 02:09 | Emergency (ER) | payer BC, OTHER ==
--- OUTSIDE RECORDS SUMMARY | 2019-07-03 02:18 | XMS REPORT ---
:1955 Author Organization [facility] Care Team Providers Name Role Phone Unavailable Unavailable Unavailable Problems Condition Condition Condition Status Onset Resolution Last Treating Comments Name Details Category Date Date Treatment Clinician Date Respiratory lung sounds Respirator Resolve 2018-082019-06-03 Gwendolyn deficit y d 0-11 09:55:00 [place] 11:00: [id number] 00 Endo/Cedric glucose Endo/Cedric Resolve 2018-082019-06-03 Gwendolyn tolerance d 0-11 09:55:00 [place] problem 11:00: [id number] 00 Nutrition nutritional Nutrition Resolve 2018-082019-06-03 Gwendolyn restriction d 0-11 09:55:00 [place] s 11:00: [id number] 00 Elimination catheter Eliminatio Active 2018-08 Gwendolyn present n 0-11 [place] 11:00: [id number] 00 Elimination constipatio Eliminatio Resolve 2018-082019-06-03 Gwendolyn n n d 0-11 09:55:00 [place] 11:00: [id number] 00 Safety fall risk Safety Resolve 2018-082019-06-03 Gwendolyn factor d 0-11 09:55:00 [place] present 11:00: [id number] Safety risk for Safety Resolve 2018-082019-06-03 Gwendolyn hospitaliza d 0-11 09:55:00 [place] tion 11:00: [id number] 00 Medication knowledge/s Meds Active 2018-08 Gwendolyn kill 0-11 [place] deficit: pt 11:00: [id number] 00 Musculoskel transfer Musculoske Resolve 2018-082019-06-03 Gwendolyn etal assistance letal d 0-11 09:55:00 [place] required 11:00: [id number] 00 Musculoskel requires Musculoske Resolve 2018-082019-06-03 Gwendolyn etal human letal d 0-11 09:55:00 [place] assist to 11:00: [id number] leave home 00 Cath/Ostomy k/s Cath\Ostom Active 2018-08 Gwendolyn /GI deficit: y\GI Care 0-11 [place] cath/ost/GI 11:00: [id number] care - pt 00 Cath/Ostomy k/s Cath\Ostom Active 2018-08 Gwendolyn /GI deficit: y\GI Care 0-11 [place] cath/ost/GI 11:00: [id number] care - cg 00 Neuro impaired Neuro/Emot Active 2018-08 Harriet euceda ion 0-15 Tristian morrison 09:55: 00 Safety fire risk Safety Resolve 2018-082019-06-03 Harriet present d 0-15 09:55:00 [place] 09:55: 00 Medication knowledge/s Meds Unknown 2018-08 Arpit kill 0-15 Jacob, deficit: pt 13:15: PT 00 [id number] Safety fall risk Safety Active 2018-08 Jennifer White factor 0-17 present 12:51: 22 Pain frequent Pain Mgmt Active 2018-08 Arpit pain 0-21 Jacob, 09:00: PT 00 [id number] Allergies, Adverse Reactions, Alerts Allergy Name Allergy Status Severity Reaction(s) Onset Inactive Treating Comments Type Date Date Clinician prochlorpera Base Active Unknown Reaction Interface zine Ingredient Unknown 05-16 Medications Ordered Filled Start Stop Current Ordering Indication Dosage Frequency Signature Comments Components Medication Medication Date Date Medication? Clinician (SIG) Name Name cefUROXime cefUROXime 2018-08- Yes [place] Unknown Unknown axetil 500 axetil 500 06-18 Igor SERNA mg tablet mg tablet oxybutynin oxybutynin 2018-08- Yes [place] Unknown Unknown chloride 5 chloride 5 006-18 Igor SERNA mg tablet mg tablet oxyCODONE-a oxyCODONE-a 2018-08- Yes [place] Unknown Unknown cetaminophe cetaminophe 06-18 Igor SERNA n 5 mg-325 n 5 mg-325 mg tablet mg tablet metFORMIN metFORMIN 2018-08- Yes [place] Unknown Unknown 500 mg 500 mg 06-18 Igor SERNA tablet tablet dulaglutide dulaglutide 2018-08- Yes [place] Unknown Unknown 1.5 mg/0.5 1.5 mg/0.5 006-18 Igor SERNA mL mL subcutaneou subcutaneou s pen s pen injector injector levothyroxi levothyroxi 2018-08- Yes [place] Unknown Unknown ne 175 mcg ne 175 mcg 006-18 Igor SERNA tablet tablet gabapentin gabapentin 2018-08- Yes [place] Unknown Unknown 300 mg 300 mg 06-18 Igor SERNA capsule capsule lisinopril lisinopril 2018-08- Yes [place] Unknown Unknown 20 20 006-18 Igor SERNA mg-hydrochl mg-hydrochl orothiazide orothiazide 25 mg 25 mg tablet tablet Levemir Levemir 2018-08- Yes [place] Unknown Unknown FlexTouch FlexTouch 006-18 Igor SERNA U-100 U-100 Insulin 100 Insulin 100 unit/mL (3 unit/mL (3 mL) mL) subcutaneou subcutaneou s pen s pen HumaLOG HumaLOG 2018-08- Yes [place] Unknown Unknown KwikPen KwikPen 006-18 Igor SERNA (U-100) (U-100) Insulin 100 Insulin 100 unit/mL unit/mL subcutaneou subcutaneou s s cyclobenzap cyclobenzap 2018-08- Yes [place] Unknown Unknown rine 10 mg rine 10 mg 06-18 Igor SERNA tablet tablet polyethylen polyethylen 2018-08- Yes [place] Unknown Unknown e glycol e glycol 06-18 Igor SERNA 3350 17 3350 17 gram/dose gram/dose oral powder oral powder Aspirin Low Aspirin Low 2018-08- Yes [place] Unknown Unknown Dose 81 mg Dose 81 mg 006-18 Igor SERNA tablet,christen tablet,christen yed release yed release meloxicam meloxicam 2018-08- Yes [place] Unknown Unknown 15 mg 15 mg 006-18 Igor SERNA tablet tablet dulaglutide dulaglutide 2018-08 Yes [place] Unknown Unknown 1.5 mg/0.5 1.5 mg/0.5 030 Igor SERNA mL mL subcutaneou subcutaneou s pen s pen injector injector levothyroxi levothyroxi 2018-08 Yes [place] Unknown Unknown ne 175 mcg ne 175 mcg 0-30 Igor SERNA tablet tablet Levemir Levemir 2018-08 Yes [place] Unknown Unknown FlexTouch FlexTouch 0-30 Igor SERNA U-100 U-100 Insulin 100 Insulin 100 unit/mL (3 unit/mL (3 mL) mL) subcutaneou subcutaneou s pen s pen Aspirin Low Aspirin Low 2018-08 Yes [place] Unknown Unknown Dose 81 mg Dose 81 mg 0-30 Igor SERNA tablet,christen tablet,christen yed release yed release oxyCODONE-a oxyCODONE-a 2018-08 Yes [place] Unknown Unknown cetaminophe cetaminophe 0-30 ,Igor n 5 mg-325 n 5 mg-325 mg tablet mg tablet oxybutynin oxybutynin 2018-08 Yes [place] Unknown Unknown chloride 5 chloride 5 0-30 MD,Igor mg tablet mg tablet Vital Signs Vital Name Observation Time Observation Value Comments SYSTOLIC mm[Hg] 2019-06-26 18:08:44 118 mm[Hg] mm[Hg] Method: Sit SYSTOLIC mm[Hg] 2019-05-30 18:08:17 138 mm[Hg] mm[Hg] Method: Stand DIASTOLIC mm[Hg] 2019-06-26 18:08:44 66 mm[Hg] mm[Hg] Method: Sit DIASTOLIC mm[Hg] 2019-05-30 18:08:17 76 mm[Hg] mm[Hg] Method: Stand PULSE 2019-06-26 18:08:44 98 /min /min RESP RATE 2019-06-26 18:08:44 16 /min /min TEMP 2019-06-26 18:08:44 97.2 [degF] Procedures This patient has no known procedures. Results This patient has no known results.
--- NOTE | 2019-07-03 03:22 | ED ---
GI/ HPI - HPI Summary HPI Summary: Patient is a 64 y/o F presenting to [facility] with complaints of constipation for the past week, abdominal pain for the past two days, and inability to pass gas for the past few hours. Nausea is endorsed as well but fever and vomiting are denied. Patient states that she has tried taking fiber, stool softener, Miralax , dulcolax, magnesium citrate, and an enema with no relief in Sx. She [place] [facility] [place] and was discharged with long-term Espinoza catheter. PMHx of diabetes, HTN, and MS is reported. On triage, pain is rated 8/10, nothing is noted to aggravate/alleviate Sx. On hot dog vendor, nothing is noted to aggravate/alleviate Sx. Home medications and allergies are reviewed. - History of Current Complaint Stated Complaint: BACK PAIN PER EMS Hx Obtained From: Patient Hx Last Menstrual Period: post Onset/Duration: Started Hours Ago - inability to pass gas, Started Days Ago - abdominal pain, Started Weeks Ago - constipation, Still Present Timing: Constant, Lasting Hours - inability to pass gas, Lasting Days - abdominal pain, Lasting Weeks - constipation Severity: Severe Current Severity: Severe Pain Intensity: 8 Associated Signs and Symptoms: Positive: Nausea, Constipation, Abdominal Pain, Other: - positive - inability to pas gas. Negative: Vomiting, Fever Aggravating Factor(s): Nothing Alleviating Factor(s): Nothing - Additional Pertinent History Primary Care Physician: [id number] - Allergy/Home Medications Allergies/Adverse Reactions: Allergies Allergy/AdvReac Type Severity Reaction Status Date / Time prochlorperazine Allergy Anaphylatic Verified 06/30/19 18:30 [From Compazine] Shock PMH/Surg Hx/FS Hx/Imm Hx Endocrine/Hematology History: Reports: Hx Diabetes, Hx Thyroid Disease - thyroidectomy Denies: Hx Anticoagulant Therapy, Other Endocrine/Hematological Disorders Cardiovascular History: Reports: Hx Hypertension Denies: Hx Congestive Heart Failure, Hx Pacemaker/ICD Respiratory History: Reports: Hx Asthma - allergy related Denies: Other Respiratory Problems/Disorders GI History: Reports: Hx Gall Bladder Disease - cholecystectomy History: Reports: [place] [facility] H[place] Renal Disease - STAGE III Musculoskeletal History: Reports: Other Musculoskeletal History - L spine stenosis Sensory History: Reports: Hx Contacts or Glasses - reading glasses, Hx Hearing Problem - mild Denies: Hx Legally Blind, Hx Deafness, Hx Hearing Aid, Other Sensory Impairments Opthamlomology History: Reports: Hx Contacts or Glasses - reading glasses Denies: Hx Legally Blind, Other Sensory Impairments Neurological History: Reports: Other Neuro Impairments/Disorders - Multiple Sclerosis Psychiatric History: Reports: Hx Anxiety, Hx Depression, Hx Community Mental Health Tx Denies: Hx Attention Deficit Hyperactivity Disorder, Hx Eating Disorder, Hx Panic Disorder, Hx Post Traumatic Stress Disorder, Hx Inpatient Treatment, Hx Schizophrenia, Hx Bipolar Disorder, Hx of Violent Episodes Against Others, Hx Substance Abuse, Other Psychiatric Issues/Disorders - Cancer History Cancer Type, Location and Year: 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 CHOLECYSTECTOMY. CARO KNEE SURGERY- REPAIR. . T & A. Lt BREAST - BIOPSY - BENIGN Infectious Disease History: No Infectious Disease History: Denies: Traveled Outside the [place] in Last 30 Days - Family History Known Family History: Positive: Cardiac Disease, Hypertension, Diabetes - Social History Alcohol Use: Occasionally Hx Substance Use: No Substance Use Type: Reports: None Hx Tobacco Use: No Smoking Status (MU): Never Smoked Tobacco Review of Systems Negative: Fever Positive: Abdominal Pain, Nausea. Negative: Vomiting Genitourinary: Other - positive - constipation, inability to pass gas All Other Systems Reviewed And Are Negative: Yes Physical Exam - Summary Physical Exam Summary: General: Well-developed, Well-nourished Female. No acute distress. HEENT: Normocephalic, Atraumatic. Eyes: Conjuctiva normal, PERRL. Ears: TMs within normal limits. Nares: (-) discharge, (-) erythema. Oropharynx: Clear, mucous membranes moist, (-) exudates. Neck: Soft, FROM, (-) lymphadenopathy, (-) thyromegaly, (-) JVD. Cardiovascular: Normal sinus rhythm, (-) murmur. Lungs: Clear to auscultation bilaterally (-) wheezes, (-) rales, (-) rhonchi. Abdomen: Soft, non-tender, non-distended, (-) organomegaly, normal bowel sounds. Back: (-) CVA tenderness Extremities: No edema. Skin: Warm, dry, (-) rash. Neuro: Alert and oriented x3, no focal deficits. Psychiatric: Mood normal, affect normal. Triage Information Reviewed: Yes Vital Signs On Initial Exam: Initial Vitals Temp Pulse Resp BP Pulse Ox 97.8 F 100 18 124/79 98 07/03/19 02:18 07/03/19 02:18 07/03/19 02:18 07/03/19 02:18 07/03/19 02:18 Vital Signs Reviewed: Yes Procedures - Sedation Patient Received Moderate/Deep Sedation with Procedure: No Diagnostics - Vital Signs Vital Signs Temp Pulse Resp BP Pulse Ox 07/03/19 02:18 97.8 F 100 18 124/79 98 - Laboratory Lab Statement: Any lab studies that have been ordered have been reviewed, and results considered in the medical decision making process. - Radiology ABDOMEN X-RAY Radiology Interpretation Completed By: ED Physician Summary of Radiographic Findings: Free air and stool throughout the colon, no air fluid levels, no signs of obstruction, pending official report. GIGU Course/Dx - Course Course Of Treatment: 64-year-old female with MS. House bound. Presents with constipation. Hasn't been able to have a bowel movement in a week. Describes significant pressure in her rectal area. During ED course, patient received fluids, citrate of magnesia 300 ml PO, Fleet Mineral Oil Enema, and 50 mcg IV Fentanyl x2.patient placed on the toilet and then given a soapsuds enema.patient sign out at change of shift awaiting results. - Diagnoses Provider Diagnoses: Constipation Discharge ED - Sign-Out/Discharge Documenting (check all that apply): Sign-Out Patient Signing out patient TO: Nakul Sibley - Discharge Plan Condition: Stable Referrals: Igor Kenney MD [Primary Care Provider] - - Billing Disposition and Condition Condition: STABLE - Attestation Statements Document Initiated by Scribe: Yes Documenting Scribe: MEGAN CHOW Provider For Whom Darrel is Documenting (Include Credential): DARRON LUNDBERG MD Scribe Attestation: MEGAN Covarrubias, scribed for DARRON LUNDBERG MD on 07/03/19 at 0654. Scribe Documentation Reviewed: Yes Provider Attestation: The documentation as recorded by the MEGAN mueller accurately reflects the service I personally performed and the decisions made by me, DARRON LUNDBERG MD Status of Scribe Document: Viewed
[2019-07-03] MEDS: Mineral Oil ENEMA* 1 BOTTLE PR ONE (03:42)
[2019-07-03] MEDS: fentaNYL* 50 MCG/ML 2 ML VIAL (100 MCG VIAL) IV SLOW PU ONE ×2 (04:47→06:14)
[2019-07-03] MEDS: NS 0.9% 1000 ML** 1,000 ML IV ONE (04:47)
[2019-07-03] MEDS: Magnesium CITRATE* 300 ML BTL PO ONE (04:54)
--- NOTE | 2019-07-03 07:14 | ED ---
Progress - Progress Note Progress Note: Patient is a sign-out at 07:00 on 07/03/[address] Yari Naidu MD to Dr. Nakul Sibley MD at shift change, pending further workup and disposition. Patient will be discharged with a diagnosis of constipation. Follow up with PCP as needed. - Results/Orders Results/Orders: Abdomen X-ray IMPRESSION: LARGE AMOUNT RETAINED STOOL CONSISTENT WITH THE PATIENT'S HISTORY OF CONSTIPATION. Reviewed by Dr. Sibley. Course/Dx - Course Course Of Treatment: Patient is a sign-out at 07:00 on 07/03/[address] Yari Naidu MD to Dr. Nakul Sibley MD at shift change, pending further workup and disposition. Abdomen X-ray IMPRESSION: LARGE AMOUNT RETAINED STOOL CONSISTENT WITH THE PATIENT'S HISTORY OF CONSTIPATION. Patient will be discharged with a diagnosis of constipation. Follow up with your PCP as needed. - Diagnoses Provider Diagnoses: Constipation Discharge ED - Sign-Out/Discharge Documenting (check all that apply): Patient Departure - Discharge, Receiving Sign-Out Receiving patient FROM: Yari Naidu - 07:00 on 07/03/19 - Discharge Plan Condition: Stable Disposition: HOME Patient Education Materials: Constipation (ED), High Fiber Diet (ED) Referrals: Igor Kenney MD [Primary Care Provider] - Additional Instructions: Follow up with your primary care provider as needed. Return to the Emergency Department for changing or worsening symptoms. - Billing Disposition and Condition Condition: STABLE Disposition: Home - Attestation Statements Document Initiated by Олегibe: Yes Documenting Scribe: Liss Branham Provider For Whom Darrel is Documenting (Include Credential): Nakul Sibley MD Scribe Attestation: Liss Covarrubias, scribed for Nakul Sibley MD on 07/03/19 at 1327. Scribe Documentation Reviewed: Yes Provider Attestation: The documentation as recorded by the Liss mueller accurately reflects the service I personally performed and the decisions made by me, Nakul Sibley MD Status of Scribe Document: Viewed
[2019-07-03 09:12] VITALS: BP 116/73
== END 2019-07-03 10:33 | disposition home or self-care (01) ==
LOC: ED 02:09
DX: K59.00 Constipation, unspecified (principal); E11.22 Type 2 diabetes mellitus with diabetic chronic kidney disease; I12.9 Hypertensive chronic kidney disease with stage 1 through stage 4 chronic kidney disease, or unspecified chronic kidney disease; N18.3 Chronic kidney disease, stage 3 (moderate); E03.9 Hypothyroidism, unspecified; G35 Multiple sclerosis; F41.9 Anxiety disorder, unspecified; F32.9 Major depressive disorder, single episode, unspecified; Z90.49 Acquired absence of other specified parts of digestive tract; Z88.8 Allergy status to other drugs, medicaments and biological substances; Z79.4 Long term (current) use of insulin; Z79.82 Long term (current) use of aspirin; Z79.890 Hormone replacement therapy; Z79.899 Other long term (current) drug therapy
CPT/HCPCS: 74018; 96361; 96374; 96376; 99282; A9270-GY; J3010

== ENCOUNTER 2019-08-05 13:00 | Inpatient (IN) | payer BC, OTHER ==
[2020-03-04] MEDS ORDERED: Lactated Ringers 1000 ml BAG 1,000 ML IV SCH (06:00)
[2020-03-04] MEDS ORDERED: Buffered Lidocaine 1% SYRIN 1 ml INTRADERM ONE ×2 (06:00→06:53)
[2020-03-04] MEDS ORDERED: Famotidine IV 10 MG/ML 2 ml VIAL (20 mg) IV ONE (06:00)
[2020-03-04] MEDS ORDERED: Sevoflurane BOTTLE ONE (06:45)
[2020-03-04] MEDS ORDERED: Succinylcholine 200 mg VIAL 20 mg/ml 10 ml VIAL (200 mg) ONE (06:46)
[2020-03-04] MEDS ORDERED: EPHEDrine (Pressors) 50 MG/ML VIAL ONE ×2 (06:47→08:30)
[2020-03-04] MEDS ORDERED: Sterile Water for Inj 10 ML ONE ×2 (06:47→08:30)
[2020-03-04] MEDS ORDERED: ceFAZolin 2 GM PREMIX 2 GM/50 ML BAG ONE (06:52)
[2020-03-04] MEDS ORDERED: Famotidine IV 10 MG/ML 2 ml VIAL (20 mg) ONE (06:53)
[2020-03-04] MEDS ORDERED: Glycopyrrolate IV 0.2 MG/ML 1 ML VIAL ONE (06:55)
[2020-03-04] MEDS ORDERED: Propofol 10 MG/ML 20 ML BTL ONE (06:55)
[2020-03-04] MEDS ORDERED: Midazolam 5 mg/5 ml VIAL 1 mg/ml 5 ml VIAL (5 mg) ONE (06:56)
[2020-03-04] MEDS ORDERED: Bupivacaine 0.25% SDV 30 ML ONE (07:10)
[2020-03-04] MEDS ORDERED: Midazolam 2 mg/2 ml VIAL 1 mg/ml 2 ml VIAL (2 mg) ONE (07:16)
[2020-03-04] MEDS ORDERED: Hydrocortisone INJ 100 MG/2ML 2 ML VIAL ONE (07:19)
[2020-03-04] MEDS ORDERED: Bupivacaine 0.5% SDV PF 30ML VIAL ONE ×2 (07:55)
[2020-03-04] MEDS ORDERED: Ondansetron 4 mg VIAL 2 MG/ML 2 ml VIAL ONE (08:42)
[2020-03-04] MEDS ORDERED: Acetaminophen IV 1 GM/100ML 1,000 MG/100 ML VIAL IVPB ONE (09:05)
[2020-03-04] MEDS ORDERED: Ondansetron 4 mg VIAL 2 MG/ML 2 ml VIAL IV PRN ×2 (09:05→10:08)
[2020-03-04] MEDS ORDERED: diPHENhydraMINE IV 50 MG/ML 1 ml VIAL (BENADRYL) IV PRN ×2 (09:05→10:08)
[2020-03-04] MEDS ORDERED: fentaNYL 100 mcg/2 ml 50 MCG/ML VIAL IV PRN (09:05)
[2020-03-04] MEDS ORDERED: diPHENhydraMINE 25 mg TAB PO PRN (10:08)
[2020-03-04] MEDS ORDERED: Magnesium Hydroxide LIQ 30 ML UDC PO PRN (10:08)
[2020-03-04] MEDS ORDERED: Ondansetron ODT 4 mg TAB 4 MG TAB PO PRN (10:08)
[2020-03-04] MEDS ORDERED: oxyCODONE/Acetamin 5/325 mg TAB ONE (12:23)
[2020-03-04] MEDS: oxyCODONE/Acetamin 5/325 mg TAB PO PRN ×2 (12:24→16:26)
[2020-03-04] MEDS: Lactated Ringers 1000 ml BAG 1,000 ML IV SCH (12:51)
[2020-03-04] MEDS ORDERED: Dextrose 50% Syringe 50 ml 25 GM/50 ML SYRINGE IV PUSH PRN (13:39)
[2020-03-04 14:17] LABS: Urine Appearance Cloudy; Urine Bilirubin Negative (Negative); Urine Blood Negative (Negative); Urine Color Yellow; Urine Glucose 3+(>=500 mg/dL) (Negative); Urine Ketones Negative (Negative); Urine Nitrite Positive (Negative); Urine Protein Negative (Negative); Urine Specific Gravity 1.012 (1.010-1.030); Urine Urobilinogen Negative (Negative)
[2020-03-04 14:31] LABS: Urine Bacteria 1+ (Absent); Urine Red Blood Cell Trace(0-2/hpf) (Absent); Urine White Blood Cell 2+(11-20/hpf) (Absent)
[2020-03-04] MEDS ORDERED: ceFAZolin 1 GM ADVAN 1 GM in NS 0.9% 50 ML 50 ML IVPB SCH (16:30)
[2020-03-04] MEDS: cefTRIAXone 1 gm/50 mL NS BAG 1 GM/50 ML BAG IVPB SCH (17:48)
[2020-03-04] MEDS ORDERED: Lactulose 30 ml UDC PO SCH (21:00)
[2020-03-04] MEDS: Magnesium Hydroxide LIQ 30 ML UDC PO SCH (21:33)
[2020-03-04] MEDS: Lactulose 30 ml UDC PO PRN (21:33)
[2020-03-04] MEDS: Insulin GLARGINE 100 un/ml 10 ml VIAL SUBCUT SCH (21:34)
[2020-03-05] MEDS: oxyCODONE/Acetamin 5/325 mg TAB PO PRN ×4 (00:02→19:26)
[2020-03-05] MEDS: Lactated Ringers 1000 ml BAG 1,000 ML IV SCH (00:10)
[2020-03-05 05:14] LABS: Hematocrit 26 % (35-47); Hemoglobin 9.2 g/dL (12.0-16.0); Mean Platelet Volume 7.8 fL (7.4-10.4); Platelet Count 252 10^3/uL (150-450)
[2020-03-05 05:26] LABS: BUN/Creatinine Ratio 19.3 (8-20); Calcium 8.1 mg/dL (8.6-10.3); EGFR African American 47.9 (>60); EGFR Non-African American 39.6 (>60); Potassium 4.9 mmol/L (3.5-5.0)
[2020-03-05] MEDS: Vitamin THERAPEUTIC TAB PO SCH (09:16)
[2020-03-05] MEDS: Magnesium Hydroxide LIQ 30 ML UDC PO SCH ×2 (09:17→20:59)
[2020-03-05] MEDS: Aspirin EC 81 mg TAB.EC (enteric coated) PO SCH (09:17)
[2020-03-05] MEDS: Insulin GLARGINE 100 un/ml 10 ml VIAL SUBCUT SCH ×2 (09:25→20:59)
[2020-03-05] MEDS: Lactulose 30 ml UDC PO PRN ×2 (09:26→20:59)
[2020-03-05] MEDS: cefTRIAXone 1 gm/50 mL NS BAG 1 GM/50 ML BAG IVPB SCH (17:16)
[2020-03-06] MEDS: oxyCODONE/Acetamin 5/325 mg TAB PO PRN ×2 (04:22→20:34)
[2020-03-06 04:51] LABS: Hematocrit 28 % (35-47); Hemoglobin 9.7 g/dL (12.0-16.0); Mean Platelet Volume 7.6 fL (7.4-10.4); Platelet Count 247 10^3/uL (150-450)
[2020-03-06 04:59] LABS: BUN/Creatinine Ratio 18.5 (8-20); Calcium 8.8 mg/dL (8.6-10.3); EGFR African American 50.1 (>60); EGFR Non-African American 41.4 (>60)
[2020-03-06 05:00] LABS: Potassium 5.1 mmol/L (3.5-5.0)
[2020-03-06] MEDS: Lactulose 30 ml UDC PO PRN ×2 (07:31→17:34)
[2020-03-06] MEDS: Magnesium Hydroxide LIQ 30 ML UDC PO SCH ×2 (09:06→20:34)
[2020-03-06] MEDS: Aspirin EC 81 mg TAB.EC (enteric coated) PO SCH (09:07)
[2020-03-06] MEDS: Vitamin THERAPEUTIC TAB PO SCH (09:07)
[2020-03-06] MEDS: Insulin GLARGINE 100 un/ml 10 ml VIAL SUBCUT SCH ×2 (09:08→20:35)
[2020-03-07] MEDS: oxyCODONE/Acetamin 5/325 mg TAB PO PRN ×4 (03:20→23:30)
[2020-03-07 07:16] LABS: Hematocrit 24 % (35-47); Hemoglobin 8.7 g/dL (12.0-16.0); Mean Platelet Volume 7.6 fL (7.4-10.4); Platelet Count 256 10^3/uL (150-450)
[2020-03-07 07:33] LABS: BUN/Creatinine Ratio 21.6 (8-20); Calcium 8.3 mg/dL (8.6-10.3); EGFR African American 52.4 (>60); EGFR Non-African American 43.3 (>60)
[2020-03-07] MEDS: Insulin GLARGINE 100 un/ml 10 ml VIAL SUBCUT SCH ×2 (09:12→20:00)
[2020-03-07] MEDS: Vitamin THERAPEUTIC TAB PO SCH (09:14)
[2020-03-07] MEDS: Aspirin EC 81 mg TAB.EC (enteric coated) PO SCH (09:15)
[2020-03-07] MEDS: Lactulose 30 ml UDC PO PRN (09:15)
[2020-03-07] MEDS: Magnesium Hydroxide LIQ 30 ML UDC PO SCH ×2 (09:16→20:00)
[2020-03-07] MEDS ORDERED: Lactulose 30 ml UDC PO PRN (09:31)
[2020-03-07] MEDS: Lactulose 30 ml UDC PO SCH ×2 (12:18→20:00)
[2020-03-08 05:04] LABS: Hematocrit 25 % (35-47); Mean Platelet Volume 7.1 fL (7.4-10.4); Platelet Count 300 10^3/uL (150-450)
[2020-03-08] MEDS: Lactulose 30 ml UDC PO SCH ×2 (08:42→20:58)
[2020-03-08] MEDS: Magnesium Hydroxide LIQ 30 ML UDC PO SCH ×2 (08:42→20:58)
[2020-03-08] MEDS: Insulin GLARGINE 100 un/ml 10 ml VIAL SUBCUT SCH ×2 (08:44→20:46)
[2020-03-08] MEDS: Vitamin THERAPEUTIC TAB PO SCH (08:45)
[2020-03-08] MEDS: Aspirin EC 81 mg TAB.EC (enteric coated) PO SCH (08:45)
[2020-03-08] MEDS: oxyCODONE/Acetamin 5/325 mg TAB PO PRN (20:54)
[2020-03-09 06:25] LABS: Hematocrit 25 % (35-47); Hemoglobin 8.7 g/dL (12.0-16.0); Mean Platelet Volume 7.3 fL (7.4-10.4); Platelet Count 282 10^3/uL (150-450)
[2020-03-09] MEDS: Vitamin THERAPEUTIC TAB PO SCH (09:55)
[2020-03-09] MEDS: Aspirin EC 81 mg TAB.EC (enteric coated) PO SCH (09:55)
[2020-03-09] MEDS: Insulin GLARGINE 100 un/ml 10 ml VIAL SUBCUT SCH ×2 (09:56→21:26)
[2020-03-09] MEDS: Lactulose 30 ml UDC PO SCH ×2 (09:56→21:27)
[2020-03-09] MEDS: Magnesium Hydroxide LIQ 30 ML UDC PO SCH ×2 (09:58→21:27)
[2020-03-09] MEDS: oxyCODONE/Acetamin 5/325 mg TAB PO PRN ×3 (12:22→21:25)
[2020-03-10] MEDS: oxyCODONE/Acetamin 5/325 mg TAB PO PRN ×4 (01:35→19:50)
[2020-03-10] MEDS: Aspirin EC 81 mg TAB.EC (enteric coated) PO SCH (10:26)
[2020-03-10] MEDS: Vitamin THERAPEUTIC TAB PO SCH (10:27)
[2020-03-10] MEDS: Magnesium Hydroxide LIQ 30 ML UDC PO SCH ×2 (10:27→22:29)
[2020-03-10] MEDS: Lactulose 30 ml UDC PO SCH ×2 (10:27→22:39)
[2020-03-10] MEDS: Insulin GLARGINE 100 un/ml 10 ml VIAL SUBCUT SCH ×2 (10:28→10:39)
[2020-03-10] MEDS ORDERED: Insulin GLARGINE 100 un/ml 10 ml VIAL SUBCUT SCH (21:00)
[2020-03-11 07:39] VITALS: BP 152/67
[2020-03-11] MEDS: Aspirin EC 81 mg TAB.EC (enteric coated) PO SCH (08:54)
[2020-03-11] MEDS: Vitamin THERAPEUTIC TAB PO SCH (08:55)
[2020-03-11] MEDS: oxyCODONE/Acetamin 5/325 mg TAB PO PRN (08:55)
[2020-03-11] MEDS: Magnesium Hydroxide LIQ 30 ML UDC PO SCH (08:56)
[2020-03-11] MEDS: Lactulose 30 ml UDC PO SCH (08:56)
[2020-03-11] MEDS: Insulin GLARGINE 100 un/ml 10 ml VIAL SUBCUT SCH (08:57)
== END 2020-03-11 11:25 | disposition swing bed (61) | DRG 302 ==
LOC: AA 03-04 06:53 → SSU 03-04 12:44
PROVIDERS: ADMIT Orthopaedic Surgery Adult Reconstructive Orthopaedic Surgery; ATTEND Internal Medicine

== ENCOUNTER 2021-02-07 05:35 | Inpatient (IN) ==
[2021-02-07] MEDS ORDERED: Famotidine IV 10 MG/ML 2 ml VIAL (20 mg) ONE (06:40)
[2021-02-07] MEDS ORDERED: Levalbuterol 0.63MG/3ML NEB UNIT OF USE INH ONE (06:40)
[2021-02-07] MEDS ORDERED: Buffered Lidocaine 1% SYRIN 1 ml INTRADERM ONE (06:40)
[2021-02-07] MEDS ORDERED: ceFAZolin 2 GM PREMIX 2 GM/50 ML BAG ONE (06:52)
[2021-02-07] MEDS ORDERED: Midazolam 2 mg/2 ml VIAL 1 mg/ml 2 ml VIAL (2 mg) ONE (07:04)
[2021-02-07] MEDS ORDERED: fentaNYL 250 mcg/5 ml 50 MCG/ML 5 ml VIAL (250 MCG) ONE (07:04)
[2021-02-07] MEDS ORDERED: Propofol 10 MG/ML 20 ML BTL ONE ×2 (07:05→10:47)
[2021-02-07] MEDS ORDERED: Succinylcholine 200 mg VIAL 20 mg/ml 10 ml VIAL (200 mg) ONE (07:05)
[2021-02-07] MEDS ORDERED: Lidocaine 2% PF 5 ML VIAL ONE (07:05)
[2021-02-07] MEDS ORDERED: Vancomycin 1,000 MG VIAL ONE (07:08)
[2021-02-07] MEDS ORDERED: Lidocaine 1% w EPI 1:200,000 SDV 30 ML VIAL ONE (07:08)
[2021-02-07] MEDS ORDERED: ceFAZolin VIAL VIAL ONE (07:09)
[2021-02-07] MEDS ORDERED: Bacitracin OINTMENT TUBE ONE (07:09)
[2021-02-07] MEDS ORDERED: Bacitracin INJECTION (manuf dc) 50,000 UNITS ONE (07:09)
[2021-02-07] MEDS ORDERED: Remifentanil 2 MG VIAL ONE ×2 (07:11→09:52)
[2021-02-07] MEDS: Lactated Ringers 1000 ml BAG 1,000 ML IV SCH (07:46)
[2021-02-07] MEDS: Levalbuterol 0.63MG/3ML NEB UNIT OF USE INH ONE (07:46)
[2021-02-07] MEDS: Buffered Lidocaine 1% SYRIN 1 ml INTRADERM ONE (07:46)
[2021-02-07] MEDS: Famotidine IV 10 MG/ML 2 ml VIAL (20 mg) IV ONE (07:47)
[2021-02-07] MEDS ORDERED: Propofol 10 mg/ml 100 ML BTL 300 ML ONE (10:03)
[2021-02-07] MEDS ORDERED: Ketamine HCL 50 mg/ml 10 ml VIAL (500 MG) ONE (10:20)
[2021-02-07] MEDS ORDERED: Acetaminophen IV 1 GM/100ML VI 100 ML ONE (10:39)
[2021-02-07] MEDS ORDERED: Dexamethasone IV 4 MG/ML VIAL 1 ml VIAL ONE (10:39)
[2021-02-07] MEDS ORDERED: Propofol 1,000 MG/100 ML BTL ONE (10:47)
[2021-02-07] MEDS ORDERED: Phenylephrine IV 10 MG/ML 1 ml VIAL ONE (10:47)
[2021-02-07] MEDS ORDERED: Ondansetron 4 mg VIAL 2 MG/ML 2 ml VIAL ONE (10:50)
[2021-02-07] MEDS ORDERED: Naloxone 0.4 mg VIAL 0.4 mg/ml 1 ml VIAL IV PRN (11:34)
[2021-02-07] MEDS ORDERED: Ondansetron 4 mg VIAL 2 MG/ML 2 ml VIAL IV PRN ×2 (11:34→11:42)
[2021-02-07] MEDS ORDERED: Levalbuterol 0.63MG/3ML NEB UNIT OF USE INH PRN (11:34)
[2021-02-07] MEDS ORDERED: fentaNYL 100 mcg/2 ml 50 MCG/ML VIAL ONE (12:08)
[2021-02-07] MEDS ORDERED: HYDROmorphone 1 MG/1 ML SYRINGE ONE (12:08)
[2021-02-07] MEDS: fentaNYL 100 mcg/2 ml 50 MCG/ML VIAL IV PRN (12:08)
[2021-02-07] MEDS: HYDROmorphone 1 MG/1 ML SYRINGE IV PRN (12:13)
[2021-02-07] MEDS ORDERED: Dextrose 50% Syringe 50 ml 25 GM/50 ML SYRINGE IV PUSH PRN (13:03)
[2021-02-07] MEDS: NS 0.9% 1000 ml BAG 1,000 ML IV SCH (14:00)
[2021-02-07] MEDS: Morphine 2 MG/ML SYRINGE IV PRN (18:02)
[2021-02-07] MEDS: ceFAZolin 2 GM PREMIX 2 GM/50 ML BAG IVPB SCH (18:03)
[2021-02-07] MEDS: Dexamethasone IV 4 MG/ML VIAL 1 ml VIAL IV SLOW PU SCH (18:03)
[2021-02-07] MEDS: Cholecalciferol (VIT D3) 1,000 unit TAB PO SCH (19:58)
[2021-02-07] MEDS: Acetaminophen IV 1 GM/100ML VI 100 ML IVPB SCH (20:00)
[2021-02-07] MEDS: Magnesium Hydroxide LIQ 30 ML UDC PO SCH (20:03)
[2021-02-08 05:11] LABS: ABS Lymphocytes 0.5 10^3/ul (1.0-4.8); ABS Monocytes 0.2 10^3/ul (0-0.8); ABS Neutrophils 9.8 10^3/ul (1.5-7.7); Hematocrit 32 % (35-47); Hemoglobin 11.3 g/dL (12.0-16.0); Lymphocyte % 5.1 %; Mean Corpuscular Hemoglobin 32 pg (27-31); Mean Corpuscular Hgb Conc 35 g/dL (31-36); Mean Corpuscular Volume 90 fL (80-97); Mean Platelet Volume 7.8 fL (7.4-10.4); Platelet Count 296 10^3/uL (150-450); Red Blood Count 3.58 10^6 /uL (3.70-4.87); Red Cell Distribution Width 13 % (10-15); White Blood Count 10.6 10^3/uL (3.5-10.8)
[2021-02-08 05:27] LABS: Calcium 9.2 mg/dL (8.6-10.3); Creatinine, Serum 1.03 mg/dL (0.51-0.95); EGFR African American 65.3 (>60); EGFR Non-African American 53.9 (>60)
[2021-02-08 06:19] LABS: Potassium 5.4 mmol/L (3.5-5.0)
[2021-02-08] MEDS: Enoxaparin 40 MG/0.4 ML SYR SUBCUT SCH (08:31)
[2021-02-08] MEDS: Nystatin TOP POWDER 15 GM BTL TOPICAL SCH (08:35)
[2021-02-08] MEDS: Insulin GLARGINE 100 un/ml 10 ml VIAL SUBCUT SCH (09:35)
[2021-02-08] MEDS: Erythromycin OPTH OINT APPLIC OINT RIGHT EYE SCH (09:36)
[2021-02-08 13:19] LABS: Calcium 9.1 mg/dL (8.6-10.3); Creatinine, Serum 1.18 mg/dL (0.51-0.95); EGFR African American 55.8 (>60); EGFR Non-African American 46.1 (>60); Potassium 4.9 mmol/L (3.5-5.0)
[2021-02-08] MEDS: NS 0.9% 1000 ml BAG 1,000 ML IV SCH (13:37)
[2021-02-08] MEDS: Polyethylene Glycol 3350 17 GM PACKET PO PRN (20:29)
[2021-02-08] MEDS: Proparacaine 0.5% OPHTH.SOL 15 ML BTL RIGHT EYE PRN (22:56)
[2021-02-09 04:54] LABS: ABS Basophils 0.1 10^3/ul (0-0.2); ABS Lymphocytes 1.2 10^3/ul (1.0-4.8); ABS Monocytes 0.8 10^3/ul (0-0.8); ABS Neutrophils 8.5 10^3/ul (1.5-7.7); Eosinophil % 0.1 %; Hematocrit 27 % (35-47); Hemoglobin 9.6 g/dL (12.0-16.0); Lymphocyte % 11.7 %; Mean Corpuscular Hemoglobin 32 pg (27-31); Mean Corpuscular Hgb Conc 35 g/dL (31-36); Mean Corpuscular Volume 91 fL (80-97); Mean Platelet Volume 7.7 fL (7.4-10.4); Platelet Count 264 10^3/uL (150-450); Red Blood Count 3.03 10^6 /uL (3.70-4.87); Red Cell Distribution Width 14 % (10-15); White Blood Count 10.6 10^3/uL (3.5-10.8)
[2021-02-09 05:10] LABS: Calcium 8.8 mg/dL (8.6-10.3); Creatinine, Serum 1.14 mg/dL (0.51-0.95); EGFR African American 58.1 (>60)
[2021-02-09 05:16] LABS: Potassium 5.3 mmol/L (3.5-5.0)
[2021-02-10 05:54] LABS: Potassium 4.7 mmol/L (3.5-5.0)
[2021-02-10] MEDS: Albuterol HFA INHALER 8 gm MDI INH PRN (09:38)
[2021-02-11 05:57] LABS: ABS Eosinophils 0.4 10^3/ul (0-0.6); ABS Lymphocytes 1.6 10^3/ul (1.0-4.8); ABS Monocytes 0.9 10^3/ul (0-0.8); ABS Neutrophils 8.1 10^3/ul (1.5-7.7); Eosinophil % 3.3 %; Hematocrit 32 % (35-47); Lymphocyte % 14.7 %; Mean Corpuscular Hemoglobin 31 pg (27-31); Mean Corpuscular Hgb Conc 34 g/dL (31-36); Mean Corpuscular Volume 91 fL (80-97); Mean Platelet Volume 7.4 fL (7.4-10.4); Platelet Count 292 10^3/uL (150-450); Red Blood Count 3.56 10^6 /uL (3.70-4.87); Red Cell Distribution Width 14 % (10-15)
[2021-02-11 06:28] LABS: Calcium 9.1 mg/dL (8.6-10.3); Creatinine, Serum 0.93 mg/dL (0.51-0.95); EGFR African American 73.4 (>60); EGFR Non-African American 60.7 (>60); Magnesium 2.2 mg/dL (1.9-2.7); Potassium 4.4 mmol/L (3.5-5.0)
[2021-02-11 10:36] LABS: Rapid COVID-19 Molecular Undetected (Undetected)
[2021-02-11 12:16] VITALS: BP 166/93
== END 2021-02-11 13:10 ==
LOC: AA 05:35 → SSU 13:32
PROVIDERS: ADMIT Neurological Surgery; ATTEND Internal Medicine

== ENCOUNTER 2021-03-25 14:33 | Inpatient (IN) ==
[2021-03-25] MEDS ORDERED: Magnesium CITRATE LIQ 300 ML BTL PO ONE (15:11)
[2021-03-25 18:24] LABS: ABS Basophils 0.1 10^3/ul (0-0.2); ABS Eosinophils 0.2 10^3/ul (0-0.6); ABS Lymphocytes 0.7 10^3/ul (1.0-4.8); ABS Monocytes 0.6 10^3/ul (0-0.8); ABS Neutrophils 15.7 10^3/ul (1.5-7.7); Eosinophil % 1.3 %; Hematocrit 37 % (35-47); Hemoglobin 13.1 g/dL (12.0-16.0); Lymphocyte % 4.1 %; Mean Corpuscular HGB Conc 35 g/dL (31-36); Mean Corpuscular Hemoglobin 31 pg (27-31); Mean Corpuscular Volume 89 fL (80-97); Mean Platelet Volume 7.3 fL (7.4-10.4); Nucleated Red Blood Cells % 0.2; Platelet Count 350 10^3/uL (150-450); Red Blood Count 4.16 10^6 /uL (3.70-4.87); Red Cell Distribution Width 14 % (10-15); White Blood Count 17.3 10^3/uL (3.5-10.8)
[2021-03-25] MEDS ORDERED: Piperacillin/Tazobac ADVAN 3.375 GM in NS 0.9% 100 ml BAG 100 ML IV ONE (18:34)
[2021-03-25 18:41] LABS: Urine Appearance Cloudy; Urine Bilirubin Negative (Negative); Urine Blood 2+ (Negative); Urine Color Yellow; Urine Glucose Negative (Negative); Urine Ketones 1+ (Negative); Urine Nitrite Positive (Negative); Urine Protein Negative (Negative); Urine Specific Gravity 1.015 (1.002-1.030); Urine Urobilinogen Negative (Negative)
[2021-03-25 18:42] LABS: Albumin 4.4 g/dL (3.2-5.2); Albumin/Globulin Ratio 1.5 (1-3); C Reactive Protein 50.62 mg/L (<8.01); Calcium 9.6 mg/dL (8.6-10.3); EGFR African American 88.7 (>60); EGFR Non-African American 73.3 (>60); Globulin 2.9 g/dL (2-4); Potassium 3.6 mmol/L (3.5-5.0); Total Bilirubin 0.7 mg/dL (0.2-1.0); Total Protein 7.3 g/dL (6.4-8.9)
[2021-03-25 18:43] LABS: Activated Partial Thrombo Time 28.1 seconds (26.0-38.0); INR 1.18 (0.86-1.15); Troponin I 0.01 ng/mL (<0.03)
[2021-03-25] MEDS ORDERED: Iodixanol (CONTRAST) 320 MG/ML 100 ML SDV IV ONE (18:48)
[2021-03-25] MEDS ORDERED: VANCOMYCIN IVPB ONE (19:00)
[2021-03-25] MEDS ORDERED: NS 0.9% IVPB ONE (19:00)
[2021-03-25 19:02] LABS: Urine Bacteria 1+ (Absent); Urine Red Blood Cell 3+(>10/hpf) (Absent); Urine Red Blood Cell Casts Present (Absent); Urine White Blood Cell 3+(>20/hpf) (Absent)
[2021-03-26] MEDS ORDERED: Polyethylene Glycol 3350 17 GM PACKET PO PRN (03:00)
[2021-03-26] MEDS ORDERED: Magnesium Hydroxide LIQ 30 ML UDC PO PRN (03:00)
[2021-03-26] MEDS ORDERED: Dextrose 50% Syringe 50 ml 25 GM/50 ML SYRINGE IV PUSH PRN (03:07)
[2021-03-26] MEDS: fentaNYL PATCH 25 MCG/HR 1 PATCH TRANSDERM SCH (06:22)
[2021-03-26] MEDS: Meropenem 1 GM PREMIX(*) 1 GM/50 ML BAG IV SCH ×3 (06:28→22:52)
[2021-03-26] MEDS: Enoxaparin 40 MG/0.4 ML SYR SUBCUT SCH (06:37)
[2021-03-26] MEDS: NS 0.9% IV SCH ×4 (07:15→09:57)
[2021-03-26] MEDS: fentaNYL Patch Check Q Shift NOTE FOLLOW UP SCH ×2 (07:37→19:08)
[2021-03-26] MEDS: Insulin GLARGINE 100 un/ml 10 ml VIAL SUBCUT SCH ×2 (08:50→20:45)
[2021-03-26] MEDS: Nystatin TOP POWDER 15 GM BTL TOPICAL SCH (08:53)
[2021-03-26] MEDS: Senna TAB 8.6 mg TAB PO SCH ×2 (14:33→20:40)
[2021-03-26] MEDS: Polyethylene Glycol 3350 17 GM PACKET PO SCH ×2 (14:34→20:44)
[2021-03-26] MEDS ORDERED: Senna TAB 8.6 mg TAB PO SCH (21:00)
[2021-03-27 05:48] LABS: ABS Basophils 0.1 10^3/ul (0-0.2); ABS Eosinophils 0.2 10^3/ul (0-0.6); ABS Lymphocytes 1.1 10^3/ul (1.0-4.8); ABS Monocytes 0.8 10^3/ul (0-0.8); ABS Neutrophils 13.7 10^3/ul (1.5-7.7); Eosinophil % 1.1 %; Hematocrit 31 % (35-47); Hemoglobin 10.4 g/dL (12.0-16.0); Lymphocyte % 6.9 %; Mean Corpuscular HGB Conc 34 g/dL (31-36); Mean Corpuscular Hemoglobin 31 pg (27-31); Mean Corpuscular Volume 91 fL (80-97); Mean Platelet Volume 7.5 fL (7.4-10.4); Platelet Count 315 10^3/uL (150-450); Red Blood Count 3.38 10^6 /uL (3.70-4.87); Red Cell Distribution Width 14 % (10-15); White Blood Count 15.8 10^3/uL (3.5-10.8)
[2021-03-27] MEDS: Meropenem 1 GM PREMIX(*) 1 GM/50 ML BAG IV SCH ×3 (05:58→22:06)
[2021-03-27 06:04] LABS: Calcium 8.4 mg/dL (8.6-10.3); EGFR African American 117.3 (>60); EGFR Non-African American 96.9 (>60); Magnesium 1.8 mg/dL (1.9-2.7); Potassium 3.2 mmol/L (3.5-5.0)
[2021-03-27] MEDS: KCL 10 MEQ/50 ML IVPREMIX 10 MEQ/50 ML BAG IV SCH ×3 (07:37→19:01)
[2021-03-27] MEDS: fentaNYL Patch Check Q Shift NOTE FOLLOW UP SCH ×3 (07:39→23:32)
[2021-03-27] MEDS: Enoxaparin 40 MG/0.4 ML SYR SUBCUT SCH (10:03)
[2021-03-27] MEDS: Insulin GLARGINE 100 un/ml 10 ml VIAL SUBCUT SCH ×2 (10:06→22:08)
[2021-03-27] MEDS: Senna TAB 8.6 mg TAB PO SCH ×2 (10:06→22:25)
[2021-03-27] MEDS: Polyethylene Glycol 3350 17 GM PACKET PO SCH ×2 (10:08→22:24)
[2021-03-27] MEDS: Albuterol HFA INHALER 8 gm MDI INH PRN (12:48)
[2021-03-27] MEDS ORDERED: Hemorrhoidal OINT 1 TUBE PR PRN (14:54)
[2021-03-27] MEDS: Nystatin TOP POWDER 15 GM BTL TOPICAL SCH (15:20)
[2021-03-27] MEDS ORDERED: Potassium Chlor 20 meq TAB.ER PO ONE (16:40)
[2021-03-28] MEDS: Meropenem 1 GM PREMIX(*) 1 GM/50 ML BAG IV SCH (06:37)
[2021-03-28 07:03] LABS: Hematocrit 28 % (35-47); Hemoglobin 9.8 g/dL (12.0-16.0); Mean Corpuscular HGB Conc 36 g/dL (31-36); Mean Corpuscular Hemoglobin 32 pg (27-31); Mean Corpuscular Volume 89 fL (80-97); Mean Platelet Volume 7.6 fL (7.4-10.4); Platelet Count 321 10^3/uL (150-450); Red Blood Count 3.11 10^6 /uL (3.70-4.87); Red Cell Distribution Width 14 % (10-15); White Blood Count 8.5 10^3/uL (3.5-10.8)
[2021-03-28 07:22] LABS: Calcium 8.4 mg/dL (8.6-10.3); EGFR African American 107.2 (>60); EGFR Non-African American 88.6 (>60); Magnesium 1.7 mg/dL (1.9-2.7); Potassium 3.5 mmol/L (3.5-5.0)
[2021-03-28] MEDS: fentaNYL Patch Check Q Shift NOTE FOLLOW UP SCH ×2 (07:23→19:31)
[2021-03-28] MEDS ORDERED: Magnesium Sulfate IV 3 GM in NS 0.9% 100 ml BAG 100 ML IVPB ONE (07:41)
[2021-03-28] MEDS: Polyethylene Glycol 3350 17 GM PACKET PO SCH ×2 (09:24→22:28)
[2021-03-28] MEDS: Senna TAB 8.6 mg TAB PO SCH ×2 (09:26→22:27)
[2021-03-28] MEDS: Enoxaparin 40 MG/0.4 ML SYR SUBCUT SCH (09:26)
[2021-03-28] MEDS: Insulin GLARGINE 100 un/ml 10 ml VIAL SUBCUT SCH (09:29)
[2021-03-28] MEDS: Nystatin TOP POWDER 15 GM BTL TOPICAL SCH (09:31)
[2021-03-28] MEDS ORDERED: Zosyn per Pharmacy NOTE FOLLOW UP SCH (10:00)
[2021-03-28] MEDS ORDERED: ZOSYN 3.375 GM x ONE DOSE over 30 miuntes IV (10:30)
[2021-03-28] MEDS: ZOSYN 3.375 GM Q8H per EXTENDED INFUSION IV SCH (16:33)
[2021-03-29] MEDS: ZOSYN 3.375 GM Q8H per EXTENDED INFUSION IV SCH ×2 (00:46→07:55)
[2021-03-29] MEDS: fentaNYL Patch Check Q Shift NOTE FOLLOW UP SCH (06:52)
[2021-03-29 07:00] LABS: ABS Basophils 0.1 10^3/ul (0-0.2); ABS Eosinophils 0.4 10^3/ul (0-0.6); ABS Lymphocytes 1.3 10^3/ul (1.0-4.8); ABS Monocytes 0.5 10^3/ul (0-0.8); ABS Neutrophils 3.5 10^3/ul (1.5-7.7); Eosinophil % 6.4 %; Hematocrit 29 % (35-47); Hemoglobin 10.1 g/dL (12.0-16.0); Lymphocyte % 23.5 %; Mean Corpuscular HGB Conc 35 g/dL (31-36); Mean Corpuscular Hemoglobin 31 pg (27-31); Mean Corpuscular Volume 89 fL (80-97); Mean Platelet Volume 7.2 fL (7.4-10.4); Nucleated Red Blood Cells % 0.1; Platelet Count 329 10^3/uL (150-450); Red Blood Count 3.28 10^6 /uL (3.70-4.87); Red Cell Distribution Width 14 % (10-15); White Blood Count 5.7 10^3/uL (3.5-10.8)
[2021-03-29 07:15] LABS: Calcium 8.4 mg/dL (8.6-10.3); EGFR Non-African American 91.8 (>60); Potassium 3.9 mmol/L (3.5-5.0)
[2021-03-29] MEDS: Enoxaparin 40 MG/0.4 ML SYR SUBCUT SCH (07:55)
[2021-03-29] MEDS: Senna TAB 8.6 mg TAB PO SCH (07:57)
[2021-03-29] MEDS: Polyethylene Glycol 3350 17 GM PACKET PO SCH (07:58)
[2021-03-29] MEDS ORDERED: Calcium Carbonate LIQ 1,250 mg/5 ml UDC PO ONE (08:00)
[2021-03-29] MEDS: Albuterol HFA INHALER 8 gm MDI INH PRN (08:08)
[2021-03-29] MEDS: Nystatin TOP POWDER 15 GM BTL TOPICAL SCH (08:21)
[2021-03-29] MEDS: fentaNYL PATCH 25 MCG/HR 1 PATCH TRANSDERM SCH (08:21)
[2021-03-29] MEDS ORDERED: Insulin GLARGINE 100 un/ml 10 ml VIAL SUBCUT SCH (09:00)
[2021-03-29 12:06] VITALS: BP 108/57
== END 2021-03-29 15:41 | disposition swing bed (61) | DRG 720 ==
LOC: ED 14:33 → SSU 16:12 → MED 03-26 02:54 → SSU 03-27 04:10
PROVIDERS: ADMIT Internal Medicine; ATTEND Student in an Organized Health Care Education/Training Program

== ENCOUNTER 2021-03-29 15:48 | Inpatient (IN) ==
[2021-03-29] MEDS ORDERED: Hemorrhoidal OINT 1 TUBE PR PRN (16:08)
[2021-03-29] MEDS ORDERED: Dextrose 50% Syringe 50 ml 25 GM/50 ML SYRINGE IV PUSH PRN (16:08)
[2021-03-29] MEDS ORDERED: Zosyn per Pharmacy NOTE FOLLOW UP SCH (17:00)
[2021-03-29] MEDS: ZOSYN 3.375 GM Q8H per EXTENDED INFUSION IV SCH (18:11)
[2021-03-29] MEDS: fentaNYL Patch Check Q Shift NOTE FOLLOW UP SCH (18:53)
[2021-03-29] MEDS: Cholecalciferol (VIT D3) 1,000 unit TAB PO SCH (22:57)
[2021-03-29] MEDS: Senna TAB 8.6 mg TAB PO SCH (22:57)
[2021-03-29] MEDS: Polyethylene Glycol 3350 17 GM PACKET PO SCH (22:59)
[2021-03-30] MEDS: ZOSYN 3.375 GM Q8H per EXTENDED INFUSION IV SCH ×3 (01:06→17:03)
[2021-03-30] MEDS: fentaNYL Patch Check Q Shift NOTE FOLLOW UP SCH ×2 (06:53→20:22)
[2021-03-30] MEDS: Enoxaparin 40 MG/0.4 ML SYR SUBCUT SCH (09:04)
[2021-03-30] MEDS: Insulin GLARGINE 100 un/ml 10 ml VIAL SUBCUT SCH (09:04)
[2021-03-30] MEDS: Nystatin TOP POWDER 15 GM BTL TOPICAL SCH (09:06)
[2021-03-30] MEDS: Polyethylene Glycol 3350 17 GM PACKET PO SCH ×2 (09:07→20:12)
[2021-03-30] MEDS: Senna TAB 8.6 mg TAB PO SCH ×2 (09:09→20:13)
[2021-03-30] MEDS: Cholecalciferol (VIT D3) 1,000 unit TAB PO SCH ×2 (09:10→20:12)
[2021-03-30] MEDS: Magnesium Hydroxide LIQ 30 ML UDC PO PRN ×2 (15:05→20:15)
[2021-03-30] MEDS: Albuterol HFA INHALER 8 gm MDI INH PRN (20:23)
[2021-03-31] MEDS: ZOSYN 3.375 GM Q8H per EXTENDED INFUSION IV SCH ×3 (00:59→16:43)
[2021-03-31] MEDS: fentaNYL Patch Check Q Shift NOTE FOLLOW UP SCH ×2 (06:54→19:09)
[2021-03-31] MEDS: Polyethylene Glycol 3350 17 GM PACKET PO SCH ×2 (09:01→23:11)
[2021-03-31] MEDS: Enoxaparin 40 MG/0.4 ML SYR SUBCUT SCH (09:02)
[2021-03-31] MEDS: Insulin GLARGINE 100 un/ml 10 ml VIAL SUBCUT SCH (09:03)
[2021-03-31] MEDS: Nystatin TOP POWDER 15 GM BTL TOPICAL SCH (09:06)
[2021-03-31] MEDS: Magnesium Hydroxide LIQ 30 ML UDC PO PRN (09:07)
[2021-03-31] MEDS: Cholecalciferol (VIT D3) 1,000 unit TAB PO SCH ×2 (09:07→23:12)
[2021-03-31] MEDS: Senna TAB 8.6 mg TAB PO SCH ×2 (09:10→23:12)
[2021-04-01] MEDS: ZOSYN 3.375 GM Q8H per EXTENDED INFUSION IV SCH ×3 (01:05→17:36)
[2021-04-01 07:01] LABS: Hematocrit 31 % (35-47); Hemoglobin 10.9 g/dL (12.0-16.0); Mean Corpuscular HGB Conc 35 g/dL (31-36); Mean Corpuscular Hemoglobin 31 pg (27-31); Mean Corpuscular Volume 90 fL (80-97); Mean Platelet Volume 6.8 fL (7.4-10.4); Platelet Count 408 10^3/uL (150-450); Red Blood Count 3.48 10^6 /uL (3.70-4.87); Red Cell Distribution Width 13 % (10-15)
[2021-04-01 07:20] LABS: Calcium 8.9 mg/dL (8.6-10.3); EGFR African American 105.4 (>60); EGFR Non-African American 87.1 (>60); Potassium 4.1 mmol/L (3.5-5.0)
[2021-04-01] MEDS: fentaNYL Patch Check Q Shift NOTE FOLLOW UP SCH ×2 (07:26→19:02)
[2021-04-01] MEDS: fentaNYL PATCH 25 MCG/HR 1 PATCH TRANSDERM SCH (08:59)
[2021-04-01] MEDS: Enoxaparin 40 MG/0.4 ML SYR SUBCUT SCH (09:02)
[2021-04-01] MEDS: Insulin GLARGINE 100 un/ml 10 ml VIAL SUBCUT SCH (09:02)
[2021-04-01] MEDS: Cholecalciferol (VIT D3) 1,000 unit TAB PO SCH ×2 (09:03→21:52)
[2021-04-01] MEDS: Senna TAB 8.6 mg TAB PO SCH ×2 (09:03→21:51)
[2021-04-01] MEDS: Polyethylene Glycol 3350 17 GM PACKET PO SCH ×2 (09:06→21:49)
[2021-04-01] MEDS: Nystatin TOP POWDER 15 GM BTL TOPICAL SCH (09:06)
[2021-04-02] MEDS: ZOSYN 3.375 GM Q8H per EXTENDED INFUSION IV SCH ×3 (00:47→17:15)
[2021-04-02] MEDS: Albuterol HFA INHALER 8 gm MDI INH PRN ×2 (06:01→21:15)
[2021-04-02] MEDS: fentaNYL Patch Check Q Shift NOTE FOLLOW UP SCH ×2 (07:14→18:43)
[2021-04-02] MEDS: Enoxaparin 40 MG/0.4 ML SYR SUBCUT SCH (09:35)
[2021-04-02] MEDS: Insulin GLARGINE 100 un/ml 10 ml VIAL SUBCUT SCH (09:36)
[2021-04-02] MEDS: Cholecalciferol (VIT D3) 1,000 unit TAB PO SCH ×2 (09:37→21:08)
[2021-04-02] MEDS: Senna TAB 8.6 mg TAB PO SCH ×2 (09:37→21:07)
[2021-04-02] MEDS: Nystatin TOP POWDER 15 GM BTL TOPICAL SCH (09:40)
[2021-04-02] MEDS: Polyethylene Glycol 3350 17 GM PACKET PO SCH ×2 (09:40→21:13)
[2021-04-03] MEDS: ZOSYN 3.375 GM Q8H per EXTENDED INFUSION IV SCH ×3 (00:45→17:56)
[2021-04-03] MEDS: fentaNYL Patch Check Q Shift NOTE FOLLOW UP SCH ×2 (07:19→19:06)
[2021-04-03] MEDS: Insulin GLARGINE 100 un/ml 10 ml VIAL SUBCUT SCH (10:55)
[2021-04-03] MEDS: Enoxaparin 40 MG/0.4 ML SYR SUBCUT SCH (11:00)
[2021-04-03] MEDS: Senna TAB 8.6 mg TAB PO SCH ×2 (11:02→21:56)
[2021-04-03] MEDS: Cholecalciferol (VIT D3) 1,000 unit TAB PO SCH ×2 (11:02→21:56)
[2021-04-03] MEDS: Polyethylene Glycol 3350 17 GM PACKET PO SCH ×2 (11:06→21:56)
[2021-04-03] MEDS: Nystatin TOP POWDER 15 GM BTL TOPICAL SCH (14:13)
[2021-04-04] MEDS: ZOSYN 3.375 GM Q8H per EXTENDED INFUSION IV SCH ×2 (01:06→09:59)
[2021-04-04] MEDS: fentaNYL Patch Check Q Shift NOTE FOLLOW UP SCH (07:04)
[2021-04-04 07:57] VITALS: BP 142/68
[2021-04-04] MEDS: Senna TAB 8.6 mg TAB PO SCH (09:58)
[2021-04-04] MEDS: Cholecalciferol (VIT D3) 1,000 unit TAB PO SCH (10:00)
[2021-04-04] MEDS: Enoxaparin 40 MG/0.4 ML SYR SUBCUT SCH (10:02)
[2021-04-04] MEDS: Insulin GLARGINE 100 un/ml 10 ml VIAL SUBCUT SCH (10:04)
[2021-04-04] MEDS: Polyethylene Glycol 3350 17 GM PACKET PO SCH (10:04)
[2021-04-04] MEDS: Nystatin TOP POWDER 15 GM BTL TOPICAL SCH (10:04)
[2021-04-04] MEDS: fentaNYL PATCH 25 MCG/HR 1 PATCH TRANSDERM SCH (10:39)
== END 2021-04-04 17:30 | DRG 720 ==
LOC: SUATTDRO 15:48 → SSU 15:48
PROVIDERS: ADMIT Student in an Organized Health Care Education/Training Program; ATTEND Internal Medicine